=== PATIENT | male | born 1940 | race Caucasian/White ===

== ENCOUNTER 2017-01-23 15:36 | Emergency (ER) ==
[2017-01-23 15:44] VITALS: BP 189/91; TEMP 97.2; BMI 20.6
[2017-01-23 16:02] LABS: BILIRUBIN,URINE Negative (NEGATIVE); KETONES,URINE Negative (NEGATIVE); LEUKOCYTE ESTERASE ,URINE Negative (NEGATIVE); NITRITE,URINE Negative (NEGATIVE); PROTEIN,URINE 2+ (NEGATIVE); URINE, BLOOD 2+ (NEGATIVE)
[2017-01-23 16:03] LABS: ADD URINE MICROSCOPIC YES
--- NOTE | 2017-01-23 16:07 | ED.PDOC ---
General ED Provider: Dr. CRISS SOARES JR Chief Complaint: Urinary Problem Stated Complaint: INCREASING BLOOD IN HIS URINE FOR 4-5 DAYS....SAYS TODAY THE BLOOD IS QUITE A BIT MORE, HAS SENSE OF URGENCY AND PAIN WHEN HE URINATES[End] STATED HE HAS HAD ..MORE TODAY THATN BEFORE. BURNING WITH URINATION BUT OTHERWISE NO PAIN.[End]4-5 days 97.2 66 20 95% 189/91 12/20 Time Seen by Physician: 16:05 Mode of Arrival: Walk-In Information Source: Patient Exam Limitations: No limitations [facility] Nursing and Triage Documentation Reviewed and Agree: No Review of Systems - Review Of Systems Constitutional: Reports: Malaise Eyes: Reports: No symptoms Ears, Nose, Mouth, Throat: Reports: No symptoms Respiratory: Reports: No symptoms Cardiac: Reports: No symptoms GI: Reports: No symptoms : Reports: Burning, Dysuria, Flank pain (pulling in LLQ) Musculoskeletal: Reports: Back pain Skin: Reports: No symptoms Neurological: Reports: No symptoms Endocrine: Reports: No symptoms Hematologic/Lymphatic: Reports: No symptoms All Other Systems: Other Past Medical History - Past Medical History Previously Healthy: No Endocrine: Reports: None, Dyslipidemia Cardiovascular: Reports: CAD, Hypertension, A-Fib Respiratory: Reports: COPD Hematological: Reports: None Gastrointestinal: Reports: None Genitourinary: Reports: None, Kidney stones (KIDNEY STONE 20 YEARS AGO- states sees dr butt, last stone 6 weeks ago) Neuro/Psych: Reports: None Musculoskeletal: Reports: None Cancer: Reports: None - Surgical History General Surgical History: Reports: None (HAS STENTS), Stent (Cardiac STENT ) - Family History Family History: Reports: Unknown - Social History Smoking Status: Current every day smoker, Heavy tobacco smoker Hx Substance Use: No Alcohol Screening: None - Immunizations Tetanus Shot up to Date: Yes Physical Exam - Physical Exam Appearance: Well-appearing, Thin Pain Distress: Mild Eyes: CHERIE, EOMI, Conjunctiva clear ENT: Ears normal, Nose normal, Oropharynx normal Neck: Supple Respiratory: Airway patent, Breath sounds clear, Breath sounds equal, Respirations nonlabored Cardiovascular: RRR, Pulses normal, No rub, No murmur GI/: Soft, Nontender (drawing sensation left lower quadrant), No masses, Bowel sounds normal, No Organomegaly Musculoskeletal: Normal strength, ROM intact, No edema, No calf tenderness Skin: Warm, Dry, Normal color Neurological: Sensation intact, Motor intact, Reflexes intact, Cranial nerves intact, Alert, Oriented Psychiatric: Affect appropriate, Mood appropriate Interpretation - Radiology Interpretation Radiology Interpretation By: Radiologist Radiology Results: Positive Exam Interpreted: CT Scan (9mm stone in bladder) Critical Care Note - Critical Care Note Total Time (mins): 0 Course - Course Hematology/Chemistry: 01/23/17 16:15 01/23/17 16:15 Orders, Labs, Meds: Lab Review 01/23/17 01/23/17 15:50 16:15 WBC 8.20 RBC 5.16 Hgb 14.8 Hct 43.5 MCV 84.3 MCH 28.7 MCHC 34.0 RDW Coeff of Maty 15.1 H Plt Count 289 Immature Gran % (Auto) 0.2 Neut % (Auto) 52.7 Lymph % (Auto) 33.7 [place] % (Auto) 7.2 Eos % (Auto) 5.2 Baso % (Auto) 1.0 Immature Gran # (Auto) 0.0 Neut # 4.3 Lymph # 2.8 [place] # 0.6 Eos # 0.4 Baso # 0.1 Sodium 142 Potassium 3.7 Chloride 109 H Carbon Dioxide 29 Anion Gap 7.7 BUN 17 Creatinine 0.86 Estimated GFR (MDRD) 87.00 BUN/Creatinine Ratio 19.76 Glucose 93 Calcium 9.1 Total Bilirubin 0.26 AST 17 ALT 12 Alkaline Phosphatase 62 Total Protein 6.8 Albumin 3.6 Globulin 3.2 Albumin/Globulin Ratio 1.13 Urine Color Red Urine Clarity Cloudy Urine pH 7.0 Ur Specific [place] 1.025 Urine Protein 2+ Urine Glucose (UA) Negative Urine Ketones Negative Urine Blood 2+ Urine Nitrite Negative Urine Bilirubin Negative Urine Urobilinogen 0.2 Ur Leukocyte Esterase Negative Urine Microscopic RBC Tntc Urine Microscopic WBC 10-20 Ur Squamous Epith Cells Not present Amorphous Sediment Trace Urine Bacteria Trace RBC Casts 0-2 Urine Mucus Trace Orders Category Date Time Status CBC W/ AUTO DIFF Stat LAB 01/23/17 16:15 Completed COMPREHENSIVE METABOLIC PANEL Stat LAB 01/23/17 16:15 Completed UA [URINALYSIS C & S IF INDICATED] Stat LAB 01/23/17 15:50 Completed URINE CULTURE Stat LAB 01/23/17 16:[address] ABDOMEN/PELVIS WO CONTRAST Stat RADS 01/23/17 16:09 Completed Vital Signs: Temp Pulse Resp BP Pulse Ox 01/23/17 15:39 97.2 F L 66 20 189/91 H 95 Departure - Departure Time of Disposition: 17:26 Disposition: HOME SELF-CARE Discharge Problem: Nephrolithiasis Instructions: Kidney Stones (ED) Condition: Good Pt referred to PMD for follow-up: Yes Additional Instructions: CALL PMD FOR FOLLOW UP IN THE MORNING RECOMMEND UROLOGY FOLLOW UP STONE IN BLADDER SHOULD MAY PASS WITH DIFFICULTY INCREASE CLEAR LIQUIDS RETURN IF ANY DIFFICULTY URINATING OR IF NOT PASSING URINE Prescriptions: Nitrofurantoin Monohyd/M-Cryst [Macrobid] 100 mg PO BID #14 capsule Allergies/Adverse Reactions: Allergies No Known Allergies Allergy (Unverified 01/23/17 15:45) Home Medications: Ambulatory Orders Aspirin [Aspirin EC] 162 mg PO DAILYWM 08/12/13 Nitrofurantoin Monohyd/M-Cryst [Macrobid] 100 mg PO BID #14 capsule 01/23/17
[2017-01-23 16:16] LABS: BACTERIA,URINE TRACE (NOT PRESENT)
[2017-01-23 16:37] LABS: BASOPHILS # (AUTO) 0.1 K/uL (0-0.2); EOSINOPHILS # (AUTO) 0.4 K/ul (0.0-0.7); EOSINOPHILS % (AUTO) 5.2 % (0.0-7.0); HEMATOCRIT 43.5 % (42.0-52.0); HEMOGLOBIN 14.8 g/dl (14.0-18.0); IMMATURE GRANULOCYTE % (AUTO) 0.2 % (0.0-5.0); LYMPHOCYTES # (AUTO) 2.8 K/uL (0.60-3.4); LYMPHOCYTES % (AUTO) 33.7 (10.0-50.0); MEAN CORPUSCULAR HEMOGLOBIN 28.7 pg (27.0-31.0); MEAN CORPUSCULAR VOLUME 84.3 fl (80.0-94.0); MONOCYTES # (AUTO) 0.6 K/uL (0.4-2.0); MONOCYTES % (AUTO) 7.2 (0-10); NEUTROPHILS # (AUTO) 4.3 K/ul (2.0-6.9); NEUTROPHILS % (AUTO) 52.7; PLATELET COUNT 289 10^3/uL (140-440); RED BLOOD COUNT 5.16 10^6/ul (4.70-6.10)
[2017-01-23 16:43] LABS: ALBUMIN 3.6 g/dL (3.4-5.0); ALBUMIN/GLOBULIN RATIO 1.13; ANION GAP 7.7; BILIRUBIN,TOTAL 0.26 mg/dL (0.00-1.20); BUN/CREATININE RATIO 19.76; CALCIUM 9.1 mg/dL (8.2-10.2); CREATININE 0.86 mg/dL (0.60-1.10); POTASSIUM 3.7 mmol/L (3.5-5.1); TOTAL PROTEIN 6.8 g/dL (5.8-8.1)
--- NOTE | 2017-01-23 17:19 | CT ---
EXAM: CT scan of the abdomen and pelvis without contrast HISTORY: Abdominal pain TECHNIQUE: Imaging of the abdomen and pelvis was performed without contrast. 3 mm thin axial image s and coronal and sagittal images were provided for interpretation. Comparison 10/21/2016 CT scan of the abdomen and pelvis. FINDINGS: There is stable appearance of a cyst seen within the left lobe of the liver. The pancrea s, adrenal glands appear normal. The proximal ureters are normal size. The small and large bowel l oops are normal caliber. There is a small nonobstructing calculus seen within the inferior pole of the right kidney. There is no free air. No acute abnormalities are seen within the anterior abdomi nal wall. The appendix appears normal. The helical images obtained through the pelvis demonstrate a normal appearance of the rectum, urinar y bladder. There is diverticular disease of the sigmoid colon without acute inflammation. There is no free fluid seen within the pelvis. There is a 9 mm calculus seen within the lumen of the urinary bladder. Emphysematous changes are seen within the lung bases. No lytic or blastic lesions are see n within the osseous structures. IMPRESSION: There is no ureteral obstruction. There is no bowel obstruction or acute inflammatory change seen within the abdomen and pelvis. Nonobstructing nephrolithiasis seen within the right kidney. Diverticular disease of the sigmoid colon without acute inflammation. There is a 9 mm calculus seen within the urinary bladder. Pulmonary emphysema.
== END 2017-01-23 18:00 | disposition home or self-care (01) ==
LOC: ED 15:36
DX: N20.0 Calculus of kidney (principal); Z87.442 Personal history of urinary calculi; F17.210 Nicotine dependence, cigarettes, uncomplicated
CPT/HCPCS: 36415; 80053; 81001; 85025; 87086; 99282

== ENCOUNTER 2017-03-19 07:27 | Outpatient (CLI) ==
[2017-03-19 07:47] LABS: BASOPHILS # (AUTO) 0.1 K/uL (0-0.2); BASOPHILS % (AUTO) 0.8 % (0.0-3.0); EOSINOPHILS # (AUTO) 0.4 K/ul (0.0-0.7); EOSINOPHILS % (AUTO) 4.4 % (0.0-7.0); HEMATOCRIT 42.2 % (42.0-52.0); HEMOGLOBIN 14.2 g/dl (14.0-18.0); IMMATURE GRANULOCYTE % (AUTO) 0.2 % (0.0-5.0); LYMPHOCYTES # (AUTO) 2.9 K/uL (0.60-3.4); LYMPHOCYTES % (AUTO) 34.8 (10.0-50.0); MEAN CORPUSCULAR HEMOGLOBIN 28.9 pg (27.0-31.0); MEAN CORPUSCULAR HGB CONC 33.6 (31.8-35.4); MEAN CORPUSCULAR VOLUME 85.8 fl (80.0-94.0); MONOCYTES # (AUTO) 0.6 K/uL (0.4-2.0); MONOCYTES % (AUTO) 7.3 (0-10); NEUTROPHILS # (AUTO) 4.4 K/ul (2.0-6.9); NEUTROPHILS % (AUTO) 52.5; PLATELET COUNT 284 10^3/uL (140-440); RED BLOOD COUNT 4.92 10^6/ul (4.70-6.10); WHITE BLOOD COUNT 8.46 K/ul (4.2-10.2)
[2017-03-19 08:04] LABS: ALBUMIN 3.3 g/dL (3.4-5.0); ALBUMIN/GLOBULIN RATIO 1.14; BILIRUBIN,TOTAL 0.4 mg/dL (0.00-1.20); BUN/CREATININE RATIO 19.76; CALCIUM 8.5 mg/dL (8.2-10.2); CREATININE 0.86 mg/dL (0.60-1.10); TOTAL PROTEIN 6.2 g/dL (5.8-8.1)
== END 2017-03-19 07:28 | disposition home or self-care (01) ==
LOC: LAB 07:27
PROVIDERS: ATTEND Nurse Practitioner Family
DX: I10 Essential (primary) hypertension (principal); J44.9 Chronic obstructive pulmonary disease, unspecified
CPT/HCPCS: 36415; 80053; 80061; 85025

== ENCOUNTER 2017-03-21 07:35 | Outpatient (CLI) | payer OTHER ==
[2017-03-21 08:16] LABS: MAGNESIUM 1.9 mg/dL (1.7-2.2); POTASSIUM 3.3 mmol/L (3.5-5.1)
== END 2017-03-21 07:36 | disposition home or self-care (01) ==
LOC: LAB 07:35
PROVIDERS: ATTEND Nurse Practitioner Family
DX: E87.6 Hypokalemia (principal)
CPT/HCPCS: 36415; 83735; 84132

== ENCOUNTER 2017-03-26 11:13 | Outpatient (CLI) ==
[2017-03-26 14:24] LABS: ALBUMIN 3.5 g/dL (3.4-5.0); ALBUMIN/GLOBULIN RATIO 1.06; ANION GAP 14.5; BILIRUBIN,TOTAL 0.33 mg/dL (0.00-1.20); BUN/CREATININE RATIO 20.87; CALCIUM 8.9 mg/dL (8.2-10.2); CREATININE 0.91 mg/dL (0.60-1.10); POTASSIUM 3.5 mmol/L (3.5-5.1); TOTAL PROTEIN 6.8 g/dL (5.8-8.1)
== END 2017-03-26 11:14 | disposition home or self-care (01) ==
LOC: LAB 11:13
PROVIDERS: ATTEND Nurse Practitioner Family
DX: E87.6 Hypokalemia (principal); I10 Essential (primary) hypertension
CPT/HCPCS: 36415; 80053

== ENCOUNTER 2017-07-13 08:42 | Emergency (ER) ==
[2017-07-13 08:50] VITALS: BP 189/76; TEMP 98.7; BMI 18.5
[2017-07-13 09:31] LABS: HEMATOCRIT 37.9 % (42.0-52.0); MEAN CORPUSCULAR HEMOGLOBIN 28.7 pg (27.0-31.0); MEAN CORPUSCULAR HGB CONC 34.3 (31.8-35.4); MEAN CORPUSCULAR VOLUME 83.7 fl (80.0-94.0); PLATELET COUNT 281 10^3/uL (140-440); RED BLOOD COUNT 4.53 10^6/ul (4.70-6.10); WHITE BLOOD COUNT 12.12 K/ul (4.2-10.2)
--- NOTE | 2017-07-13 09:44 | CT ---
EXAM: CT of the chest without contrast. HISTORY: Cough. COMPARISON: 01/17/2016. TECHNIQUE: Contiguous axial images were obtained from lung apices to the upper abdomen. Study was performed without IV contrast. Sagittal and coronal reformats reviewed. FINDINGS: The lung windows demonstrate minimal emphysematous changes. There is no lobar consolidat ion or effusion. Fibrotic changes seen in the superior segment of the lower lobes bilaterally. Sub pleural blebs are seen bilaterally, right greater left. There are no suspicious pulmonary nodules. The airways are widely patent. The soft tissue windows demonstrate a normal size heart. There are coronary artery calcifications. Calcified mediastinal lymph nodes seen. There is no significant a denopathy. Limited views of the upper abdomen are unremarkable. The visualized portion of the liver, spleen, p ancreas adrenal glands are normal. The aorta is heavily calcified. There is curvature of the spine to the right, measuring approximately 22 degrees. No acute abnormal ities. IMPRESSION: 1. No acute pulmonary disease. 2. Emphysematous changes. 3. Granulomatous changes. 4. Coronary artery disease.
[2017-07-13 09:50] LABS: ANISOCYTOSIS NOT PRESENT (NOT PRESENT)
[2017-07-13 09:51] LABS: ALBUMIN 2.8 g/dL (3.4-5.0); ALBUMIN/GLOBULIN RATIO 0.8; ANION GAP 16.4; BILIRUBIN,TOTAL 0.42 mg/dL (0.00-1.20); BUN/CREATININE RATIO 16.45; CALCIUM 9.7 mg/dL (8.2-10.2); CREATININE 0.79 mg/dL (0.60-1.10); POTASSIUM 3.4 mmol/L (3.5-5.1); TOTAL PROTEIN 6.3 g/dL (5.8-8.1)
[2017-07-13 10:50] LABS: BILIRUBIN,URINE 1+ (NEGATIVE); KETONES,URINE Negative (NEGATIVE); LEUKOCYTE ESTERASE ,URINE Negative (NEGATIVE); NITRITE,URINE Negative (NEGATIVE); PROTEIN,URINE 1+ (NEGATIVE); URINE, BLOOD Trace-intact (NEGATIVE)
[2017-07-13 10:52] LABS: ADD URINE MICROSCOPIC YES
--- NOTE | 2017-07-13 11:22 | CT ---
EXAM: Noncontrast CT of the abdomen and pelvis. HISTORY: Abdominal pain. Elevated white blood cell count. COMPARISON: 01/23/2017 TECHNIQUE: Contiguous axial images at 3 mm intervals were obtained from lung bases through the pelv is. No contrast was given. Coronal reformats were reviewed. FINDINGS: The study is limited without contrast. CHEST: The lung bases show no lobar consolidation or effusion. Bullous disease is seen in the righ t base. Adjacent fibrotic changes seen. Coronary calcifications are noted.The heart size is within normal limits. ABDOMEN: Evaluation of the soft tissue organs is limited without contrast. LIVER: Noncontrast images of the liver show no solid mass lesion or intrahepatic ductal dilatation. There is a stable 2 x 3 cm cystic mass in the left lobe of liver. No other masses are seen. BILIARY: The gallbladder is normally distended. No gallstones are noted. No pericholecystic fluid or inflammation. The common bile duct is normal. SPLEEN: The spleen is unremarkable. PANCREAS: The pancreas shows no mass lesion or peripancreatic inflammation. ADRENAL GLANDS: The adrenal glands are normal. RENAL: The kidneys show no hydronephrosis. There is a nonobstructing 3 mm calcification in the inf erior right kidney. No obstructing stones are seen. There are no obstructing ureteral stones. No s olid mass lesions are identified. RETROPERITONEUM: The aorta is unopacified. No aneurysm is identified. Heavy aortic calcifications are seen. There is no retroperitoneal or mesenteric adenopathy. BOWEL: The bowel is unopacified. There is no obstruction or inflammatory change. There is no free fluid or free air. No significant inflammatory changes are seen. Diffuse diverticulosis is seen without definite evidence of acute diverticulitis. There is no surrounding inflammation or bowel wa ll thickening. The appendix is identified and is normal. PELVIS: BLADDER: The bladder is well distended and appears normal. GENITOURINARY STRUCTURES: The prostate is unremarkable. OSSEOUS STRUCTURES: The osseous structures are normal for age. IMPRESSION 1. No acute intra-abdominal abnormality. Limited study without contrast. No obstructing ureteral stones. 2. The appendix is normal. 3. Diverticulosis without definite evidence of acute diverticulitis. 4. Right nephrolithiasis without obstructing stones. 5. Atherosclerotic disease of the aorta. 6. Stable left renal cyst. 7. Coronary artery disease.
--- NOTE | 2017-07-13 11:49 | ED.PDOC ---
General ED Provider: Dr. SHELLEY YO Chief Complaint: Sore Throat Stated Complaint: sore throat Time Seen by Physician: 09:00 (seen with staff) Mode of Arrival: Walk-In Information Source: Patient Exam Limitations: No limitations [facility] and Triage Documentation Reviewed and Agree: Yes EENT Complaint Exam - Throat Complaint/Exam Symptoms Are: Resolved Timimg: Intermittent Initial Severity: Mild Current Severity: Mild Aggravating: Reports: None Alleviating: Reports: None Associated Signs and Symptoms: Reports: Cough. Denies: Fever, Dysphagia, Drooling, Foreign body sensation, Chills, Wheezing, Hoarseness, Sinus discomfort , Nasal congestion, Difficulty breathing, Lethargy, Irritability, Decreased activity, Vomiting, Diarrhea, Decreased hearing, Ear drainage Related History: Reports: Similar Episode Uvula Midline: Yes Heidi-tonsillar Fluctuence: No Scarlatinaform Rash Present: No Stridor Present: No Sinus Tenderness Present: No Tonsillar Hypertrophy Present: No Tonsillar Exudate Present: No Heidi-tonsillar Swelling Present: No Adenopathy Present: No Splenomegaly Present: No Differential Diagnoses: Pharyngitis Review of Systems - Review Of Systems Constitutional: Reports: Malaise, Weakness Eyes: Reports: No symptoms Ears, Nose, Mouth, Throat: Reports: No symptoms Respiratory: Reports: Cough Cardiac: Reports: No symptoms GI: Reports: Abdominal pain : Reports: No symptoms Musculoskeletal: Reports: No symptoms Skin: Reports: No symptoms Neurological: Reports: No symptoms Endocrine: Reports: No symptoms Hematologic/Lymphatic: Reports: No symptoms All Other Systems: Reviewed and Negative Past Medical History - Past Medical History Previously Healthy: No Endocrine: Reports: None, Dyslipidemia Cardiovascular: Reports: CAD, Hypertension, A-Fib Respiratory: Reports: COPD Hematological: Reports: None Gastrointestinal: Reports: None Genitourinary: Reports: None, Kidney stones (KIDNEY STONE 20 YEARS AGO- states sees dr butt, last stone 6 weeks ago) Neuro/Psych: Reports: None Musculoskeletal: Reports: None Cancer: Reports: None - Surgical History General Surgical History: Reports: None (HAS STENTS), Stent (Cardiac STENT ) - Family History Family History: Reports: Unknown - Social History Smoking Status: Current every day smoker, Heavy tobacco smoker Hx Substance Use: No Alcohol Screening: None Physical Exam - Physical Exam Appearance: Well-appearing, No pain distress, Well-nourished Eyes: CHERIE, EOMI, Conjunctiva clear ENT: Ears normal, Nose normal, Oropharynx normal Respiratory: Airway patent, Breath sounds clear, Breath sounds equal, Respirations nonlabored Cardiovascular: RRR, Pulses normal, No rub, No murmur GI/: Soft, Nontender, No masses, Bowel sounds normal, No Organomegaly Musculoskeletal: Normal strength, ROM intact, No edema, No calf tenderness Skin: Warm, Dry, Normal color Neurological: Sensation intact, Motor intact, Reflexes intact, Cranial nerves intact, Alert, Oriented Psychiatric: Affect appropriate, Mood appropriate Critical Care Note - Critical Care Note Total Time (mins): 0 Course - Course Hematology/Chemistry: 07/13/17 09:15 07/13/17 09:15 Orders, Labs, Meds: Lab Review 07/13/17 07/13/17 09:15 10:29 WBC 12.12 H RBC 4.53 L Hgb 13.0 L Hct 37.9 L MCV 83.7 MCH 28.7 MCHC 34.3 RDW Coeff of Maty 14.0 Plt Count 281 Neutrophils % (Manual) 63.0 Band Neutrophils % 7.0 H Lymphocytes % (Manual) 24.0 Monocytes % (Manual) 6.0 Anisocytosis Not present Sodium 142 Potassium 3.4 L Chloride 104 Carbon Dioxide 25 Anion Gap 16.4 BUN 13 Creatinine 0.79 Estimated GFR (MDRD) 96.00 BUN/Creatinine Ratio 16.45 Glucose 104 Calcium 9.7 Total Bilirubin 0.42 AST 19 ALT 13 Alkaline Phosphatase 75 Total Protein 6.3 Albumin 2.8 L Globulin 3.5 Albumin/Globulin Ratio 0.80 Urine Color Yellow Urine Clarity Slightly Urine pH 8.0 Ur Specific [place] 1.020 Urine Protein 1+ Urine Glucose (UA) Negative Urine Ketones Negative Urine Blood Trace-intact Urine Nitrite Negative Urine Bilirubin 1+ Urine Urobilinogen 4.0 Ur Leukocyte Esterase Negative Urine Microscopic RBC 2-5 Ur Squamous Epith Cells 0-2 Urine Mucus 3+ Orders Category Date Time Status CBC W/ AUTO DIFF Stat LAB 07/13/17 09:15 Completed COMPREHENSIVE METABOLIC PANEL Stat LAB 07/13/17 09:15 Completed LITHIUM Stat LAB 07/13/17 11:44 Ordered MANUAL DIFFERENTIAL Stat LAB 07/13/17 09:15 Completed MOLECULAR GROUP A STREP Stat LAB 07/13/17 09:15 Results STREP SCREEN Stat LAB 07/13/17 09:15 Results URINALYSIS C & S IF INDICATED Stat LAB 07/13/17 10:[address] ABDOMEN/PELVIS WO CONTRAST Stat RADS 07/13/17 10:[address] CHEST W/O CONTRAST Stat RADS 07/13/17 09:09 Completed Vital Signs: Temp Pulse Resp BP Pulse Ox 07/13/17 08:43 98.7 F 75 20 189/76 H 93 L Departure - Departure Time of Disposition: 11:48 Disposition: HOME SELF-CARE Discharge Problem: Sore throat symptom Instructions: Pharyngitis (ED), Viral Syndrome (ED) Condition: Good Pt referred to PMD for follow-up: Yes Additional Instructions: Please call your Family Physician as soon as possible to schedule a follow-up appointment. Allergies/Adverse Reactions: Allergies No Known Allergies Allergy (Verified 07/13/17 08:51) Home Medications: Ambulatory Orders Aspirin [Aspirin EC] 162 mg PO DAILYWM 08/12/13
[2017-07-13] MEDS ORDERED: DECADRON 4 MG/ML SDV IM STA (11:52)
== END 2017-07-13 12:00 | disposition home or self-care (01) ==
LOC: ED 08:42
DX: J02.9 Acute pharyngitis, unspecified (principal); R05 Cough; R53.1 Weakness; I10 Essential (primary) hypertension; E78.5 Hyperlipidemia, unspecified; I25.10 Atherosclerotic heart disease of native coronary artery without angina pectoris; F17.210 Nicotine dependence, cigarettes, uncomplicated; J44.9 Chronic obstructive pulmonary disease, unspecified; Z95.5 Presence of coronary angioplasty implant and graft
CPT/HCPCS: 36415; 80053; 80178; 81001; 85007; 85025; 87651; 87880; 99283

== ENCOUNTER 2017-09-09 11:30 | Inpatient (IN) ==
[2017-09-09 11:56] LABS: BASOPHILS # (AUTO) 0.1 K/uL (0-0.2); BASOPHILS % (AUTO) 0.7 % (0.0-3.0); EOSINOPHILS # (AUTO) 0.1 K/ul (0.0-0.7); EOSINOPHILS % (AUTO) 1.3 % (0.0-7.0); HEMATOCRIT 42.6 % (42.0-52.0); HEMOGLOBIN 14.4 g/dl (14.0-18.0); IMMATURE GRANULOCYTE % (AUTO) 0.3 % (0.0-5.0); LYMPHOCYTES # (AUTO) 1.8 K/uL (0.60-3.4); LYMPHOCYTES % (AUTO) 20.6 (10.0-50.0); MEAN CORPUSCULAR HEMOGLOBIN 28.7 pg (27.0-31.0); MEAN CORPUSCULAR HGB CONC 33.8 (31.8-35.4); MEAN CORPUSCULAR VOLUME 84.9 fl (80.0-94.0); MONOCYTES # (AUTO) 0.9 K/uL (0.4-2.0); MONOCYTES % (AUTO) 10.7 (0-10); NEUTROPHILS # (AUTO) 5.7 K/ul (2.0-6.9); NEUTROPHILS % (AUTO) 66.4; PLATELET COUNT 260 10^3/uL (140-440); RED BLOOD COUNT 5.02 10^6/ul (4.70-6.10)
--- NOTE | 2017-09-09 12:19 | DI ---
EXAM: Two views of the chest. History: Chest pain. Comparison: Chest radiograph 09/26/2016 Findings: Heart size is within normal limits. Atherosclerotic vascular calcifications. Emphysema a gain noted. No focal consolidation. No appreciable pleural fluid and no pneumothorax. Chronic comp ression deformity within the mid thoracic spine. Impression: No acute cardiopulmonary process. Emphysema.
[2017-09-09 12:21] LABS: ALBUMIN 3.4 g/dL (3.4-5.0); ALBUMIN/GLOBULIN RATIO 0.97; ANION GAP 13.9; BILIRUBIN,TOTAL 0.6 mg/dL (0.00-1.20); BUN/CREATININE RATIO 21.68; CALCIUM 9.2 mg/dL (8.2-10.2); CREATININE 0.83 mg/dL (0.60-1.10); POTASSIUM 3.9 mmol/L (3.5-5.1); TOTAL PROTEIN 6.9 g/dL (5.8-8.1); TROPONIN I 0.09 ng/ml (0.0000-0.4000)
--- NOTE | 2017-09-09 13:01 | ED.PDOC ---
General ED Provider: Dr. SHELLEY YO Chief Complaint: Chest Pain Stated Complaint: CHEST PAIN Time Seen by Physician: 11:33 (CHEST PAIN X1 DAY) Mode of Arrival: Walk-In Information Source: Patient Exam Limitations: No limitations [facility] Nursing and Triage Documentation Reviewed and Agree: Yes (SEEN WITH NURSING STAFF AT ALL TIME ARRIVAL AND DISCHARGE(MU LOYOLA)) Cardiovascular Complaint Exam - Chest Pain Complaint/Exam Onset: Gradual Duration: 1 DAY PAIN HAS RESOLVED Length of Chest Pain Episodes: 1 DAY Initial Severity: Moderate Current Severity: None Location: Reports: Midsternal Pain Radiates: Reports: None Character: Reports: Dull, Aching, Tightness Aggravating: Reports: None Alleviating: Reports: None Associated Signs and Symptoms: Denies: Diaphoresis, Nausea, Vomiting, Fever, Palpitations, Cough, Hemoptysis, Back pain, Abdominal pain, Dizziness, Short of air, Calf pain, Calf swelling Related History: Reports: Similar episode Related Surgical History: Reports: None History of Healthcare-Acquired Pneumonia: Reports: No AMI/ACS Risk Factors: Reports: Myocardial Infarction, Sedentary, Hypertension, Dyslipidemia TAD Risk Factors: Reports: Hypertension, Smoking Pulmonary Embolism Risk Factors: Reports: Bedrest, Smoking Prior Care for this Complaint: Yes Recent Stress Test: No Recent Echo/LV Function: No JVD Present: No Subcutaneous Emphysema Present: No Diminshed Breath Sounds: Yes Reproducible Chest Wall Pain: No Bilateral Pulses Present: Yes Unequal Pulses Noted: No If Risk Factors for AMI/ACS Consider: EKG, Cardiac Enzymes Differential Diagnoses: Acute WI, ACS, Stable Angina, Unstable Angina, Chest Wall Pain, GI Diseasae, Lower Resp. Infection Quality Indicators For Acute WI or Cardiac Chest Pain: EKG in 10min. Patient Advised to Stop Smoking: Yes Review of Systems - Review Of Systems Constitutional: Reports: Malaise Eyes: Reports: No symptoms Ears, Nose, Mouth, Throat: Reports: No symptoms Respiratory: Reports: Cough Cardiac: Reports: Chest pain GI: Reports: No symptoms : Reports: No symptoms Musculoskeletal: Reports: No symptoms Skin: Reports: No symptoms Neurological: Reports: No symptoms Endocrine: Reports: No symptoms Hematologic/Lymphatic: Reports: No symptoms All Other Systems: Reviewed and Negative Past Medical History - Past Medical History Previously Healthy: No Endocrine: Reports: None, Dyslipidemia Cardiovascular: Reports: CAD, Hypertension, A-Fib Respiratory: Reports: COPD Hematological: Reports: None Gastrointestinal: Reports: None Genitourinary: Reports: None, Kidney stones (KIDNEY STONE 20 YEARS AGO- states sees dr butt, last stone 6 weeks ago) Neuro/Psych: Reports: None Musculoskeletal: Reports: None Cancer: Reports: None - Surgical History General Surgical History: Reports: None (HAS STENTS), Stent (Cardiac STENT ) - Family History Family History: Reports: Unknown - Social History Smoking Status: Current every day smoker, Heavy tobacco smoker Hx Substance Use: No Alcohol Screening: None - Immunizations Tetanus Shot up to Date: No Physical Exam - Physical Exam Appearance: Well-appearing, No pain distress, Well-nourished Eyes: CHERIE, EOMI, Conjunctiva clear ENT: Ears normal, Nose normal, Oropharynx normal Respiratory: Rhonchi Cardiovascular: RRR, Pulses normal, No rub, No murmur GI/: Soft, Nontender, No masses, Bowel sounds normal, No Organomegaly Musculoskeletal: Normal strength, ROM intact, No edema, No calf tenderness Skin: Warm, Dry, Normal color Neurological: Sensation intact, Motor intact, Reflexes intact, Cranial nerves intact, Alert, Oriented Psychiatric: Affect appropriate, Mood appropriate Interpretation - Radiology Interpretation Radiology Interpretation By: Radiologist Radiology Results: No acute changes Exam Interpreted: CXR Re-Evaluation - Re-Evaluation Time of Re-Evaluation: 12:00 Status: Improved Vital Signs Stable: Yes Pain Level: 0 Appearance: NAD Lungs: Clear Skin: Warm and Dry Neuro: Alert and Oriented X3 CV: RRR - Re-Evaluation Time of Re-Evaluation: 13:03 Status: Improved Vital Signs Stable: Yes Pain Level: 0 Appearance: NAD Skin: Warm and Dry Neuro: Alert and Oriented X3 CV: RRR Physician Notification - Case Discussed Physician Notified: PMD Time of Notification: 13:02 (ADMITT) Admit To: Inpatient Critical Care Note - Critical Care Note Total Time (mins): 0 Course - Course Hematology/Chemistry: 09/09/17 11:50 09/09/17 11:50 Orders, Labs, Meds: Lab Review 09/09/17 09/09/17 11:50 11:50 WBC 8.60 RBC 5.02 Hgb 14.4 Hct 42.6 MCV 84.9 MCH 28.7 MCHC 33.8 RDW Coeff of Maty 14.8 Plt Count 260 Immature Gran % (Auto) 0.3 Neut % (Auto) 66.4 Lymph % (Auto) 20.6 [place] % (Auto) 10.7 H Eos % (Auto) 1.3 Baso % (Auto) 0.7 Immature Gran # (Auto) 0.0 Neut # 5.7 Lymph # 1.8 [place] # 0.9 Eos # 0.1 Baso # 0.1 Sodium 139 Potassium 3.9 Chloride 106 Carbon Dioxide 23 Anion Gap 13.9 BUN 18 Creatinine 0.83 Estimated GFR (MDRD) 90.00 BUN/Creatinine Ratio 21.68 Glucose 94 Calcium 9.2 Total Bilirubin 0.60 AST 17 ALT 8 L Alkaline Phosphatase 75 Total Creatine Kinase 65 Troponin I 0.0900 Total Protein 6.9 Albumin 3.4 Globulin 3.5 Albumin/Globulin Ratio 0.97 Orders Category Date Time Status EKG-(ED ONLY) Stat CARDIO 09/09/17 11:37 Completed ED IV/MEDIPORT/POWERPORT .ONCE EMERGENCY 09/09/17 11:38 Active CBC W/ AUTO DIFF Stat LAB 09/09/17 11:50 Completed COMPREHENSIVE METABOLIC PANEL Stat LAB 09/09/17 11:50 Completed CREATINE KINASE Stat LAB 09/09/17 11:50 Completed TROPONIN I Stat LAB 09/09/17 11:50 Completed 0.9 % Sodium Chloride [Saline Flush] MEDS 09/09/17 11:37 Active 1 syr IVF PRN PRN CHEST, 2 VIEWS PA & LAT Stat RADS 09/09/17 11:37 Completed Medications Generic Name Dose Route Start Last Admin Trade Name Freq PRN Reason Stop Dose Admin Sodium Chloride 1 syr 09/09/17 11:37 Saline Flush IVF PRN PRN To flush IV Vital Signs: Temp Pulse Resp BP Pulse Ox 09/09/17 11:31 98.5 F 62 24 172/79 H 97 NAYA Risk Score NAYA Risk Score: Risk Score Odds of by 30D 0 0.1 (0.1-0.2) 1 0.3 (0.2-0.3) 2 0.4 (0.3-0.5) 3 0.7 (0.6-0.9) 4 1.2 (1.0-1.5) 5 2.2 (1.9-2.6) 6 3.0 (2.5-3.6) 7 4.8 (3.8-6.1) Departure - Departure Time of Disposition: 13:03 Disposition: HOME SELF-CARE Discharge Problem: Chest pain Instructions: Chest Pain (ED), Angina (ED) Condition: Good Pt referred to PMD for follow-up: Yes Additional Instructions: Please call your Family Physician as soon as possible to schedule a follow-up appointment. Allergies/Adverse Reactions: Allergies No Known Allergies Allergy (Verified 07/13/17 08:51) Home Medications: Ambulatory Orders Aspirin [Aspirin EC] 162 mg PO DAILYWM 08/12/13 Potassium 1 tab PO DAILY 09/09/17 Disposition Discussed With: Patient
[2017-09-09] MEDS ORDERED: SODIUM CHLORIDE 1,000 ML IV SCH ×2 (13:30→14:30)
[2017-09-09] MEDS ORDERED: PROAIR HFA IH PRN (13:30)
[2017-09-09 14:37] VITALS: BMI 18.2
[2017-09-09 15:25] LABS: CHOL/HDL RATIO 4.1 (4.5-6.4)
[2017-09-09] MEDS: SOLU-MEDROL 40 MG IVP SCH ×2 (15:36→21:52)
[2017-09-09 19:47] LABS: TROPONIN I 0.053 ng/ml (0.0000-0.4000)
[2017-09-09] MEDS ORDERED: CARDIZEM CD PO SCH (21:00)
[2017-09-09] MEDS: SYMBICORT 160-4.5 MCG INHALER IH SCH (21:51)
[2017-09-09] MEDS: DUONEB NEB SCH (22:15)
[2017-09-10 03:34] LABS: BASOPHILS % (AUTO) 0.2 % (0.0-3.0); HEMATOCRIT 40.2 % (42.0-52.0); HEMOGLOBIN 13.8 g/dl (14.0-18.0); IMMATURE GRANULOCYTE % (AUTO) 0.4 % (0.0-5.0); LYMPHOCYTES # (AUTO) 0.7 K/uL (0.60-3.4); LYMPHOCYTES % (AUTO) 13.5 (10.0-50.0); MEAN CORPUSCULAR HEMOGLOBIN 28.8 pg (27.0-31.0); MEAN CORPUSCULAR HGB CONC 34.3 (31.8-35.4); MEAN CORPUSCULAR VOLUME 83.8 fl (80.0-94.0); MONOCYTES # (AUTO) 0.1 K/uL (0.4-2.0); MONOCYTES % (AUTO) 1.9 (0-10); NEUTROPHILS # (AUTO) 4.4 K/ul (2.0-6.9); PLATELET COUNT 222 10^3/uL (140-440)
[2017-09-10 03:56] LABS: ALBUMIN 2.9 g/dL (3.4-5.0); ALBUMIN/GLOBULIN RATIO 0.83; ANION GAP 11.9; BILIRUBIN,TOTAL 0.29 mg/dL (0.00-1.20); BUN/CREATININE RATIO 24.39; CALCIUM 8.8 mg/dL (8.2-10.2); CREATININE 0.82 mg/dL (0.60-1.10); POTASSIUM 3.9 mmol/L (3.5-5.1); TOTAL PROTEIN 6.4 g/dL (5.8-8.1)
[2017-09-10 04:02] LABS: TROPONIN I 0.042 ng/ml (0.0000-0.4000)
[2017-09-10] MEDS: DUONEB NEB SCH ×2 (04:48→13:10)
[2017-09-10 05:30] VITALS: BP 124/63; TEMP 96.4
[2017-09-10] MEDS ORDERED: PROTONIX PO SCH (06:30)
[2017-09-10] MEDS ORDERED: ASPIRIN EC PO SCH ×2 (08:00)
[2017-09-10] MEDS ORDERED: KLOR-CON 8 MEQ PO SCH (09:00)
[2017-09-10] MEDS ORDERED: POTASSIUM PO SCH (09:00)
[2017-09-10] MEDS ORDERED: ZESTRIL PO SCH (09:00)
[2017-09-10] MEDS: SYMBICORT 160-4.5 MCG INHALER IH SCH (10:28)
[2017-09-10] MEDS: SOLU-MEDROL 40 MG IVP SCH (10:51)
[2017-09-10] MEDS ORDERED: PRAVACHOL PO SCH (21:00)
--- NOTE | 2017-09-13 10:04 | ECHO2D ---
Date of Exam: 09/10/17 Ordering Physician: SANAZ WILKS Room #: 111 Reason for Echo: HYPERTENSION, CAD, CHEST PAIN M-Mode Normal Adult Results LV Dimensions Normal Adult Results AoV Opening excursions >1.6 >1.6 LVEDD-base- 3.5-5.8 4.4 Ao root dimensions 2.0-3.7 3.6 LVESD-base- 3.1-4.6 L. Atrium dimensions 1.9-3.8 4.0 Post. Wall thickness 0.8-1.1 1.2 IV septum (thickness) 0.7-1.2 1.2 Post. Wall excursion 0.72-1.3 NORMAL Septal motion NORMAL Systolic motion R. Ventricular cavity 1.5-2.0 3.0 LVEF 60% 75% Paradoxical septal wall motion NORMAL 2-D : 2-D M Mode Echocardiogram was performed using apical four chamber and left parasternal long and short axis views. Mitral, tricuspid and aortic valves appear to be normal. Contractility of the left ventricle seems to be normal, so is the cavity size. Left atrial cavity size and aortic root appear to be normal. There is no pericardial effusion. There is no thrombus noted in the left ventricular or left aortic cavity. No mitral valve prolapse noted. M-MODE: MV: NORMAL AV: NORMAL TV: NORMAL PV: CHAMBER SIZE: ENLARGED RIGHT VENTRICLE CAVITY WALL MOTION: NORMAL PERICARDIUM: NORMAL INTERPRETATION: 1. BORDERLINE LEFT VENTRICULAR HYPERTROPHY 2. ENLARGED RIGHT VENTRICLE CAVITY 3. NORMAL LEFT VENTRICULAR CONTRACTILITY 4. NORMAL VALVES MTDD
--- NOTE | 2017-09-13 10:07 | ECHOSTRESS ---
Date of Exam: 09/10/17 Ordering Physician: SANAZ WLIKS Reason for Echo: CHEST PAIN, HTN, STENTS M-Mode Normal Adult Results LV Dimensions Normal Adult Results AoV Opening excursions >1.6 LVEDD-base- 3.5-5.8 Ao root dimensions 2.0-3.7 LVESD-base- 3.1-4.6 L. Atrium dimensions 1.9-3.8 Post. Wall thickness 0.8-1.1 IV septum (thickness) 0.7-1.2 Post. Wall excursion 0.72-1.3 Septal motion Systolic motion R. Ventricular cavity 1.5-2.0 LVEF 60% Paradoxical septal wall motion 2-D: NORMAL LEFT VENTRICULAR CONTRACTILITY--RESTING AND POST EXERCISE M-MODE: MV: AV: TV: PV: CHAMBER SIZE: WALL MOTION:NORMAL LEFT VENTRICULAR CONTRACTILITY--RESTING AND POST EXERCISE PERICARDIUM: INTERPRETATION: 1. NORMAL LEFT VENTRICULAR CONTRACTILITY--RESTING AND POST EXERCISE MTDD
--- NOTE | 2017-09-17 07:56 | STRESSMOD ---
Ordering Physician: JANE METCALF Date of Test: 09/10/17 Medical History: CHEST PAIN, HTN, STENTS Current Medications: ASA, SYMBICORT, PROAIR, PROTONIX, DILTIAZEM, LISINOPRIL, POTASSIUM Physical Findings: S1, S2, NO S3 Resting EKG: SINUS RHYTHM/ LEFT VENTRICULAR HYPERTROPHY Target Heart Rate: 123/ 145 STAGE MPH/GRADE HEART RATE BPM BLOOD PRESSURE mmhg RHYTHM S-T SEGMENT UP DOWN SYMPTOMS,COMMENTS At Rest 70 172/80 SR X NONE 1 1.7/0% 100 185/92 SR X NONE 2 1.7/5% 3 1.7/10% 4 2.5/12% 5 3.4/14% 6 4.2/16% 7 5.18% Immediately after 110 SR SR FATIGUE Total Time: 8:00 Maximum Heart Rate Reached: 110 Reason for Termination: FATIGUE 3 MINUTES POST EXERCISE: HR 80 BPM, BP 160/75 MMHG, SR, +/- INTERPRETATION: 94% OXYGEN SATURATION WITH EXERCISE ON ROOM AIR METS 4.6 1. NO EVIDENCE OF ISCHEMIA BY ST-T WAVE (HEART RATE 70 BPM TO 110 BPM WITH EXERCISE) 2. METS 4.6 3. NO CHEST PAIN OR DISCOMFORT 4. BLOOD PRESSURE RESPONSE: BORDERLINE HYPERTENSION 5. NO ARRHYTHMIAS NORMAL LEFT VENTRICULAR CONTRACTILITY--RESTING AND POST EXERCISE MTDD
--- NOTE | 2017-09-18 14:48 | CONS ---
DATE OF CONSULTATION: 09/09/17 REASON FOR CONSULTATION: Chest pain. HISTORY OF PRESENT ILLNESS: 76-year-old white male hospitalized through the Emergency Room with chest pain. The patient's chest pain was substernal, lower part, steady for a day and one- half. The patient denied any sweating, no radiation of pain to any other part. It went on the upper part of the sternum. The patient has history of reflux disease for many years according to him. The patient also has history of coronary artery disease with stent, [address] Brennan. REVIEW OF SYSTEMS: CONSTITUTIONAL: No night sweats. Fatigue and weakness. No fever or chills. HEENT: Eyes: No visual changes. No eye pain. No eye discharge. ENT: No sinus drainage. No epistaxis. No sinus pain. No sore throat. No odynophagia. No ear pain. No congestion. RESPIRATORY: Mild cough, no congestion. No hemoptysis. No shortness of breath. CARDIOVASCULAR: No angina symptoms. No CHF symptoms. Chest pain, steady, lower part of sternum, achy feeling for a day and one-half. No sweating. No shortness of breath The pain radiates to the upper part of the sternum. No palpitations. No orthopnea. GASTROINTESTINAL: No abdominal pain. No nausea or vomiting. No diarrhea or constipation. No hematemesis. No hematochezia. GENITOURINARY: No urgency. No frequency. No dysuria. No hematuria. No obstructive symptoms. No discharge. No pain. No significant abnormal bleeding. MUSCULOSKELETAL: No musculoskeletal pain. No joint swelling. NEUROLOGICAL: No headache. No neck pain. No syncope. No seizures. No dizziness. PSYCHIATRIC: Not anxious. No depression. No suicidal thoughts. No homicidal thoughts. SKIN: No rash. No lesions. No wounds. ENDOCRINE: No unexplained weight loss. No weight gain. HEMATOLOGIC/LYMPHATIC: No anemia. No purpura. No petechiae. No prolonged or excessive bleeding. No palpable lymph nodes. MEDICATIONS: Aspirin Symbicort Albuterol ProAir HFA Protonix Diltiazem Lisinopril Potassium ALLERGIES: NKDA PAST MEDICAL/SURGICAL HISTORY: Coronary artery disease Dyslipidemia Hypertension SOCIAL/PERSONAL/FAMILY HISTORY: The patient lives with granddaughter, does all activity of daily living. Nonsmoker. No alcohol abuse. PHYSICAL EXAMINATION: GENERAL: The patient is oriented to time, place and person. VITAL SIGNS: Temperature 97.4, pulse 67/min, respiratory rate 20, BP 130/70, pulse ox 96%. HEENT: Head normocephalic, atraumatic. Eyes: Extraocular muscles are intact. Pupils are equal, round and reactive to light and accommodation. Ears: No lesions. Nose appeared normal. Throat: No exudate or erythema. NECK: Supple. No JVD, no carotid bruit. No lymphadenopathy or thyromegaly. LUNGS: Decreased breath sounds but clear to auscultation. Percussion note normal. Chest symmetrical. HEART: S1, S2, no S3. No murmurs. No cyanosis or clubbing. No ascites. Pulses: Dorsalis pedis and posterior tibial pulses +1 bilaterally. ABDOMEN: Soft. Nontender. Bowel sounds active. No CVA tenderness. No mass felt. EXTREMITIES: No edema. Full range of motion of all extremities, equal. NEUROLOGIC: No focal deficit. Cranial nerves II through XII are grossly intact. No headache, no double vision or headache. SKIN: Warm, dry. Intact. Turgor - normal. LYMPHATIC: No palpable lymph nodes/no lymphedema. MUSCULOSKELETAL: Normal joints with no swelling. Muscle tone is normal. LABS: Hemoglobin done yesterday 14.4, hematocrit 42, WBC 8,600, normal differential. Creatinine 0.8, BUN 18, potassium 3.9. Cardiac markers negative yesterday. EKG sinus rhythm like changes. Telemetry sinus rhythm. No ST-T wave change. ASSESSMENT: 1. CHEST PAIN SEEMS TO BE NONCARDIAC, COULD BE REFLUX DISEASE. 2. THE PATIENT HAS HISTORY OF CORONARY ARTERY DISEASE WITH STENT 7 YEARS AGO. 3. CHRONIC LUNG DISEASE. 4. DYSLIPIDEMIA. 5. HYPERTENSION. PLAN: 1. Echocardiogram to evaluate LV function. 2. Stress echo. The patient says he should be able to walk. 3. Continue telemetry. 4. Continue cardiac markers. CONDITION: Seems to be stable for now. EDUCATION CARRIED OUT ABOUT: Coronary artery disease and risk factor education carried out. The patient's BMI is 18 and is acceptable. Total cholesterol is 176. Do not know the LDL so don't have idea about his non HDL but non HDL should be 100 with history of coronary artery disease and stent. Discussed with the patient unless there is a contraindication, the patient should be on statin with history of stent formation. Will start Pravacol 20 mg p.o. q.a.m. Thanks for the referral. Will follow. MTDD
--- NOTE | 2017-09-19 11:55 | CONS ---
DATE OF SERVICE: 09/10/17 CONSULT FOLLOWUP SUBJECTIVE: 76-year-old white male seen on consultation for chest pain. The patient's chest pain was fairly atypical, more like reflux type of symptoms, lower sternal end, steady pain. The patient did not have any chest pain on the day that I performed the stress echocardiogram. REVIEW OF SYSTEMS: CONSTITUTIONAL: No night sweats. No fatigue, malaise, lethargy. No fever or chills. HEENT: Eyes: No visual changes. No eye pain. No eye discharge. ENT: No runny nose. No epistaxis. No sinus pain. No sore throat. No odynophagia. No congestion. RESPIRATORY: No cough, no congestion. No hemoptysis. No shortness of breath. CARDIOVASCULAR: No angina symptoms. No CHF symptoms. No atypical chest pain for CAD. No palpitations. No orthopnea. GASTROINTESTINAL: No abdominal pain. No nausea or vomiting. No diarrhea or constipation. No hematemesis. No hematochezia. GENITOURINARY: No urgency. No frequency. No dysuria. No hematuria. No obstructive symptoms. No discharge. No pain. No significant abnormal bleeding. MUSCULOSKELETAL: No musculoskeletal pain; no joint swelling. NEUROLOGICAL: No headache. No neck pain. No syncope. No seizures. No dizziness. PSYCHIATRIC: Not anxious. No depression. No suicidal thoughts. No homicidal thoughts. SKIN: No rash. No lesions. No wounds. ENDOCRINE: No unexplained weight loss. No weight gain. HEMATOLOGIC/LYMPHATIC: No anemia. No purpura. No petechiae. No prolonged or excessive bleeding. No palpable lymph nodes. PHYSICAL EXAMINATION: HEENT: Head normocephalic, atraumatic. Eyes: Extraocular muscles are intact. Pupils are equal, round and reactive to light and accommodation. Ears: No lesions. Nose appeared normal. Throat: No exudate or erythema. NECK: Supple. No JVD, no carotid bruit. No lymphadenopathy or thyromegaly. LUNGS: Decreased breath sounds but clear to auscultation. Percussion note normal. Chest symmetrical. HEART: S1, S2, no S3. No murmurs. No cyanosis or clubbing. No ascites. Pulses: Dorsalis pedis and posterior tibial pulses +1 to +2 both sides. ABDOMEN: Soft. Nontender. Bowel sounds active. No CVA tenderness. No mass felt. EXTREMITIES: No edema. Full range of motion of all extremities, equal. NEUROLOGIC: No focal deficit. Cranial nerves II through XII are grossly intact. No headache, no double vision or headache. SKIN: Not dry. Intact. Turgor - normal. LYMPHATIC: No palpable lymph nodes/no lymphedema. MUSCULOSKELETAL: Normal joints with no swelling. Muscle tone is normal. ASSESSMENT: Chest pain seems to be fairly atypical for coronary insufficiency. The patient had a steady ache. The patient's cardiac markers are negative. EKG shows sinus rhythm. No acute changes. The patient had P. pulmonale indicating pulmonary disease, poor R wave progression. The patient has history of coronary artery disease with stent. He has continued to smoke. In my earlier notes I indicated that he is a nonsmoker but the patient is a smoker for many years. The patient was put on modified Kenn protocol where he went for nearly 8 minutes. METS 4.8 , heart rate from 60 to 70 to 110/min achieved with exercise with no chest pain. No ST-T wave change of any significance. The patient has some baseline abnormal ST-T waves that practically remain unchanged. Echocardiogram at rest showed normal LV contractility. Post exercise also patient had normal LV contractility. According to the daughter, the patient is very active, plays outside with the kids, has no angina type of symptoms. Considering all this information, the patient's chest pain seems to be noncardiac. CAD risk factors discussed with the patient. The patient needs to be on Pravachol, non-HDL fraction should be less than 100. Counseling for smoking done. The patient's blood pressure response to exercise was borderline high, could be controlled with increasing the dose of Lisinopril from 10 to 20 to 40 if needed. TIME SPENT: More than 30 minutes. Plan and coordination of the patient's care discussed in the presence of nurse. CC: ARELY MELTON
--- NOTE | 2017-09-19 12:29 | PN ---
CODING FOR BILLING 09/10/17 LEVEL 5 MTDD
--- NOTE | 2017-10-16 15:03 | HP ---
DATE OF SERVICE: 09/09/17 CHIEF COMPLAINT/HISTORY OF PRESENT ILLNESS: This is a 76-year-old male with history of COPD, hypertension, history of CAD status post stent came to the emergency room with left-sided chest tightness, not radiating, not aggravating, started last night. As pain was not getting better, the patient came to the emergency room for evaluation and seen by Dr. Goetz in the emergency room. CBC, CMP and EKG were normal. In view of patient' s risk of coronary artery disease, the patient was admitted to the hospital for acute coronary syndrome. REVIEW OF SYSTEMS: CONSTITUTIONAL: Weakness, tiredness. No fever, no chills. HEENT: Normal. ENDOCRINE: No weight gain; no weight loss. CVS: Positive for chest tightness. No chest pain. No PND, no orthopnea. No shortness of breath. No PND, no orthopnea. RESPIRATORY: No cough, no congestion. No hemoptysis. GI: No nausea, no vomiting. No abdominal pain. No melena. : No hematuria. No polyuria. MUSCULOSKELETAL: No joint swelling. PSYCHIATRIC: Not anxious. No depression. No suicidal thoughts. No homicidal thoughts. SKIN: Intact, no open lesions. PAST MEDICAL HISTORY: COPD HYPERTENSION CAD STATUS POST STENT, SIX YEARS AGO HISTORY OF IRREGULAR HEARTBEAT HYPERTENSION PAST SURGICAL HISTORY: None PERSONAL HISTORY: The patient does smoke. No alcohol. No drugs. FAMILY HISTORY: Significant for heart problems. MEDICATIONS: (HOME) Aspirin Symbicort Albuterol Protonix Diltiazem Lisinopril Potassium ALLERGIES: NKDA PHYSICAL EXAMINATION: V/S: BP 172/79, respiratory rate 24, heart rate 62, temperature 98.5, saturation 97. GENERAL: Cachetic male lying in bed. HEENT: Atraumatic, normocephalic. No scleral icterus. Pallor positive. Mucosa dry. NECK: Supple. No JVD, no bruit. No lymphadenopathy. No thyromegaly. HEART: S1, S2 normal. No murmur. No cyanosis or clubbing. No ascites. LUNGS: Clear to auscultation. No rales or rhonchi. ABDOMEN: Soft, nontender. Bowel sounds are active. No CVA tenderness. No rigidity or guarding. EXTREMITIES: No cyanosis, clubbing or pedal edema. MUSCULOSKELETAL: Normal joints, no swelling. NEUROLOGIC: The patient is awake, alert and oriented times three. SKIN: Intact; no open lesions. LYMPHATIC: No lymph nodes palpable. LABS: Sodium 139, potassium 3.9, chloride 106, bicarb 23, BUN 18, creatinine 0.83, glucose 94. White count 8.60, hemoglobin 14.4, hematocrit 42.6, platelet count 260. ASSESSMENT: 1. CHEST PAIN, RULE OUT ACS 2. CAD STATUS POST STENT 3. HYPERTENSION 4. DYSLIPIDEMIA 5. COPD PLAN: 1. Admit patient to the regular floor. 2. CBC, CMP today and daily 3. Cardiac enzymes and troponin 4. TSH 5. Lipid profile 10. Chest x-ray 11. Cardiology consultation 12. Will follow with the patient in daily rounds TIME SPENT: MORE THAN 70 minutes MTDD
--- NOTE | 2017-10-16 15:27 | PN ---
DATE OF SERVICE: 09/10/17 SUBJECTIVE: The patient was admitted with chest tightness. He says he is feeling better. He went for echocardiogram and stress echo otherwise no PND, no orthopnea. Cough and congestion is better with breathing treatment and steroids. REVIEW OF SYSTEMS: CONSTITUTIONAL: No fever, no chills. HEENT: Normal. ENDOCRINE: No weight gain, no weight loss. CVS: No angina symptoms. No CHF symptoms. No palpitations. No atypical chest pain for CAD. No shortness of breath. No PND, no orthopnea. RESPIRATORY: Cough and congestion better. No hemoptysis. GI: No nausea, no vomiting. No abdominal pain. : No hematuria. No polyuria. MUSCULOSKELETAL:. No joint swelling. PSYCHIATRIC: Not anxious. No depression. No suicidal thoughts. No homicidal thoughts. SKIN: Intact. No rash. PHYSICAL EXAMINATION: V/S: BP 124/63, respiratory rate 20, heart rate 69, temperature 96.4, saturation 95 on room air. GENERAL: The patient is cachetic, thin patient. HEENT: Normocephalic, atraumatic. Mucosa dry, pallor positive. No icterus. NECK: Supple. No JVD, no carotid bruit. No lymphadenopathy. LUNGS: Decreased with basilar crackles. Clear to auscultation. No rales or rhonchi. HEART: S1, S2 normal. No S3. No murmur, gallop or regurgitation. ABDOMEN: Soft, nontender. Bowel sounds active. No rigidity. No rebound or guarding. No CVA tenderness. EXTREMITIES: No clubbing, cyanosis or pedal edema. MUSCULOSKELETAL: No joint swelling. NEUROLOGIC: Awake, alert, oriented times three. No focal deficit. LYMPHATIC: No lymph nodes palpable. SKIN: Intact. LABS: White count 5.20, hemoglobin 13.8, hematocrit 40.2, platelet count 222. Sodium 135, potassium 3.9, chloride 107, bicarb 20, BUN 20, creatinine 0.82, glucose 163. ASSESSMENT: 1. CHEST PAIN, RULE OUT ACS 2. COPD EXACERBATION AND BRONCHITIS 3. HYPERTENSION 4. CAD STATUS POST STENTING PLAN: 1. Will follow with stress echo and Sestamibi 2. Continue the current treatment, steroids and breathing treatments TIME SPENT: More than 35 minutes MTDD
--- NOTE | 2017-10-17 13:40 | SSS ---
DATE OF SERVICE: 09/10/17 REASON FOR ADMISSION: Chest pain and tightness HISTORY OF PRESENT ILLNESS: This is a 76 year old male with a history CAD status post stent almost 6 years ago. Started having the chest pain one day before the admission with chest tightness midsternal radiating to the neck but not to the jaw and not to arm, not exertional and not getting better by the relaxation. As the patient was having the persistent chest tightness worried about the hear he came to the emergency room and seen by ER physician. EKG did not show any acute ST-T wave changes and no elevation of the cardiac enzymes. At that time the patient is admitted to the hospital for the acute coronary syndrome in review of the patient's history of CAD and smoking. REVIEW OF SYSTEMS: CONSTITUTIONAL: No night sweats. No fatigue, malaise, lethargy. No fever or chills. Feeling weak. HEENT: Eyes: No visual changes. No eye pain. No eye discharge. ENT: No runny nose. No epistaxis. No sinus pain. No sore throat. No odynophagia. No ear pain. No congestion. RESPIRATORY: Cough, Congestion. No hemoptysis. Shortness of breath. CARDIOVASCULAR: No angina symptoms. No CHF symptoms. No atypical chest pain for CAD. No palpitations. No orthopnea. Chest Tightness. GASTROINTESTINAL: No abdominal pain. No nausea or vomiting. No diarrhea or constipation. No hematemesis. No hematochezia. GENITOURINARY: No dysuria. No hematuria. No obstructive symptoms. No discharge. No pain. No significant abnormal bleeding. MUSCULOSKELETAL: No musculoskeletal pain. No joint swelling. NEUROLOGICAL: Awake, alert, oriented to time, place and person. No headache. No neck pain. No syncope. No seizures. No dizziness. PSYCHIATRIC: Not anxious. No depression. No suicidal thoughts. No homicidal thoughts. SKIN: No rash. No lesions. No wounds. ENDOCRINE: No unexplained weight loss. No weight gain. HEMATOLOGIC/LYMPHATIC: No anemia. No purpura. No petechiae. No prolonged or excessive bleeding. No palpable lymph nodes. PAST HISTORY: CAD status post stent in 2005 History of irregular heart rate didn't know whether it was PVC's or atrial fibrillation. Hypertension COPD PERSONAL/FAMILY HISTORY/SOCIAL HISTORY: The patient does smoke one pack a day. No alcohol and no drugs. Family history is significant for the heart problems. Family history is significant for the heart problem and cancer. PHYSICAL EXAMINATION: VITAL SIGNS: Blood pressure 130/70, respiratory rate 20, heart rate 67, temperature 97.4 with saturation 96%. HEENT: Head normocephalic, atraumatic. Eyes: Extraocular muscles are intact. Pupils are equal, round and reactive to light and accommodation. Ears: No lesions. Nose appeared normal. Throat: No exudate or erythema. Mucosa dry. NECK: Supple. No JVD, no carotid bruit. No lymphadenopathy or thyromegaly. LUNGS: Decreased and clear to auscultation. Percussion note normal. Chest symmetrical. HEART: S1, S2, no S3. No murmurs. No cyanosis or clubbing. No ascites. Pulses: Dorsalis pedis and posterior tibial pulses +1 to +2 both sides. ABDOMEN: Soft. Nontender. Bowel sounds active. No CVA tenderness. No mass felt. EXTREMITIES: No edema. Full range of motion of all extremities, equal. NEUROLOGIC: No focal deficit. Cranial nerves II through XII are grossly intact. No headache, no double vision or headache. SKIN: Dry. Intact. Turgor - normal. LYMPHATIC: No palpable lymph nodes/no lymphedema. MUSCULOSKELETAL: Normal joints with no swelling. Muscle tone is normal. ALLERGIES: No known drug allergies. MEDICATIONS: Aspirin Symbicort ProAir Protonix Diltazem Lisinopril Potassium LABS/EKG'S/X-RAY/ECHO/ABG: WBC 8.60, hgb 14.4, hct 42.6, plt count 260, sodium 139, potassium 3.9, chloride 106, bicarb 23, BUN 18, creatinine 0.83 and glucose 94, BNP 66. PROGRESS NOTES: See EMR. BRIEF HOSPITAL COURSE: The patient was admitted to the hospital. Three sets of the cardiac enzymes were negative. Dr. Branch consultation obtained. He did the stress echo and echocardiogram both came out to be negative and within normal limits. At that time the patient being discharged home. DIAGNOSES: 1. Chest pain, noncardiac 2. COPD exacerbation secondary to the bronchitis 3. History of COPD 4. Hypertension 5. Coronary artery disease status post stent 6. GERD RECOMMENDATIONS/PLAN: 1. Discharge the patient home 2. Life style modification 3. Advised to quit the smoking 4. Diet cardiac and healthy 5. Start the patient on the cholesterol medication Pravachol 20mg PO daily 6. Prednisone for the COPD exacerbation TIME SPENT: More than 50 minutes. MTDD
== END 2017-09-10 13:42 | disposition home or self-care (01) | DRG 313 ==
LOC: ED 11:30 → MEDSURG A 13:24
PROVIDERS: ADMIT Emergency Medicine; ATTEND Emergency Medicine
DX: R07.89 Other chest pain (principal); J44.1 Chronic obstructive pulmonary disease with (acute) exacerbation; J44.0 Chronic obstructive pulmonary disease with (acute) lower respiratory infection; I10 Essential (primary) hypertension; I25.10 Atherosclerotic heart disease of native coronary artery without angina pectoris; J20.9 Acute bronchitis, unspecified; K21.9 Gastro-esophageal reflux disease without esophagitis; F17.200 Nicotine dependence, unspecified, uncomplicated; Z95.5 Presence of coronary angioplasty implant and graft; Z79.82 Long term (current) use of aspirin; Z79.899 Other long term (current) drug therapy
CPT/HCPCS: 36415; 80053; 80061; 82550; 83880; 84443; 84484; 85025; 93005; 93010; 93017; 93018; 94640; 99223; 99232; 99239; 99284

== ENCOUNTER 2017-09-15 08:31 | Inpatient (IN) ==
[2017-09-15] MEDS ORDERED: DUONEB NEB STA (08:49)
[2017-09-15] MEDS ORDERED: SOLU-MEDROL 125 MG IVP STA (08:50)
[2017-09-15 09:12] LABS: BASOPHILS % (AUTO) 0.2 % (0.0-3.0); HEMATOCRIT 45.5 % (42.0-52.0); HEMOGLOBIN 15.6 g/dl (14.0-18.0); IMMATURE GRANULOCYTE % (AUTO) 1.3 % (0.0-5.0); LYMPHOCYTES # (AUTO) 1.3 K/uL (0.60-3.4); MEAN CORPUSCULAR HEMOGLOBIN 28.6 pg (27.0-31.0); MEAN CORPUSCULAR HGB CONC 34.3 (31.8-35.4); MEAN CORPUSCULAR VOLUME 83.3 fl (80.0-94.0); MONOCYTES # (AUTO) 0.9 K/uL (0.4-2.0); MONOCYTES % (AUTO) 5.9 (0-10); NEUTROPHILS # (AUTO) 12.5 K/ul (2.0-6.9); NEUTROPHILS % (AUTO) 83.6; PLATELET COUNT 280 10^3/uL (140-440); RED BLOOD COUNT 5.46 10^6/ul (4.70-6.10); WHITE BLOOD COUNT 14.94 K/ul (4.2-10.2)
[2017-09-15 09:20] LABS: FLU INTERNAL QC INTERNAL QC VALID; RAPID FLU A NEGATIVE (NEGATIVE); RAPID FLU B NEGATIVE (NEGATIVE)
[2017-09-15 09:41] LABS: ALBUMIN 3.2 g/dL (3.4-5.0); ALBUMIN/GLOBULIN RATIO 0.82; ANION GAP 16.6; BILIRUBIN,TOTAL 0.46 mg/dL (0.00-1.20); BUN/CREATININE RATIO 27.27; CALCIUM 9.2 mg/dL (8.2-10.2); CREATININE 0.99 mg/dL (0.60-1.10); POTASSIUM 3.6 mmol/L (3.5-5.1); TOTAL PROTEIN 7.1 g/dL (5.8-8.1); TROPONIN I 0.017 ng/ml (0.0000-0.4000)
--- NOTE | 2017-09-15 09:41 | DI ---
EXAM: Chest one view, frontal view only. HISTORY: Cough. COMPARISON: 09/09/2017. FINDINGS: Heart size is normal. There is no vascular congestion. Haziness of the right infrahilar region noted which is new. The lungs otherwise clear without pleural effusion or pneumothorax. Calc ified granulomatous changes are present. Radiopaque foreign object to the right of the upper thoraci c spine is stable, previously shown to be in the anterior soft tissues. No acute osseous abnormality identified. IMPRESSION: Possible right infrahilar pneumonia.
[2017-09-15] MEDS ORDERED: ROCEPHIN 1 GM in SODIUM CHLORIDE 50 ML IV STA (10:31)
[2017-09-15] MEDS ORDERED: ZITHROMAX 500 MG in SODIUM CHLORIDE 250 ML IV STA (10:33)
[2017-09-15] MEDS ORDERED: ROCEPHIN ONE (10:35)
--- NOTE | 2017-09-15 10:38 | ED.PDOC ---
General ED Provider: Dr. SHELLEY YO Chief Complaint: Shortness of Air Stated Complaint: shortness of breath Time Seen by Physician: 08:34 Mode of Arrival: Walk-In Information Source: Patient Exam Limitations: No limitations [facility] and Triage Documentation Reviewed and Agree: Yes Respiratory Complaint Exam - Respiratory Complaint/Exam Symptoms Are: Still present Timing: Intermittent Initial Severity: Moderate Current Severity: Moderate Location: Throat, Chest Character: Reports: Non-productive cough Aggravating: Reports: Exertion, Weather, Deep breaths, Recumbent position Alleviating: Reports: Bronchodilators, Upright position, Spontaneous resolution Associated Signs and Symptoms: Reports: URI, Nasal congestion, Decreased oral intake. Denies: Rapid breathing, Dyspnea, Fever, Chills, Chest pain, Pleuritic chest pain, Wheezing, Hemoptysis, Dizziness, Calf pain, Calf swelling, Edema, Hoarseness, Sinus discomfort, Vomiting, Sore throat, Weight loss, Increased thirst, Increased appetite, Increased urination Related History: Reports: Similar episode (copd) History of Healthcare-Acquired Pneumonia: No Related Surgical History: Reports: None Pulmonary Embolism Risk Factors: Bedrest, Smoking Cardiac Risk Factors: Reports: CAD, Hypertension Pseudomonas Risk Factors: Reports: Chronic Lung Disease, Repeat Antibx in 3 months Tuberculosis Risk Factors: Reports: Chronic Resp. Faliure Status Asthmaticus Risk Factors: Reports: None Home Oxygen Use: No Recent Stress Test: No Recent Echo/LV Function: No Current Antibiotic Use: Yes Current Asthma Medication Use: Yes Respiratory Distress: Mild Inadequate Respiratory Effort: No Dysphagia Present: No Stridor Present: No JVD Present: No Retractions: Not Present Diminished Breath Sounds: Yes Prolonged Respiration: Expiratory phase Sinus Tenderness: None Grunting Respirations: No Kussmaul Respirations: No Differential Diagnoses: CHF, Pulmonary Edema, COPD Exacerbation, Pneumonia, Bronchitis, Lower Resp. Infection Review of Systems - Review Of Systems Constitutional: Reports: Malaise Eyes: Reports: No symptoms Ears, Nose, Mouth, Throat: Reports: No symptoms Respiratory: Reports: Cough, Wheezing Cardiac: Reports: No symptoms GI: Reports: No symptoms : Reports: No symptoms Musculoskeletal: Reports: No symptoms Skin: Reports: No symptoms Neurological: Reports: No symptoms Endocrine: Reports: No symptoms Hematologic/Lymphatic: Reports: No symptoms All Other Systems: Reviewed and Negative Past Medical History - Past Medical History Previously Healthy: No Endocrine: Reports: None, Dyslipidemia Cardiovascular: Reports: CAD, Hypertension, A-Fib Respiratory: Reports: COPD Hematological: Reports: None Gastrointestinal: Reports: None Genitourinary: Reports: None, Kidney stones (KIDNEY STONE 20 YEARS AGO- states sees dr butt, last stone 6 weeks ago) Neuro/Psych: Reports: None Musculoskeletal: Reports: None Cancer: Reports: None - Surgical History General Surgical History: Reports: None (HAS STENTS), Stent (Cardiac STENT ) - Family History Family History: Reports: Unknown - Social History Smoking Status: Current every day smoker, Heavy tobacco smoker Hx Substance Use: No Alcohol Screening: None Physical Exam - Physical Exam Appearance: Ill-appearing Ill-appearing: Moderate Pain Distress: Mild Eyes: CHERIE, EOMI, Conjunctiva clear ENT: Ears normal, Nose normal, Oropharynx normal Respiratory: Rhonchi, Wheezes Cardiovascular: RRR, Pulses normal, No rub, No murmur GI/: Soft, Nontender, No masses, Bowel sounds normal, No Organomegaly Musculoskeletal: Normal strength, ROM intact, No edema, No calf tenderness Skin: Warm, Dry, Normal color Neurological: Sensation intact, Motor intact, Reflexes intact, Cranial nerves intact, Alert, Oriented Psychiatric: Affect appropriate, Mood appropriate Interpretation - Radiology Interpretation Radiology Interpretation By: Radiologist Radiology Results: Positive (pneumonia) - Polls Or Surveys Interviewer Rate: Tachy Rhythm: Sinus - EKG Interpretation Rate: Tachy Rhythm: Sinus Physician Notification - Case Discussed Physician Notified: pmd Time of Notification: 10:40 Critical Care Note - Critical Care Note Total Time (mins): 0 Course - Course Hematology/Chemistry: 09/15/17 08:55 09/15/17 08:55 Orders, Labs, Meds: Lab Review 09/15/17 09/15/17 09/15/17 08:50 08:55 08:55 WBC 14.94 H RBC 5.46 Hgb 15.6 Hct 45.5 MCV 83.3 MCH 28.6 MCHC 34.3 RDW Coeff of Maty 14.6 Plt Count 280 Immature Gran % (Auto) 1.3 Neut % (Auto) 83.6 Lymph % (Auto) 9.0 L Bates % (Auto) 5.9 Eos % (Auto) 0.0 Baso % (Auto) 0.2 Immature Gran # (Auto) 0.2 Neut # 12.5 H Lymph # 1.3 Bates # 0.9 Eos # 0.0 Baso # 0.0 Sodium 134 L Potassium 3.6 Chloride 95 L Carbon Dioxide 26 Anion Gap 16.6 BUN 27 H Creatinine 0.99 Estimated GFR (MDRD) 74.00 BUN/Creatinine Ratio 27.27 Glucose 98 Lactic Acid Calcium 9.2 Total Bilirubin 0.46 AST 17 ALT 14 Alkaline Phosphatase 68 Total Creatine Kinase 61 Troponin I 0.0170 Total Protein 7.1 Albumin 3.2 L Globulin 3.9 Albumin/Globulin Ratio 0.82 Procalcitonin Influenza A (Rapid) Negative Influenza B (Rapid) Negative 09/15/17 09/15/17 08:55 08:55 WBC RBC Hgb Hct MCV MCH MCHC RDW Coeff of Maty Plt Count Immature Gran % (Auto) Neut % (Auto) Lymph % (Auto) Bates % (Auto) Eos % (Auto) Baso % (Auto) Immature Gran # (Auto) Neut # Lymph # Bates # Eos # Baso # Sodium Potassium Chloride Carbon Dioxide Anion Gap BUN Creatinine Estimated GFR (MDRD) BUN/Creatinine Ratio Glucose Lactic Acid 15.1 Calcium Total Bilirubin AST ALT Alkaline Phosphatase Total Creatine Kinase Troponin I Total Protein Albumin Globulin Albumin/Globulin Ratio Procalcitonin 0.09 Influenza A (Rapid) Influenza B (Rapid) Orders Category Date Time Status ADMIT PATIENT INPATIENT .TO [facility] (MONITORED BED) ADMISSION 09/15/17 10: 31 Ordered EKG-(ED ONLY) Stat CARDIO 09/15/17 08:48 Completed EKG-(IP & OP ONLY) DAILY CARDIO 09/16/17 06:00 Ordered EKG-(IP & OP ONLY) DAILY CARDIO 09/17/17 06:00 Ordered EKG-(IP & OP ONLY) DAILY CARDIO 09/18/17 06:00 Ordered NEBULIZER TREATMENT Stat CARDIO 09/15/17 08:49 Completed NEBULIZER TREATMENT Stat CARDIO 09/15/17 10:34 Ordered ACTIVITY .BR with BRP CARE 09/15/17 10:31 Ordered TELEMETRY MONITORING TELE CARE 09/15/17 10:32 Ordered VITAL SIGNS Q8HR CARE 09/15/17 10:31 Ordered REGULAR DIET DIETARY 09/15/17 Lunch Ordered ED IV/MEDIPORT/POWERPORT .ONCE EMERGENCY 09/15/17 08:48 Active BLOOD CULTURE Stat LAB 09/15/17 09:05 Received CBC W/ AUTO DIFF DAILY@0600 LAB 09/16/17 06:00 Ordered CBC W/ AUTO DIFF DAILY@0600 LAB 09/17/17 06:00 Ordered CBC W/ AUTO DIFF Stat LAB 09/15/17 08:55 Completed COMPREHENSIVE METABOLIC PANEL DAILY@0600 LAB 09/16/17 06:00 Ordered COMPREHENSIVE METABOLIC PANEL DAILY@0600 LAB 09/17/17 06:00 Ordered COMPREHENSIVE METABOLIC PANEL Stat LAB 09/15/17 08:55 Completed CREATINE KINASE Stat LAB 09/15/17 08:55 Completed LACTIC ACID Stat LAB 09/15/17 08:55 Completed PROCALCITONIN Stat LAB 09/15/17 08:55 Completed RAPID FLU A/B Stat LAB 09/15/17 08:50 Completed TROPONIN I Stat LAB 09/15/17 08:55 Completed 0.9 % Sodium Chloride [Saline Flush] MEDS 09/15/17 08:48 Active 1 syr IVF PRN PRN Aspirin [Aspirin EC] MEDS 09/16/17 08:00 Ordered 162 mg PO DAILYWM Azithromycin Inj [Zithromax] 500 mg MEDS 09/15/17 10:33 Ordered 0.9 % Sodium Chloride [Sodium Chloride] 250 ml IV ONCE Ceftriaxone Sodium [Rocephin] 1 gm MEDS 09/15/17 10:31 Ordered 0.9 % Sodium Chloride [Sodium Chloride] 50 ml IV ONCE Diltiazem HCl [Cardizem Cd] MEDS 09/15/17 21:00 Ordered 120 mg PO BEDTIME Ipratropium/Albuterol Neb [Duoneb] MEDS 09/15/17 08:49 Discontinued 1 vial NEB ONCE STA Ipratropium/Albuterol Neb [Duoneb] MEDS 09/15/17 12:00 Ordered 1 vial NEB RTQ6H Lisinopril [Zestril] MEDS 09/16/17 09:00 Ordered 10 mg PO DAILY Methylprednisolone Sod Succ/Pf [Solu-Medrol 125 mg] MEDS 09/15/17 08:50 Discontinued 125 mg IVP ONCE STA Potassium [Potassium] MEDS 09/16/17 09:00 Ordered 1 tab PO DAILY Sodium Chloride 0.9% [Sodium Chloride] 1,000 ml MEDS 09/15/17 11:00 Ordered IV 75 mls/hr CHEST, 1V AP ONLY Stat RADS 09/15/17 08:48 Completed CHEST, 1V AP ONLY Stat RADS 09/16/17 07:00 Ordered Medications Generic Name Dose Route Start Last Admin Trade Name Perry PRN Reason Stop Dose Admin Albuterol/Ipratropium 1 vial 09/15/17 12:00 Eranabhijitmaria e STEVENSON RTQ6H SHANICE Aspirin 162 mg 09/16/17 08:00 Aspirin Ec PO DAILYWM SHANICE Diltiazem HCl 120 mg 09/15/17 21:00 Cardizem Cd PO BEDTIME SHANICE Ceftriaxone Sodium 1 gm/ 50 mls @ 75 mls/hr 09/15/17 10:31 Sodium Chloride IV 09/15/17 11:10 ONCE STA Sodium Chloride 1,000 mls @ 75 mls/hr 09/15/17 11:00 Sodium Chloride IV .[id number] SHANICE Azithromycin 500 mg/ Sodium 250 mls @ 125 mls/hr 09/15/17 10:33 Chloride IV 09/15/17 12:32 ONCE STA Lisinopril 10 mg 09/16/17 09:00 Zestril PO DAILY SHANICE Non-Formulary Medication 1 tab 09/16/17 09:00 Potassium [Potassium] PO DAILY SHANICE Sodium Chloride 1 syr 09/15/17 08:48 09/15/17 09:29 Saline Flush IVF 1 syr PRN PRN Administration To flush IV Discontinued Medications Generic Name Dose Route Start Last Admin Trade Name Perry PRN Reason Stop Dose Admin Albuterol/Ipratropium 1 vial 09/15/17 08:49 09/15/17 09:02 Vijaya STEVENSON 09/15/17 08:50 1 vial ONCE STA Administration Methylprednisolone Sodium Succinate 125 mg 09/15/17 08:50 09/15/17 09:29 Solu-Medrol 125 Mg IVP 09/15/17 08:51 125 mg ONCE STA Administration Vital Signs: Temp Pulse Resp BP Pulse Ox 09/15/17 08:32 100.1 F H 103 H 24 170/86 H 87 L Departure - Departure Time of Disposition: 10:39 Disposition: ADMITTED INPATIENT Discharge Problem: Pneumonia Qualifiers: Pneumonia type: due to unspecified organism Instructions: Bacterial Pneumonia (ED) Condition: Good Pt referred to PMD for follow-up: Yes Additional Instructions: Please call your Family Physician as soon as possible to schedule a follow-up appointment. Allergies/Adverse Reactions: Allergies No Known Allergies Allergy (Verified 09/15/17 08:41) Home Medications: Ambulatory Orders Aspirin [Aspirin EC] 162 mg PO DAILYWM 08/12/13 Potassium 1 tab PO DAILY 09/09/17 Pravastatin Sodium [Pravachol] 20 mg PO BEDTIME #30 tablet 09/10/17 Disposition Discussed With: Patient
[2017-09-15] MEDS ORDERED: SODIUM CHLORIDE 1,000 ML IV SCH (11:00)
[2017-09-15 12:16] VITALS: BMI 17.8
[2017-09-15] MEDS: DUONEB NEB SCH ×3 (12:47→23:03)
[2017-09-15] MEDS: CARDIZEM CD PO SCH (20:51)
[2017-09-15] MEDS: SOLU-MEDROL 125 MG IVP SCH (20:52)
[2017-09-16] MEDS: SOLU-MEDROL 125 MG IVP SCH ×3 (04:21→20:30)
[2017-09-16 04:41] LABS: BASOPHILS % (AUTO) 0.2 % (0.0-3.0); EOSINOPHILS % (AUTO) 0.1 % (0.0-7.0); HEMATOCRIT 39.7 % (42.0-52.0); HEMOGLOBIN 13.7 g/dl (14.0-18.0); IMMATURE GRANULOCYTE % (AUTO) 1.5 % (0.0-5.0); LYMPHOCYTES % (AUTO) 5.9 (10.0-50.0); MEAN CORPUSCULAR HEMOGLOBIN 28.4 pg (27.0-31.0); MEAN CORPUSCULAR HGB CONC 34.5 (31.8-35.4); MEAN CORPUSCULAR VOLUME 82.2 fl (80.0-94.0); MONOCYTES # (AUTO) 0.5 K/uL (0.4-2.0); MONOCYTES % (AUTO) 2.7 (0-10); NEUTROPHILS # (AUTO) 15.4 K/ul (2.0-6.9); NEUTROPHILS % (AUTO) 89.6; PLATELET COUNT 232 10^3/uL (140-440); RED BLOOD COUNT 4.83 10^6/ul (4.70-6.10); WHITE BLOOD COUNT 17.16 K/ul (4.2-10.2)
[2017-09-16] MEDS: DUONEB NEB SCH ×4 (04:52→23:04)
[2017-09-16 04:58] LABS: ALBUMIN 2.6 g/dL (3.4-5.0); ALBUMIN/GLOBULIN RATIO 0.79; ANION GAP 9.7; BILIRUBIN,TOTAL 0.23 mg/dL (0.00-1.20); BUN/CREATININE RATIO 27.58; CALCIUM 8.7 mg/dL (8.2-10.2); CREATININE 0.87 mg/dL (0.60-1.10); POTASSIUM 3.7 mmol/L (3.5-5.1); TOTAL PROTEIN 5.9 g/dL (5.8-8.1)
[2017-09-16] MEDS ORDERED: ASPIRIN EC PO SCH (08:00)
[2017-09-16] MEDS: KLOR-CON 8 MEQ PO SCH (08:29)
[2017-09-16] MEDS: ZESTRIL PO SCH (08:29)
[2017-09-16] MEDS: ASPIRIN EC PO SCH (08:29)
[2017-09-16] MEDS: ROCEPHIN 1 GM in SODIUM CHLORIDE 50 ML IV SCH (08:29)
[2017-09-16] MEDS ORDERED: POTASSIUM PO SCH (09:00)
--- NOTE | 2017-09-16 09:25 | HP ---
DATE OF SERVICE: 09/15/17 CHIEF COMPLAINT: Cough, congestion and shortness of breath. HISTORY OF PRESENT ILLNESS: This is a 76 year old male who was recently discharged from the hospital after being admitted for the chest pain, noncardiac. He had a stress test and echo and was fine. Went home and started having cough and congestion and getting yellow/green phlegm, fever and chills. Came to the emergency room and showed right infrahilar pneumonia. At that time the patient being admitted to the hospital for the IV antibiotics, steroids and breathing treatments. REVIEW OF SYSTEMS: CONSTITUTIONAL: Fever and chills. HEENT: Normal. ENDOCRINE: No weight gain; no weight loss. CVS: No chest pain. No PND, no orthopnea. No shortness of breath. No PND, no orthopnea. RESPIRATORY: Cough and congestion, getting yellow/green phlegm. No hemoptysis. Wheezing. GI: No nausea, no vomiting. No abdominal pain. No melena. : No hematuria. No polyuria. MUSCULOSKELETAL: No joint swelling. PSYCHIATRIC: Not anxious. No depression. No suicidal thoughts. No homicidal thoughts. SKIN: Intact, no open lesions. PAST MEDICAL HISTORY: Coronary artery disease status post stent COPD Hypertension Dyslipidemia Peptic ulcer disease Chronic kidney disease PAST SURGICAL HISTORY: None PERSONAL HISTORY: The patient does smoke one pack per day. No alcohol and no drugs. Family history significant for heart problems MEDICATIONS: Aspirin Symbicort ProAir Protonix Diltazem Lisinopril Protonix Pravachol ALLERGIES: No known allergies PHYSICAL EXAMINATION: V/S: Blood pressure 124/71, respiratory rate 24, heart rate 87, temperature 98.5 with saturation 93%. HEENT: Atraumatic, normocephalic. No scleral icterus. Pallor positive. Mucosa dry. NECK: Supple. No JVD, no bruit. No lymphadenopathy. No thyromegaly. HEART: S1, S2 normal. No murmur. No cyanosis or clubbing. No ascites. LUNGS: Decreased breath sounds with basilar crackles right more than the left. No rales or rhonchi. ABDOMEN: Soft, nontender. Bowel sounds are active. No CVA tenderness. No rigidity or guarding. EXTREMITIES: No cyanosis, clubbing or pedal edema. MUSCULOSKELETAL: Normal joints, no swelling. NEUROLOGIC: The patient is awake and alert. SKIN: Intact; no open lesions. Cachetic man laying in a bed. LYMPHATIC: No lymph nodes palpable. LABS: WBC 14.94, hgb 15.6, hct 45.4, plt count 280, sodium 134, potassium 3.6, chloride 95, bicarb 26, BUN 27, creatinine 0.99. First set of cardiac enzymes are negative. Serology negative. Chest x-ray infrahilar pneumonia. ASSESSMENT: 1. Pneumonia, community acquire infrahilar 2. Shortness of breath secondary to pneumonia 3. History of coronary artery disease, status post stent 4. COPD 5. Hypertension 6. Dyslipidemia PLAN: 1. Admit patient to the regular floor 2. CBC and CMP today and daily 3. Cardiac enzymes and troponin 4. IV fluids 5. Rocephin 1 gram daily 6. Zithromax 500mg daily 7. Solu-Medrol 8. IV fluids at 75ml per hour TIME SPENT: MORE THAN 75 minutes MTDD
[2017-09-16] MEDS: ZITHROMAX 500 MG in SODIUM CHLORIDE 250 ML IV SCH (09:52)
--- NOTE | 2017-09-16 14:16 | DI ---
EXAM: Chest one view, frontal view only. HISTORY: Pneumonia follow-up. COMPARISON: 1 day prior. FINDINGS: The heart size is normal. There is no pulmonary vascular congestion. There is improved a eration in the right infrahilar region. Otherwise, the lungs are clear. No pleural effusion or pneu mothorax is seen. No acute osseous abnormality is identified. Metallic object to the right of the u pper thoracic spine again noted. IMPRESSION: Improved aeration in the right infrahilar region.
[2017-09-16] MEDS: SODIUM CHLORIDE 1,000 ML IV SCH (15:04)
[2017-09-16] MEDS: CARDIZEM CD PO SCH (20:30)
[2017-09-17] MEDS: SOLU-MEDROL 125 MG IVP SCH ×3 (04:19→20:19)
[2017-09-17] MEDS: DUONEB NEB SCH ×4 (05:04→22:14)
[2017-09-17 05:48] LABS: BASOPHILS % (AUTO) 0.1 % (0.0-3.0); HEMATOCRIT 37.3 % (42.0-52.0); IMMATURE GRANULOCYTE % (AUTO) 2.2 % (0.0-5.0); LYMPHOCYTES # (AUTO) 1.1 K/uL (0.60-3.4); LYMPHOCYTES % (AUTO) 4.4 (10.0-50.0); MEAN CORPUSCULAR HEMOGLOBIN 28.8 pg (27.0-31.0); MEAN CORPUSCULAR HGB CONC 34.9 (31.8-35.4); MEAN CORPUSCULAR VOLUME 82.7 fl (80.0-94.0); MONOCYTES # (AUTO) 0.9 K/uL (0.4-2.0); MONOCYTES % (AUTO) 3.6 (0-10); NEUTROPHILS # (AUTO) 22.3 K/ul (2.0-6.9); NEUTROPHILS % (AUTO) 89.7; PLATELET COUNT 253 10^3/uL (140-440); RED BLOOD COUNT 4.51 10^6/ul (4.70-6.10); WHITE BLOOD COUNT 24.91 K/ul (4.2-10.2)
[2017-09-17 06:14] LABS: ALBUMIN 2.6 g/dL (3.4-5.0); ALBUMIN/GLOBULIN RATIO 0.76; ANION GAP 14.6; BILIRUBIN,TOTAL 0.19 mg/dL (0.00-1.20); BUN/CREATININE RATIO 36.25; CALCIUM 8.7 mg/dL (8.2-10.2); CREATININE 0.8 mg/dL (0.60-1.10); POTASSIUM 3.6 mmol/L (3.5-5.1)
[2017-09-17] MEDS: SODIUM CHLORIDE 1,000 ML IV SCH (08:00)
[2017-09-17] MEDS ORDERED: MILK OF MAGNESIA PO STA (08:22)
[2017-09-17] MEDS: KLOR-CON 8 MEQ PO SCH (08:39)
[2017-09-17] MEDS: ZESTRIL PO SCH (08:39)
[2017-09-17] MEDS: ASPIRIN EC PO SCH (08:39)
[2017-09-17] MEDS: ZITHROMAX 500 MG in SODIUM CHLORIDE 250 ML IV SCH (08:40)
--- NOTE | 2017-09-17 09:48 | CT ---
EXAM: CT chest without contrast. HISTORY: Pneumonia follow-up. COMPARISON: Radiograph [address] 07/13/2017, 01/17/2016. TECHNIQUE: Multiple axial images of the chest were obtained without intravenous contrast. Images we re reformatted in the sagittal and coronal planes. FINDINGS: Evaluation for lymphadenopathy is limited by lack of intravenous contrast. The heart size is normal. There is no pericardial effusion. Atherosclerotic calcifications present. Emphysematous changes noted bilaterally. Milid bronchial thickening seen in both lower lobes with mi ld ground-glass opacities, subtle nodular densities and a few thin linear densities. Lungs are other lucio clear. No pleural effusion or pneumothorax detect. Lateral left hepatic lobe cyst noted. Duodenal diverticuli are present. There is a small hiatal her madhu. Old superior endplate compression deformity of T9 noted. IMPRESSION: 1. Mild lower lobe bronchial thickening, ground-glass opacities and subtle nodularity, likely due to infectious/inflammatory process. Follow-up CT in 3 months recommended for reassessment. 2. Emphysema.
[2017-09-17] MEDS: ROCEPHIN 1 GM in SODIUM CHLORIDE 50 ML IV SCH (10:25)
[2017-09-17] MEDS: LIBRIUM PO SCH ×2 (10:25→20:18)
--- NOTE | 2017-09-17 14:54 | PN ---
DATE OF SERVICE: 09/16/17 SUBJECTIVE: The patient is admitted with lobar pneumonia. He is still having cough and congestion, shortness of breath on minimal exertion. No fever, no chills. REVIEW OF SYSTEMS: CONSTITUTIONAL: No fever, no chills. HEENT: Normal. ENDOCRINE: No weight gain, no weight loss. CVS: No angina symptoms. No CHF symptoms. No palpitations. No atypical chest pain for CAD. Shortness of breath on minimal exertion. No PND, no orthopnea. RESPIRATORY: No cough, no hemoptysis. GI: No nausea, no vomiting. No abdominal pain. : No hematuria. No polyuria. MUSCULOSKELETAL:. No joint swelling. PSYCHIATRIC: Not anxious. No depression. No suicidal thoughts. No homicidal thoughts. SKIN: Intact. No rash. PHYSICAL EXAMINATION: V/S: BP 138/66, respiratory rate 18, heart rate 75, temperature 97.5. Saturation 93% on room air. GENERAL: Cachexic male lying in bed, not in any distress. HEENT: Normocephalic, atraumatic. Mucosa dry, pallor positive. No icterus. NECK: Supple. No JVD, no carotid bruit. No lymphadenopathy. LUNGS: Decreased basilar crackles. HEART: S1, S2 normal. No S3. No murmur, gallop or regurgitation. ABDOMEN: Soft, nontender. Bowel sounds active. No rigidity. No rebound or guarding. No CVA tenderness. EXTREMITIES: No clubbing, cyanosis or pedal edema. MUSCULOSKELETAL: No joint swelling. NEUROLOGIC: Awake, alert, oriented times three. No focal deficit. LYMPHATIC: No lymph nodes palpable. SKIN: Intact. LABS: White count 17.16, hemoglobin 13.7, hematocrit 39.7, platelet count 232. Sodium 136, potassium 3.7, chloride 104, bicarb 26, BUN 24, creatinine 0.87. Glucose 165. ASSESSMENT: 1. RIGHT LOWER LOBE PNEUMONIA, COMMUNITY ACQUIRED 2. HYPOXEMIA SECONDARY TO PNEUMONIA 3. COPD 4. ANEMIA PLAN: 1. Continue Rocephin 2. Duonebs 3. IV fluids 4. Solu-Medrol 80 q.8hr 5. Out of bed to chair 6. Activity as tolerated TIME SPENT: More than 35 minutes MTDD
--- NOTE | 2017-09-17 14:59 | PN ---
DATE OF SERVICE: 09/17/17 SUBJECTIVE: The patient has been more anxious and having anxiety spells. He says he needs some medication to help when he goes home. He is still having cough, congestion and shortness of breath on minimal exertion. No fever or chills. REVIEW OF SYSTEMS: CONSTITUTIONAL: No fever, no chills. HEENT: Normal. ENDOCRINE: No weight gain, no weight loss. CVS: No angina symptoms. No CHF symptoms. No palpitations. No atypical chest pain for CAD. No shortness of breath. No PND, no orthopnea. RESPIRATORY: No cough, no hemoptysis. GI: No nausea, no vomiting. No abdominal pain. : No hematuria. No polyuria. MUSCULOSKELETAL: No joint swelling. PSYCHIATRIC: Not anxious. No depression. No suicidal thoughts. No homicidal thoughts. SKIN: Intact. No rash. PHYSICAL EXAMINATION: V/S: BP 147/72, respiratory rate 20, heart rate 77, temperature 97.7, saturation 91 on room air. HEENT: Normocephalic, atraumatic. Mucosa .dry. Pallor positive. No icterus. NECK: Supple. No JVD, no carotid bruit. No lymphadenopathy. LUNGS: Decreased basilar crackles right more than left. Clear to auscultation. No rales or rhonchi. HEART: S1, S2 normal. No S3. No murmur, gallop or regurgitation. ABDOMEN: Soft, nontender. Bowel sounds active. No rigidity. No rebound or guarding. No CVA tenderness. EXTREMITIES: No clubbing, cyanosis or pedal edema. MUSCULOSKELETAL: No joint swelling. NEUROLOGIC: Awake, alert, oriented times three. No focal deficit. LYMPHATIC: No lymph nodes palpable. SKIN: Intact. LABS: Sodium 139, potassium 3.6, chloride 108, bicarb 20, BUN 29, creatinine 0.80, white count 24.91, hemoglobin 13.0, hematocrit 37.2, platelet count 253. ASSESSMENT: 1. COMMUNITY ACQUIRED PNEUMONIA, RIGHT INFRABRONCHIAL 2. COPD EXACERBATION SECONDARY TO PNEUMONIA 3. HYPERTENSION 4. CACHEXIA 5. ANXIETY DISORDER PLAN: 1. Will start patient on Librium 25 mg twice a day 2. Magnesium Citrate for constipation 3. CT of the chest without contrast TIME SPENT: More than 35 minutes MTDD
[2017-09-17] MEDS: CARDIZEM CD PO SCH (20:18)
[2017-09-18] MEDS: SOLU-MEDROL 125 MG IVP SCH (04:17)
[2017-09-18] MEDS: DUONEB NEB SCH ×2 (05:05→11:15)
[2017-09-18] MEDS: ZESTRIL PO SCH (09:19)
[2017-09-18] MEDS: ROCEPHIN 1 GM in SODIUM CHLORIDE 50 ML IV SCH (09:20)
[2017-09-18] MEDS: ASPIRIN EC PO SCH (09:20)
[2017-09-18] MEDS: KLOR-CON 8 MEQ PO SCH (09:20)
[2017-09-18] MEDS: LIBRIUM PO SCH (09:20)
[2017-09-18 09:23] LABS: BASOPHILS % (AUTO) 0.2 % (0.0-3.0); HEMATOCRIT 38.4 % (42.0-52.0); IMMATURE GRANULOCYTE % (AUTO) 4.5 % (0.0-5.0); LYMPHOCYTES # (AUTO) 0.8 K/uL (0.60-3.4); LYMPHOCYTES % (AUTO) 5.2 (10.0-50.0); MEAN CORPUSCULAR HEMOGLOBIN 28.4 pg (27.0-31.0); MEAN CORPUSCULAR HGB CONC 33.9 (31.8-35.4); MONOCYTES # (AUTO) 0.4 K/uL (0.4-2.0); MONOCYTES % (AUTO) 2.3 (0-10); NEUTROPHILS # (AUTO) 13.8 K/ul (2.0-6.9); NEUTROPHILS % (AUTO) 87.8; PLATELET COUNT 288 10^3/uL (140-440); RED BLOOD COUNT 4.57 10^6/ul (4.70-6.10); WHITE BLOOD COUNT 15.67 K/ul (4.2-10.2)
[2017-09-18 09:54] VITALS: BP 139/74; TEMP 97.7
--- NOTE | 2017-10-16 15:19 | DS ---
DATE OF SERVICE: 09/18/17 FINAL DIAGNOSIS: 1. COPD EXACERBATION SECONDARY TO THE COMMUNITY ACQUIRED PNEUMONIA 2. LEUKOCYTOSIS FROM THE STEROIDS 3. HISTORY OF CAD STATUS POST STENT 4. COPD 5. PEPTIC ULCER DISEASE 6. NICOTINE USE 7. ANXIETY DISORDER DISCHARGE INSTRUCTIONS: Followup appointment: Followup with Dr. Dsouza within one week at the [facility]. MEDICATIONS AT DISCHARGE: ProAir Aspirin Symbicort Diltiazem Lisinopril Protonix Potassium Pravachol NEW PRESCRIPTIONS: Keflex 500 mg two times a day for five days Prednisone 10 mg p.o. b.i.d. Librium 10 mg p.o. b.i.d. DIET INSTRUCTIONS: As tolerated. ACTIVITY: Gradually increase activity. SMOKING: Smoker - advised to quit DISEASE SPECIFIC EDUCATION: COPD and pneumonia Need for pneumonia vaccination has been discussed, verbalized understanding HOSPITAL COURSE: This is a 76-year-old male with history of COPD and coronary artery disease recently admitted to the hospital with chest pain and chest tightness. He had stress test and echocardiogram. Stress test was negative. At that time, the patient was discharged home. He got home and started having coughing, congestion , shortness of breath and came to the emergency room. The granddaughter brought the patient to the emergency room for evaluation. The patient has hypoxic. Chest x-ray showed pneumonia, right infrahilar. At that time, the patient was admitted to the hospital, started on IV antibiotics, Rocephin and breathing treatment Duonebs and Solu-Medrol. With the given treatment, gradually the patient was feeling better, started having a lot of jitteriness and shakiness and thinks patient was having some anxiety issues. At that time, Xanax was given , Librium was given. Meanwhile, the patient was up and about walking, did not have any problems. White count went up to 24,000 with steroids. Hemoglobin was stable 13.0. Influenza was negative. BUN and creatinine were stable. Repeat chest x-ray was showing improvement. CT chest was done on 09/17 which showed mild lower lobe bronchial thickening, ground glass opacities and subtle nodularity likely due to infectious/inflammatory process. Followup in three months. The patient was clinically improved, feeling better. At that time, the patient was discharged home on antibiotics, steroids and advised to take breathing treatments. He promised to quit smoking. Librium was given for the anxiety. TIME SPENT: MORE THAN 65 MINUTES MTDD
== END 2017-09-18 11:50 | disposition home or self-care (01) | DRG 194 ==
LOC: ED 08:31 → MEDSURG B 10:35
PROVIDERS: ADMIT Emergency Medicine; ATTEND Emergency Medicine
DX: J18.9 Pneumonia, unspecified organism (principal); J44.1 Chronic obstructive pulmonary disease with (acute) exacerbation; R64 Cachexia; R09.02 Hypoxemia; R06.02 Shortness of breath; I10 Essential (primary) hypertension; D64.9 Anemia, unspecified; D72.829 Elevated white blood cell count, unspecified; I25.10 Atherosclerotic heart disease of native coronary artery without angina pectoris; K27.9 Peptic ulcer, site unspecified, unspecified as acute or chronic, without hemorrhage or perforation; F41.9 Anxiety disorder, unspecified; F17.200 Nicotine dependence, unspecified, uncomplicated; Z95.5 Presence of coronary angioplasty implant and graft; Z79.899 Other long term (current) drug therapy
CPT/HCPCS: 36415; 80053; 82550; 83605; 84145; 84484; 85025; 87040; 87081; 87804; 93005; 93010; 94640; 94761; 96365; 96375; 99284

== ENCOUNTER 2018-01-14 11:36 | Outpatient (CLI) | payer OTHER | END 2018-01-14 11:37 | disposition home or self-care (01) | LOC: RHC-LAB 11:36 | PROVIDERS: ATTEND Emergency Medicine | DX: I10 Essential (primary) hypertension (principal); J44.9 Chronic obstructive pulmonary disease, unspecified; E78.5 Hyperlipidemia, unspecified | CPT/HCPCS: 36415; 80053; 80061; 84443; 85025 ==

== ENCOUNTER 2018-01-23 09:37 | Outpatient (CLI) | END 2018-01-23 09:38 | disposition home or self-care (01) | LOC: RHC-LAB 09:37 | PROVIDERS: ATTEND Emergency Medicine | DX: E87.6 Hypokalemia (principal) | CPT/HCPCS: 36415; 80053 ==

== ENCOUNTER 2018-05-17 09:13 | Emergency (ER) | payer OTHER ==
[2018-05-17 09:13] VITALS: BMI 17.8
[2018-05-17] MEDS ORDERED: NITROSTAT SL STA (09:15)
[2018-05-17] MEDS ORDERED: MORPHINE 2 MG/ML SYRINGE IVP PRN (09:20)
--- NOTE | 2018-05-17 09:20 | ED.PDOC ---
General ED Provider: Dr. LAURA DOLAN-ER Chief Complaint: Chest Pain Stated Complaint: my chest hurts--it feels like it did when i had stents placed Time Seen by Physician: 09:18 Mode of Arrival: Walk-In Information Source: Patient, Family Exam Limitations: No limitations Primary Care Provider: [facility] Nursing and Triage Documentation Reviewed and Agree: Yes Does patient meet sepsis criteria?: No System Inflammatory Response Syndrome: Not Applicable Sepsis Protocol: For patient's 13 years and over: Temp is 96.8 and below OR 101 and greater Pulse >90 BPM Resp >20/minute Acutely Altered Mental Status Are patient's symptoms suggestive of a new infection, such as: -Pneumonia -Skin, Soft Tissue -Endocarditis -UTI -Bone, Joint Infection -Implantable Device -Acute Abdominal Infection -Wound Infection -Meningitis -Blood Stream Catheter Infection -Unknown Cardiovascular Complaint Exam - Chest Pain Complaint/Exam Onset: Gradual Duration: several hours Symptoms Are: Still present Initial Severity: Mild Current Severity: Mild Location: Reports: Midsternal Pain Radiates: Reports: Jaw, Neck Character: Reports: Dull, Aching, Heaviness, Pressure Aggravating: Reports: None Alleviating: Reports: Nitro, Oxygen Associated Signs and Symptoms: Denies: Diaphoresis, Nausea, Vomiting, Fever, Palpitations, Cough, Hemoptysis, Back pain, Abdominal pain, Dizziness, Short of air, Calf pain, Calf swelling Related Surgical History: Reports: Cardiac Cath, PTCA/Stent History of Healthcare-Acquired Pneumonia: Reports: No Prior Care for this Complaint: No Recent Stress Test: No Recent Echo/LV Function: No JVD Present: No Subcutaneous Emphysema Present: No Diminshed Breath Sounds: No Reproducible Chest Wall Pain: No Bilateral Pulses Present: Yes Unequal Pulses Noted: No Differential Diagnoses: Acute MA, ACS Quality Indicator For Non-Traumatic Chest Pain/Syncope: EKG Performed Review of Systems - Review Of Systems Constitutional: Reports: No symptoms Eyes: Reports: No symptoms Ears, Nose, Mouth, Throat: Reports: No symptoms Respiratory: Reports: No symptoms Cardiac: Reports: Chest pain GI: Reports: No symptoms : Reports: No symptoms Musculoskeletal: Reports: No symptoms Skin: Reports: No symptoms Neurological: Reports: No symptoms Endocrine: Reports: No symptoms Hematologic/Lymphatic: Reports: No symptoms All Other Systems: Reviewed and Negative Past Medical History - Past Medical History Previously Healthy: No Endocrine: Reports: None, Dyslipidemia Cardiovascular: Reports: CAD, Hypertension, A-Fib Respiratory: Reports: COPD Hematological: Reports: None Gastrointestinal: Reports: None Genitourinary: Reports: None, Kidney stones (KIDNEY STONE 20 YEARS AGO- states sees dr butt, last stone 6 weeks ago) Neuro/Psych: Reports: None Musculoskeletal: Reports: None Cancer: Reports: None - Surgical History General Surgical History: Reports: None (HAS STENTS), Stent (Cardiac STENT ) - Family History Family History: Reports: Unknown - Social History Smoking Status: Current every day smoker, Heavy tobacco smoker Hx Substance Use: No Alcohol Screening: None Physical Exam - Physical Exam Appearance: Well-appearing, No pain distress, Well-nourished Pain Distress: Moderate Eyes: CHERIE ENT: Ears normal, Nose normal, Oropharynx normal Neck: Supple Respiratory: Airway patent Cardiovascular: RRR GI/: Soft, Nontender, No masses, Bowel sounds normal, No Organomegaly Musculoskeletal: Normal strength Skin: Warm Neurological: Sensation intact Psychiatric: Affect appropriate, Mood appropriate, Anxious Physician Notification - Case Discussed Physician Notified: dr guevara accepted in transfer Time of Notification: 09:24 Critical Care Note - Critical Care Note Total Time (mins): 20 Course - Course Orders, Labs, Meds: Orders Category Date Time Status EKG-(ED ONLY) Stat CARDIO 05/17/18 09:14 Ordered 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] .ONCE EMERGENCY 05/17/18 09:14 Active IV [ED IV/MEDIPORT/POWERPORT] .ONCE EMERGENCY 05/17/18 09:14 Active OXYGEN [ED APPLY O2] .ONCE EMERGENCY 05/17/18 09:15 Active CBC W/ AUTO DIFF Stat LAB 05/17/18 09:13 Ordered COMPREHENSIVE METABOLIC PANEL Stat LAB 05/17/18 09:14 Ordered CREATINE KINASE Stat LAB 05/17/18 09:14 Ordered TROPONIN I Stat LAB 05/17/18 09:14 Ordered 0.9 % Sodium Chloride [Saline Flush] MEDS 05/17/18 09:14 Active 1 syr IVF PRN PRN Morphine Sulfate [Morphine 2 mg/ml Syringe] MEDS 05/17/18 09:20 Ordered 2 mg IVP Q4H PRN Nitroglycerin [Nitrostat] MEDS 05/17/18 09:15 Discontinued 0.4 mg SL ONCE STA CXR [CHEST, 1V AP ONLY] Stat RADS 05/17/18 09:14 Ordered Medications Generic Name Dose Route Start Last Admin Trade Name Freq PRN Reason Stop Dose Admin Morphine Sulfate 2 mg 05/17/18 09:20 Morphine 2 Mg/Ml Syringe IVP Q4H PRN Chest Pain Sodium Chloride 1 syr 05/17/18 09:14 Saline Flush IVF PRN PRN To flush IV Discontinued Medications Generic Name Dose Route Start Last Admin Trade Name Freq PRN Reason Stop Dose Admin Nitroglycerin 0.4 mg 05/17/18 09:15 Nitrostat SL 05/17/18 09:16 ONCE STA Vital Signs: Temp Pulse Resp BP Pulse Ox 05/17/18 09:14 97.8 F 72 20 182/82 H 98 NAYA Risk Score NAYA Risk Score: Risk Score Odds of by 30D 0 0.1 (0.1-0.2) 1 0.3 (0.2-0.3) 2 0.4 (0.3-0.5) 3 0.7 (0.6-0.9) 4 1.2 (1.0-1.5) 5 2.2 (1.9-2.6) 6 3.0 (2.5-3.6) 7 4.8 (3.8-6.1) Departure - Departure Time of Disposition: 09:24 Disposition: TSF SHORT-TRM HOSP Discharge Problem: Chest pain Condition: Stable Pt referred to PMD for follow-up: Yes IPMP verified?: No Allergies/Adverse Reactions: Allergies No Known Allergies Allergy (Verified 05/17/18 09:22) Home Medications: Ambulatory Orders Aspirin [Aspirin EC] 325 mg PO DAILYWM 08/12/13 Chlordiazepoxide HCl [Librium] 10 mg PO BID #60 capsule 09/18/17 Transfer Form Completed: Yes Disposition Discussed With: Patient, Family
[2018-05-17 09:31] VITALS: BP 182/82; TEMP 97.8
--- NOTE | 2018-05-17 09:40 | DI ---
EXAM: Chest one view HISTORY: Chest pain COMPARISON: 09/16/2017 TECHNIQUE: Single view of the chest was performed FINDINGS: Lungs are clear. Lungs are hyperinflated. No pleural effusion. Chronic blunting right co stophrenic angle likely pleural parenchymal scarring. The heart is normal in size. The mediastinal c ontour is normal, noting atherosclerosis. Stable small metallic density near midline upper thorax, u nchanged. There are no acute abnormalities of the bones. Rightward curvature thoracic spine. IMPRESSION: 1. No acute cardiopulmonary process. 2. Chronic obstructive pulmonary disease.
== END 2018-05-17 09:55 | disposition short-term general hospital (02) ==
LOC: ED 09:13
DX: R07.9 Chest pain, unspecified (principal); I10 Essential (primary) hypertension; I25.10 Atherosclerotic heart disease of native coronary artery without angina pectoris; E78.5 Hyperlipidemia, unspecified; Z95.5 Presence of coronary angioplasty implant and graft; F17.210 Nicotine dependence, cigarettes, uncomplicated
CPT/HCPCS: 36415; 80053; 82550; 84484; 85025; 93005; 93010; 96374; 99285

== ENCOUNTER 2018-05-20 08:33 | Outpatient (CLI) | payer OTHER | END 2018-05-20 08:34 | disposition home or self-care (01) | LOC: LAB 08:33 | PROVIDERS: ATTEND Internal Medicine | DX: E78.5 Hyperlipidemia, unspecified (principal); I10 Essential (primary) hypertension; Z79.899 Other long term (current) drug therapy; Z12.5 Encounter for screening for malignant neoplasm of prostate | CPT/HCPCS: 36415; 80053; 80061; 83036; 84443; 85025; 85651 ==

== ENCOUNTER 2018-05-22 07:44 | Outpatient (CLI) | payer OTHER ==
--- NOTE | 2018-05-22 10:28 | CT ---
EXAM: CT abdomen pelvis with contrast HISTORY: Abdominal pain, weight loss, nausea COMPARISON: 07/13/2017 TECHNIQUE: CT abdomen pelvis performed with intravenous contrast. Coronal and sagittal reformatted images obtained. FINDINGS: Please refer to separate port CT chest regarding findings in the lower chest. No acute ab normalities of the bones. Degenerative change in the spine. No suspicious lytic or blastic lesions identified. There is a stable cyst in the left hepatic lobe. There is stable cyst in the left hepat ic lobe. Liver otherwise unremarkable. Gallbladder unremarkable. Pancreas unremarkable. Spleen un remarkable. Adrenals unremarkable. Sub centimeter hypodensity right kidney, too small to characteri ze. No hydronephrosis. Aorta normal in caliber. Moderate atherosclerosis. No lymphadenopathy or a scites. Bladder only mildly distended and poorly evaluated, grossly unremarkable. Prostate is moder ately enlarged. Stomach unremarkable. Duodenal diverticulum. No dilated loops small bowel. Append ix appears normal. Colonic diverticulosis. No lymphadenopathy or ascites. IMPRESSION: 1. No acute abnormality identified in the abdomen or pelvis. 2. Colonic diverticulosis. Duodenal diverticulum. 3. Enlarged prostate. 4. Atherosclerosis.
--- NOTE | 2018-05-22 10:32 | CT ---
EXAM: CT chest with contrast. HISTORY: Chronic obstructive pulmonary disease. Weight loss. Chest pain. COMPARISON: Radiograph 05/17/2018. CT 09/17/2017, 01/17/2016. TECHNIQUE: Multiple axial images of the chest were obtained following intravenous administration of 75 mL of Omnipaque-300, low osmolar. Images were reformatted in the sagittal and coronal planes. FINDINGS: Nonenlarged mediastinal, hilar, and axillary lymph nodes are present. Heart size is estelle l. Atherosclerotic calcifications present. No pericardial effusion identified. Moderate to severe emphysematous changes are present. Biapical scarring noted. Left upper lobe nodul arity on axial images 35 and 36 is new with the largest nodule measuring 0.4 cm. Posterior right low er lobe scarring on axial image 50 is stable. No pleural effusion or pneumothorax identified. Calci fied granulomatous changes noted. Limited images of the upper abdomen demonstrate stable hepatic cyst. Refer to abdominal CT report fo r details. Old superior endplate compression deformity of T9 noted. IMPRESSION: 1. New left upper lobe nodules which require follow-up CT in 3 months. 2. Moderate to severe emphysema. 3. Resolution of lower lobe bronchial thickening, ground-glass opacities and nodularity.
== END 2018-05-22 07:45 | disposition home or self-care (01) ==
LOC: RAD 07:44
PROVIDERS: ATTEND Internal Medicine
DX: R07.9 Chest pain, unspecified (principal); R11.0 Nausea; R63.4 Abnormal weight loss; R10.9 Unspecified abdominal pain; J44.9 Chronic obstructive pulmonary disease, unspecified

== ENCOUNTER 2018-06-01 06:36 | Outpatient (CLI) ==
--- NOTE | 2018-06-02 09:05 | ECHO2D ---
Date of Exam: 06/01/18 Ordering Physician: DR. DARREN AZEVEDO Room #: OP Reason for Echo: CHEST PAIN, SOB M-Mode Normal Adult Results LV Dimensions Normal Adult Results AoV Opening excursions >1.6 >1.6 LVEDD-base- 3.5-5.8 4.3 Ao root dimensions 2.0-3.7 3.0 LVESD-base- 3.1-4.6 L. Atrium dimensions 1.9-3.8 4.2 Post. Wall thickness 0.8-1.1 1.0 IV septum (thickness) 0.7-1.2 1.0 Post. Wall excursion 0.72-1.3 NORMAL Septal motion NORMAL Systolic motion R. Ventricular cavity 1.5-2.0 NORMAL LVEF 60% 61% Paradoxical septal wall motion NORMAL 2-D : 2-D M Mode Echocardiogram was performed using apical four chamber and left parasternal long and short axis views. Mitral, tricuspid and aortic valves appear to be normal. Contractility of the left ventricle seems to be normal, so is the cavity size. Enlarged left atrial cavity size. Aortic root appears to be normal. There is no pericardial effusion. There is no thrombus noted in the left ventricular or left aortic cavity. No mitral valve prolapse noted. M-MODE: MV: NORMAL AV: NORMAL TV: NORMAL PV: CHAMBER SIZE: ENLARGED LEFT ATRIAL CAVITY WALL MOTION: NORMAL PERICARDIUM: NORMAL INTERPRETATION: 1. ENLARGED LEFT ATRIAL CAVITY (MILD) 2. NORMAL VALVES 3. NORMAL LEFT VENTRICULAR CONTRACTILITY MTDD
== END 2018-06-01 06:37 | disposition home or self-care (01) ==
LOC: CAR 06:36
PROVIDERS: ATTEND Internal Medicine
DX: R07.9 Chest pain, unspecified (principal); R06.02 Shortness of breath

== ENCOUNTER 2018-08-04 09:12 | Day surgery (SDC) ==
[2018-08-04] MEDS ORDERED: VERSED ONE (11:28)
[2018-08-04] MEDS ORDERED: DIPRIVAN 20 ML VIAL IVP ONE (11:28)
--- NOTE | 2018-08-05 09:57 | OP ---
INDICATIONS FOR PROCEDURE: 77-year-old gentleman presents for his first ever screening colonoscopy. MEDICATIONS: SEE ANESTHESIA NOTES. PROCEDURE: COLONOSCOPY. REPORT: The risks, benefits, alternatives and limitations were discussed in detail with the patient. Informed consent was obtained. After adequate sedation was achieved, a digital rectal exam revealed good tone, no masses. The colonoscope was introduced into the rectum and advanced under direct visual guidance to the cecum. The cecum was identified by the appendiceal orifice and IC valve. I then slowly withdrew the scope in a circumferential manner and examined the mucosa quite carefully. I looked on the proximal and distal side of folds and flexures as best as possible. I was able to retroflex the scope in the right colon and the left colon to increase visualization. I noted a large amount of diverticulosis scattered throughout the left colon. There were small and large mouth diverticula throughout. On retroflex view of the anal canal there were small internal hemorrhoids. No other abnormalities were noted. The prep was good except for the transverse colon there was a little bit of retained liquid and solid stool but it is was fair there. I suctioned and washed this off as best as possible. The withdrawal time was 6 minutes and 51 seconds. The patient tolerated the procedure well with stable vital signs and pulse oximetry throughout. IMPRESSION: 1. DIVERTICULOSIS 2. SMALL INTERNAL HEMORRHOIDS RECOMMENDATIONS: 1. High fiber diet. 2. Office visit as needed. 3. Colon screening examinations are not recommended in the future for this individual. CC: DR. ROBERTO CARLOS ARGUETA
[2018-08-06 13:49] VITALS: BP 136/76; TEMP 98.5
== END 2018-08-04 13:05 | disposition home or self-care (01) ==
LOC: SURG 09:12
PROVIDERS: ATTEND Internal Medicine Gastroenterology
DX: Z12.11 Encounter for screening for malignant neoplasm of colon (principal)
CPT/HCPCS: 00812; G0121

== ENCOUNTER 2018-12-14 13:39 | Inpatient (IN) | payer OTHER ==
[2018-12-14 13:43] VITALS: BMI 17.2
[2018-12-14] MEDS ORDERED: SODIUM CHLORIDE 1,000 ML IV STA (14:05)
--- NOTE | 2018-12-14 14:37 | CT ---
EXAM: CT THORAX HISTORY: Cough, shortness of breath and weight loss. TECHNIQUE: CT thorax without intravenous contrast. Multiplanar images presented. COMPARISON: 10/07/2018 and older studies FINDINGS: Normal heart size without pericardial effusion. There is moderate atherosclerotic disease including coronary artery level.Limited evaluation of the mediastinum and hilar structures without the administ ration of intravenous contrast agent. A few scattered small, mediastinal lymph nodes, some which are calcified are nonspecific. No definite hilar mass. Redemonstration of severe pulmonary emphysema. There is a discoid and stellate opacity in the right lower lobe which is stable since at least 09/17/2017 likely related to scarring. The aforementioned micro nodules in the left upper lobe are unchanged since the more recent exam and new since the older study. There is no vascular congestion, pneumothorax or pleural fluid. The bones reveal scoliosis and degenerative disc disease of the spine. There is a low attenuation le regina within the anterior left hepatic lobe measuring 2.3 x 1.5 x 2.0 cm which has been seen at least since the 2017 exam without noticeable change, probable cyst or hemangioma. IMPRESSION: 1. Severe emphysema. Scattered fibrosis. Stable left upper lobe micro nodules. 2. Atherosclerosis. 3. Probable liver cyst versus hemangioma.
--- NOTE | 2018-12-14 16:15 | US ---
EXAM: Bilateral lower extremity venous Doppler History: Elevated D-dimer, difficulty breathing Technique: Multiple sonographic images through the bilateral lower extremities were obtained. Color duplex Doppler was used to interrogate vascular flow. Findings: The bilateral common femoral, greater saphenous, profunda, superficial femoral, popliteal, peroneal, posterior tibial and anterior tibial veins demonstrate spontaneous flow with normal compre ssion and normal augmentation. Impression: No sonographic evidence for deep venous thrombosis.
--- NOTE | 2018-12-14 16:50 | CT ---
EXAM: CTA of the chest. History: Short of breath, elevated D-dimer. Comparison: Chest CT 12/14/2018 Technique: Multiplanar CT images through the thorax were obtained following administration of IV con trast. MIP images and 3-D reconstructions were also provided. Findings: Heart size is normal. No pericardial effusion. Great vessels are unremarkable. No patho logically enlarged thoracic lymph nodes. No pulmonary arterial filling defects. Emphysema again not ed. There is diffuse bronchial wall thickening. The bronchial wall thickening is worse in the bilat eral lower lobes and there are are micronodules and tree in bud opacities, worse in the left lower lo be. No pleural fluid and no pneumothorax. Cyst again seen within the left hepatic lobe. No acute osseous abnormalities. Impression: 1. No pulmonary embolism. 2. Mild bronchopneumonia within the lower lobes and worse on the left. 3. Diffuse bronchial wall thickening, most significant within the lower lungs. 4. Emphysema
[2018-12-14] MEDS ORDERED: ROCEPHIN 1 GM in SODIUM CHLORIDE 50 ML IV STA (17:02)
[2018-12-14] MEDS ORDERED: DUONEB NEB STA (17:06)
[2018-12-14] MEDS ORDERED: SOLU-MEDROL 125 MG IVP STA (17:06)
--- NOTE | 2018-12-14 17:08 | ED.PDOC ---
General ED Provider: Dr. SHELLEY YO Chief Complaint: Cough Stated Complaint: COUGH, CONGESTION, WHEEZING Time Seen by Physician: 13:48 (NURSE PRESENT AT ALL TIMES ) Mode of Arrival: Walk-In Information Source: Patient, Family Exam Limitations: No limitations Primary Care Provider: DARREN AZEVEDO Nursing and Triage Documentation Reviewed and Agree: Yes Does patient meet sepsis criteria?: No If yes, has appropriate treatment been initiated?: No System Inflammatory Response Syndrome: Not Applicable Sepsis Protocol: For patient's 13 years and over: Temp is 96.8 and below OR 101 and greater Pulse >90 BPM Resp >20/minute Acutely Altered Mental Status Are patient's symptoms suggestive of a new infection, such as: -Pneumonia -Skin, Soft Tissue -Endocarditis -UTI -Bone, Joint Infection -Implantable Device -Acute Abdominal Infection -Wound Infection -Meningitis -Blood Stream Catheter Infection -Unknown Review of Systems - Review Of Systems Constitutional: Reports: Chills, Malaise, Weakness, Loss of appetite Eyes: Reports: No symptoms Ears, Nose, Mouth, Throat: Reports: No symptoms Respiratory: Reports: Cough Cardiac: Reports: No symptoms GI: Reports: No symptoms : Reports: No symptoms Musculoskeletal: Reports: No symptoms Skin: Reports: No symptoms Neurological: Reports: No symptoms Endocrine: Reports: No symptoms Hematologic/Lymphatic: Reports: No symptoms All Other Systems: Reviewed and Negative Past Medical History - Past Medical History Previously Healthy: No Endocrine: Reports: None, Dyslipidemia Cardiovascular: Reports: CAD, Hypertension, A-Fib Respiratory: Reports: COPD Hematological: Reports: None Gastrointestinal: Reports: None Genitourinary: Reports: None, Kidney stones (KIDNEY STONE 20 YEARS AGO- states sees dr butt, last stone 6 weeks ago) Neuro/Psych: Reports: None Musculoskeletal: Reports: None Cancer: Reports: None - Surgical History General Surgical History: Reports: None (HAS STENTS), Stent (Cardiac STENT ) - Family History Family History: Reports: Unknown - Social History Smoking Status: Current every day smoker, Light tobacco smoker Hx Substance Use: No Alcohol Screening: None Physical Exam - Physical Exam Appearance: Ill-appearing Ill-appearing: Mild Eyes: CHERIE, EOMI, Conjunctiva clear ENT: Ears normal, Nose normal, Oropharynx normal Respiratory: Breath sounds diminished, Rhonchi, Wheezes Cardiovascular: RRR, Pulses normal, No rub, No murmur GI/: Soft, Nontender, No masses, Bowel sounds normal, No Organomegaly Musculoskeletal: Normal strength, ROM intact, No edema, No calf tenderness Skin: Warm, Dry, Normal color Neurological: Sensation intact, Motor intact, Reflexes intact, Cranial nerves intact, Alert, Oriented Psychiatric: Affect appropriate, Mood appropriate Interpretation - Radiology Interpretation Radiology Interpretation By: Radiologist Radiology Results: Positive (PNEUMONIA) Re-Evaluation - Re-Evaluation Time of Re-Evaluation: 15:00 Status: Improved Vital Signs Stable: Yes Pain Level: 0 Appearance: NAD Lungs: Clear Skin: Warm and Dry Neuro: Alert and Oriented X3 CV: RRR - Re-Evaluation Time of Re-Evaluation: 17:09 Status: Improved Vital Signs Stable: Yes Pain Level: 0 Appearance: NAD Skin: Warm and Dry Neuro: Alert and Oriented X3 CV: RRR Physician Notification - Case Discussed Physician Notified: PONCHO Time of Notification: 17:09 (ADMITT) Admit/Transition Orders Entered by ED Provider: Yes Admit To: Inpatient Critical Care Note - Critical Care Note Total Time (mins): 0 Course - Course Hematology/Chemistry: 12/14/18 14:25 12/14/18 14:25 Orders, Labs, Meds: Lab Review 12/14/18 12/14/18 12/14/18 14:10 14:13 14:25 WBC 10.29 H RBC 5.00 Hgb 14.2 Hct 43.1 MCV 86.2 MCH 28.4 MCHC 32.9 RDW Coeff of Maty 14.1 Plt Count 312 Immature Gran % (Auto) 0.3 Neut % (Auto) 68.6 Lymph % (Auto) 19.3 [place] % (Auto) 10.0 Eos % (Auto) 1.4 Baso % (Auto) 0.4 Immature Gran # (Auto) 0.0 Neut # (Auto) 7.1 H Lymph # (Auto) 2.0 Green[place] # (Auto) 1.0 Eos # (Auto) 0.1 Baso # (Auto) 0.0 PT INR APTT D-Dimer (Manual) Puncture Site R rad O2 Saturation 96.0 ABG pH 7.423 ABG pCO2 33.9 L ABG pO2 80.0 L ABG HCO3 22.1 ABG Total CO2 23 ABG Base Excess -2 Karri Test + O2 Delivery Device Ra FiO2 % 21.0 Sodium Potassium Chloride Carbon Dioxide Anion Gap BUN Creatinine Estimated GFR (MDRD) BUN/Creatinine Ratio Glucose Lactic Acid Calcium Total Bilirubin AST ALT Alkaline Phosphatase Total Creatine Kinase Troponin I Total Protein Albumin Globulin Albumin/Globulin Ratio Procalcitonin Influ A Molecular Assay Negative by naat Influ B Molecular Assay Negative by naat 12/14/18 12/14/18 12/14/18 14:25 14:25 14:25 WBC RBC Hgb Hct MCV MCH MCHC RDW Coeff of Maty Plt Count Immature Gran % (Auto) Neut % (Auto) Lymph % (Auto) [place] % (Auto) Eos % (Auto) Baso % (Auto) Immature Gran # (Auto) Neut # (Auto) Lymph # (Auto) [place] # (Auto) Eos # (Auto) Baso # (Auto) PT 10.3 INR 1.03 APTT 30.2 D-Dimer (Manual) 3527.09 Puncture Site O2 Saturation ABG pH ABG pCO2 ABG pO2 ABG HCO3 ABG Total CO2 ABG Base Excess Karri Test O2 Delivery Device FiO2 % Sodium 140.6 Potassium 3.74 Chloride 101.6 Carbon Dioxide 28.7 Anion Gap 14.04 BUN 22.7 H Creatinine 0.85 Estimated GFR (MDRD) 87.00 BUN/Creatinine Ratio 26.70 Glucose 97.8 Lactic Acid Calcium 9.26 Total Bilirubin 0.61 AST 21.4 ALT 16.2 Alkaline Phosphatase 77.5 Total Creatine Kinase 57.9 Troponin I < 0.012 Total Protein 7.33 Albumin 4.04 Globulin 3.29 Albumin/Globulin Ratio 1.22 Procalcitonin Influ A Molecular Assay Influ B Molecular Assay 12/14/18 12/14/18 14:25 14:25 WBC RBC Hgb Hct MCV MCH MCHC RDW Coeff of Maty Plt Count Immature Gran % (Auto) Neut % (Auto) Lymph % (Auto) [place] % (Auto) Eos % (Auto) Baso % (Auto) Immature Gran # (Auto) Neut # (Auto) Lymph # (Auto) [place] # (Auto) Eos # (Auto) Baso # (Auto) PT INR APTT D-Dimer (Manual) Puncture Site O2 Saturation ABG pH ABG pCO2 ABG pO2 ABG HCO3 ABG Total CO2 ABG Base Excess Karri Test O2 Delivery Device FiO2 % Sodium Potassium Chloride Carbon Dioxide Anion Gap BUN Creatinine Estimated GFR (MDRD) BUN/Creatinine Ratio Glucose Lactic Acid 1.15 Calcium Total Bilirubin AST ALT Alkaline Phosphatase Total Creatine Kinase Troponin I Total Protein Albumin Globulin Albumin/Globulin Ratio Procalcitonin < 0.05 Influ A Molecular Assay Influ B Molecular Assay Orders Category Date Time Status ABG DRAW REQUEST Stat CARDIO 12/14/18 14:13 Completed EKG-(ED ONLY) Stat CARDIO 12/14/18 14:03 Completed NPO REMINDER: IMAGING ONCE CARE 12/14/18 15:18 Active ED IV/MEDIPORT/POWERPORT .ONCE EMERGENCY 12/14/18 14:03 Active ABG Stat LAB 12/14/18 14:13 Completed BLOOD CULTURE Stat LAB 12/14/18 14:45 Received CBC W/ AUTO DIFF Stat LAB 12/14/18 14:25 Completed COMPREHENSIVE METABOLIC PANEL Stat LAB 12/14/18 14:25 Completed CREATINE KINASE Stat LAB 12/14/18 14:25 Completed D-DIMER Stat LAB 12/14/18 14:25 Completed FLU A/B MOLECULAR Stat LAB 12/14/18 14:10 Completed LACTIC ACID Stat LAB 12/14/18 14:25 Completed MOLECULAR GROUP A STREP Stat LAB 12/14/18 14:10 Completed PARTIAL THROMBOPLASTIN TIME Stat LAB 12/14/18 14:25 Completed PROCALCITONIN Stat LAB 12/14/18 14:25 Completed PT WITH INR Stat LAB 12/14/18 14:25 Completed SPUTUM CULTURE Stat LAB 12/14/18 15:05 Received TROPONIN I Stat LAB 12/14/18 14:25 Completed 0.9 % Sodium Chloride [Saline Flush] MEDS 12/14/18 14:03 Active 1 syr IVF PRN PRN Aspirin [Aspirin EC] MEDS 12/15/18 08:00 Ordered 325 mg PO DAILYWM Ceftriaxone Sodium [Rocephin] 1 gm MEDS 12/14/18 17:02 Active 0.9 % Sodium Chloride [Sodium Chloride] 50 ml IV ONCE Chlordiazepoxide HCl [Librium] MEDS 12/14/18 17:05 Ordered 10 mg PO PRN PRN Lisinopril [Zestril] MEDS 12/15/18 09:00 Ordered 10 mg PO DAILY Pantoprazole Sodium [Protonix] MEDS 12/15/18 09:00 Ordered 40 mg PO DAILY Potassium [Potassium] MEDS 12/15/18 09:00 Ordered 1 tab PO DAILY Sodium Chloride 0.9% [Sodium Chloride] 1,000 ml MEDS 12/14/18 14:05 Active IV 100 mls/hr CT CHEST PE PROTOCOL Stat RADS 12/14/18 15:[address] CHEST W/O CONTRAST Stat RADS 12/14/18 14:02 Completed U/S VENOUS SCAN GIN LEGS Stat RADS 12/14/18 15:18 Completed Medications Generic Name Dose Route Start Last Admin Trade Name Freq PRN Reason Stop Dose Admin Sodium Chloride 1,000 mls @ 100 mls/hr 12/14/18 14:05 12/14/18 15:09 Sodium Chloride IV 12/15/18 00:04 100 mls/hr .Q10H STA Administration Ceftriaxone Sodium 1 gm/ 50 mls @ 75 mls/hr 12/14/18 17:02 Sodium Chloride IV 12/14/18 17:41 ONCE STA Sodium Chloride 1 syr 12/14/18 14:03 12/14/18 15:09 Saline Flush IVF 1 syr PRN PRN Administration To flush IV Vital Signs: Temp Pulse Resp BP Pulse Ox 12/14/18 13:40 99.6 F 79 22 174/79 H 94 L Departure - Departure Time of Disposition: 17:10 Disposition: ADMITTED INPATIENT Discharge Problem: Cough Pneumonia Qualifiers: Pneumonia type: due to unspecified organism Condition: Good Pt referred to PMD for follow-up: Yes (ADMITT) IPMP verified?: No Allergies/Adverse Reactions: Allergies No Known Allergies Allergy (Verified 12/14/18 13:44) Home Medications: Ambulatory Orders Aspirin [Aspirin EC] 325 mg PO DAILYWM 08/12/13 Chlordiazepoxide HCl [Librium] 10 mg PO PRN PRN 12/14/18 Disposition Discussed With: Patient, Family
[2018-12-14] MEDS ORDERED: ROCEPHIN ONE (17:10)
[2018-12-14] MEDS ORDERED: SODIUM CHLORIDE 1,000 ML IV SCH (17:30)
[2018-12-14] MEDS: NORVASC PO SCH (18:36)
[2018-12-14] MEDS: SOLU-MEDROL 40 MG IVP SCH (20:54)
[2018-12-14] MEDS ORDERED: INFUVITE ADULT IV ONE (21:42)
[2018-12-14] MEDS: INFUVITE ADULT 10 ML in D5%-1/2NS-KCL 20 MEQ/L IV SOL 1,000 ML IV SCH (21:45)
[2018-12-14] MEDS: DUONEB NEB SCH (23:25)
[2018-12-15] MEDS: DUONEB NEB SCH ×4 (04:55→23:00)
[2018-12-15] MEDS: ROCEPHIN 1 GM in SODIUM CHLORIDE 50 ML IV SCH (09:20)
[2018-12-15] MEDS: ASPIRIN EC PO SCH (09:22)
[2018-12-15] MEDS: NORVASC PO SCH (09:22)
[2018-12-15] MEDS: ZESTRIL PO SCH (09:23)
[2018-12-15] MEDS: SOLU-MEDROL 40 MG IVP SCH ×2 (09:23→21:28)
[2018-12-15] MEDS: PROTONIX PO SCH (09:26)
[2018-12-15] MEDS ORDERED: INFUVITE ADULT IV ONE ×2 (11:06→11:08)
[2018-12-15] MEDS: INFUVITE ADULT 10 ML in D5%-1/2NS-KCL 20 MEQ/L IV SOL 1,000 ML IV SCH (11:30)
[2018-12-15] MEDS: POTASSIUM PO SCH (14:25)
[2018-12-15] MEDS ORDERED: LIBRIUM PO PRN (21:00)
[2018-12-16] MEDS ORDERED: INFUVITE ADULT IV ONE ×2 (00:26→14:28)
[2018-12-16] MEDS: INFUVITE ADULT 10 ML in D5%-1/2NS-KCL 20 MEQ/L IV SOL 1,000 ML IV SCH ×2 (00:37→14:43)
[2018-12-16] MEDS: SOLU-MEDROL 40 MG IVP SCH ×4 (01:11→17:40)
[2018-12-16] MEDS: DUONEB NEB SCH ×4 (05:02→23:54)
[2018-12-16] MEDS: PROTONIX PO SCH (05:40)
--- NOTE | 2018-12-16 07:40 | PN ---
DATE OF SERVICE: 12/14/18 SUBJECTIVE: Mr. Shannon claimed that he felt bad about 4 days ago from a Friday and he had not had a sore throat but the problem continued to worsen. The daughter advised him to come to the emergency room but he did not agree at that time until today. He just tells me that he is sick and doesn't feel good. He feels bad all over and had fever. He wanted to be checked for tick disease. We will discuss that further. The patient is alert and oriented and did recognize me. He talked to me about and revealed who he used to work with. 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 He denies any chest pain. He is short of breath and has cough. He denies any sore throat. LUNGS: Diminished breath sounds in both sides. There is no rales. HEART: Is audible and regular with good tones. ABDOMEN: Flat and nontender LOWER EXTREMITIES: Symmetrical and equal. Pedal pulses are present. The patient had two CT chest at the emergency room once was without contrast and then the next one was with contrast because of the markedly elevated D- Dimer. Doppler studies of the lower extremities were negative for any DVT and there is no PE. It did mention mild bronchial pneumonia at both bases left more than right. BERNARDD
[2018-12-16] MEDS: ROCEPHIN 1 GM in SODIUM CHLORIDE 50 ML IV SCH (08:00)
[2018-12-16] MEDS: NORVASC PO SCH (08:01)
[2018-12-16] MEDS: ASPIRIN EC PO SCH (08:01)
[2018-12-16] MEDS: ZESTRIL PO SCH (08:01)
[2018-12-16] MEDS: POTASSIUM PO SCH (08:02)
[2018-12-16] MEDS ORDERED: BENADRYL PO PRN ×2 (08:05→22:01)
--- NOTE | 2018-12-16 09:44 | HP ---
DATE OF SERVICE: 12/14/18 CHIEF COMPLAINT: Shortness of breath with cough and fever SOURCE OF HISTORY: The patient plus emergency room notes. HISTORY OF PRESENT ILLNESS: This patient claimed that his problems began last Friday, 4 days ago consisting of not feeling well. He denied any sore throat but has cough. He is known to have a chronic obstructive lung disease and felt like he is getting more short of breath. The daughter had suggested earlier to come to the emergency room or see his doctor however he declined. His sensation of ill health has deteriorated so he came to the emergency room today. The patient did walk into the emergency room with family. The patient's vital signs on admission to the emergency room showed a temperature of 99.6, pulse 79, respiratory rate 22, oxygen saturation 94 at room air breathing is labored, blood pressure 174/79, 5' 8 and 113 pounds. BMI 17.2. Workup consisted of Chest CT without contrast and Chest CT with contrast because of elevated BMI. There was no demonstrated pulmonary emboli but the patient was noted to have bilateral bronchial pneumonia base left more than right. There was no mention of pneumonia on the CT without contrast. Doppler studies of the lower extremities revealed no venous thrombosis. This patient was then admitted because of pneumonia and increasing shortness of breath. PAST PERSONAL HISTORY: COPD, severe Hypertension Coronary artery disease with cardiac catheterization and stent applied History of cardiac arrhythmia Acute myocardial infarction FAMILY HISTORY: A child had heart disease Brother had heart disease Mother had cancer, gastric SOCIAL HISTORY: The patient is from his . Power of state's attorney Meera Shannon.. He is still smoking and smoked until last Friday, 4 days ago. Smoke in spite of his chronic obstructive lung disease. He denies any alcohol use and also denies any substance abuse. MEDICATIONS: Aspirin 325mg daily Protonix 40mg daily Potassium 99mg over the counter daily Albuterol Sulfate not indicated as how many times inhale Symbicort 160/4.5 one puff twice a day Lisinopril 10mg daily Librium 10mg capsule PRN ALLERGIES: The patient is local reaction to the Aquasonic 100 gel used for ultrasound examination. It happened today doing the Doppler studies of both lower extremities REVIEW OF SYSTEMS: CONSTITUTIONAL: The patient had fever but no chills with fatigue because of increasing short of breath. SYSTEMS ENG: The patient is alert and oriented and cooperative. Denies any headaches, no ataxia but has weakness and no syncopal episode and no seizure events. VISUAL: Negative AUDITORY: The patient's hearing is adequate. Denies any tinnitus, pain or drainage. RESPIRATORY: The patient has cough, productive gargling, Shortness of breath but no hemoptysis. CARDIOVASCULAR: Denies any chest pain, chest tightness or diaphoresis. GASTROINTESTINAL: Appetite is decreased. The patient denies any problems swallowing solids or liquids. No abdominal pain, change in bowel habits or blood in the stool. GENITOURINARY: Denies any burning on urination. Problems with hesitancy but no blood in the urine. MUSCULOSKELETAL: The patient does have some generalized muscular aches. ENDOCRINE: Negative INTEGUMENT: Denies any rash or pruritus. HEMATOLOGIC: Denies any prolonged bleeding, spontaneous bleeding or any forms of blood dyscrasia. PSYCHIATRIC: Affect is normal. PHYSICAL EXAMINATION: GENERAL: 78 year old male admitted to the hospital because of increasing shortness of breath with cough and fever and fatigue. The patient was found to have pneumonitis, bilateral basal left more than right per CT chest with contrast. VITAL SIGNS: HEAD: Unremarkable. Scalp has no active dermatitis. FACE: Symmetrical and equal with facial weakness. He denies any tenderness to palpation under pressure in the frontal and maxillary sinus areas. EYES: Pupils equal/reactive to light. Conjunctivae not pale. Sclerae not icteric. 2mm in size. MOUTH: Unremarkable. THROAT: No exudate. Some redness in the posterior pharyngeal mcneill. This patient needs to gargle using salt solution. NECK: No masses. No bruit. No tenderness. No rigidity. CHEST: Symmetrical and equal with limited expansion LUNGS: Breathing sounds are diminished in both sides, course inspiratory breath sounds. No wheezing. No rales. HEART: Audible and regular with good tones. No murmurs. ABDOMEN: Flat, soft with no remarkable tenderness, No guarding, Bowel sounds are active. No masses palpable. EXTERNAL GENITALIA: Not examined LOWER EXTREMITIES: No significant edema. Pedal pulses are present. UPPER EXTREMITIES: Symmetrical and equal ASSESSMENT: 1. Bilateral bronchial pneumonia, basal left more than right 2. Elevated D-dimer 3,527 with negative Doppler status venous lower extremities and negative for PE, chest. A protocol negative. Doppler status post lower extremities. TIME SPENT: GREATER THAN 65 MINUTES MTDD
[2018-12-16 22:24] VITALS: TEMP 97.5
[2018-12-17] MEDS ORDERED: INFUVITE ADULT IV ONE (02:05)
[2018-12-17] MEDS: INFUVITE ADULT 10 ML in D5%-1/2NS-KCL 20 MEQ/L IV SOL 1,000 ML IV SCH (02:14)
[2018-12-17] MEDS: DUONEB NEB SCH ×2 (04:20→11:07)
[2018-12-17 05:01] VITALS: BP 141/69
[2018-12-17] MEDS: PROTONIX PO SCH (05:30)
[2018-12-17] MEDS: ASPIRIN EC PO SCH (08:55)
[2018-12-17] MEDS: NORVASC PO SCH (08:55)
[2018-12-17] MEDS: ZESTRIL PO SCH (08:55)
[2018-12-17] MEDS: POTASSIUM PO SCH (08:56)
[2018-12-17] MEDS: ROCEPHIN 1 GM in SODIUM CHLORIDE 50 ML IV SCH (08:59)
[2018-12-17] MEDS ORDERED: SOLU-MEDROL 40 MG IVP SCH (09:00)
--- NOTE | 2018-12-17 10:57 | DI ---
EXAM: CHEST FRONTAL AND LATERAL VIEWS HISTORY: Shortness of breath. COMPARISON: 05/17/2018 FINDINGS: Heart size remains within normal limits. There are scattered calcifications suggesting ol d granulomatous disease. There is diffuse, chronic appearing interstitial accentuation. Lungs are h yperinflated and there is relative lucency of the lung zones suggesting pulmonary emphysema. No acut e infiltrates are seen. No vascular congestion. There is no consolidation, visible pleural fluid or pneumothorax. Bones reveal no acute fracture. IMPRESSION: Findings suggestive of chronic obstructive pulmonary disease, correlate clinically. No acute cardiopulmonary process.
--- NOTE | 2018-12-17 10:59 | PN ---
DATE OF SERVICE: 12/15/18 SUBJECTIVE: The patient was seen about 7:00 in the evening. The patient prior to that was complaining of itching and whelps or hives on both lower extremities. I did instruct the nurse to give a dose of Solu-Medrol and then give the Solu-Medrol every 6 hours instead of every 12. By the time I saw the patient the eruptions had resolved on both legs. There were three of those in the right buttocks lateral. The itching had stopped. The patient was seen at the emergency room because of shortness of breath and cough plus fever. The patient had some pneumonic process by CT with contrast. The CTA was done because of the markedly elevated D-Dimer 3,000+. The Doppler Status of both lower extremities also were done for the same reason. The patient however had a moderate reaction to the gel that was used for the Doppler studies. The patient had recurrence of the problem. Seems like that problem has more or less improved and maybe resolved tonight. LUNGS: Diminished breath sounds in both sides. Coarse breath sounds but no inspiratory or expiratory wheeze. This patient is still smoking. He claimed to be smoking less now then before. This patient had a previous myocardial infarction with cardiac catheterization and stent. He also had atrial fibrillation with hypertension and COPD. He had a history of nephrolithiasis. VITAL SIGNS: Temperature 97.9, pulse 84, blood pressure 136/63, respiratory rate 22, oxygen saturation 91 at room air. Recurrent hives secondary to the ultrasound gel. Needs to know what chemicals are present in the gel. BERNARDD
--- NOTE | 2018-12-17 11:19 | PN ---
DATE OF SERVICE: 12/16/18 SUBJECTIVE: The nurse had called me earlier this morning and before of recurrent hives. This patient is itching. I did tell the nurse to give the patient a bath. This patient had not had a bath since the gel was applied or where he had a moderate reaction. I did also order Benadryl PO to be given 6 hours along with the bath. The patient this evening is doing well and there are no skin macules or papules. He is not itching. He feels better and he was asking whether he can go home tomorrow. I did tell him that we will see how he does. He was admitted to the hospital because of the moderate allergica reaction as well the bronchial pneumonia. If he is able to ambulate and do well without any oxygen then he can go home. We will probably get a chest x-ray tomorrow just to make sure there is no progression of the pneumonitis process which was not visible on the CT chest without contrast. His labs today showed WBC 16,250 and maybe due to the Solu-Medrol. Solu-Medrol is decreased to every 12 hours rather then every 6 and the Benadryl is reduced to 25mg from 50mg Q 6 hours. I am not sure what the source of the D-Dimer. His renal panel is normal and there is no significant bacterial infection since the Procalcitonin is normal, less than 0.05. The patient is also afebrile. He is alert oriented and very hard of hearing. LUNGS: Breath sounds are diminished in both sides. No rales but coarse. No wheezing. HEART: Audible and regular with good tones, not tachycardiac LOWER EXTREMITIES: No edema and tenderness in the calf muscles. VITALS SIGNS: Temperature 97.9, pulse 78, blood pressure 152/67, respiratory rate 14, oxygen saturation 93 at room air. I had talked to the DON today with regards to weight changes in one day which showed wide fluctuation and also nasal oxygen of concentration why they put 2 liters sometimes and room air and I don't know which one is correct. It is very important to know that the patient's oxygen saturation was determined when he was on room air or had been without any oxygen. We will repeat the CBC and CMP and get a chest x-ray. His blood sugar was elevated probably because of the Solu -Medrol. That maybe the reason also of the Leukocytosis. I had ordered Influenza A and B quantitative and we still do not have the results. MTDD
--- NOTE | 2018-12-21 14:47 | DS ---
DATE OF SERVICE: 12/17/18 HOSPITAL COURSE: 78-year-old male , who became symptomatic four days prior to presentation to the emergency room. He declined to come to the emergency room earlier at the advice of the daughter. The patient's condition had deteriorated that he presented to the emergency room and claimed that he felt bad. The patient's D. dimer at the emergency room was markedly high prompting a CT of the chest as well as the Doppler studies. Both of those were negative. The patient however was noted to have a bronchial pneumonia, bilateral basilar, left more than right. The patient had two CTs of the chest done and the initial one was without contrast. The patient was alert and conversant. He had a low grade temperature in the emergency room 99.6, was dyspneic, blood pressure slightly elevated 174/79, oxygen saturation 94 on room air. The patient's previous medical problems consisted of COPD severe, hypertension, coronary artery disease with stent, history of cardiac arrhythmia, atrial fibrillation and previous acute myocardial infarction. The patient had slight leukocytosis very mild on admission and returned to normal but the leukocyte count did rise to 16,000 plus times two on 12/16 and probably secondary to steroids. D. Dimer was 3,527. Coagulation profile normal. Arterial blood gases mild hypoxemia, p02 80, oxygen saturation 96, FI02 21. Initial CMP was unremarkable except for the elevated BUN at 22.7, c02 28.7. Cardiac enzymes normal. Procalcitonin less than 0.05. Lactic acid was 1.15. No urinalysis was obtained on admission. Urinalysis was unremarkable. Influenza A and B in ER was negative by nuclear amplification. The quantitative influenza A showed 1:64 and the B 1:8. Lungs always had coarse breath sounds, diminished but no rales or wheezing admission until discharge. Temperature was normal and remained normal except for the initial contact at the emergency room. Blood pressure was elevated in the emergency room but since then the blood pressure was normal or close to normal with minimal elevation. Oxygen saturation without oxygen supplementation was 95 on 12/16 as well as 12/17. The patient received Rocephin 1 gm intravenously daily. He was continued on his previous medications. He also was given Benadryl because of the hives resulting from the ultrasound jelly. The hives did not reoccur after the patient had a good bath. He was given Benadryl 50 mg p.o initially every six hours and reduced to 25 mg every six hours. The Solu-Medrol was increased to every 6, 40 mg from every 12 and after the hives resolved and without recurrence of the pruritus the Methylprednisolone or Solu-Medrol was reduced to every 12. CBC on discharge showed a WBC of 16,840, hemoglobin/hematocrit at the border, total protein is below normal. Sugars slightly elevated at 119, liver normal. Chest x-ray just before discharge showed findings suggestive of chronic obstructive pulmonary disease, no acute cardiopulmonary procsses. This finding was communicated to the patient. I did advise the patient to stop smoking and I told him that the best medication for him is to stop the habit. The patient on discharge was continued on Amlodipine 5 mg daily. This is a new medication added since the blood pressure was slightly high at 174 systolic. Omnicef was to continue the antibiotic given at the hospital. It is 300 mg orally every 12 hours for the next 6 days. He is to resume all of his previous medications. He is to see Dr. Branch on 12/24/18 at 2 p.m. To return to the emergency room if he would have chills and fever or recurrence of the shortness of breath. New prescriptions: Omnicef 300 mg every 12 hours for four days; Amlodipine 5 mg tablet daily. FINAL DIAGNOSES: 1. BILATERAL BRONCHIAL PNEUMONIA LEFT MORE THAN RIGHT IMPROVED 2. MODERATE ALLERGIC REACTION TO AQUASONIC GEL 3. ELEVATED D. DIMER 3,527, SOURCE UNDETERMINED 4. CHRONIC TOBACCO USE AND ABUSE, PERSISTENT 5. CHRONIC OBSTRUCTIVE LUNG DISEASE, MODERATELY SEVERE 6. HISTORY OF HYPERTENSION, CONTROLLED 7. CORONARY ARTERY DISEASE, STATUS POST CARDIAC CATHETERIZATION AND STENT 8. HISTORY OF CARDIAC ARRHYTHMIA 9. ATRIAL FIBRILLATION 10. HISTORY OF ACUTE MYOCARDIAL INFARCTION PROGNOSIS: Guarded TIME SPENT: More than 60 minutes. MTDD
--- NOTE | 2018-12-22 11:13 | PN ---
DATE OF SERVICE: 12/17/18 SUBJECTIVE: The patient today is alert, oriented and cheerful. He is better and the itching and hives has resolved. This patient was given Benadryl 50mg yesterday at every 6 hours. The Solu-Medrol was given every 6 instead of every 12. The Benadryl is reduced to 25mg every 6 hours rather than 60 since the patient has improved remarkably. Solu-Cortef was given at 40mg every 6 and reduced to every 12 as the patient is doing well. I told him that I will come back sometime this afternoon to decided whether to discharge him or not. His repeat chest x-ray today showed findings suggestive of chronic obstructive pulmonary disease, no acute cardiopulmonary processes. Initial CT showed severe emphysema, stable left upper lobe micronodules probably liver cyst versus hemangioma. The CTA chest indicated mild bronchial pneumonia within the lower lobes left more than right. MTDD
== END 2018-12-17 14:55 | disposition home or self-care (01) | DRG 195 ==
LOC: ED 13:39 → MEDSURG A 17:07
PROVIDERS: ADMIT General Practice; ATTEND General Practice
DX: J18.0 Bronchopneumonia, unspecified organism (principal); J44.9 Chronic obstructive pulmonary disease, unspecified; I10 Essential (primary) hypertension; I25.10 Atherosclerotic heart disease of native coronary artery without angina pectoris; I48.91 Unspecified atrial fibrillation; I25.2 Old myocardial infarction; R06.2 Wheezing; R09.89 Other specified symptoms and signs involving the circulatory and respiratory systems; R68.83 Chills (without fever); R53.81 Other malaise; R53.1 Weakness; R63.0 Anorexia; R79.1 Abnormal coagulation profile; R50.9 Fever, unspecified; R06.02 Shortness of breath; Z72.0 Tobacco use
CPT/HCPCS: 36415; 80053; 81001; 82550; 82803; 83605; 84145; 84484; 85025; 85379; 85610; 85730; 86710; 87040; 87070; 87077; 87186; 87502; 87651; 93005; 93010; 94640; 96361; 96365; 96375; 97802; 99284

== ENCOUNTER 2022-01-29 11:53 | Inpatient (IN) ==
--- NOTE | 2022-01-29 12:46 | ED.PDOC ---
General ED Provider: Dr. LAURA PENNINGTON Chief Complaint: Shortness of Air Stated Complaint: SOB-worsening throughout today Time Seen by Provider: 01/29/22 12:35 Mode of Arrival: Ambulance Information Source: Patient Exam Limitations: No limitations Primary Care Provider: DARREN JIM Nursing and Triage Documentation Reviewed and Agree: Yes Does patient meet sepsis criteria?: No System Inflammatory Response Syndrome: Not Applicable Sepsis Protocol: For patient's 13 years and over: Temp is 96.8 and below OR 101 and greater Pulse >90 BPM Resp >20/minute Acutely Altered Mental Status Are patient's symptoms suggestive of a new infection, such as: -Pneumonia -Skin, Soft Tissue -Endocarditis -UTI -Bone, Joint Infection -Implantable Device -Acute Abdominal Infection -Wound Infection -Meningitis -Blood Stream Catheter Infection -Unknown Respiratory Complaint Exam Shortness of Air Complaint/Exam Onset/Duration: 24 hr Symptoms Are: Still present Timing: Intermittent Initial Severity: Moderate Current Severity: Moderate Character: Reports Dyspnea at rest, Dyspnea on exertion and Orthopnea Aggravating: Reports Movement, Deep breaths and Smoke exposure Alleviating: Reports Bronchodilators, Oxygen and Upright position Associated Signs and Symptoms: Reports Cough and Wheezing Related History: Reports Similar episode History of Healthcare-Acquired Pneumonia: No Pulmonary Embolism Risk Factors: Reports None Cardiac Risk Factors: Reports Prior NH, CAD, Elevated lipids and Hypertension Pseudomonas Risk Factors: Reports None Tuberculosis Risk Factors: Reports None Home Oxygen Use: Yes Recent Stress Test: No Recent Echo/LV Function: No Respiratory Distress: Mild Stridor Present: Yes Tracheal Deviation: No Subcutaneous Emphysema: No Accessory Muscle Use: No Diminished Breath Sounds: Yes Prolonged Expiratory Phase: No Unable to Speak Full Sentences: No Fatigue: Yes Leg Swelling: Yes William's Sign Present: No Grunting Respirations: No Differential Diagnoses: COPD Exacerbation and Pneumonia Quality Indicator For Non-Traumatic Chest Pain/Syncope: EKG Performed Review of Systems Review Of Systems Constitutional: Reports Malaise and Weakness Ears, Nose, Mouth, Throat: Reports No symptoms Respiratory: Reports Cough, Short of air and Wheezing Cardiac: Reports No symptoms GI: Reports No symptoms : Reports No symptoms Musculoskeletal: Reports No symptoms Skin: Reports No symptoms Neurological: Reports Anxiety Endocrine: Reports No symptoms All Other Systems: Reviewed and Negative [facility] Medical History (Updated 01/29/22 @ 16:47 by KATHARINA BELLE RN) Afib Chest pain Hypertension Kidney stone Myocardial infarction (~2007) Family History (Updated 01/29/22 @ 16:48 by KATHARINA BELLE, RN) Other Diabetes Stomach cancer Social History (Updated 01/29/22 @ 16:48 by KATHARINA BELLE, RN) Smoking and tobacco status: Current every day smoker History of recent travel: No Surgical History Placement of stent in coronary artery (~2007) Physical Exam Physical Exam Appearance: Reports Well-appearing Ill-appearing: Moderate Pain Distress: Mild Eyes: Reports CHERIE, EOMI, Conjunctiva clear, Conjunctiva pale and Right pupil size (PERL_A) ENT: Reports Ears normal, Oropharynx normal and TMs Occluded Neck: Supple Respiratory: Reports Airway patent, Breath sounds diminished and Wheezes Cardiovascular: Reports RRR and No murmur GI/: Reports Soft, Nontender and No masses Musculoskeletal: Reports Normal strength, ROM intact, No edema and No calf tenderness Skin: Reports Warm, Dry and Normal color Neurological: Reports Sensation intact, Motor intact, Reflexes intact, Cranial nerves intact, Alert and Oriented Psychiatric: Reports Affect appropriate and Mood appropriate Physician Notification Case Discussed Physician Notified: dr jim; Time of Notification: 15:00 Critical Care Note Critical Care Note Total Critical Care Time (mins): 30 Course Course Hematology/Chemistry: 01/30/22 05:08 01/30/22 05:08 Orders, Labs, Meds: Lab Review 01/29/22 01/29/22 01/29/22 12:57 13:20 13:20 WBC 19.13 H RBC 5.15 Hgb 14.6 Hct 42.7 MCV 82.9 MCH 28.3 MCHC 34.2 RDW Coeff of Maty 14.5 Plt Count 298 Immature Gran % (Auto) 0.6 Neut % (Auto) 89.6 H Lymph % (Auto) 6.7 L [place] % (Auto) 2.9 Eos % (Auto) 0.0 Baso % (Auto) 0.2 Neut # (Auto) 17.1 H Lymph # (Auto) 1.3 [place] # (Auto) 0.6 Eos # (Auto) 0.0 Baso # (Auto) 0.0 Immature Gran # (Auto) 0.1 Puncture Site [employer] [employer] Excess -1.2 O2 Saturation 95.2 ABG pH 7.48 H ABG pCO2 30.0 L ABG pO2 71.0 L ABG HCO3 22.3 ABG Total CO2 23.2 Karri Test Pos Hemoglobin 1.2 Oxyhemoglobin 93.2 L Carboxyhemoglobin 2.3 H Total Hemoglobin 15.1 O2 Delivery Device Cannula Oxygen Liter Flow 4.00 Sodium 132.4 L Potassium 3.74 Chloride 105.4 Carbon Dioxide 20.1 L Anion Gap 10.64 BUN 22.5 H Creatinine 0.73 Estimated GFR (MDRD) 103.00 BUN/Creatinine Ratio 30.82 Glucose 123.4 H Lactic Acid Uric Acid 4.26 Calcium 8.43 Magnesium 1.97 Total Bilirubin 0.78 AST 21.4 ALT 12.9 Alkaline Phosphatase 79.0 Total Creatine Kinase 43.7 L Troponin I < 0.012 Total Protein 6.80 Albumin 3.76 Globulin 3.04 Albumin/Globulin Ratio 1.23 Procalcitonin D-Dimer Adenovirus (PCR) B. pertussis DNA (PCR) B.parapertussis DNA PCR C. pneumoniae DNA (PCR) Coronavirus OC43 (PCR) Coronavirus HKU1 (PCR) Coronavirus 229E (PCR) Coronavirus NL63 (PCR) Human Metapneumovir PCR Influenza Type A (PCR) Influ A Molecular Assay Influenza B (RT-PCR) Influ B Molecular Assay M. pneumoniae (PCR) Parainfluenza 1 (PCR) Parainfluenza 2 (PCR) Parainfluenza 3 (PCR) Parainfluenza 4 (PCR) RSV (PCR) Entero/Rhino (PCR) SARS-CoV-2 (PCR) 01/29/22 01/29/22 01/29/22 13:20 13:20 13:20 WBC RBC Hgb Hct MCV MCH MCHC RDW Coeff of Maty Plt Count Immature Gran % (Auto) Neut % (Auto) Lymph % (Auto) [place] % (Auto) Eos % (Auto) Baso % (Auto) Neut # (Auto) Lymph # (Auto) [place] # (Auto) Eos # (Auto) Baso # (Auto) Immature Gran # (Auto) Puncture Site Base Excess O2 Saturation ABG pH ABG pCO2 ABG pO2 ABG HCO3 ABG Total CO2 Karri Test Hemoglobin Oxyhemoglobin Carboxyhemoglobin Total Hemoglobin O2 Delivery Device Oxygen Liter Flow Sodium Potassium Chloride Carbon Dioxide Anion Gap BUN Creatinine Estimated GFR (MDRD) BUN/Creatinine Ratio Glucose Lactic Acid 0.73 Uric Acid Calcium Magnesium Total Bilirubin AST ALT Alkaline Phosphatase Total Creatine Kinase Troponin I Total Protein Albumin Globulin Albumin/Globulin Ratio Procalcitonin 0.05 D-Dimer 1158.79 H Adenovirus (PCR) B. pertussis DNA (PCR) B.parapertussis DNA PCR C. pneumoniae DNA (PCR) Coronavirus OC43 (PCR) Coronavirus HKU1 (PCR) Coronavirus 229E (PCR) Coronavirus NL63 (PCR) Human Metapneumovir PCR Influenza Type A (PCR) Influ A Molecular Assay Influenza B (RT-PCR) Influ B Molecular Assay M. pneumoniae (PCR) Parainfluenza 1 (PCR) Parainfluenza 2 (PCR) Parainfluenza 3 (PCR) Parainfluenza 4 (PCR) RSV (PCR) Entero/Rhino (PCR) SARS-CoV-2 (PCR) 01/29/22 01/29/22 14:51 14:51 WBC RBC Hgb Hct MCV MCH MCHC RDW Coeff of Maty Plt Count Immature Gran % (Auto) Neut % (Auto) Lymph % (Auto) [place] % (Auto) Eos % (Auto) Baso % (Auto) Neut # (Auto) Lymph # (Auto) [place] # (Auto) Eos # (Auto) Baso # (Auto) Immature Gran # (Auto) Puncture Site Base Excess O2 Saturation ABG pH ABG pCO2 ABG pO2 ABG HCO3 ABG Total CO2 Karri Test Hemoglobin Oxyhemoglobin Carboxyhemoglobin Total Hemoglobin O2 Delivery Device Oxygen Liter Flow Sodium Potassium Chloride Carbon Dioxide Anion Gap BUN Creatinine Estimated GFR (MDRD) BUN/Creatinine Ratio Glucose Lactic Acid Uric Acid Calcium Magnesium Total Bilirubin AST ALT Alkaline Phosphatase Total Creatine Kinase Troponin I Total Protein Albumin Globulin Albumin/Globulin Ratio Procalcitonin D-Dimer Adenovirus (PCR) Not detected B. pertussis DNA (PCR) Not detected B.parapertussis DNA PCR Not detected C. pneumoniae DNA (PCR) Not detected Coronavirus OC43 (PCR) Not detected Coronavirus HKU1 (PCR) Not detected Coronavirus 229E (PCR) Not detected Coronavirus NL63 (PCR) Not detected Human Metapneumovir PCR Not detected Influenza Type A (PCR) Not detected Influ A Molecular Assay Negative by naat Influenza B (RT-PCR) Not detected Influ B Molecular Assay Negative by naat M. pneumoniae (PCR) Not detected Parainfluenza 1 (PCR) Not detected Parainfluenza 2 (PCR) Not detected Parainfluenza 3 (PCR) Not detected Parainfluenza 4 (PCR) Not detected RSV (PCR) Not detected Entero/Rhino (PCR) Not detected SARS-CoV-2 (PCR) Not detected Orders Category Date Time Status [facility] ADMISSION 01/29/22 13:52 Active ABG DRAW REQUEST Stat CARDIO 01/29/22 12:48 Completed EKG-(ED ONLY) Stat CARDIO 01/29/22 12:48 Completed METERED DOSE INHALATION Routine CARDIO 01/29/22 12:50 Completed OXYGEN Routine CARDIO 01/29/22 12:48 Active NPO REMINDER: IMAGING ONCE CARE 01/29/22 14:50 Completed TELEMETRY MONITORING TELE CARE 01/29/22 13:52 Active IV [ED IV/MEDIPORT/POWERPORT] .ONCE EMERGENCY 01/29/22 12:48 Active ABG COOX Stat LAB 01/29/22 12:57 Completed BLOOD CULTURE (ED ONLY) Stat LAB 01/29/22 13:20 Results CBC W/ AUTO DIFF Stat LAB 01/29/22 13:20 Completed CMP [COMPREHENSIVE METABOLIC PANEL] Stat LAB 01/29/22 13:20 Completed CREATINE KINASE Stat LAB 01/29/22 13:20 Completed D-DIMER Stat LAB 01/29/22 13:20 Completed FLU A & B MOLECULAR [FLU A/B MOLECULAR] Stat LAB 01/29/22 14:51 Completed LACTIC ACID Stat LAB 01/29/22 13:20 Completed MAGNESIUM Stat LAB 01/29/22 13:20 Completed PROCALCITONIN Stat LAB 01/29/22 13:20 Completed RESPIRATORY PANEL 2.1 (PCR) Stat LAB 01/29/22 14:51 Completed SPUTUM CULTURE Stat LAB 01/29/22 12:50 Uncollected TROPONIN I Stat LAB 01/29/22 13:20 Completed UA [URINALYSIS C & S IF INDICATED] Stat LAB 01/29/22 12:50 Completed URIC ACID Stat LAB 01/29/22 13:20 Completed URINE DRUG SCREEN (RAPID FOR ED) [DRUG SCREEN, URINE, LAB 01/29/22 12:49 Completed RAPID] Stat 0.9 % Sodium Chloride [Saline Flush] MEDS 01/29/22 12:48 Active 1 syr IVF PRN PRN Albuterol Inhaler(with Spacer) [Ventolin Hfa (Per Puff- MEDS 01/29/22 12:48 Discontinued with Spacer)] 2 puff IH ONCE ONE Ceftriaxone/D5w 1 gm Premix [Rocephin 1 gm/50 ml D5w] MEDS 01/29/22 15:10 Discontinued 1 gm in 50 ml IV ONCE CHEST, 1V AP ONLY Stat RADS 01/29/22 12:[address] CHEST PE PROTOCOL Stat RADS 01/29/22 14:50 Completed Medications Generic Name Dose Route Start Last Admin Trade Name Freq PRN Reason Stop Dose Admin Acetaminophen 650 mg 01/29/22 17:17 Acetaminophen 325 Mg Tablet PO Q4H PRN Headache Albuterol Sulfate 1 puff 01/29/22 17:28 01/30/22 04:50 Albuterol Sulfate (Ventolin Hfa) 18 Gm 1 Puff With Spacer IH 1 puff Q4H PRN Administration Wheezing Alprazolam 0.25 mg 01/29/22 17:28 Alprazolam 0.25 Mg Tablet PO BID PRN Anxiety Amlodipine Besylate 5 mg 01/30/22 21:00 01/30/22 20:38 Amlodipine Besylate 5 Mg Tablet PO 5 mg BEDTIME SHANICE Administration Aspirin 325 mg 01/30/22 08:30 01/30/22 08:44 Aspirin 325 Mg Tablet. PO 325 mg DAILYWM SHANICE Administration Atropine Sulfate 0.5 mg 01/29/22 17:17 Atropine Sulfate Inj 1 Mg/10 Ml Disp.Syrin IVP ONCE PRN Symptomatic Bradycardia Azithromycin 500 mg 01/29/22 16:30 01/30/22 08:43 Azithromycin 250 Mg Tablet PO 01/31/22 23:59 500 mg DAILY SHANICE Administration Budesonide/Formoterol Fumarate 1 puff 01/29/22 21:00 01/30/22 20:40 Budesonide/Formoterol Fumarate 160/4.5 Mcg Inhaler IH 1 puff BID SHANICE Administration Dexamethasone Sodium Phosphate 4 mg 01/30/22 12:00 01/30/22 12:36 Dexamethasone Sod Phos 4 Mg/Ml Inj IM 4 mg DAILY SHANICE Administration CEFTRIAXONE/D5W 1 GM PREMIX 1 gm in 50 mls @ 75 mls/hr 01/30/22 12:00 01/30/22 12:36 Rocephin 1 Gm/50 Ml D5w IV 02/02/22 11:59 75 mls/hr DAILY SHANICE Administration Lisinopril 20 mg 01/29/22 21:00 01/30/22 20:38 Lisinopril 10 Mg Tablet PO 20 mg BID SHANICE Administration Metoprolol Tartrate 25 mg 01/29/22 21:00 01/30/22 20:38 Metoprolol Tartrate 25 Mg Tablet PO 25 mg BID SHANICE Administration Nitroglycerin 0.4 mg 01/29/22 17:17 Nitroglycerin 0.4 Mg Tab.Subl SL Q5MIN X 3 DOSES PRN Chest Pain Pantoprazole Sodium 40 mg 01/31/22 06:30 Pantoprazole Sodium 40 Mg Tablet. PO QDAC SHANICE Pravastatin Sodium 40 mg 01/30/22 09:00 01/30/22 08:43 Pravastatin Sodium 40 Mg Tablet PO 40 mg DAILY SHANICE Administration Sodium Chloride 1 syr 01/29/22 12:48 0.9% Sodium Chloride 10 Ml Disp.Syrin IVF PRN PRN To flush IV Sodium Chloride 1 syr 01/29/22 21:00 01/30/22 20:40 0.9% Sodium Chloride 10 Ml Disp.Syrin IVF 1 syr Q8HR SHANICE Administration Discontinued Medications Generic Name Dose Route Start Last Admin Trade Name Freq PRN Reason Stop Dose Admin Albuterol Sulfate 2 puff 01/29/22 12:48 01/29/22 13:11 Albuterol Sulfate (Ventolin Hfa) 18 Gm 1 Puff With Spacer IH 01/29/22 12:49 2 puff ONCE ONE Administration Amlodipine Besylate 5 mg 01/29/22 21:00 01/30/22 08:44 Amlodipine Besylate 5 Mg Tablet PO 5 mg BID SHANICE Administration Ferrous Sulfate 324 mg 01/30/22 09:00 01/30/22 08:44 Ferrous Sulfate 324 Mg Tablet. PO 324 mg DAILY SHANICE Administration CEFTRIAXONE/D5W 1 GM PREMIX 1 gm in 50 mls @ 75 mls/hr 01/29/22 15:10 01/29/22 15:24 Rocephin 1 Gm/50 Ml D5w IV 01/29/22 15:49 75 mls/hr ONCE STA Administration Pantoprazole Sodium 40 mg 01/30/22 09:00 01/30/22 08:43 Pantoprazole Sodium 40 Mg Tablet. PO 40 mg DAILY SHANICE Administration Vital Signs: Temp Pulse Resp BP Pulse Ox 01/29/22 11:54 97.8 F 63 28 H 176/68 H 95 Discharge Plan Discharge Patient Disposition: ADMITTED INPATIENT Discharge Problem: Pneumonia ED Provider: LAURA PENNINGTON Physician Progress Note: []
[2022-01-29] MEDS ORDERED: VENTOLIN HFA (PER PUFF-WITH SPACER) IH ONE (12:48)
--- NOTE | 2022-01-29 12:48 | ED.PDOC ---
General ED Provider: Dr. LAURA PENNINGTON Chief Complaint: Shortness of Air Stated Complaint: SOB Time Seen by Provider: 01/29/22 12:35 Mode of Arrival: Ambulance Information Source: Patient Exam Limitations: No limitations Primary Care Provider: DARREN AZEVEDO Nursing and Triage Documentation Reviewed and Agree: Yes Does patient meet sepsis criteria?: No System Inflammatory Response Syndrome: Acutely Altered Mental Status Sepsis Protocol: For patient's 13 years and over: Temp is 96.8 and below OR 101 and greater Pulse >90 BPM Resp >20/minute Acutely Altered Mental Status Are patient's symptoms suggestive of a new infection, such as: -Pneumonia -Skin, Soft Tissue -Endocarditis -UTI -Bone, Joint Infection -Implantable Device -Acute Abdominal Infection -Wound Infection -Meningitis -Blood Stream Catheter Infection -Unknown Respiratory Complaint Exam Shortness of Air Complaint/Exam Onset/Duration: This morning Symptoms Are: Still present (Improved on oxygen) Timing: Constant Initial Severity: Severe Current Severity: Moderate Character: Reports Dyspnea at rest and Orthopnea Aggravating: Reports Movement, Recumbent position and URI Alleviating: Reports Oxygen Associated Signs and Symptoms: Reports Cough, Wheezing, Nasal congestion, Rapid breathing and Labored breathing Related History: Reports Similar episode History of Healthcare-Acquired Pneumonia: No Pulmonary Embolism Risk Factors: Reports None Review of Systems Review Of Systems Constitutional: Reports Weakness All Other Systems: Reviewed and Negative [facility] Medical History (Updated 01/29/22 @ 16:47 by KATHARINA BELLE RN) Afib Chest pain Hypertension Kidney stone Myocardial infarction (~2007) Family History (Updated 01/29/22 @ 16:48 by KATHARINA BELLE RN) Other Diabetes Stomach cancer Social History (Updated 01/29/22 @ 16:48 by KATHARINA BELLE, RN) Smoking and tobacco status: Current every day smoker History of recent travel: No Surgical History Placement of stent in coronary artery (~2007) Physical Exam Physical Exam Appearance: Reports Ill-appearing Ill-appearing: Mild Pain Distress: Mild Eyes: Reports CHERIE, EOMI and Conjunctiva clear ENT: Reports Ears normal, Nose normal and Oropharynx normal Neck: Supple Respiratory: Reports Airway patent, Breath sounds clear, Breath sounds equal and Breath sounds diminished Cardiovascular: Reports RRR GI/: Reports Soft, Nontender and No masses Musculoskeletal: Reports Normal strength and ROM intact Skin: Reports Warm Neurological: Reports Sensation intact, Motor intact, Reflexes intact and Cranial nerves intact Psychiatric: Reports Affect appropriate, Mood appropriate and Anxious Physician Notification Case Discussed Physician Notified: Dr Azevdeo-discussed case -admit/[address] Chest angio Time of Notification: 13:30 Critical Care Note Critical Care Note Total Critical Care Time (mins): 30 Course Course Hematology/Chemistry: 01/30/22 05:08 01/30/22 05:08 Orders, Labs, Meds: Lab Review 01/29/22 01/29/22 01/29/22 12:57 13:20 13:20 WBC 19.13 H RBC 5.15 Hgb 14.6 Hct 42.7 MCV 82.9 MCH 28.3 MCHC 34.2 RDW Coeff of Maty 14.5 Plt Count 298 Immature Gran % (Auto) 0.6 Neut % (Auto) 89.6 H Lymph % (Auto) 6.7 L [place] % (Auto) 2.9 Eos % (Auto) 0.0 Baso % (Auto) 0.2 Neut # (Auto) 17.1 H Lymph # (Auto) 1.3 [place] # (Auto) 0.6 Eos # (Auto) 0.0 Baso # (Auto) 0.0 Immature Gran # (Auto) 0.1 Puncture Site [place] [employer] Excess -1.2 O2 Saturation 95.2 ABG pH 7.48 H ABG pCO2 30.0 L ABG pO2 71.0 L ABG HCO3 22.3 ABG Total CO2 23.2 Karri Test Pos Hemoglobin 1.2 Oxyhemoglobin 93.2 L Carboxyhemoglobin 2.3 H Total Hemoglobin 15.1 O2 Delivery Device Cannula Oxygen Liter Flow 4.00 Sodium 132.4 L Potassium 3.74 Chloride 105.4 Carbon Dioxide 20.1 L Anion Gap 10.64 BUN 22.5 H Creatinine 0.73 Estimated GFR (MDRD) 103.00 BUN/Creatinine Ratio 30.82 Glucose 123.4 H Lactic Acid Uric Acid 4.26 Calcium 8.43 Magnesium 1.97 Total Bilirubin 0.78 AST 21.4 ALT 12.9 Alkaline Phosphatase 79.0 Total Creatine Kinase 43.7 L Troponin I < 0.012 Total Protein 6.80 Albumin 3.76 Globulin 3.04 Albumin/Globulin Ratio 1.23 Procalcitonin D-Dimer Adenovirus (PCR) B. pertussis DNA (PCR) B.parapertussis DNA PCR C. pneumoniae DNA (PCR) Coronavirus OC43 (PCR) Coronavirus HKU1 (PCR) Coronavirus 229E (PCR) Coronavirus NL63 (PCR) Human Metapneumovir PCR Influenza Type A (PCR) Influ A Molecular Assay Influenza B (RT-PCR) Influ B Molecular Assay M. pneumoniae (PCR) Parainfluenza 1 (PCR) Parainfluenza 2 (PCR) Parainfluenza 3 (PCR) Parainfluenza 4 (PCR) RSV (PCR) Entero/Rhino (PCR) SARS-CoV-2 (PCR) 01/29/22 01/29/22 01/29/22 13:20 13:20 13:20 WBC RBC Hgb Hct MCV MCH MCHC RDW Coeff of Maty Plt Count Immature Gran % (Auto) Neut % (Auto) Lymph % (Auto) [place] % (Auto) Eos % (Auto) Baso % (Auto) Neut # (Auto) Lymph # (Auto) [place] # (Auto) Eos # (Auto) Baso # (Auto) Immature Gran # (Auto) Puncture Site Base Excess O2 Saturation ABG pH ABG pCO2 ABG pO2 ABG HCO3 ABG Total CO2 Karri Test Hemoglobin Oxyhemoglobin Carboxyhemoglobin Total Hemoglobin O2 Delivery Device Oxygen Liter Flow Sodium Potassium Chloride Carbon Dioxide Anion Gap BUN Creatinine Estimated GFR (MDRD) BUN/Creatinine Ratio Glucose Lactic Acid 0.73 Uric Acid Calcium Magnesium Total Bilirubin AST ALT Alkaline Phosphatase Total Creatine Kinase Troponin I Total Protein Albumin Globulin Albumin/Globulin Ratio Procalcitonin 0.05 D-Dimer 1158.79 H Adenovirus (PCR) B. pertussis DNA (PCR) B.parapertussis DNA PCR C. pneumoniae DNA (PCR) Coronavirus OC43 (PCR) Coronavirus HKU1 (PCR) Coronavirus 229E (PCR) Coronavirus NL63 (PCR) Human Metapneumovir PCR Influenza Type A (PCR) Influ A Molecular Assay Influenza B (RT-PCR) Influ B Molecular Assay M. pneumoniae (PCR) Parainfluenza 1 (PCR) Parainfluenza 2 (PCR) Parainfluenza 3 (PCR) Parainfluenza 4 (PCR) RSV (PCR) Entero/Rhino (PCR) SARS-CoV-2 (PCR) 01/29/22 01/29/22 14:51 14:51 WBC RBC Hgb Hct MCV MCH MCHC RDW Coeff of Maty Plt Count Immature Gran % (Auto) Neut % (Auto) Lymph % (Auto) [place] % (Auto) Eos % (Auto) Baso % (Auto) Neut # (Auto) Lymph # (Auto) [place] # (Auto) Eos # (Auto) Baso # (Auto) Immature Gran # (Auto) Puncture Site Base Excess O2 Saturation ABG pH ABG pCO2 ABG pO2 ABG HCO3 ABG Total CO2 Karri Test Hemoglobin Oxyhemoglobin Carboxyhemoglobin Total Hemoglobin O2 Delivery Device Oxygen Liter Flow Sodium Potassium Chloride Carbon Dioxide Anion Gap BUN Creatinine Estimated GFR (MDRD) BUN/Creatinine Ratio Glucose Lactic Acid Uric Acid Calcium Magnesium Total Bilirubin AST ALT Alkaline Phosphatase Total Creatine Kinase Troponin I Total Protein Albumin Globulin Albumin/Globulin Ratio Procalcitonin D-Dimer Adenovirus (PCR) Not detected B. pertussis DNA (PCR) Not detected B.parapertussis DNA PCR Not detected C. pneumoniae DNA (PCR) Not detected Coronavirus OC43 (PCR) Not detected Coronavirus HKU1 (PCR) Not detected Coronavirus 229E (PCR) Not detected Coronavirus NL63 (PCR) Not detected Human Metapneumovir PCR Not detected Influenza Type A (PCR) Not detected Influ A Molecular Assay Negative by naat Influenza B (RT-PCR) Not detected Influ B Molecular Assay Negative by naat M. pneumoniae (PCR) Not detected Parainfluenza 1 (PCR) Not detected Parainfluenza 2 (PCR) Not detected Parainfluenza 3 (PCR) Not detected Parainfluenza 4 (PCR) Not detected RSV (PCR) Not detected Entero/Rhino (PCR) Not detected SARS-CoV-2 (PCR) Not detected Orders Category Date Time Status ADMIT PATIENT INPATIENT .TO [facility] (MONITORED BED) ADMISSION 01/29/22 13:52 Active ABG DRAW REQUEST Stat CARDIO 01/29/22 12:48 Completed EKG-(ED ONLY) Stat CARDIO 01/29/22 12:48 Completed METERED DOSE INHALATION Routine CARDIO 01/29/22 12:50 Completed OXYGEN Routine CARDIO 01/29/22 12:48 Active NPO REMINDER: IMAGING ONCE CARE 01/29/22 14:50 Completed TELEMETRY MONITORING TELE CARE 01/29/22 13:52 Active IV [ED IV/MEDIPORT/POWERPORT] .ONCE EMERGENCY 01/29/22 12:48 Active ABG COOX Stat LAB 01/29/22 12:57 Completed BLOOD CULTURE (ED ONLY) Stat LAB 01/29/22 13:20 Results CBC W/ AUTO DIFF Stat LAB 01/29/22 13:20 Completed CMP [COMPREHENSIVE METABOLIC PANEL] Stat LAB 01/29/22 13:20 Completed CREATINE KINASE Stat LAB 01/29/22 13:20 Completed D-DIMER Stat LAB 01/29/22 13:20 Completed FLU A & B MOLECULAR [FLU A/B MOLECULAR] Stat LAB 01/29/22 14:51 Completed LACTIC ACID Stat LAB 01/29/22 13:20 Completed MAGNESIUM Stat LAB 01/29/22 13:20 Completed PROCALCITONIN Stat LAB 01/29/22 13:20 Completed RESPIRATORY PANEL 2.1 (PCR) Stat LAB 01/29/22 14:51 Completed SPUTUM CULTURE Stat LAB 01/29/22 12:50 Uncollected TROPONIN I Stat LAB 01/29/22 13:20 Completed UA [URINALYSIS C & S IF INDICATED] Stat LAB 01/29/22 12:50 Completed URIC ACID Stat LAB 01/29/22 13:20 Completed URINE DRUG SCREEN (RAPID FOR ED) [DRUG SCREEN, URINE, LAB 01/29/22 12:49 Completed RAPID] Stat 0.9 % Sodium Chloride [Saline Flush] MEDS 01/29/22 12:48 Active 1 syr IVF PRN PRN Albuterol Inhaler(with Spacer) [Ventolin Hfa (Per Puff- MEDS 01/29/22 12:48 Discontinued with Spacer)] 2 puff IH ONCE ONE Ceftriaxone/D5w 1 gm Premix [Rocephin 1 gm/50 ml D5w] MEDS 01/29/22 15:10 Discontinued 1 gm in 50 ml IV ONCE CHEST, 1V AP ONLY Stat RADS 01/29/22 12:[address] CHEST PE PROTOCOL Stat RADS 01/29/22 14:50 Completed Medications Generic Name Dose Route Start Last Admin Trade Name Freq PRN Reason Stop Dose Admin Acetaminophen 650 mg 01/29/22 17:17 Acetaminophen 325 Mg Tablet PO Q4H PRN Headache Albuterol Sulfate 1 puff 01/29/22 17:28 01/30/22 04:50 Albuterol Sulfate (Ventolin Hfa) 18 Gm 1 Puff With Spacer IH 1 puff Q4H PRN Administration Wheezing Alprazolam 0.25 mg 01/29/22 17:28 Alprazolam 0.25 Mg Tablet PO BID PRN Anxiety Amlodipine Besylate 5 mg 01/30/22 21:00 01/30/22 20:38 Amlodipine Besylate 5 Mg Tablet PO 5 mg BEDTIME SHANICE Administration Aspirin 325 mg 01/30/22 08:30 01/30/22 08:44 Aspirin 325 Mg Tablet. PO 325 mg DAILYWM SHANICE Administration Atropine Sulfate 0.5 mg 01/29/22 17:17 Atropine Sulfate Inj 1 Mg/10 Ml Disp.Syrin IVP ONCE PRN Symptomatic Bradycardia Azithromycin 500 mg 01/29/22 16:30 01/30/22 08:43 Azithromycin 250 Mg Tablet PO 01/31/22 23:59 500 mg DAILY SHANICE Administration Budesonide/Formoterol Fumarate 1 puff 01/29/22 21:00 01/30/22 20:40 Budesonide/Formoterol Fumarate 160/4.5 Mcg Inhaler IH 1 puff BID SHANICE Administration Dexamethasone Sodium Phosphate 4 mg 01/30/22 12:00 01/30/22 12:36 Dexamethasone Sod Phos 4 Mg/Ml Inj IM 4 mg DAILY SHANICE Administration CEFTRIAXONE/D5W 1 GM PREMIX 1 gm in 50 mls @ 75 mls/hr 01/30/22 12:00 01/30/22 12:36 Rocephin 1 Gm/50 Ml D5w IV 02/02/22 11:59 75 mls/hr DAILY SHANICE Administration Lisinopril 20 mg 01/29/22 21:00 01/30/22 20:38 Lisinopril 10 Mg Tablet PO 20 mg BID SHANICE Administration Metoprolol Tartrate 25 mg 01/29/22 21:00 01/30/22 20:38 Metoprolol Tartrate 25 Mg Tablet PO 25 mg BID SHANICE Administration Nitroglycerin 0.4 mg 01/29/22 17:17 Nitroglycerin 0.4 Mg Tab.Subl SL Q5MIN X 3 DOSES PRN Chest Pain Pantoprazole Sodium 40 mg 01/31/22 06:30 Pantoprazole Sodium 40 Mg Tablet. PO QDAC SHANICE Pravastatin Sodium 40 mg 01/30/22 09:00 01/30/22 08:43 Pravastatin Sodium 40 Mg Tablet PO 40 mg DAILY SHANICE Administration Sodium Chloride 1 syr 01/29/22 12:48 0.9% Sodium Chloride 10 Ml Disp.Syrin IVF PRN PRN To flush IV Sodium Chloride 1 syr 01/29/22 21:00 01/30/22 20:40 0.9% Sodium Chloride 10 Ml Disp.Syrin IVF 1 syr Q8HR SHANICE Administration Discontinued Medications Generic Name Dose Route Start Last Admin Trade Name Freq PRN Reason Stop Dose Admin Albuterol Sulfate 2 puff 01/29/22 12:48 01/29/22 13:11 Albuterol Sulfate (Ventolin Hfa) 18 Gm 1 Puff With Spacer IH 01/29/22 12:49 2 puff ONCE ONE Administration Amlodipine Besylate 5 mg 01/29/22 21:00 01/30/22 08:44 Amlodipine Besylate 5 Mg Tablet PO 5 mg BID SHANICE Administration Ferrous Sulfate 324 mg 01/30/22 09:00 01/30/22 08:44 Ferrous Sulfate 324 Mg Tablet. PO 324 mg DAILY SHANICE Administration CEFTRIAXONE/D5W 1 GM PREMIX 1 gm in 50 mls @ 75 mls/hr 01/29/22 15:10 01/29/22 15:24 Rocephin 1 Gm/50 Ml D5w IV 01/29/22 15:49 75 mls/hr ONCE STA Administration Pantoprazole Sodium 40 mg 01/30/22 09:00 01/30/22 08:43 Pantoprazole Sodium 40 Mg Tablet. PO 40 mg DAILY SHANICE Administration Vital Signs: Temp Pulse Resp BP Pulse Ox 01/29/22 11:54 97.8 F 63 28 H 176/68 H 95 Discharge Plan Discharge Patient Disposition: ADMITTED INPATIENT Discharge Problem: Pneumonia ED Provider: LAURA PENNINGTON Physician Progress Note: []
[2022-01-29 13:10] LABS: ABG O2 HGB 93.2 % (95-100); ABG PH 7.48 (7.35-7.45); BEecf -1.2 (-2.0-3.0); COHb 2.3 (0.5-1.5); HCO3 22.3 (21-28); MetHb 1.2 (0-1.5); TCO2 23.2 (19-24); sO2 95.2 % (94-98); tHb 15.1 g/dl (11.7-17.4)
[2022-01-29 13:28] LABS: BASOPHILS % (AUTO) 0.2 % (0.0-3.0); HEMATOCRIT 42.7 % (42.0-52.0); HEMOGLOBIN 14.6 g/dl (14.0-18.0); IMMATURE GRANULOCYTE # (AUTO) 0.1 (0.0-1.0); IMMATURE GRANULOCYTE % (AUTO) 0.6 % (0.0-5.0); LYMPHOCYTES # (AUTO) 1.3 K/uL (0.60-3.4); LYMPHOCYTES % (AUTO) 6.7 (10.0-50.0); MEAN CORPUSCULAR HEMOGLOBIN 28.3 pg (27.0-31.0); MEAN CORPUSCULAR HGB CONC 34.2 (31.8-35.4); MEAN CORPUSCULAR VOLUME 82.9 fl (80.0-94.0); MONOCYTES # (AUTO) 0.6 K/uL (0.4-2.0); MONOCYTES % (AUTO) 2.9 (0-10); NEUTROPHILS # (AUTO) 17.1 K/ul (2.0-6.9); NEUTROPHILS % (AUTO) 89.6 % (42.2-75.2); PLATELET COUNT 298 10^3/uL (140-440); RDW COEFFICIENT OF VARIATION 14.5 % (11.6-14.8); RED BLOOD COUNT 5.15 10^6/ul (4.70-6.10); WHITE BLOOD COUNT 19.13 K/ul (4.2-10.2)
[2022-01-29 13:42] LABS: ALANINE AMINOTRANSFERASE 12.9 U/L (0-50); ALBUMIN 3.76 g/dL (3.5-5.0); ASPARTATE AMINO TRANSFERASE 21.4 U/L (17-59); BILIRUBIN,TOTAL 0.78 mg/dL (0.2-1.3); BLOOD UREA NITROGEN 22.5 mg/dL (9-20); CALCIUM 8.43 mg/dL (8.4-10.2); CARBON DIOXIDE 20.1 mmol/L (22-30.0); CHLORIDE 105.4 mmol/L (98-107); CREATINE KINASE 43.7 U/L (55-170); CREATININE 0.73 mg/dL (0.60-1.10); GLUCOSE 123.4 mg/dL (74-106); MAGNESIUM 1.97 mg/dL (1.6-2.3); POTASSIUM 3.74 mmol/L (3.5-5.1); SODIUM 132.4 mmol/L (134.5-145); URIC ACID 4.26 mg/dL (3.5-8.5)
--- NOTE | 2022-01-29 13:44 | DI ---
EXAM: Chest one view, frontal view only. HISTORY: Dyspnea. COMPARISON: 05/27/2020. FINDINGS: Heart size normal. Left basilar consolidation noted. Reticular prominence throughout the remainder of the lungs. Calcified granulomatous changes. No pleural effusion or pneumothorax. No acute osseous abnormality. IMPRESSION: Left basilar pneumonia.
[2022-01-29 13:53] LABS: TROPONIN I < 0.012 ng/ml (0.0000-0.120)
[2022-01-29 14:57] LABS: BORDETELLA PARAPERTUSSIS (PCR) NOT DETECTED (NOT DETECT); BORDETELLA PERTUSSIS (PCR) NOT DETECTED (NOT DETECT); CHLAMYDIA PNEUMONIAE (PCR) NOT DETECTED (NOT DETECT); CORONAVIRUS 229E (PCR) NOT DETECTED (NOT DETECT); CORONAVIRUS HKU1 (PCR) NOT DETECTED (NOT DETECT); CORONAVIRUS NL63 (PCR) NOT DETECTED (NOT DETECT); CORONAVIRUS OC43 (PCR) NOT DETECTED (NOT DETECT); HUMAN METAPNEUMOVIRUS (PCR) NOT DETECTED (NOT DETECT); HUMAN RHINOVIRUS/ENTEROV (PCR) NOT DETECTED (NOT DETECT); INFLUENZA B (PCR) NOT DETECTED (NOT DETECT); MYCOPLASMA PNEUMONIAE (PCR) NOT DETECTED (NOT DETECT); PARAINFLUENZA VIRUS 1 (PCR) NOT DETECTED (NOT DETECT); PARAINFLUENZA VIRUS 2 (PCR) NOT DETECTED (NOT DETECT); PARAINFLUENZA VIRUS 3 (PCR) NOT DETECTED (NOT DETECT); PARAINFLUENZA VIRUS 4 (PCR) NOT DETECTED (NOT DETECT); RESPIRATORY SYNCYTIAL V (PCR) NOT DETECTED (NOT DETECT); SARS_COV_2 (PCR) NOT DETECTED (NOT DETECT)
[2022-01-29] MEDS ORDERED: ROCEPHIN 1 GM/50 ML D5W 1 GM/50 ML BAG IV STA (15:10)
[2022-01-29 15:19] LABS: MOLECULAR FLU A NEGATIVE BY NAAT (NEGATIVE); MOLECULAR FLU B NEGATIVE BY NAAT (NEGATIVE)
[2022-01-29 15:54] LABS: ADENOVIRUS (PCR) NOT DETECTED (NOT DETECT)
--- NOTE | 2022-01-29 16:11 | CT ---
EXAM: CTA chest for PE HISTORY: Shortness of breath COMPARISON: CT chest 01/11/[address] chest 10/29/2019 and multiple priors TECHNIQUE: CTA of the chest was performed from the lung apices to the upper abdomen after 100 ml of Omnipaque IV contrast was administered using PE protocol. 3-D imaging was also provided. FINDINGS: There is no filling defect in the pulmonary arteries to the level of the subsegmental pulm onary arteries. The heart is normal without signs of ventricular strain. Thyroid is unremarkable. There is calcific atherosclerotic disease of the aorta. The heart is normal in size without pericard ial fluid. There is no mediastinal lymphadenopathy. There is an enlarged right hilar lymph node otis suring 1.4 cm. There is minimal apical fibrosis. There is no pneumothorax or effusion. Stable emphysema is present . There is a new right upper lobe pulmonary nodule measuring 0.6 cm on image 19. There is a 0.2 cm p ulmonary nodule centrally on image 23 in the right upper lobe. There is unchanged right lower lobe b haroon. There are bilateral lower lobe consolidations most pronounced on the left with airway thickeni ng. Central airways are patent. Limited views of the soft tissues in the upper abdomen are unremarkable. There is mild degenerative disease of the spine. IMPRESSION: 1. No pulmonary embolism. 2. Bilateral lower lobe consolidations and airway thickening consistent with pneumonia. 3. There are two right upper lobe pulmonary nodules present. Follow-up CT in 3-6 months is recommen ded. 4. Emphysema with minimal apical fibrosis. 5. Enlarged nonspecific right hilar lymph node. All CT scans are performed using dose optimization techniques as appropriate to the performed exam an d include at least one of the following: Automated exposure control, adjustment of the mA and/or kV according t o size, and the use of iterative reconstruction technique.
[2022-01-29 16:43] VITALS: BMI 17.4
[2022-01-29] MEDS ORDERED: TYLENOL PO PRN (17:17)
[2022-01-29] MEDS: ZITHROMAX PO SCH (17:17)
[2022-01-29] MEDS ORDERED: NITROSTAT SL PRN (17:17)
[2022-01-29] MEDS ORDERED: ATROPINE SULFATE PFS IVP PRN (17:17)
[2022-01-29] MEDS ORDERED: XANAX PO PRN (17:28)
[2022-01-29] MEDS: VENTOLIN HFA (PER PUFF-WITH SPACER) IH PRN (19:45)
[2022-01-29] MEDS: LOPRESSOR PO SCH (20:22)
[2022-01-29] MEDS: NORVASC PO SCH (20:22)
[2022-01-29] MEDS: ZESTRIL PO SCH (20:22)
[2022-01-29] MEDS: SYMBICORT 160-4.5 MCG INHALER IH SCH (20:26)
[2022-01-30] MEDS: VENTOLIN HFA (PER PUFF-WITH SPACER) IH PRN (04:50)
[2022-01-30 05:20] LABS: BASOPHILS % (AUTO) 0.2 % (0.0-3.0); HEMATOCRIT 42.3 % (42.0-52.0); HEMOGLOBIN 14.1 g/dl (14.0-18.0); IMMATURE GRANULOCYTE # (AUTO) 0.2 (0.0-1.0); IMMATURE GRANULOCYTE % (AUTO) 1.1 % (0.0-5.0); LYMPHOCYTES # (AUTO) 1.8 K/uL (0.60-3.4); MEAN CORPUSCULAR HEMOGLOBIN 27.8 pg (27.0-31.0); MEAN CORPUSCULAR HGB CONC 33.3 (31.8-35.4); MEAN CORPUSCULAR VOLUME 83.4 fl (80.0-94.0); MONOCYTES # (AUTO) 0.6 K/uL (0.4-2.0); NEUTROPHILS # (AUTO) 15.9 K/ul (2.0-6.9); NEUTROPHILS % (AUTO) 85.7 % (42.2-75.2); PLATELET COUNT 314 10^3/uL (140-440); RDW COEFFICIENT OF VARIATION 14.6 % (11.6-14.8); RED BLOOD COUNT 5.07 10^6/ul (4.70-6.10); WHITE BLOOD COUNT 18.47 K/ul (4.2-10.2)
[2022-01-30 05:20] LABS: BILIRUBIN,URINE Negative (NEGATIVE); CLARITY,URINE Clear (CLEAR); COLOR,URINE Yellow (YELLOW); GLUCOSE, URINE (UA) Negative (NEGATIVE); KETONES,URINE Negative (NEGATIVE); LEUKOCYTE ESTERASE ,URINE Negative (NEGATIVE); NITRITE,URINE Negative (NEGATIVE); PROTEIN,URINE 1+ (NEGATIVE); URINE, BLOOD Trace-intact (NEGATIVE)
[2022-01-30 05:26] LABS: AMORPHOUS SEDIMENT,UR TRACE (NOT PRESENT); SQUAMOUS EPITHELIAL CELL,UR 0-2 (0-5)
[2022-01-30 05:27] LABS: MUCUS,URINE 1+ (NOT PRESENT)
[2022-01-30 05:29] LABS: AMPHETAMINE SCREEN,URINE NEGATIVE (NEGATIVE); BARBITURATE SCREEN,URINE NEGATIVE (NEGATIVE); BENZODIAZEPINES SCREEN,URINE POSITIVE (NEGATIVE); CANNABINOID SCREEN,URINE NEGATIVE (NEGATIVE); COCAIN SCREEN,URINE NEGATIVE (NEGATIVE); METHADONE URINE SCREEN NEGATIVE (NEGATIVE); METHAMPHETAMINES SCREEN,URINE NEGATIVE (NEGATIVE); OPIATE SCREEN,URINE NEGATIVE (NEGATIVE); OXYCODONE URINE SCREEN NEGATIVE (NEGATIVE); PHENCYCLIDINE SCREEN,URINE NEGATIVE (NEGATIVE); PROPOXYPHENE URINE SCREEN NEGATIVE (NEGATIVE); TRICYCLIC ANTIDEPRESSANTS URIN NEGATIVE (NEGATIVE)
[2022-01-30 05:33] LABS: ALANINE AMINOTRANSFERASE 12.3 U/L (0-50); ALBUMIN 3.42 g/dL (3.5-5.0); ALKALINE PHOSPHATASE 68.9 U/L (56-119); ASPARTATE AMINO TRANSFERASE 17.1 U/L (17-59); BILIRUBIN,TOTAL 0.81 mg/dL (0.2-1.3); BLOOD UREA NITROGEN 26.6 mg/dL (9-20); CALCIUM 8.53 mg/dL (8.4-10.2); CHLORIDE 103.4 mmol/L (98-107); CREATININE 0.9 mg/dL (0.60-1.10); POTASSIUM 3.6 mmol/L (3.5-5.1); SODIUM 133.9 mmol/L (134.5-145); TOTAL PROTEIN 6.38 g/dL (6.3-8.2)
[2022-01-30] MEDS: SYMBICORT 160-4.5 MCG INHALER IH SCH ×2 (08:42→20:40)
[2022-01-30] MEDS: LOPRESSOR PO SCH ×2 (08:42→20:38)
[2022-01-30] MEDS: ZESTRIL PO SCH ×2 (08:43→20:38)
[2022-01-30] MEDS: ZITHROMAX PO SCH (08:43)
[2022-01-30] MEDS: PRAVACHOL PO SCH (08:43)
[2022-01-30] MEDS: ASPIRIN EC PO SCH (08:44)
[2022-01-30] MEDS: NORVASC PO SCH ×2 (08:44→20:38)
[2022-01-30] MEDS ORDERED: FERROUS SULFATE PO SCH (09:00)
[2022-01-30] MEDS ORDERED: PROTONIX PO SCH (09:00)
[2022-01-30] MEDS: ROCEPHIN 1 GM/50 ML D5W 1 GM/50 ML BAG IV SCH (12:36)
[2022-01-30] MEDS: DECADRON IM SCH (12:36)
[2022-01-31 05:18] LABS: BASOPHILS % (AUTO) 0.1 % (0.0-3.0); HEMATOCRIT 42.3 % (42.0-52.0); HEMOGLOBIN 14.1 g/dl (14.0-18.0); IMMATURE GRANULOCYTE # (AUTO) 0.1 (0.0-1.0); IMMATURE GRANULOCYTE % (AUTO) 0.7 % (0.0-5.0); MEAN CORPUSCULAR HEMOGLOBIN 27.9 pg (27.0-31.0); MEAN CORPUSCULAR HGB CONC 33.3 (31.8-35.4); MEAN CORPUSCULAR VOLUME 83.8 fl (80.0-94.0); MONOCYTES # (AUTO) 0.5 K/uL (0.4-2.0); MONOCYTES % (AUTO) 3.9 (0-10); NEUTROPHILS # (AUTO) 10.9 K/ul (2.0-6.9); NEUTROPHILS % (AUTO) 87.3 % (42.2-75.2); PLATELET COUNT 299 10^3/uL (140-440); RDW COEFFICIENT OF VARIATION 14.5 % (11.6-14.8); RED BLOOD COUNT 5.05 10^6/ul (4.70-6.10); WHITE BLOOD COUNT 12.51 K/ul (4.2-10.2)
[2022-01-31 05:30] LABS: ALBUMIN 3.39 g/dL (3.5-5.0); ALKALINE PHOSPHATASE 70.3 U/L (56-119); ASPARTATE AMINO TRANSFERASE 21.6 U/L (17-59); BILIRUBIN,TOTAL 0.44 mg/dL (0.2-1.3); BLOOD UREA NITROGEN 35.7 mg/dL (9-20); CALCIUM 8.62 mg/dL (8.4-10.2); CREATININE 0.91 mg/dL (0.60-1.10); GLUCOSE 150.6 mg/dL (74-106); POTASSIUM 3.63 mmol/L (3.5-5.1); SODIUM 134.7 mmol/L (134.5-145); TOTAL PROTEIN 6.32 g/dL (6.3-8.2)
[2022-01-31] MEDS: PROTONIX PO SCH (06:14)
[2022-01-31] MEDS ORDERED: ASPIRIN EC PO SCH (09:00)
[2022-01-31] MEDS ORDERED: SODIUM CHLORIDE 1,000 ML IV SCH (09:00)
[2022-01-31] MEDS: VENTOLIN HFA (PER PUFF-WITH SPACER) IH PRN ×2 (09:31→17:54)
[2022-01-31] MEDS: ZITHROMAX PO SCH (09:46)
[2022-01-31] MEDS: PRAVACHOL PO SCH (09:46)
[2022-01-31] MEDS: ZESTRIL PO SCH ×2 (09:47→20:22)
[2022-01-31] MEDS: ROCEPHIN 1 GM/50 ML D5W 1 GM/50 ML BAG IV SCH (09:47)
[2022-01-31] MEDS: LOPRESSOR PO SCH ×2 (09:47→20:22)
[2022-01-31] MEDS: ASPIRIN EC PO SCH ×2 (09:47→09:53)
[2022-01-31] MEDS: DECADRON IM SCH (09:47)
[2022-01-31] MEDS: SYMBICORT 160-4.5 MCG INHALER IH SCH ×2 (09:59→20:31)
--- NOTE | 2022-01-31 10:18 | PCM.PROG ---
Attending Provider: ATTENDING PROVIDER: Dr. DARREN AZEVEDO This patient is seen with Charu Sy, Nurse Practitioner. DATE OF SERVICE: 01/31/22 SUBJECTIVE: This 81 year old /WHITE M was hospitalized 01/29/22. Not eating well. Renal function slightly more elevated today. States he is feeling better. REVIEW OF SYSTEMS: CONSTITUTIONAL: No night sweats. No fatigue, malaise, lethargy. No fever or chills. Weakness. HEENT: Eyes: No visual changes. No eye pain. No eye discharge. ENT: No runny nose. No epistaxis. No sinus pain. No odynophagia. No congestion. RESPIRATORY: Cough, no congestion. No hemoptysis. Shortness of breath. CARDIOVASCULAR: No angina symptoms. No CHF symptoms. No atypical chest pain for CAD. No palpitations. No orthopnea.. GASTROINTESTINAL: No abdominal pain. No nausea or vomiting. No diarrhea or constipation. No hematemesis. No hematochezia. GENITOURINARY: No urgency. No frequency. No dysuria. No hematuria. No obstructive symptoms. No discharge. No pain. No significant abnormal bleeding. MUSCULOSKELETAL: No musculoskeletal pain; no joint swelling. NEUROLOGICAL: Awake, alert, oriented to time, place and person. No headache. No neck pain. No syncope. No seizures. No dizziness. PSYCHIATRIC: Not anxious. No depression. No suicidal thoughts. No homicidal thoughts. SKIN: No rash. No lesions. No wounds. ENDOCRINE: No unexplained weight loss. No weight gain. HEMATOLOGIC/LYMPHATIC: No anemia. No purpura. No petechiae. No prolonged or exc essive bleeding. No palpable lymph nodes. PHYSICAL EXAMINATION: GENERAL: The patient is awake, alert and oriented, sitting in bed in no distress. VITAL SIGNS: Temperature 97.8 F, Pulse 46, Respiratory Rate 22, BP 130/65, Pulse Ox 94% HEENT: Head normocephalic, atraumatic. Eyes: Extraocular muscles are intact. Pupils are equal, round and reactive to light and accommodation. Ears: No lesions. Nose appeared normal. Throat: No exudate or erythema. NECK: Supple. No JVD, no carotid bruit. No lymphadenopathy or thyromegaly. LUNGS: Severely diminished breath sounds with bilateral rub. Clear to auscultation. Percussion note normal. Chest symmetrical. HEART: S1, S2, no S3. No murmurs. No cyanosis or clubbing. No ascites. Pulses: Dorsalis pedis and posterior tibial pulses +1 to +2 both sides. ABDOMEN: Soft. Non-tender. Bowel sounds active. No CVA tenderness. No mass felt. EXTREMITIES: No edema. Full range of motion of all extremities, equal. NEUROLOGIC: No focal deficit. Cranial nerves II through XII are grossly intact. No headache. No double vision. SKIN: Not dry. Intact. Turgor-normal. LYMPHATIC: No palpable lymph nodes/no lymphedema. MUSCULOSKELETAL: Normal joints with no swelling. Muscle tone is normal. LAB REVIEW: 01/31/22 05:12 01/31/22 05:12 01/31/22 05:12: Sodium 134.7, Potassium 3.63, Chloride 106.0, Carbon Dioxide 21.0 L, Anion Gap 11.33, BUN 35.7 H, Creatinine 0.91, Estimated GFR (MDRD) 80.00, BUN/Creatinine Ratio 39.23, Glucose 150.6 H, Calcium 8.62, Total Bilirubin 0.44, AST 21.6, ALT 15.0, Alkaline Phosphatase 70.3, Total Protein 6.32, Albumin 3.39 L, Globulin 2.93, Albumin/Globulin Ratio 1.15 01/31/22 05:12: WBC 12.51 H D, RBC 5.05, Hgb 14.1, Hct 42.3, MCV 83.8, MCH 27.9, MCHC 33.3, RDW Coeff of Maty 14.5, Plt Count 299, Immature Gran % (Auto) 0.7, Neut % (Auto) 87.3 H, Lymph % (Auto) 8.0 L, [place] % (Auto) 3.9, Eos % (Auto) 0.0, Baso % (Auto) 0.1, Neut # (Auto) 10.9 H, Lymph # (Auto) 1.0, [place] # (Auto) 0.5, Eos # (Auto) 0.0, Baso # (Auto) 0.0, Immature Gran # (Auto) 0.1 ASSESSMENT: Please see below. 1. Left lobar pneumonia 2. Acute respiratory failure 3. Dehydration 4. Malnutrition 5. COPD 6. Hypertension PLAN: 1. One liter of normal saline at 83cc 2. Decrease Aspirin to 81mg daily 3. Continue IV antibiotics. Plan and coordination of the patient's care discussed in the presence of Telephonic Nurse Case Manager and nurse. SCRIBED BY: Pati WADSWORTH scribed while in presence of service performed by Dr. Azevedo/Charu Sy APRN on 01/31/22 ([id number])
--- NOTE | 2022-01-31 14:57 | PN ---
DATE OF SERVICE: 01/29/22 SUBJECTIVE: The patient was seen and examined in the emergency room. The patient is going to be hospitalized with increasing shortness of breath. The patient has been seen in the office and was advised hospitalization with leg swelling and shortness of breath, declined. Some of the medications were changed. He was put on a diuretic on a daily basis. He had an echocardiogram done recently which showed normal LV contractility and enlarged RV cavity. The patient is somewhat emaciated. COVID was negative. Chest x-ray showed possibility of basilar pneumonia or atelectasis. CT angiogram showed no evidence of emboli. It was done because of D-Dimer being 1,100. EKG shows sinus rhythm. LBBB type of pattern with no acute changes. Rest of the labs seems to be normal except for WBC of 19,000. The patient has been given steroids the reason why there is leukocytosis again. The patient may have an on going pneumonitis. Blood gasses are acceptable with pO2 of more than 70 with oxygen saturation more than 90% on room air. REVIEW OF SYSTEMS: CONSTITUTIONAL: No night sweats. No fatigue, malaise, lethargy. No fever or chills. HEENT: Eyes: No visual changes. No eye pain. No eye discharge. ENT: No runny nose. No epistaxis. No sinus pain. No sore throat. No odynophagia. No congestion. RESPIRATORY: No cough, no congestion. No hemoptysis. No shortness of breath. CARDIOVASCULAR: No angina symptoms. No CHF symptoms. No atypical chest pain for CAD. No palpitations. No PND. No orthopnea. GASTROINTESTINAL: No abdominal pain. No nausea or vomiting. No diarrhea or constipation. No hematemesis. No hematochezia. GENITOURINARY: No urgency. No frequency. No dysuria. No hematuria. No obstructive symptoms. No discharge. No pain. No significant abnormal bleeding. MUSCULOSKELETAL: No musculoskeletal pain; no joint swelling. NEUROLOGICAL: No headache. No neck pain. No syncope. No seizures. No dizziness. PSYCHIATRIC: Not anxious. No depression. No suicidal thoughts. No homicidal thoughts. SKIN: No rash. No lesions. No wounds. ENDOCRINE: No unexplained weight loss. No weight gain. HEMATOLOGIC/LYMPHATIC: No anemia. No purpura. No petechiae. No prolonged or excessive bleeding. No palpable lymph nodes. PHYSICAL EXAMINATION: GENERAL: The patient is oriented to time, place and person. HEENT: Head normocephalic, atraumatic. Eyes: Extraocular muscles are intact. Pupils are equal, round and reactive to light and accommodation. Ears: No lesions. Nose appeared normal. Throat: No exudate or erythema. NECK: Supple. No JVD, no carotid bruit. No lymphadenopathy or thyromegaly. LUNGS: Decreased breath sounds with few crepitations. Clear to auscultation. Percussion note normal. Chest symmetrical. HEART: S1, S2, no S3. No murmurs. No cyanosis or clubbing. No ascites. Pulses: Dorsalis pedis and posterior tibial pulses +1 to +2 bilaterally. ABDOMEN: Soft. Nontender. Bowel sounds active. No CVA tenderness. No mass felt. EXTREMITIES: No edema. Full range of motion of all extremities, equal. NEUROLOGIC: No focal deficit. Cranial nerves II through XII are grossly intact. No headache. No double vision. SKIN: Not dry. Intact. Turgor - normal. LYMPHATIC: No palpable lymph nodes/no lymphedema. MUSCULOSKELETAL: Normal joints with no swelling. Muscle tone is normal. ASSESSMENT: 1. Pneumonitis 2. Severe chronic lung disease 3. History of CHF PLAN: 1. Given the patient IV antibiotics Rocephin and Zithromax 2. Steroids 3. Telemetry 4. NEBS treatment 5. Talked to him about DNR status. The patient does not want any intubation or respirator. He wants DNR. Conveyed that to the nursing staff of emergency room. TIME SPENT: More than 30 minutes. Plan and coordination of the patient's care discussed in the presence of nurse. ELLIE
[2022-01-31] MEDS: NORVASC PO SCH (20:22)
[2022-02-01 05:14] LABS: BASOPHILS % (AUTO) 0.1 % (0.0-3.0); HEMATOCRIT 40.4 % (42.0-52.0); HEMOGLOBIN 13.5 g/dl (14.0-18.0); IMMATURE GRANULOCYTE # (AUTO) 0.2 (0.0-1.0); IMMATURE GRANULOCYTE % (AUTO) 1.3 % (0.0-5.0); LYMPHOCYTES # (AUTO) 1.2 K/uL (0.60-3.4); LYMPHOCYTES % (AUTO) 8.3 (10.0-50.0); MEAN CORPUSCULAR HGB CONC 33.4 (31.8-35.4); MEAN CORPUSCULAR VOLUME 83.8 fl (80.0-94.0); MONOCYTES # (AUTO) 0.6 K/uL (0.4-2.0); MONOCYTES % (AUTO) 4.4 (0-10); NEUTROPHILS # (AUTO) 12.4 K/ul (2.0-6.9); NEUTROPHILS % (AUTO) 85.9 % (42.2-75.2); PLATELET COUNT 330 10^3/uL (140-440); RDW COEFFICIENT OF VARIATION 14.2 % (11.6-14.8); RED BLOOD COUNT 4.82 10^6/ul (4.70-6.10); WHITE BLOOD COUNT 14.39 K/ul (4.2-10.2)
[2022-02-01 05:29] LABS: ALANINE AMINOTRANSFERASE 22.1 U/L (0-50); ALBUMIN 3.15 g/dL (3.5-5.0); ALKALINE PHOSPHATASE 61.1 U/L (56-119); ASPARTATE AMINO TRANSFERASE 26.9 U/L (17-59); BILIRUBIN,TOTAL 0.35 mg/dL (0.2-1.3); BLOOD UREA NITROGEN 29.2 mg/dL (9-20); CALCIUM 8.26 mg/dL (8.4-10.2); CARBON DIOXIDE 20.4 mmol/L (22-30.0); CHLORIDE 109.6 mmol/L (98-107); CREATININE 0.76 mg/dL (0.60-1.10); GLUCOSE 111.5 mg/dL (74-106); POTASSIUM 3.46 mmol/L (3.5-5.1); SODIUM 135.3 mmol/L (134.5-145); TOTAL PROTEIN 5.95 g/dL (6.3-8.2)
[2022-02-01] MEDS: PROTONIX PO SCH (05:51)
[2022-02-01] MEDS: VENTOLIN HFA (PER PUFF-WITH SPACER) IH PRN (06:08)
--- NOTE | 2022-02-01 08:55 | CT ---
EXAM: CT abdomen pelvis with and without contrast HISTORY: Nausea and vomiting COMPARISON: CT abdomen pelvis 05/22/2018 and multiple priors TECHNIQUE: Serial axial images of the abdomen pelvis were performed before and after 99 mL is of Omn ipaque IV contrast was administered. These were obtained from the lung bases through the inferior pe lvis. FINDINGS: The lung bases demonstrates severe emphysema with bilateral lower lobe consolidations. The liver is unremarkable. The gallbladder is distended. The adrenal glands are unremarkable. The kidneys are normal. The spleen is unremarkable. The pancreas is normal. The stomach is unchanged. Small bowel in the abdomen pelvis is unremarkable. The appendix is normal. The colon demonstrates d iverticulosis without diverticulitis. There is scattered stool throughout the colon. Urinary bladde r is partially distended. Prostate is upper limit of normal for size. There is no free air or free fluid. There is calcific atherosclerotic disease bilaterally. The osseous structures are demonstrat e degenerative disease. IMPRESSION: 1. No acute intra-abdominal abscess process to account for patient's symptoms. 2. Diverticulosis without diverticulitis. 3. The prostate is upper limit of normal. 4. 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 5. Lung base emphysema with bilateral lower lobe consolidations versus atelectasis. All CT scans are performed using dose optimization techniques as appropriate to the performed exam an d include at least one of the following: Automated exposure control, adjustment of the mA and/or kV according t o size, and the use of iterative reconstruction technique.
[2022-02-01] MEDS: ZESTRIL PO SCH ×2 (09:13→20:05)
[2022-02-01] MEDS: PRAVACHOL PO SCH (09:13)
[2022-02-01] MEDS: ASPIRIN EC PO SCH (09:13)
[2022-02-01] MEDS: LOPRESSOR PO SCH ×2 (09:13→20:04)
[2022-02-01] MEDS: ROCEPHIN 1 GM/50 ML D5W 1 GM/50 ML BAG IV SCH (09:14)
[2022-02-01] MEDS: DECADRON IM SCH (09:14)
[2022-02-01] MEDS: SYMBICORT 160-4.5 MCG INHALER IH SCH ×2 (09:16→20:06)
--- NOTE | 2022-02-01 09:20 | PCM.PROG ---
Attending Provider: ATTENDING PROVIDER: Dr. DARREN AZEVEDO DATE OF SERVICE: 02/01/22 SUBJECTIVE: This 81 year old /WHITE M was hospitalized 01/29/22 with bibasilar pneumonia/pneumonitis. Condition has improved and cough is much less. Appetite has improved. He is on antibiotics and steroids. REVIEW OF SYSTEMS: CONSTITUTIONAL: No night sweats. No fatigue, malaise, lethargy. No fever or chills. HEENT: Eyes: No visual changes. No eye pain. No eye discharge. ENT: No runny nose. No epistaxis. No sinus pain. No odynophagia. No congestion. RESPIRATORY: No cough, no congestion. No hemoptysis. No shortness of breath. CARDIOVASCULAR: No angina symptoms. No CHF symptoms. No atypical chest pain for CAD. No palpitations. No orthopnea.. GASTROINTESTINAL: No abdominal pain. Nausea subsided. No diarrhea or constipation. No hematemesis. No hematochezia. GENITOURINARY: No urgency. No frequency. No dysuria. No hematuria. No obstructive symptoms. No discharge. No pain. No significant abnormal bleeding. MUSCULOSKELETAL: No musculoskeletal pain; no joint swelling. NEUROLOGICAL: Awake, alert, oriented to time, place and person. No headache. No neck pain. No syncope. No seizures. No dizziness. PSYCHIATRIC: Not anxious. No depression. No suicidal thoughts. No homicidal thoughts. SKIN: No rash. No lesions. No wounds. ENDOCRINE: No unexplained weight loss. No weight gain. HEMATOLOGIC/LYMPHATIC: No anemia. No purpura. No petechiae. No prolonged or excessive bleeding. No palpable lymph nodes. PHYSICAL EXAMINATION: GENERAL: The patient is awake, alert and oriented to time, place and person, sitting in bed in no distress. VITAL SIGNS: Temperature 97.3 F, Pulse 95, Respiratory Rate 18, BP 147/75, Pulse Ox 95% HEENT: Head normocephalic, atraumatic. Eyes: Extraocular muscles are intact. Pupils are equal, round and reactive to light and accommodation. Ears: No lesions. Nose appeared normal. Throat: No exudate or erythema. NECK: Supple. No JVD, no carotid bruit. No lymphadenopathy or thyromegaly. LUNGS: Decreased breath sounds. Clear to auscultation. Percussion note normal. Chest symmetrical. HEART: S1, S2, no S3. No murmurs. No cyanosis or clubbing. No ascites. Pulses: Dorsalis pedis and posterior tibial pulses +1 to +2 both sides. ABDOMEN: Soft. Non-tender. Bowel sounds active. No CVA tenderness. No mass felt. EXTREMITIES: No edema. Full range of motion of all extremities, equal. NEUROLOGIC: No focal deficit. Cranial nerves II through XII are grossly intact. No headache, no double vision or headache. SKIN: Warm and dry. Intact. Turgor-normal. LYMPHATIC: No palpable lymph nodes/no lymphedema. MUSCULOSKELETAL: Normal joints with no swelling. Muscle tone is normal. LAB REVIEW: 02/01/22 05:08 02/01/22 05:08 02/01/22 05:08: Sodium 135.3, Potassium 3.46 L, Chloride 109.6 H, Carbon Dioxide 20.4 L, Anion Gap 8.76, BUN 29.2 H, Creatinine 0.76, Estimated GFR (MDRD) 99.00, BUN/Creatinine Ratio 38.42, Glucose 111.5 H, Calcium 8.26 L, Total Bilirubin 0.35, AST 26.9, ALT 22.1, Alkaline Phosphatase 61.1, Total Protein 5.95 L, Albumin 3.15 L, Globulin 2.80, Albumin/Globulin Ratio 1.12 02/01/22 05:08: WBC 14.39 H, RBC 4.82, Hgb 13.5 L, Hct 40.4 L, MCV 83.8, MCH 28.0, MCHC 33.4, RDW Coeff of Maty 14.2, Plt Count 330, Immature Gran % (Auto) 1.3, Neut % (Auto) 85.9 H, Lymph % (Auto) 8.3 L, [place] % (Auto) 4.4, Eos % (Auto) 0.0, Baso % (Auto) 0.1, Neut # (Auto) 12.4 H, Lymph # (Auto) 1.2, [place] # (Auto) 0.6, Eos # (Auto) 0.0, Baso # (Auto) 0.0, Immature Gran # (Auto) 0.2 ASSESSMENT: Please see below. 1. Bibasilar pneumonia, resolving 2. BMI 17 with malnutrition. The patient is consulted about eating. PLAN: 1. Continue antibiotics and steroids 2. Discharge tomorrow 3. Cardiovascular status is stable 4. Echo showed normal LV contractility Plan and coordination of the patient's care discussed in the presence of Business Development Assistant and nurse. SCRIBED BY: Pati WADSWORTH scribed while in presence of service performed by Dr. DARREN AZEVEDO on 02/01/22 ([id number])
[2022-02-01] MEDS: K-DUR PO SCH ×2 (10:25→17:21)
[2022-02-01] MEDS: NORVASC PO SCH (20:05)
[2022-02-02 04:48] LABS: BASOPHILS % (AUTO) 0.2 % (0.0-3.0); HEMATOCRIT 42.8 % (42.0-52.0); HEMOGLOBIN 14.5 g/dl (14.0-18.0); IMMATURE GRANULOCYTE # (AUTO) 0.2 (0.0-1.0); IMMATURE GRANULOCYTE % (AUTO) 1.4 % (0.0-5.0); LYMPHOCYTES # (AUTO) 1.5 K/uL (0.60-3.4); LYMPHOCYTES % (AUTO) 11.5 (10.0-50.0); MEAN CORPUSCULAR HEMOGLOBIN 28.4 pg (27.0-31.0); MEAN CORPUSCULAR HGB CONC 33.9 (31.8-35.4); MEAN CORPUSCULAR VOLUME 83.9 fl (80.0-94.0); MONOCYTES % (AUTO) 7.7 (0-10); NEUTROPHILS # (AUTO) 10.4 K/ul (2.0-6.9); NEUTROPHILS % (AUTO) 79.2 % (42.2-75.2); PLATELET COUNT 427 10^3/uL (140-440); RDW COEFFICIENT OF VARIATION 14.3 % (11.6-14.8); WHITE BLOOD COUNT 13.18 K/ul (4.2-10.2)
[2022-02-02 04:57] LABS: ALANINE AMINOTRANSFERASE 31.3 U/L (0-50); ALBUMIN 3.17 g/dL (3.5-5.0); ALKALINE PHOSPHATASE 64.2 U/L (56-119); ASPARTATE AMINO TRANSFERASE 27.4 U/L (17-59); BILIRUBIN,TOTAL 0.27 mg/dL (0.2-1.3); BLOOD UREA NITROGEN 24.5 mg/dL (9-20); CALCIUM 8.36 mg/dL (8.4-10.2); CARBON DIOXIDE 22.8 mmol/L (22-30.0); CHLORIDE 107.7 mmol/L (98-107); CREATININE 0.75 mg/dL (0.60-1.10); GLUCOSE 118.9 mg/dL (74-106); POTASSIUM 3.7 mmol/L (3.5-5.1); SODIUM 136.1 mmol/L (134.5-145); TOTAL PROTEIN 5.96 g/dL (6.3-8.2)
[2022-02-02] MEDS: PROTONIX PO SCH (05:36)
[2022-02-02 05:59] VITALS: BP 157/86; TEMP 97
[2022-02-02] MEDS: PRAVACHOL PO SCH (09:05)
[2022-02-02] MEDS: ZESTRIL PO SCH (09:05)
[2022-02-02] MEDS: ASPIRIN EC PO SCH (09:06)
[2022-02-02] MEDS: LOPRESSOR PO SCH (09:06)
[2022-02-02] MEDS: ROCEPHIN 1 GM/50 ML D5W 1 GM/50 ML BAG IV SCH (09:06)
[2022-02-02] MEDS: DECADRON IM SCH (09:06)
[2022-02-02] MEDS: SYMBICORT 160-4.5 MCG INHALER IH SCH (09:06)
[2022-02-02] MEDS: K-DUR PO SCH (09:06)
--- NOTE | 2022-02-04 13:59 | PN ---
DATE OF SERVICE: 01/30/22 SUBJECTIVE: 81 year old white male hospitalized with bibasilar pneumonia. The patient's condition has improved. He is feeling a lot better. REVIEW OF SYSTEMS: CONSTITUTIONAL: No night sweats. No fatigue, malaise, lethargy. No fever or chills. HEENT: Eyes: No visual changes. No eye pain. No eye discharge. ENT: No runny nose. No epistaxis. No sinus pain. No sore throat. No odynophagia. No congestion. RESPIRATORY: No cough, no congestion. No hemoptysis. Less shortness of breath. CARDIOVASCULAR: No angina symptoms. No CHF symptoms. No atypical chest pain for CAD. No palpitations. No PND. No orthopnea. GASTROINTESTINAL: No abdominal pain. No nausea or vomiting. No diarrhea or constipation. No hematemesis. No hematochezia. Appetite has improved. GENITOURINARY: No urgency. No frequency. No dysuria. No hematuria. No obstructive symptoms. No discharge. No pain. No significant abnormal bleeding. MUSCULOSKELETAL: No musculoskeletal pain; no joint swelling. NEUROLOGICAL: No headache. No neck pain. No syncope. No seizures. No dizziness. PSYCHIATRIC: Not anxious. No depression. No suicidal thoughts. No homicidal thoughts. SKIN: No rash. No lesions. No wounds. ENDOCRINE: No unexplained weight loss. No weight gain. HEMATOLOGIC/LYMPHATIC: No anemia. No purpura. No petechiae. No prolonged or excessive bleeding. No palpable lymph nodes. PHYSICAL EXAMINATION: VITAL SIGNS: Temperature 98.2, pulse 60, respiratory rate 20, blood pressure 127/72 and pulse ox 94% on 2 liters. HEENT: Head normocephalic, atraumatic. Eyes: Extraocular muscles are intact. Pupils are equal, round and reactive to light and accommodation. Ears: No lesions. Nose appeared normal. Throat: No exudate or erythema. NECK: Supple. No JVD, no carotid bruit. No lymphadenopathy or thyromegaly. LUNGS: Few creptiations at bases. Clear to auscultation. Percussion note normal. Chest symmetrical. HEART: S1, S2, no S3. No murmurs. No cyanosis or clubbing. No ascites. Pulses: Dorsalis pedis and posterior tibial pulses +1 to +2 bilaterally. ABDOMEN: Soft. Nontender. Bowel sounds active. No CVA tenderness. No mass felt. EXTREMITIES: No edema. Full range of motion of all extremities, equal. NEUROLOGIC: No focal deficit. Cranial nerves II through XII are grossly intact. No headache. No double vision. SKIN: Not dry. Intact. Turgor - normal. LYMPHATIC: No palpable lymph nodes/no lymphedema. MUSCULOSKELETAL: Normal joints with no swelling. Muscle tone is normal. LABS: Hgb 14, hct 42, WBC 18,000 normal differential, creatinine 0.9, BUN 26, potassium 3.6 ASSESSMENT: 1. Pneumonitis, bilaterally seems to be resolving clinically the patient is better. 2. BMI 17 with malnutrition 3. Dehydration 4. History of CHF 5. Hypertension PLAN: 1. Continue all the medications as before 2. Discontinue ferrous sulfate 3. The patient advised to quit smoking 4. Decrease Amlodipine to 5mg at night. 5. Continue antibiotics, Rocephin and Zithromax Carla, the daughter, was called about the patient's progress Carla was happy with it. The patient can have whatever he wants to eat. Anything from outside. CONDITION: Stable. TIME SPENT: More than 30 minutes. Plan and coordination of the patient's care discussed in the presence of nurse. ELLIE
--- NOTE | 2022-02-04 14:17 | PN ---
DATE OF SERVICE: 01/31/22 SUBJECTIVE: The patient was seen and examined with the Nurse Practitioner. He is looking a lot better. Appetite has improved. Hydration status seems to be resolving clinically no dehydration. PHYSICAL EXAMINATION: HEENT: Head normocephalic, atraumatic. Eyes: Extraocular muscles are intact. Pupils are equal, round and reactive to light and accommodation. Ears: No lesions. Nose appeared normal. Throat: No exudate or erythema. NECK: Supple. No JVD, no carotid bruit. No lymphadenopathy or thyromegaly. LUNGS: Clear to auscultation. Percussion note normal. Chest symmetrical. HEART: S1, S2, no S3. No murmurs. No cyanosis or clubbing. No ascites. Pulses: Dorsalis pedis and posterior tibial pulses +1 to +2 bilaterally. ABDOMEN: Soft. Nontender. Bowel sounds active. No CVA tenderness. No mass felt. EXTREMITIES: No edema. Full range of motion of all extremities, equal. NEUROLOGIC: No focal deficit. Cranial nerves II through XII are grossly intact. No headache. No double vision. SKIN: Not dry. Intact. Turgor - normal. LYMPHATIC: No palpable lymph nodes/no lymphedema. MUSCULOSKELETAL: Normal joints with no swelling. Muscle tone is normal. TIME SPENT: More than 30 minutes. Plan and coordination of the patient's care discussed in the presence of nurse. ELLIE
--- NOTE | 2022-02-05 10:53 | PN ---
DATE OF SERVICE: 02/02/22 DISCHARGE NOTE SUBJECTIVE: 81 year old white male hospitalized with bibasilar pneumonia. The patient was short of breath. REVIEW OF SYSTEMS: CONSTITUTIONAL: No night sweats. No fatigue, malaise, lethargy. No fever or chills. HEENT: Eyes: No visual changes. No eye pain. No eye discharge. ENT: No runny nose. No epistaxis. No sinus pain. No sore throat. No odynophagia. No congestion. RESPIRATORY: Cough much less, no congestion. No hemoptysis. Mild shortness of breath as usual. CARDIOVASCULAR: No angina symptoms. No CHF symptoms. No atypical chest pain for CAD. No palpitations. No PND. No orthopnea. GASTROINTESTINAL: No abdominal pain. No nausea or vomiting. No diarrhea or constipation. No hematemesis. No hematochezia.Appetite has improved. GENITOURINARY: No urgency. No frequency. No dysuria. No hematuria. No obstructive symptoms. No discharge. No pain. No significant abnormal bleeding. MUSCULOSKELETAL: No musculoskeletal pain; no joint swelling. NEUROLOGICAL: No headache. No neck pain. No syncope. No seizures. No dizziness. PSYCHIATRIC: Not anxious. No depression. No suicidal thoughts. No homicidal thoughts. SKIN: No rash. No lesions. No wounds. ENDOCRINE: No unexplained weight loss. No weight gain. HEMATOLOGIC/LYMPHATIC: No anemia. No purpura. No petechiae. No prolonged or excessive bleeding. No palpable lymph nodes. PHYSICAL EXAMINATION: GENERAL: The patient is oriented to time, place and person. VITAL SIGNS: Temperature 97, pulse 57, respiratory rate 18, blood pressure 150/77 and pulse ox 95%. HEENT: Head normocephalic, atraumatic. Eyes: Extraocular muscles are intact. Pupils are equal, round and reactive to light and accommodation. Ears: No lesions. Nose appeared normal. Throat: No exudate or erythema. NECK: Supple. No JVD, no carotid bruit. No lymphadenopathy or thyromegaly. LUNGS: Decreased breath sounds but clear to auscultation. Percussion note normal. Chest symmetrical. HEART: S1, S2, no S3. No murmurs. No cyanosis or clubbing. No ascites. Pulses: Dorsalis pedis and posterior tibial pulses +1 to +2 bilaterally. ABDOMEN: Soft. Nontender. Bowel sounds active. No CVA tenderness. No mass felt. EXTREMITIES: No edema. Full range of motion of all extremities, equal. NEUROLOGIC: No focal deficit. Cranial nerves II through XII are grossly intact. No headache. No double vision. SKIN: Not dry. Intact. Turgor - normal. LYMPHATIC: No palpable lymph nodes/no lymphedema. MUSCULOSKELETAL: Normal joints with no swelling. Muscle tone is normal. LABS: Hgb 14, hct 42, WBC 13,000 normal differential, creatinine 0.7, BUN 24, potassium 3.7 ASSESSMENT: 1. Bibasilar pneumonia seems to be resolving 2. Severe emphysema with lobe consolidation 3. Chronic bronchitis 4. Hypertension 5. Dyslipidemia PLAN: 1. Continue all the rest of the medications he was on at home like Aspirin, Pantoprazole, Potassium, ProAir HFA, Symbicort, Lisinopril, Alprazolam 2. Amlodipine to be started twice a day 3. Discontinue Ferrous Sulfate 4. Hgb is practically normal. 5. Metoprolol as before 6. Pravastatin as before 7. New medications Omnicef 300mg PO twice a day for 5 days 8. Prednisone 10mg twice a day for 5 days and then after that one a day for 5 days 9. Advised to quit smoking 10.He is to be seen on Friday at 10am 11.Advised to make an appointment with Dr. Thurston. The patient had an appointment with Dr. Thurston but he missed it according to him 12.Tried to call Carla but didn't answer the phone. CONDITION: Stable. TIME SPENT: More than 30 minutes. Plan and coordination of the patient's care discussed in the presence of nurse. ELLIE
--- NOTE | 2022-02-05 10:54 | PN ---
01/29/22: Level 5 01/30/22: Intermediate 01/31/22: Intermediate 02/01/22: Intermediate 02/02/22: D as in discharge MTDD
--- NOTE | 2022-02-05 11:26 | DS ---
DATE OF SERVICE: 02/02/22 FINAL DIAGNOSIS: 1. Bibasilar pneumonia/Atelectasis 2. Severe chronic lung disease with emphysema and upper lobe consolidation 3. Chronic bronchitis 4. Hypertension 5. Dyslipidemia 6. Bilateral leg edema dependent 7. Gastroesophageal reflux disease 8. Tremors which is multifactorial like medications controlled with Xanax DISCHARGE INSTRUCTIONS: Discharged home. The patient is advised to continue all his medications as before. Followup on Friday at 10am. MEDICATIONS AT DISCHARGE: Aspirin Pantoprazole ProAir HFA Symbicort Lisinopril Alprazolam Amlodipine Pantoprazole Pravastatin NEW PRESCRIPTIONS: Omnicef 300mg PO twice a day for 5 Prednisone PO 10mg BID for 5 days after one a day for 5 days. DISCONTINUED MEDICATIONS: Ferrous sulfate DIET INSTRUCTIONS: As tolerated ACTIVITY: As tolerated SMOKING: Quit smoking. Counseling for smoking done. LABS: Hgb 14, hct 42, WBC 13,000 normal differential, creatinine 0.7, BUN 24, potassium 3.7. COVID negative HOSPITAL COURSE: 81 year old white male came to the emergency room with increasing shortness of breath. The patient was also dehydrated. The patient was somewhat run down with chronic bronchitis. The patient has been see in the office a few days ago and was advised hospitalization. The patient was given antibiotics with no response. The patient was given in the hospital Rocephin and Zithromax. Steroids were given. The patient's condition improved remarkable. The patient's bronchitis symptoms. His lung findings are alot better. He did not have any hemoptysis. His appetite improved. CT scan of the chest showed bilateral consolidation, chronic had atelectasis versus bibasilar pneumonia. The patient has been followed by Dr. Thurston and has had several test. At the time of discharge he was advised to call Dr. Thurston's office to have his appointment made again, agreed. CT scan of the abdomen done which showed diverticulosis and ASHD. No acute other acute findings were noted. The patient's condition at the time of discharge is stable. The patient is advised to regular meals and walk half a mile a day. Cardiac and pulmonary rehab was recommended. The patient's echocardiogram done a week ago showed normal LV contractility, enlarged LA cavity and enlarged RV cavity. Structures were normal. TIME SPENT: More than 60 minutes. MTDD
== END 2022-02-02 12:20 | disposition home or self-care (01) | DRG 193 ==
LOC: ED 11:53 → MEDSURG A 16:04
PROVIDERS: ADMIT Internal Medicine; ATTEND Internal Medicine
DX: I10 Essential (primary) hypertension; Z20.822 Contact with and (suspected) exposure to COVID-19; R22.43 Localized swelling, mass and lump, lower limb, bilateral; J42 Unspecified chronic bronchitis; R25.1 Tremor, unspecified; J18.9 Pneumonia, unspecified organism; E86.0 Dehydration; K21.9 Gastro-esophageal reflux disease without esophagitis; Z99.81 Dependence on supplemental oxygen; J43.9 Emphysema, unspecified; E78.5 Hyperlipidemia, unspecified; J96.00 Acute respiratory failure, unspecified whether with hypoxia or hypercapnia; Z51.81 Encounter for therapeutic drug level monitoring; E46 Unspecified protein-calorie malnutrition; Z79.899 Other long term (current) drug therapy

== ENCOUNTER 2022-04-20 14:17 | Inpatient (IN) ==
[2022-04-20] MEDS ORDERED: SODIUM CHLORIDE 500 ML IV STA (15:29)
--- NOTE | 2022-04-20 15:54 | CT ---
EXAM: Brain CT without contrast 04/20/2022 INDICATION: Weakness. COMPARISON: Brain MRI dated 03/27/2016. TECHNIQUE: Unenhanced CT of the head was performed from the skull base to the vertex. FINDINGS: No intracranial hemorrhage or extra-axial collection. No mass, mass effect or midline shift. The bowling -white matter differentiation is preserved. 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 There are patchy subcortical and periventricular white matter hypodensities, most commonly see n in chronic white matter microvascular ischemic changes. The ventricles are normal in size. There is moderate cerebral parenchymal volume loss. The basal cisterns are patent. There is layering of m ucus in the right maxillary sinus. The mastoid air cells are clear. The orbits are unremarkable. Th e visualized osseous structures are unremarkable. IMPRESSION: No acute intracranial findings. Senescent changes as above. All CT scans are performed using dose optimization techniques as appropriate to the performed exam an d include at least one of the following: Automated exposure control, adjustment of the mA and/or kV according t o size, and the use of iterative reconstruction technique.
--- NOTE | 2022-04-20 15:56 | DI ---
Exam: Single view chest x-ray. Date: 04/20/2022. Comparison: 01/29/2022. HISTORY: Shortness of breath. FINDINGS: The lungs are hyperinflated. There is a dextroscoliotic curve in the thoracic spine. The re is a persistent area of interstitial prominence in the right hilum which was evaluated with chest CT performed 01/29/2022. The lungs are clear with calcified granulomas. Cardiac silhouette and pulm onary vasculature are normal. Impression: No acute intrathoracic findings. Emphysematous changes with old granulomatous disease.
[2022-04-20 16:15] LABS: BASOPHILS # (AUTO) 0.1 K/uL (0-0.2); BASOPHILS % (AUTO) 0.5 % (0.0-3.0); EOSINOPHILS % (AUTO) 0.4 % (0.0-7.0); HEMATOCRIT 35.6 % (42.0-52.0); HEMOGLOBIN 11.8 g/dl (14.0-18.0); IMMATURE GRANULOCYTE # (AUTO) 0.2 (0.0-1.0); IMMATURE GRANULOCYTE % (AUTO) 1.7 % (0.0-5.0); LYMPHOCYTES # (AUTO) 3.4 K/uL (0.60-3.4); LYMPHOCYTES % (AUTO) 35.4 (10.0-50.0); MEAN CORPUSCULAR HEMOGLOBIN 27.4 pg (27.0-31.0); MEAN CORPUSCULAR HGB CONC 33.1 (31.8-35.4); MEAN CORPUSCULAR VOLUME 82.6 fl (80.0-94.0); MONOCYTES # (AUTO) 0.6 K/uL (0.4-2.0); MONOCYTES % (AUTO) 5.8 (0-10); NEUTROPHILS # (AUTO) 5.3 K/ul (2.0-6.9); NEUTROPHILS % (AUTO) 56.2 % (42.2-75.2); PLATELET COUNT 323 10^3/uL (140-440); RDW COEFFICIENT OF VARIATION 16.4 % (11.6-14.8); RED BLOOD COUNT 4.31 10^6/ul (4.70-6.10); WHITE BLOOD COUNT 9.48 K/ul (4.2-10.2)
[2022-04-20] MEDS ORDERED: SODIUM CHLORIDE 1,000 ML IV STA ×2 (16:20→16:54)
[2022-04-20 16:35] LABS: MOLECULAR FLU A NEGATIVE BY NAAT (NEGATIVE); MOLECULAR FLU B NEGATIVE BY NAAT (NEGATIVE)
[2022-04-20] MEDS ORDERED: SOLU-MEDROL 125 MG IVP ONE (16:38)
[2022-04-20] MEDS ORDERED: VENTOLIN HFA (PER PUFF-WITH SPACER) IH ONE (16:38)
--- NOTE | 2022-04-20 16:43 | ED.PDOC ---
General ED Provider: Dr. NEYMAR RUELAS MD Chief Complaint: Weakness Time Seen by Provider: 04/20/22 14:23 Mode of Arrival: Wheelchair Information Source: Patient Primary Care Provider: DARREN AZEVEDO Sepsis Protocol: For patient's 13 years and over: Temp is 96.8 and below OR 101 and greater Pulse >90 BPM Resp >20/minute Acutely Altered Mental Status Are patient's symptoms suggestive of a new infection, such as: -Pneumonia -Skin, Soft Tissue -Endocarditis -UTI -Bone, Joint Infection -Implantable Device -Acute Abdominal Infection -Wound Infection -Meningitis -Blood Stream Catheter Infection -Unknown [facility] Medical History Afib Chest pain Hypertension Kidney stone Myocardial infarction (~2007) Family History Other Diabetes Stomach cancer Social History Smoking and tobacco status: Current every day smoker History of recent travel: No Surgical History Placement of stent in coronary artery (~2007) Course Course Hematology/Chemistry: 04/20/22 15:58 Orders, Labs, Meds: Lab Review 04/20/22 04/20/22 04/20/22 15:58 15:58 15:58 WBC 9.48 RBC 4.31 L Hgb 11.8 L Hct 35.6 L MCV 82.6 MCH 27.4 MCHC 33.1 RDW Coeff of Maty 16.4 H Plt Count 323 Immature Gran % (Auto) 1.7 Neut % (Auto) 56.2 Lymph % (Auto) 35.4 [place] % (Auto) 5.8 Eos % (Auto) 0.4 Baso % (Auto) 0.5 Neut # (Auto) 5.3 Lymph # (Auto) 3.4 [place] # (Auto) 0.6 Eos # (Auto) 0.0 Baso # (Auto) 0.1 Immature Gran # (Auto) 0.2 Lactic Acid 0.61 L Troponin I < 0.012 Influ A Molecular Assay Influ B Molecular Assay SARS-CoV-2 Ag (Rapid) 04/20/22 04/20/22 15:58 15:58 WBC RBC Hgb Hct MCV MCH MCHC RDW Coeff of Maty Plt Count Immature Gran % (Auto) Neut % (Auto) Lymph % (Auto) [place] % (Auto) Eos % (Auto) Baso % (Auto) Neut # (Auto) Lymph # (Auto) [place] # (Auto) Eos # (Auto) Baso # (Auto) Immature Gran # (Auto) Lactic Acid Troponin I Influ A Molecular Assay Negative by naat Influ B Molecular Assay Negative by naat SARS-CoV-2 Ag (Rapid) Positive H Orders Category Date Time Status ABG DRAW REQUEST Stat CARDIO 04/20/22 16:39 Ordered EKG-(ED ONLY) Stat CARDIO 04/20/22 15:24 Completed METERED DOSE INHALATION Routine CARDIO 04/20/22 16:40 Ordered Saline Lock [ED IV/MEDIPORT/POWERPORT] .ONCE EMERGENCY 04/20/22 15:24 Active ABG COOX Stat LAB 04/20/22 16:38 Ordered CBC W/ AUTO DIFF Stat LAB 04/20/22 15:58 Completed COVID-19 ANTIGEN TEST Stat LAB 04/20/22 15:58 Completed FLU A & B MOLECULAR [FLU A/B MOLECULAR] Stat LAB 04/20/22 15:58 Completed LACTIC ACID Stat LAB 04/20/22 15:58 Completed TROPONIN I Stat LAB 04/20/22 15:58 Completed URINALYSIS C & S IF INDICATED Stat LAB 04/20/22 15:24 Uncollected 0.9 % Sodium Chloride [Saline Flush] MEDS 04/20/22 15:24 Active 1 syr IVF PRN PRN Albuterol Inhaler(with Spacer) [Ventolin Hfa (Per Puff- MEDS 04/20/22 16:38 Once with Spacer)] 2 puff IH ONCE ONE Methylprednisolone Sod Succ/Pf [Solu-Medrol 125 mg] MEDS 04/20/22 16:38 Once 125 mg IVP ONCE ONE Sodium Chloride 0.9% [Sodium Chloride] 1,000 ml MEDS 04/20/22 16:[address] HEAD W/O CONTRAST Stat RADS 04/20/22 15:24 Completed CXR [CHEST, 1V AP ONLY] Stat RADS 04/20/22 15:24 Completed Medications Generic Name Dose Route Start Last Admin Trade Name Freq PRN Reason Stop Dose Admin Sodium Chloride 1,000 mls @ 1,000 mls/hr 04/20/22 16:20 04/20/22 16:35 Sodium Chloride IV 04/20/22 17:19 1,000 mls/hr BOLUS STA Administration Sodium Chloride 1 syr 04/20/22 15:24 0.9% Sodium Chloride 10 Ml Disp.Syrin IVF PRN PRN To flush IV Discontinued Medications Generic Name Dose Route Start Last Admin Trade Name Freq PRN Reason Stop Dose Admin Albuterol Sulfate 2 puff 04/20/22 16:38 Albuterol Sulfate (Ventolin Hfa) 18 Gm 1 Puff With Spacer IH 04/20/22 16:39 ONCE ONE Methylprednisolone Sodium Succinate 125 mg 04/20/22 16:38 Methylprednisolone Sod Succ/Pf 125 Mg/2 Ml Vial IVP 04/20/22 16:39 ONCE ONE Vital Signs: Temp Pulse Resp BP Pulse Ox 04/20/22 14:18 98.1 F 60 20 153/81 H 92 L Discharge Plan Discharge Patient Disposition: ADMITTED INPATIENT Discharge Problem: Muscle weakness, COPD exacerbation, COVID-19 Prescriptions: No Action pantoprazole [Protonix] 40 MG tablet,delayed release (DR/EC) 40 mg PO DAILY Qty: 30 6RF potassium 99 MG tablet 1 tab PO DAILY Qty: 30 1RF albuterol sulfate [ProAir HFA] 8.5 GM HFA aerosol inhaler 8.5 g inhalation DIRECTED Qty: 1 3RF Rx Instructions: 2 puffs every 4 hours as needed budesonide-formoterol [Symbicort] 10.2 GM HFA aerosol inhaler 1 puff inhalation BID Qty: 1 0RF lisinopril 10 MG tablet 20 mg PO BID Qty: 30 0RF aspirin 325 MG tablet,delayed release (DR/EC) 325 mg PO DAILYWM 0RF albuterol sulfate 90 mcg/actuation HFA aerosol inhaler 2 puff inhalation Q6H PRN (Reason: shortness of breath or wheezing) Qty: 8.5 0RF pravastatin 40 mg tablet 40 mg PO DAILY 0RF amlodipine 5 mg tablet 5 mg PO BID 0RF alprazolam 0.25 mg tablet 0.25 mg PO BID PRN (Reason: Anxiety) 0RF metoprolol tartrate 25 mg tablet 25 mg PO BID 0RF cyanocobalamin (vitamin B-12) [Vitamin B-12] 1,000 mcg Tablet 1,000 mcg PO DAILY 0RF ED Provider: NEYMAR RUELAS Condition: Serious Physician Progress Note: [][id number]: Pt was d/w Dr Azevedo and accepted for admission: see orders.
[2022-04-20] MEDS ORDERED: VENTOLIN HFA (PER PUFF-WITH SPACER) IH SCH (17:00)
[2022-04-20] MEDS ORDERED: XANAX PO PRN (17:01)
[2022-04-20 17:17] LABS: ABG PH 7.47 (7.35-7.45); BEecf -3.3 (-2.0-3.0); COHb 1.8 (0.5-1.5); HCO3 20.4 (21-28); MetHb 1.7 (0-1.5); TCO2 21.3 (19-24); sO2 91.9 % (94-98); tHb 12.6 g/dl (11.7-17.4)
[2022-04-20] MEDS: VENTOLIN HFA (PER PUFF-WITH SPACER) IH SCH ×2 (18:05→23:17)
[2022-04-20] MEDS: ATROVENT HFA INHALER (PER PUFF-WITH SPACER) IH SCH ×2 (18:05→23:17)
[2022-04-20 18:12] VITALS: BMI 17.8
[2022-04-20 18:48] LABS: ALANINE AMINOTRANSFERASE 16.6 U/L (0-50); ALBUMIN 3.21 g/dL (3.5-5.0); ALKALINE PHOSPHATASE 68.9 U/L (56-119); ASPARTATE AMINO TRANSFERASE 28.3 U/L (17-59); BILIRUBIN,TOTAL 0.27 mg/dL (0.2-1.3); BLOOD UREA NITROGEN 20.4 mg/dL (9-20); CALCIUM 8.14 mg/dL (8.4-10.2); CARBON DIOXIDE 19.9 mmol/L (22-30.0); CHLORIDE 104.9 mmol/L (98-107); CREATININE 0.75 mg/dL (0.60-1.10); GLUCOSE 105.9 mg/dL (74-106); POTASSIUM 3.56 mmol/L (3.5-5.1); SODIUM 133.5 mmol/L (134.5-145); TOTAL PROTEIN 6.42 g/dL (6.3-8.2)
[2022-04-20 19:06] LABS: BILIRUBIN,URINE Negative (NEGATIVE); CLARITY,URINE Clear (CLEAR); COLOR,URINE Yellow (YELLOW); GLUCOSE, URINE (UA) Negative (NEGATIVE); KETONES,URINE Negative (NEGATIVE); LEUKOCYTE ESTERASE ,URINE Trace (NEGATIVE); NITRITE,URINE Negative (NEGATIVE); PH,URINE 6.5 (5-9); PROTEIN,URINE Negative (NEGATIVE); URINE, BLOOD Negative (NEGATIVE)
[2022-04-20 19:08] LABS: BACTERIA,URINE TRACE (NOT PRESENT); URINE RBC, MICROSCOPIC 0-2 (0-2)
[2022-04-20] MEDS: LIBRIUM PO SCH (21:24)
[2022-04-20] MEDS: LOPRESSOR PO SCH (21:24)
[2022-04-20] MEDS: ZESTRIL PO SCH (21:27)
[2022-04-20] MEDS: NORVASC PO SCH (21:27)
[2022-04-20] MEDS: DECADRON IVP SCH (21:48)
[2022-04-20] MEDS: ROCEPHIN 1 GM/50 ML D5W 1 GM/50 ML BAG IV SCH (21:48)
[2022-04-20] MEDS: ZITHROMAX 500 MG in SODIUM CHLORIDE 250 ML IV SCH (23:04)
[2022-04-21 05:02] LABS: ADENOVIRUS (PCR) NOT DETECTED (NOT DETECT); BORDETELLA PARAPERTUSSIS (PCR) NOT DETECTED (NOT DETECT); BORDETELLA PERTUSSIS (PCR) NOT DETECTED (NOT DETECT); CHLAMYDIA PNEUMONIAE (PCR) NOT DETECTED (NOT DETECT); CORONAVIRUS 229E (PCR) NOT DETECTED (NOT DETECT); CORONAVIRUS HKU1 (PCR) NOT DETECTED (NOT DETECT); CORONAVIRUS NL63 (PCR) NOT DETECTED (NOT DETECT); CORONAVIRUS OC43 (PCR) NOT DETECTED (NOT DETECT); HUMAN METAPNEUMOVIRUS (PCR) NOT DETECTED (NOT DETECT); HUMAN RHINOVIRUS/ENTEROV (PCR) NOT DETECTED (NOT DETECT); INFLUENZA B (PCR) NOT DETECTED (NOT DETECT); MYCOPLASMA PNEUMONIAE (PCR) NOT DETECTED (NOT DETECT); PARAINFLUENZA VIRUS 1 (PCR) NOT DETECTED (NOT DETECT); PARAINFLUENZA VIRUS 2 (PCR) NOT DETECTED (NOT DETECT); PARAINFLUENZA VIRUS 3 (PCR) NOT DETECTED (NOT DETECT); PARAINFLUENZA VIRUS 4 (PCR) NOT DETECTED (NOT DETECT); RESPIRATORY SYNCYTIAL V (PCR) NOT DETECTED (NOT DETECT); SARS_COV_2 (PCR) DETECTED (NOT DETECT)
[2022-04-21 05:24] LABS: BASOPHILS % (AUTO) 0.2 % (0.0-3.0); HEMATOCRIT 35.9 % (42.0-52.0); HEMOGLOBIN 11.8 g/dl (14.0-18.0); IMMATURE GRANULOCYTE # (AUTO) 0.1 (0.0-1.0); LYMPHOCYTES # (AUTO) 1.3 K/uL (0.60-3.4); MEAN CORPUSCULAR HEMOGLOBIN 27.3 pg (27.0-31.0); MEAN CORPUSCULAR HGB CONC 32.9 (31.8-35.4); MEAN CORPUSCULAR VOLUME 82.9 fl (80.0-94.0); MONOCYTES # (AUTO) 0.1 K/uL (0.4-2.0); MONOCYTES % (AUTO) 1.5 (0-10); NEUTROPHILS # (AUTO) 3.1 K/ul (2.0-6.9); NEUTROPHILS % (AUTO) 68.3 % (42.2-75.2); PLATELET COUNT 311 10^3/uL (140-440); RED BLOOD COUNT 4.33 10^6/ul (4.70-6.10)
[2022-04-21] MEDS: ATROVENT HFA INHALER (PER PUFF-WITH SPACER) IH SCH ×4 (05:25→23:08)
[2022-04-21] MEDS: VENTOLIN HFA (PER PUFF-WITH SPACER) IH SCH ×4 (05:25→23:08)
[2022-04-21 05:28] LABS: ALANINE AMINOTRANSFERASE 16.8 U/L (0-50); ALBUMIN 3.2 g/dL (3.5-5.0); ALKALINE PHOSPHATASE 67.2 U/L (56-119); ASPARTATE AMINO TRANSFERASE 26.2 U/L (17-59); BILIRUBIN,TOTAL 0.28 mg/dL (0.2-1.3); BLOOD UREA NITROGEN 13.8 mg/dL (9-20); CALCIUM 7.98 mg/dL (8.4-10.2); CARBON DIOXIDE 19.3 mmol/L (22-30.0); CHLORIDE 107.5 mmol/L (98-107); CREATININE 0.53 mg/dL (0.60-1.10); GLUCOSE 148.7 mg/dL (74-106); POTASSIUM 3.8 mmol/L (3.5-5.1); SODIUM 137.9 mmol/L (134.5-145); TOTAL PROTEIN 6.26 g/dL (6.3-8.2)
[2022-04-21] MEDS ORDERED: SODIUM CHLORIDE 1,000 ML IV SCH ×2 (06:00→06:30)
[2022-04-21] MEDS: ASPIRIN EC PO SCH (08:08)
[2022-04-21] MEDS: NORVASC PO SCH ×2 (08:08→20:26)
[2022-04-21] MEDS: LIBRIUM PO SCH ×2 (08:08→20:26)
[2022-04-21] MEDS: PROTONIX PO SCH (08:08)
[2022-04-21] MEDS: CRESTOR PO SCH (08:08)
[2022-04-21] MEDS: ROCEPHIN 1 GM/50 ML D5W 1 GM/50 ML BAG IV SCH (08:08)
[2022-04-21] MEDS: LOPRESSOR PO SCH ×2 (08:08→20:26)
[2022-04-21] MEDS: ZESTRIL PO SCH ×2 (08:08→20:26)
[2022-04-21] MEDS: ZITHROMAX 500 MG in SODIUM CHLORIDE 250 ML IV SCH (08:56)
[2022-04-21] MEDS: DECADRON IVP SCH (08:57)
[2022-04-21] MEDS ORDERED: PRAVACHOL PO SCH (09:00)
[2022-04-21] MEDS: SODIUM CHLORIDE 1,000 ML IV SCH (11:22)
[2022-04-22] MEDS: SODIUM CHLORIDE 1,000 ML IV SCH ×2 (02:43→08:44)
[2022-04-22 05:11] LABS: BASOPHILS % (AUTO) 0.1 % (0.0-3.0); HEMATOCRIT 35.5 % (42.0-52.0); HEMOGLOBIN 11.4 g/dl (14.0-18.0); IMMATURE GRANULOCYTE # (AUTO) 0.1 (0.0-1.0); IMMATURE GRANULOCYTE % (AUTO) 1.1 % (0.0-5.0); LYMPHOCYTES # (AUTO) 1.7 K/uL (0.60-3.4); LYMPHOCYTES % (AUTO) 13.3 (10.0-50.0); MEAN CORPUSCULAR HEMOGLOBIN 27.1 pg (27.0-31.0); MEAN CORPUSCULAR HGB CONC 32.1 (31.8-35.4); MEAN CORPUSCULAR VOLUME 84.5 fl (80.0-94.0); MONOCYTES # (AUTO) 0.6 K/uL (0.4-2.0); MONOCYTES % (AUTO) 4.3 (0-10); NEUTROPHILS # (AUTO) 10.6 K/ul (2.0-6.9); NEUTROPHILS % (AUTO) 81.2 % (42.2-75.2); PLATELET COUNT 325 10^3/uL (140-440); WHITE BLOOD COUNT 12.99 K/ul (4.2-10.2)
[2022-04-22] MEDS: ATROVENT HFA INHALER (PER PUFF-WITH SPACER) IH SCH ×4 (05:20→23:40)
[2022-04-22] MEDS: VENTOLIN HFA (PER PUFF-WITH SPACER) IH SCH ×4 (05:20→23:40)
[2022-04-22 05:24] LABS: ALANINE AMINOTRANSFERASE 17.9 U/L (0-50); ALBUMIN 3.03 g/dL (3.5-5.0); ALKALINE PHOSPHATASE 59.2 U/L (56-119); ASPARTATE AMINO TRANSFERASE 23.3 U/L (17-59); BILIRUBIN,TOTAL 0.3 mg/dL (0.2-1.3); BLOOD UREA NITROGEN 17.9 mg/dL (9-20); CALCIUM 8.38 mg/dL (8.4-10.2); CARBON DIOXIDE 19.4 mmol/L (22-30.0); CHLORIDE 110.6 mmol/L (98-107); CREATININE 0.61 mg/dL (0.60-1.10); GLUCOSE 125.3 mg/dL (74-106); POTASSIUM 3.64 mmol/L (3.5-5.1); SODIUM 136.4 mmol/L (134.5-145); TOTAL PROTEIN 5.99 g/dL (6.3-8.2)
[2022-04-22 08:25] LABS: ABG O2 HGB 95.8 % (95-100); ABG PH 7.45 (7.35-7.45); BEecf -2.5 (-2.0-3.0); COHb 1.7 (0.5-1.5); HCO3 21.5 (21-28); MetHb 1.1 (0-1.5); TCO2 22.5 (19-24); sO2 97.4 % (94-98); tHb 11.8 g/dl (11.7-17.4)
[2022-04-22] MEDS: ROCEPHIN 1 GM/50 ML D5W 1 GM/50 ML BAG IV SCH (08:30)
--- NOTE | 2022-04-22 08:42 | PCM.PROG ---
Attending Provider: ATTENDING PROVIDER: Dr. DARREN AZEVEDO This patient is seen with Charu Sy, Nurse Practitioner. DATE OF SERVICE: 04/22/22 SUBJECTIVE: This 81 year old /WHITE M was hospitalized 04/20/22. States nausea has improved. Appetite has slowly improved. Has been eating high 90s on 2 liters. Denies much cough. No fever. REVIEW OF SYSTEMS: CONSTITUTIONAL: No night sweats. No fatigue, malaise, lethargy. No fever or chills. Weakness. HEENT: Eyes: No visual changes. No eye pain. No eye discharge. ENT: No runny nose. No epistaxis. No sinus pain. No odynophagia. No congestion. RESPIRATORY: Cough, no congestion. No hemoptysis. Shortness of breath. CARDIOVASCULAR: No angina symptoms. No CHF symptoms. No atypical chest pain for CAD. No palpitations. No orthopnea.. GASTROINTESTINAL: No abdominal pain. No nausea or vomiting. No diarrhea or constipation. No hematemesis. No hematochezia. Loss of appetite. GENITOURINARY: No urgency. No frequency. No dysuria. No hematuria. No obstructive symptoms. No discharge. No pain. No significant abnormal bleeding. MUSCULOSKELETAL: No musculoskeletal pain; no joint swelling. NEUROLOGICAL: Awake, alert, oriented to time, place and person. No headache. No neck pain. No syncope. No seizures. No dizziness. PSYCHIATRIC: Not anxious. No depression. No suicidal thoughts. No homicidal thoughts. SKIN: No rash. No lesions. No wounds. ENDOCRINE: No unexplained weight loss. No weight gain. HEMATOLOGIC/LYMPHATIC: No anemia. No purpura. No petechiae. No prolonged or excessive bleeding. No palpable lymph nodes. PHYSICAL EXAMINATION: GENERAL: The patient is awake, alert and oriented, sitting in bed in no distress. VITAL SIGNS: Temperature 98.0 F, Pulse 97, Respiratory Rate 18, BP 127/69, Pulse Ox 98% HEENT: Head normocephalic, atraumatic. Eyes: Extraocular muscles are intact. Pupils are equal, round and reactive to light and accommodation. Ears: No lesions. Nose appeared normal. Throat: No exudate or erythema. NECK: Supple. No JVD, no carotid bruit. No lymphadenopathy or thyromegaly. LUNGS: Severely diminished breath sounds. Clear to auscultation. Percussion note normal. Chest symmetrical. HEART: S1, S2, no S3. No murmurs. No cyanosis or clubbing. No ascites. P ulses: Dorsalis pedis and posterior tibial pulses +1 to +2 both sides. ABDOMEN: Soft. Non-tender. Bowel sounds active. No CVA tenderness. No mass felt. EXTREMITIES: No edema. Full range of motion of all extremities, equal. NEUROLOGIC: No focal deficit. Cranial nerves II through XII are grossly intact. No headache. No double vision. SKIN: Not dry. Intact. Turgor-normal. LYMPHATIC: No palpable lymph nodes/no lymphedema. MUSCULOSKELETAL: Normal joints with no swelling. Muscle tone is normal. LAB REVIEW: 04/22/22 05:05 04/22/22 05:05 04/22/22 05:05: Sodium 136.4, Potassium 3.64, Chloride 110.6 H, Carbon Dioxide 19.4 L, Anion Gap 10.04, BUN 17.9, Creatinine 0.61, Estimated GFR (MDRD) 127.00, BUN/Creatinine Ratio 29.34, Glucose 125.3 H, Calcium 8.38 L, Total Bilirubin 0. 30, AST 23.3, ALT 17.9, Alkaline Phosphatase 59.2, Total Protein 5.99 L, Albumin 3.03 L, Globulin 2.96, Albumin/Globulin Ratio 1.02 04/22/22 05:05: WBC 12.99 H D, RBC 4.20 L, Hgb 11.4 L, Hct 35.5 L, MCV 84.5, MCH 27.1, MCHC 32.1, RDW Coeff of Maty 16.0 H, Plt Count 325, Immature Gran % (Auto) 1.1, Neut % (Auto) 81.2 H, Lymph % (Auto) 13.3, [place] % (Auto) 4.3, Eos % (Auto) 0.0, Baso % (Auto) 0.1, Neut # (Auto) 10.6 H, Lymph # (Auto) 1.7, [place] # (Auto) 0.6, Eos # (Auto) 0.0, Baso # (Auto) 0.0, Immature Gran # (Auto) 0.1 ASSESSMENT: Please see below. 1. Acute respiratory failure related to COVID 19 2. Endstage COPD 3. Chronic malnutrition PLAN: 1. Continue IV antibiotics 2. Symbicort two puffs BID 3. ABG on 2 liters 4. Vitamins D 5000 units daily Plan and coordination of the patient's care discussed in the presence of Incident Manager and nurse. SCRIBED BY: Pati WADSWORTH scribed while in presence of service performed by Dr. Azevedo/Charu Sy APRN on 04/22/22 ([id number])
[2022-04-22] MEDS: DECADRON IVP SCH (08:47)
[2022-04-22] MEDS: LOPRESSOR PO SCH ×2 (08:57→20:27)
[2022-04-22] MEDS: ZITHROMAX 500 MG in SODIUM CHLORIDE 250 ML IV SCH (08:57)
[2022-04-22] MEDS: NORVASC PO SCH ×2 (08:58→20:27)
[2022-04-22] MEDS: PROTONIX PO SCH (08:58)
[2022-04-22] MEDS: ZESTRIL PO SCH ×2 (08:58→20:27)
[2022-04-22] MEDS: MICRO-K CAP PO SCH (08:58)
[2022-04-22] MEDS: ASPIRIN EC PO SCH (08:58)
[2022-04-22] MEDS: LIBRIUM PO SCH ×2 (08:58→20:27)
[2022-04-22] MEDS: CRESTOR PO SCH (08:58)
[2022-04-22] MEDS: VITAMIN D PO SCH (09:00)
[2022-04-22] MEDS: SYMBICORT 160-4.5 MCG INHALER IH SCH ×2 (09:00→20:28)
[2022-04-23] MEDS: VENTOLIN HFA (PER PUFF-WITH SPACER) IH SCH ×4 (04:50→23:40)
[2022-04-23] MEDS: ATROVENT HFA INHALER (PER PUFF-WITH SPACER) IH SCH ×4 (04:50→23:40)
[2022-04-23 05:09] LABS: BASOPHILS % (AUTO) 0.2 % (0.0-3.0); HEMATOCRIT 37.5 % (42.0-52.0); HEMOGLOBIN 11.9 g/dl (14.0-18.0); IMMATURE GRANULOCYTE # (AUTO) 0.1 (0.0-1.0); LYMPHOCYTES # (AUTO) 1.7 K/uL (0.60-3.4); LYMPHOCYTES % (AUTO) 12.8 (10.0-50.0); MEAN CORPUSCULAR HEMOGLOBIN 27.6 pg (27.0-31.0); MEAN CORPUSCULAR HGB CONC 31.7 (31.8-35.4); MONOCYTES # (AUTO) 0.6 K/uL (0.4-2.0); MONOCYTES % (AUTO) 4.3 (0-10); NEUTROPHILS # (AUTO) 10.7 K/ul (2.0-6.9); NEUTROPHILS % (AUTO) 81.7 % (42.2-75.2); PLATELET COUNT 345 10^3/uL (140-440); RDW COEFFICIENT OF VARIATION 16.2 % (11.6-14.8); RED BLOOD COUNT 4.31 10^6/ul (4.70-6.10); WHITE BLOOD COUNT 13.12 K/ul (4.2-10.2)
[2022-04-23 05:30] LABS: ALANINE AMINOTRANSFERASE 16.6 U/L (0-50); ALBUMIN 2.93 g/dL (3.5-5.0); ALKALINE PHOSPHATASE 57.5 U/L (56-119); ASPARTATE AMINO TRANSFERASE 20.6 U/L (17-59); BILIRUBIN,TOTAL 0.15 mg/dL (0.2-1.3); BLOOD UREA NITROGEN 22.2 mg/dL (9-20); CALCIUM 8.35 mg/dL (8.4-10.2); CARBON DIOXIDE 19.7 mmol/L (22-30.0); CHLORIDE 109.3 mmol/L (98-107); CREATININE 0.65 mg/dL (0.60-1.10); GLUCOSE 107.5 mg/dL (74-106); POTASSIUM 3.75 mmol/L (3.5-5.1); TOTAL PROTEIN 6.07 g/dL (6.3-8.2)
[2022-04-23] MEDS ORDERED: ASPIRIN EC PO SCH (08:30)
[2022-04-23] MEDS: VITAMIN D PO SCH (08:50)
[2022-04-23] MEDS: ASPIRIN EC PO SCH (08:50)
[2022-04-23] MEDS: CRESTOR PO SCH (08:50)
[2022-04-23] MEDS: PROTONIX PO SCH (08:50)
[2022-04-23] MEDS: DECADRON IVP SCH (08:50)
[2022-04-23] MEDS: ROCEPHIN 1 GM/50 ML D5W 1 GM/50 ML BAG IV SCH (08:50)
[2022-04-23] MEDS: ZESTRIL PO SCH ×2 (08:50→20:52)
[2022-04-23] MEDS: NORVASC PO SCH ×2 (08:50→20:52)
[2022-04-23] MEDS: MICRO-K CAP PO SCH (08:50)
[2022-04-23] MEDS: SYMBICORT 160-4.5 MCG INHALER IH SCH ×2 (08:51→20:53)
[2022-04-23] MEDS: LIBRIUM PO SCH ×2 (08:51→20:52)
--- NOTE | 2022-04-23 09:02 | PCM.PROG ---
Attending Provider: ATTENDING PROVIDER: Dr. DARREN AZEVEDO This patient is seen with Charu Sy, Nurse Practitioner. DATE OF SERVICE: 04/23/22 SUBJECTIVE: This 81 year old /WHITE M was hospitalized 04/20/22. Appetite is steadily improving. Labs are stable. Blood pressure has been good. Repeat ABG on two liters were much improved from yesterday. Likely will go home on if tolerating decrease in steroids. REVIEW OF SYSTEMS: CONSTITUTIONAL: No night sweats. No fatigue, malaise, lethargy. No fever or chills. Weakness. HEENT: Eyes: No visual changes. No eye pain. No eye discharge. ENT: No runny nose. No epistaxis. No sinus pain. No odynophagia. No congestion. RESPIRATORY: Cough, no congestion. No hemoptysis. Shortness of breath. CARDIOVASCULAR: No angina symptoms. No CHF symptoms. No atypical chest pain for CAD. No palpitations. No orthopnea.. GASTROINTESTINAL: No abdominal pain. No nausea or vomiting. No diarrhea or constipation. No hematemesis. No hematochezia. GENITOURINARY: No urgency. No frequency. No dysuria. No hematuria. No obstructive symptoms. No discharge. No pain. No significant abnormal bleeding. MUSCULOSKELETAL: No musculoskeletal pain; no joint swelling. NEUROLOGICAL: Awake, alert, oriented to time, place and person. No headache. No neck pain. No syncope. No seizures. No dizziness. PSYCHIATRIC: Not anxious. No depression. No suicidal thoughts. No homicidal thoughts. SKIN: No rash. No lesions. No wounds. ENDOCRINE: No unexplained weight loss. No weight gain. HEMATOLOGIC/LYMPHATIC: No anemia. No purpura. No petechiae. No prolonged or excessive bleeding. No palpable lymph nodes. PHYSICAL EXAMINATION: GENERAL: The patient is awake, alert and oriented, sitting in bed in no distress. VITAL SIGNS: Temperature 97.5 F, Pulse 65, Respiratory Rate 23, BP 130/62, Pulse Ox 96% HEENT: Head normocephalic, atraumatic. Eyes: Extraocular muscles are intact. Pupils are equal, round and reactive to light and accommodation. Ears: No lesions. Nose appeared normal. Throat: No exudate or erythema. NECK: Supple. No JVD, no carotid bruit. No lymphadenopathy or thyromegaly. LUNGS: Diminished breath sounds. Bilateral rhonchi. Clear to auscultation. Percussion note normal. Chest symmetrical. HEART: S1, S2, no S3. No murmurs. No cyanosis or clubbing. No ascites. Pulses: Dorsalis pedis and posterior tibial pulses +1 to +2 both sides. ABDOMEN: Soft. Non-tender. Bowel sounds active. No CVA tenderness. No mass felt. EXTREMITIES: No edema. Full range of motion of all extremities, equal. NEUROLOGIC: No focal deficit. Cranial nerves II through XII are grossly intact. No headache. No double vision. SKIN: Not dry. Intact. Turgor-normal. LYMPHATIC: No palpable lymph nodes/no lymphedema. MUSCULOSKELETAL: Normal joints with no swelling. Muscle tone is normal. LAB REVIEW: 04/23/22 05:05 04/23/22 05:05 04/23/22 05:05: Sodium 139.0, Potassium 3.75, Chloride 109.3 H, Carbon Dioxide 19.7 L, Anion Gap 13.75, BUN 22.2 H, Creatinine 0.65, Estimated GFR (MDRD) 118.00, BUN/Creatinine Ratio 34.15, Glucose 107.5 H, Calcium 8.35 L, Total Bilirubin 0.15 L, AST 20.6, ALT 16.6, Alkaline Phosphatase 57.5, Total Protein 6.07 L, Albumin 2.93 L, Globulin 3.14, Albumin/Globulin Ratio 0.93 04/23/22 05:05: WBC 13.12 H, RBC 4.31 L, Hgb 11.9 L, Hct 37.5 L, MCV 87.0, MCH 27.6, MCHC 31.7 L, RDW Coeff of Maty 16.2 H, Plt Count 345, Immature Gran % (Auto) 1.0, Neut % (Auto) 81.7 H, Lymph % (Auto) 12.8, [place] % (Auto) 4.3, Eos % (Auto) 0.0, Baso % (Auto) 0.2, Neut # (Auto) 10.7 H, Lymph # (Auto) 1.7, [place] # (Auto) 0.6, Eos # (Auto) 0.0, Baso # (Auto) 0.0, Immature Gran # (Auto) 0.1 04/22/22 08:11: Puncture Site R rad, Base Excess -2.5 L, O2 Saturation 97.4, ABG pH 7.45, ABG pCO2 31.0 L, ABG pO2 91.0, ABG HCO3 21.5, ABG Total CO2 22.5, Karri Test Y, Hemoglobin 1.1, Oxyhemoglobin 95.8, Carboxyhemoglobin 1.7 H, Total Hemoglobin 11.8, O2 Delivery Device Cannula, Oxygen Liter Flow 2.00 ASSESSMENT: Please see below. 1. Positive COVID 2. Acute respiratory failure 3. Generalized weakness 4. Dehydration, improved PLAN: 1. PT OT for consult and evaluation 2. Discontinue Decadron tomorrow 3. Start Prednisone 20mg BID tomorrow 4. Decrease Aspirin 325mg to 81mg 5. The patient can eat whatever he would like Plan and coordination of the patient's care discussed in the presence of Radio Communication Coordinator and nurse. SCRIBED BY: SARAH GERMAN Chlorinator Operator scribed while in presence of service performed by Dr. Azevedo/Charu Sy APRN on 04/23/22 ([id number])
[2022-04-23] MEDS: LOPRESSOR PO SCH ×2 (10:21→20:53)
--- NOTE | 2022-04-23 11:36 | HP ---
DATE OF SERVICE: 04/20/22 REASON FOR HOSPITALIZATION: COPD exacerbation due to COVID HISTORY OF PRESENT ILLNESS: 81 year old white male was brought to the emergency room with weakness and inability to get up, congestion of nearly two weeks duration. The patient was COVID positive two days ago. He was sent home from [facility] Emergency room. PAST MEDICAL HISTORY/PAST SURGICAL HISTORY: History of chronic lung disease Emphysema History of recurrent pneumonia Chronic bronchitis Hypertension Dyslipidemia History of bilateral leg edema Gastroesophageal reflux disease Tremor which is multifactorial controlled with small dose of Xanax in the past Previous hospitalization 01/29/22 with pneumonia after that the patient ended up at [facility] and was kept for 5 days with pneumonia. REVIEW OF SYSTEMS: CONSTITUTIONAL: No night sweats. Fatigue and weakness. No fever or chills. HEENT: Eyes: No visual changes. No eye pain. No eye discharge. ENT: No runny nose. No epistaxis. No sinus pain. No sore throat. No odynophagia. No ear pain. No congestion. RESPIRATORY: Mild dry cough with congestion. No hemoptysis. Shortness of breath on exertion. CARDIOVASCULAR: No angina symptoms. No CHF symptoms. No atypical chest pain for CAD. No palpitations. No PND. No orthopnea. GASTROINTESTINAL: No abdominal pain. No nausea or vomiting. No diarrhea or constipation. No hematemesis. No hematochezia. Poor appetite. GENITOURINARY: No urgency. No frequency. No dysuria. No hematuria. No obstructive symptoms. No discharge. No pain. No significant abnormal bleeding. MUSCULOSKELETAL: No musculoskeletal pain. No joint swelling. No arthritis. Generalized aches and pains in the joints. NEUROLOGICAL: No headache. No neck pain. No syncope. No seizures. No dizziness. PSYCHIATRIC: Not anxious. No depression. No suicidal thoughts. No homicidal thoughts. SKIN: No rash. No lesions. No wounds. ENDOCRINE: No unexplained weight loss. No weight gain. HEMATOLOGIC/LYMPHATIC: No anemia. No purpura. No petechiae. No prolonged or excessive bleeding. No palpable lymph nodes. PERSONAL/FAMILY/SOCIAL HISTORY: The patient is . Help from daughter and granddaughter. Nonsmoker. No alcohol abuse. Tries to do most of the activity of daily living by himself but needs some help in some of the aspects but he is oriented to time, place and person. MEDICATIONS: Aspirin Pantoprazole Albuterol Lisinopril Alprazolam Amlodipine Metoprolol Librium Rosuvastatin ALLERGIES: Aquasonic 100 gel Ultrasound gel; he breaks out in hives. PHYSICAL EXAMINATION: GENERAL: The patient is oriented to time, place and person. VITAL SIGNS: Temperature 98.6, pulse 70, respiratory rate 20, blood pressure 140/70 and pulse ox 98% on 2 liters. BMI 17.8. HEENT: Head normocephalic, atraumatic. Eyes: Extraocular muscles are intact. Pupils are equal, round and reactive to light and accommodation. Ears: No lesions. Nose appeared normal. Throat: No exudate or erythema. Pale. NECK: Supple. No JVD, no carotid bruit. No lymphadenopathy or thyromegaly. LUNGS: Decreased breath sounds with mild wheeze. Clear to auscultation. Percussion note normal. Chest symmetrical. HEART: S1, S2, no S3. No murmur. No cyanosis or clubbing. No ascites. Pulses: Dorsalis pedis and posterior tibial pulses +1 to +2 bilaterally. ABDOMEN: Soft. Nontender. Bowel sounds active. No CVA tenderness. No mass felt. EXTREMITIES: No edema. Full range of motion of all extremities, equal. Emaciated. NEUROLOGIC: No focal deficit. Cranial nerves II through XII are grossly intact. No headache, no double vision or headache. SKIN: Dry. Intact. Turgor - normal. mucous membrane dry. LYMPHATIC: No palpable lymph nodes/no lymphedema. MUSCULOSKELETAL: Normal joints with no swelling. Muscle tone is normal. LABS: Troponin and cardiac markers are negative. ABG pH 7.47 with pCO2 28 with pO2 59 with 92% saturation on room air. It is to be noted that the patient is hyperventilated causing pO2 to be even higher than what it is ASSESSMENT: 1. COVID 19 positive status 2. Dehydration 3. Bronchitis 4. Chronic fatigue 5. COPD exacerbation 6. History of dyslipidemia 7. History of hypertension 8. History of dependent leg edema PLAN: 1. Admit the patient 2. Continue all the medication including Amlodipine 3. Continue Xanax 4. NEBS 5. Continue Lisinopril, Metoprolol, Pantoprazole, Rosuvastatin 6. Dexamethasone 4mg IV daily 7. Rocephin just one dose 1 gram 8. Zithromax 500mg daily 9. IV fluids at 75cc an hour CONDITION: Stable TIME SPENT: More than 70 minutes. MTDD
--- NOTE | 2022-04-23 14:08 | PN ---
DATE OF SERVICE: 04/21/22 SUBJECTIVE: 81 year old white male hospitalized with COPD exacerbation and COVID positive. The patient's condition has improved. He says that he is feeling much better. His appetite has improved some but he doesn't have any taste because of COVID. REVIEW OF SYSTEMS: CONSTITUTIONAL: No night sweats. No fatigue, malaise, lethargy. No fever or chills. Still weak but says has more strength. Able to talk now. HEENT: Eyes: No visual changes. No eye pain. No eye discharge. ENT: No runny nose. No epistaxis. No sinus pain. No sore throat. No odynophagia. No congestion. RESPIRATORY: No cough, no congestion. No hemoptysis. No shortness of breath. CARDIOVASCULAR: No angina symptoms. No CHF symptoms. No atypical chest pain for CAD. No palpitations. No PND. No orthopnea. GASTROINTESTINAL: No abdominal pain. No nausea or vomiting. No diarrhea or constipation. No hematemesis. No hematochezia.Appetite is improving. GENITOURINARY: No urgency. No frequency. No dysuria. No hematuria. No obstructive symptoms. No discharge. No pain. No significant abnormal bleeding. MUSCULOSKELETAL: No musculoskeletal pain; no joint swelling. NEUROLOGICAL: No headache. No neck pain. No syncope. No seizures. No dizziness. PSYCHIATRIC: Not anxious. No depression. No suicidal thoughts. No homicidal thoughts. SKIN: No rash. No lesions. No wounds. ENDOCRINE: No unexplained weight loss. No weight gain. HEMATOLOGIC/LYMPHATIC: No anemia. No purpura. No petechiae. No prolonged or excessive bleeding. No palpable lymph nodes. PHYSICAL EXAMINATION: GENERAL: The patient is awake and oriented to time, place and person. VITAL SIGNS: Temperature 98, pulse 60, respiratory rate 20, blood pressure 133/67 and pulse 98% on 2 liters. HEENT: Head normocephalic, atraumatic. Eyes: Extraocular muscles are intact. Pupils are equal, round and reactive to light and accommodation. Ears: No lesions. Nose appeared normal. Throat: No exudate or erythema. NECK: Supple. No JVD, no carotid bruit. No lymphadenopathy or thyromegaly. LUNGS: Decreased breath sounds but clear to auscultation. Percussion note normal. Chest symmetrical. HEART: S1, S2, no S3. No murmurs. No cyanosis or clubbing. No ascites. Pulses: Dorsalis pedis and posterior tibial pulses +1 to +2 bilaterally. ABDOMEN: Soft. Nontender. Bowel sounds active. No CVA tenderness. No mass felt. EXTREMITIES: No edema. Full range of motion of all extremities, equal. NEUROLOGIC: No focal deficit. Cranial nerves II through XII are grossly intact. No headache. No double vision. SKIN: Not dry. Intact. Turgor - A lot better. LYMPHATIC: No palpable lymph nodes/no lymphedema. MUSCULOSKELETAL: Normal joints with no swelling. Muscle tone is normal. LABS: Hgb 11.8, hct 35, WBC 4,600 normal differential, creatinine 0.5, BUN 13, potassium 3.8 ASSESSMENT: 1. COPD exacerbation with COVID 19 positive status 2. Severe chronic lung disease 3. Hypertension PLAN: 1. Continue medications including Zithromax and steroids 2. 50cc an hour IV fluids for now 3. Encourage the patient to eat 4. Watch the patient for fluid overload CONDITION: Stable. TIME SPENT: More than 30 minutes. Plan and coordination of the patient's care discussed in the presence of nurse. ELLIE
--- NOTE | 2022-04-23 15:00 | RS.PTINEVL ---
Subjective - Patient information Date of Evaluation: 04/23/22 Date of Arrival on Unit: 04/20/22 Admitted From:: Home Diagnosis: COPD exacerbation, COVID 19 Usual Living Arrangement: Alone Living Arrangement Comments: lives alone, dtr and granddtr live close by and they bring his meals and check in on him daily. pt also has homemaker from [employer]. Home Environment: House, Ramp Medical History: Hypertension, COPD, Arthritis Medical History Comments:: [place], kidney stone, AFIB Medications: see chart Subjective Information/ Patient Comments:: pt states that he wishes he could go outside because he is cold and the sunshine looks so good. pt reports that he has a rwx, quad cane and straight cane and uses the straight cane occasionally. pt states that he does his own sponge bath and ADL's. He has a portfolio consultant to help with cleaning from [employer]. - Level of function Prior to this admission, the patient could do the following:: Independent Selfcare, Independent ADL's, Independent Ambulation, Drive Current Level of Function: Partially Dependent Current Equipment Used at Home: O2 @ home, BP monitor, Pulse ox monitor Interventions - Objective Patient Orientation: Person, Place, Situation Current Interventions: IV's, Oxygen, Telemetry Observation: pt in droplet precautions. Range of Motion - ROM Right Upper Extremity AROM: WFL's Left Upper Extremity AROM: WFL's Right Lower Extremity AROM: WFL's Left Lower Extremity AROM: WFL's Muscle Strength - Muscle Strength Right Upper Extremity Strength: Mild Weakness (grossly 4-/5) Left Upper Extremity Strength: Mild Weakness (grossly 4-/5) Right Lower Extremity Strength: Mild Weakness (hip flex 4-/5, knee flex/ext 4/5, ankle DF/PF 4/5) Left Lower Extremity Strength: Mild Weakness (hip flex 4-/5, knee flex/ext 4/5, ankle DF/PF 4/5) Sensation - Sensation Right Upper Extremity Sensation: Intact/Normal Left Upper Extremity Sensation: Intact/Normal Right Lower Extremity Sensation: Intact/Normal Left Lower Extremity Sensation: Intact/Normal Palpation Palpation Findings: None/Normal Balance - Sitting Balance and Reactions Static Sitting Balance: Good Dynamic Sitting Balance: Fair (fair+) - Standing Balance and Reactions Static Standing Balance: Poor Dynamic Standing Balance: Poor Standing Equilibrium Reactions: Delayed Left, Delayed Right Standing Protective Reactions: Delayed Left, Delayed Right Functional Mobility - Bed Mobility Rolling R/L: CGA Supine to Sit: Supervision Sit to Supine: Supervision - Transfers Sit to Stand: CGA Stand to Sit: CGA - Safety Awareness Safety Awareness: Fair DEO INDEX SCORE: n/a Ambulation - Ambulation Assistive Device Used: Rolling Walker Orthotic/Prosthetic Device: No Distance: 40ft Assistance needed with Ambulation: CGA Gait Deviations: Step-to gait, Forward posture, Short stride, Deviates from path Ambulation Comments: pt amb with O2. Factors Affecting Ambulation: Decreased Balance, Breathing/O2 Saturation, Weakness, Decreased Safety, Limited Endurance Treatment time - Time with patient Length of Evaluation: 22 Total treatment time: 26 Patient Education - Education Patient Education: Activity Modification, Education of Plan of Care Teaching Recipient: Patient Teaching Methods: Discussion Comments: discussion regarding POC as well as dc plans Assessment - Assessment Problem List:: Decreased level of function, Requires training/education, Decreased safety/Risk of falls Rehab Potential: Good Further Therapy Indicated?: Yes Candidate for Swing Bed for Therapy Services?: Feel pt would not require swing bed. Feel pt may benefit from skilled PT in Home care to continue working on strength and home safety. Evaluation Complexity: HISTORY: Medium, EXAM OF BODY SYSTEMS: Medium, CLINICAL PRESENTATION: Medium, CLINICAL DECISION MAKING: Medium Patient's Goal(s): Be able to walk better so I can go home. Short Term Goals GOAL #1: pt is independent with initial HEP. Goal to be met by: 04/25/22 GOAL #2: Sup to/from sit SBA to independent Goal to be met by: 04/25/22 GOAL #3: Sit to/from stand CGA to SBA. Goal to be met by: 04/25/22 GOAL #4: pt amb with rwx 50ft with CGA with no LOB. Goal to be met by: 04/25/22 GOAL #5: Improve BLE strength 4 +/5 Goal to be met by: 04/25/22 Half-Way Goals GOAL #1: Sit to/from stand SBA Goal to be met by: 04/27/22 GOAL #2: pt amb with AAD with no LOB SBA functional household distances. Goal to be met by: 04/27/22 GOAL #3: Improve dyn stand balance fair Goal to be met by: 04/27/22 Plan Plan of Care: Therapeutic EX, Therapeutic Activity Other:: gait training Frequency of Treatment: 1-2 X day, as tolerated Duration of Treatment: 4 days Anticipated Discharge Destination: would benefit from home health PT Treatment Diagnosis (ICD 10 Codes): impaired balance R 26.81. gait difficulty R 26.2. COVID Z86.19. muscle weakness M62.81 Has the Physician been added for Co-signature?: Yes
[2022-04-24] MEDS: ATROVENT HFA INHALER (PER PUFF-WITH SPACER) IH SCH ×4 (04:45→21:58)
[2022-04-24] MEDS: VENTOLIN HFA (PER PUFF-WITH SPACER) IH SCH ×4 (04:45→21:59)
[2022-04-24 05:11] LABS: BASOPHILS % (AUTO) 0.1 % (0.0-3.0); HEMATOCRIT 38.9 % (42.0-52.0); IMMATURE GRANULOCYTE # (AUTO) 0.2 (0.0-1.0); IMMATURE GRANULOCYTE % (AUTO) 1.6 % (0.0-5.0); LYMPHOCYTES # (AUTO) 2.2 K/uL (0.60-3.4); LYMPHOCYTES % (AUTO) 17.4 (10.0-50.0); MEAN CORPUSCULAR HEMOGLOBIN 27.5 pg (27.0-31.0); MEAN CORPUSCULAR HGB CONC 33.4 (31.8-35.4); MEAN CORPUSCULAR VOLUME 82.4 fl (80.0-94.0); MONOCYTES # (AUTO) 0.9 K/uL (0.4-2.0); NEUTROPHILS # (AUTO) 9.4 K/ul (2.0-6.9); NEUTROPHILS % (AUTO) 73.9 % (42.2-75.2); PLATELET COUNT 379 10^3/uL (140-440); RED BLOOD COUNT 4.72 10^6/ul (4.70-6.10); WHITE BLOOD COUNT 12.75 K/ul (4.2-10.2)
[2022-04-24 05:29] LABS: ALANINE AMINOTRANSFERASE 18.9 U/L (0-50); ALBUMIN 2.92 g/dL (3.5-5.0); ALKALINE PHOSPHATASE 57.6 U/L (56-119); ASPARTATE AMINO TRANSFERASE 20.4 U/L (17-59); CALCIUM 8.21 mg/dL (8.4-10.2); CHLORIDE 107.4 mmol/L (98-107); CREATININE 0.82 mg/dL (0.60-1.10); GLUCOSE 101.3 mg/dL (74-106); POTASSIUM 3.68 mmol/L (3.5-5.1); SODIUM 136.3 mmol/L (134.5-145); TOTAL PROTEIN 5.88 g/dL (6.3-8.2)
[2022-04-24 05:30] LABS: BILIRUBIN,TOTAL < 0.10 mg/dL (0.2-1.3)
[2022-04-24] MEDS: CRESTOR PO SCH (08:52)
[2022-04-24] MEDS: ROCEPHIN 1 GM/50 ML D5W 1 GM/50 ML BAG IV SCH (08:52)
[2022-04-24] MEDS: VITAMIN D PO SCH (08:53)
[2022-04-24] MEDS: LIBRIUM PO SCH ×2 (08:53→21:18)
[2022-04-24] MEDS: MICRO-K CAP PO SCH (08:53)
[2022-04-24] MEDS: ASPIRIN EC PO SCH (08:53)
[2022-04-24] MEDS: PREDNISONE PO SCH ×2 (08:53→17:25)
[2022-04-24] MEDS: ZESTRIL PO SCH ×2 (08:54→21:18)
[2022-04-24] MEDS: PROTONIX PO SCH (08:54)
[2022-04-24] MEDS: NORVASC PO SCH ×2 (08:54→21:18)
[2022-04-24] MEDS: LOPRESSOR PO SCH ×2 (08:56→21:19)
[2022-04-24] MEDS: SYMBICORT 160-4.5 MCG INHALER IH SCH ×2 (08:57→21:18)
--- NOTE | 2022-04-24 12:04 | RS.OTINEVL ---
Subjective - Patient information Date of Evaluation: 04/24/22 Date of Arrival on Unit: 04/20/22 Admitted From:: Home Diagnosis: Acute respiratory failure, Endstage COPD PRECAUTIONS: f Usual Living Arrangement: Alone Living Arrangement Comments: lives alone, dtr and granddtr live close by and they bring his meals and check in on him daily. pt also has homemaker from [employer] [facility]. Home Environment: House, Ramp Medical History: Hypertension, COPD, Arthritis Medical History Comments:: SC, kidney stone, AFIB Surgical History Comments:: Stent in heart Medications: see chart Subjective Information/ Patient Comments:: "I would love to go outside and sit in the sun." "When I feel good, I pretty much take care of myself." - Level of function Prior to this admission, the patient could do the following:: Independent Selfcare, Independent ADL's, Independent Ambulation, Drive Current Level of Function: Partially Dependent Comments: Pt is weak and SOA from covid. Current Equipment Used at Home: O2 @ home, BP monitor, Pulse ox monitor Pain Assessment - Pain Pain Score: 0 Interventions - Objective Patient Orientation: Person, Place, Situation Current Interventions: IV's, Oxygen, Telemetry Observation: Pt was CGA for bed mobility, sit to stand, and transfer to chair. Pt is SOA with activity. Pt enjoys talking to others. Interventions - ROM Right Upper Extremity AROM: WFL's Left Upper Extremity AROM: WFL's - Strength Right Upper Extremity Strength: Mild Weakness Left Upper Extremity Strength: Mild Weakness - Sensation Right Upper Extremity Sensation: Intact/Normal Left Upper Extremity Sensation: Intact/Normal Balance - Sitting Balance Static Sitting Balance: Good Dynamic Sitting Balance: Poor - Standing Balance Static Standing Balance: Poor Dynamic Standing Balance: Poor ADL Skills - Self Feeding Self Feeding: Independent - Grooming Grooming: Min Assist Grooming Set-up: Sitting - Bathing Bathing UE: Independent Bathing LE: CGA Bathing Set-up: Sitting - Dressing Dressing UE: Independent Dressing LE: CGA - Toilet Management Toilet Hygiene: Independent Toilet Clothing Management: Independent Functional Mobility - Transfers Sit to Stand: CGA Stand to Sit: CGA Stand Pivot Transfers: CGA Comments:: Using a RW. - Ambulation Weight Bearing Status: FWB Assistive Device Used: Rolling Walker Assistance needed with Ambulation: CGA - Safety Awareness Safety Awareness: Good DEO INDEX SCORE: . Additional Treatment Performed - Additional units charged ADL: 15 - Time with patient Length of Evaluation: 18 Total treatment time: 33 Activities Would you be interested in leaving your room for activities?: Yes Would you enjoy group activities?: Yes Do you have difficulty with your vision?: Yes Patient Interests:: Watching Television, Visiting/Socializing Comments:: Loves sitting in the sun. Patient Education Patient Education: Body/Joint mechanics, Home Safety, Education of Plan of Care Teaching Recipient: Patient Teaching Methods: Discussion, Demonstration Assessment Problem List:: Decreased level of function, Requires training/education, Weakness (Pt will be receiving Home health when he returns home.) Rehab Potential: Good Further Therapy Indicated?: Yes Evaluation Complexity: HISTORY: Low, EXAM OF BODY SYSTEMS: Low, CLINICAL DECISION MAKING: Low Patient's Goal(s): To be able to go home today. Pt wishes to be able to take care of himself. Short Term Goals - Goals GOAL 1: To be SBA for sink level ADLS. Goal to be met by: 04/26/22 GOAL 2: Pt to increase BUE strength to 4/5. Goal to be met by: 04/26/22 GOAL 3: To increase activity tolerance to 15 minutes to increase safety. Goal to be met by: 04/26/22 Piping Supervisor Goals GOAL 1: Pt to be Independent with ADLS. Goal to be met by: 05/01/22 GOAL 2: Pt to increase activity tolerance to 20 minutes for safety. Goal to be met by: 05/01/22 Plan Plan of Care: Therapeutic EX, Therapeutic Activity, Self-Care/Home Management Frequency of Treatment: 1-2 X day, as tolerated Duration of Treatment: 1 Week Anticipated Discharge Destination: Home Treatment Diagnosis (ICD 10 Codes): M62.81 Weakness, Z74.1 Need for assistance with personal care Has the Physician been added for Co-signature?: Yes
[2022-04-25 05:00] VITALS: BP 127/72; TEMP 98.2
[2022-04-25] MEDS: ATROVENT HFA INHALER (PER PUFF-WITH SPACER) IH SCH (05:04)
[2022-04-25] MEDS: VENTOLIN HFA (PER PUFF-WITH SPACER) IH SCH (05:04)
[2022-04-25 05:32] LABS: BASOPHILS # (AUTO) 0.1 K/uL (0-0.2); BASOPHILS % (AUTO) 0.5 % (0.0-3.0); HEMATOCRIT 41.9 % (42.0-52.0); HEMOGLOBIN 13.6 g/dl (14.0-18.0); IMMATURE GRANULOCYTE # (AUTO) 0.3 (0.0-1.0); IMMATURE GRANULOCYTE % (AUTO) 2.2 % (0.0-5.0); LYMPHOCYTES # (AUTO) 2.7 K/uL (0.60-3.4); LYMPHOCYTES % (AUTO) 17.8 (10.0-50.0); MEAN CORPUSCULAR HEMOGLOBIN 27.7 pg (27.0-31.0); MEAN CORPUSCULAR HGB CONC 32.5 (31.8-35.4); MEAN CORPUSCULAR VOLUME 85.3 fl (80.0-94.0); MONOCYTES # (AUTO) 0.7 K/uL (0.4-2.0); MONOCYTES % (AUTO) 4.8 (0-10); NEUTROPHILS # (AUTO) 11.4 K/ul (2.0-6.9); NEUTROPHILS % (AUTO) 74.7 % (42.2-75.2); PLATELET COUNT 393 10^3/uL (140-440); RDW COEFFICIENT OF VARIATION 16.6 % (11.6-14.8); RED BLOOD COUNT 4.91 10^6/ul (4.70-6.10); WHITE BLOOD COUNT 15.26 K/ul (4.2-10.2)
[2022-04-25 05:48] LABS: ALANINE AMINOTRANSFERASE 20.9 U/L (0-50); ALBUMIN 3.39 g/dL (3.5-5.0); ASPARTATE AMINO TRANSFERASE 22.4 U/L (17-59); BILIRUBIN,TOTAL 0.28 mg/dL (0.2-1.3); BLOOD UREA NITROGEN 25.5 mg/dL (9-20); CALCIUM 8.8 mg/dL (8.4-10.2); CARBON DIOXIDE 20.5 mmol/L (22-30.0); CREATININE 0.76 mg/dL (0.60-1.10); GLUCOSE 106.9 mg/dL (74-106); POTASSIUM 4.09 mmol/L (3.5-5.1); SODIUM 137.9 mmol/L (134.5-145); TOTAL PROTEIN 6.71 g/dL (6.3-8.2)
--- NOTE | 2022-04-25 08:48 | PCM.PROG ---
Attending Provider: ATTENDING PROVIDER: Dr. DARREN AZEVEDO This patient is seen with Charu Sy, Nurse Practitioner. DATE OF SERVICE: 04/25/22 SUBJECTIVE: This 81 year old /WHITE M was hospitalized 04/20/22. The patient has been eating well. Getting up on his own. He is ready to go home. Still with some weakness. He has family at home to help. The patient would benefit from Home Health PT/OT and nursing. REVIEW OF SYSTEMS: CONSTITUTIONAL: No night sweats. No fatigue, malaise, lethargy. No fever or chills. Weakness. HEENT: Eyes: No visual changes. No eye pain. No eye discharge. ENT: No runny nose. No epistaxis. No sinus pain. No odynophagia. No congestion. RESPIRATORY: Cough, no congestion. No hemoptysis. Shortness of breath. CARDIOVASCULAR: No angina symptoms. No CHF symptoms. No atypical chest pain for CAD. No palpitations. No orthopnea.. GASTROINTESTINAL: No abdominal pain. No nausea or vomiting. No diarrhea or constipation. No hematemesis. No hematochezia. GENITOURINARY: No urgency. No frequency. No dysuria. No hematuria. No obstructive symptoms. No discharge. No pain. No significant abnormal bleeding. MUSCULOSKELETAL: No musculoskeletal pain; no joint swelling. NEUROLOGICAL: Awake, alert, oriented to time, place and person. No headache. No neck pain. No syncope. No seizures. No dizziness. PSYCHIATRIC: Not anxious. No depression. No suicidal thoughts. No homicidal thoughts. SKIN: No rash. No lesions. No wounds. ENDOCRINE: No unexplained weight loss. No weight gain. HEMATOLOGIC/LYMPHATIC: No anemia. No purpura. No petechiae. No prolonged or excessive bleeding. No palpable lymph nodes. PHYSICAL EXAMINATION: GENERAL: The patient is awake, alert and oriented, sitting in bed in no distress. VITAL SIGNS: Temperature 98.2 F, Pulse 60, Respiratory Rate 19, BP 127/72, Pulse Ox 98% HEENT: Head normocephalic, atraumatic. Eyes: Extraocular muscles are intact. Pupils are equal, round and reactive to light and accommodation. Ears: No lesions. Nose appeared normal. Throat: No exudate or erythema. NECK: Supple. No JVD, no carotid bruit. No lymphadenopathy or thyromegaly. LUNGS: Severely diminished breath sounds. Clear to auscultation. Percussion note normal. Chest symmetrical. HEART: S1, S2, no S3. No murmurs. No cyanosis or clubbing. No ascites. Pulses: Dorsalis pedis and posterior tibial pulses +1 to +2 both sides. ABDOMEN: Soft. Non-tender. Bowel sounds active. No CVA tenderness. No mass felt. EXTREMITIES: No edema. Full range of motion of all extremities, equal. NEUROLOGIC: No focal deficit. Cranial nerves II through XII are grossly intact. No headache. No double vision. SKIN: Not dry. Intact. Turgor-normal. LYMPHATIC: No palpable lymph nodes/no lymphedema. MUSCULOSKELETAL: Normal joints with no swelling. Muscle tone is normal. LAB REVIEW: 04/25/22 05:25 04/25/22 05:25 04/25/22 05:25: Sodium 137.9, Potassium 4.09, Chloride 108.0 H, Carbon Dioxide 20.5 L, Anion Gap 13.49, BUN 25.5 H, Creatinine 0.76, Estimated GFR (MDRD) 99.00, BUN/Creatinine Ratio 33.55, Glucose 106.9 H, Calcium 8.80, Total Bilirubin 0.28, AST 22.4, ALT 20.9, Alkaline Phosphatase 65.0, Total Protein 6.71, Albumin 3.39 L, Globulin 3.32, Albumin/Globulin Ratio 1.02 04/25/22 05:25: WBC 15.26 H, RBC 4.91, Hgb 13.6 L, Hct 41.9 L, MCV 85.3, MCH 27.7, MCHC 32.5, RDW Coeff of Maty 16.6 H, Plt Count 393, Immature Gran % (Auto) 2.2, Neut % (Auto) 74.7, Lymph % (Auto) 17.8, [place] % (Auto) 4.8, Eos % (Auto) 0.0, Baso % (Auto) 0.5, Neut # (Auto) 11.4 H, Lymph # (Auto) 2.7, [place] # (Auto) 0.7, Eos # (Auto) 0.0, Baso # (Auto) 0.1, Immature Gran # (Auto) 0.3 ASSESSMENT: Please see below. 1. COVID 19 2. Acute respiratory failure 3. End stage COPD 4. Chronic malnutrition 5. Hypertension PLAN: 1. Lopressor 12.5mg in the morning 2. Discharge home 3. Prednisone 20mg BID for 5 days then daily for 5 days 4. Omnicef 300mg BID for 5 days 5. Symbicort inhaler 6. Discontinue Potassium 7. Discontinue Vitamin D 8. Continue 81mg of Aspirin 9. [facility] 10. The patient is out of quarantine Plan and coordination of the patient's care discussed in the presence of Leaflet [employer] Newspaper Deliverer and nurse. SCRIBED BY: Pati WADSWORTH scribed while in presence of service performed by Dr. Azevedo/Charu Sy APRN on 04/25/22 ([id number])
[2022-04-25] MEDS ORDERED: LOPRESSOR PO SCH (09:00)
[2022-04-25] MEDS ORDERED: OMNICEF PO SCH (09:00)
[2022-04-25] MEDS: CRESTOR PO SCH (09:08)
[2022-04-25] MEDS: SYMBICORT 160-4.5 MCG INHALER IH SCH (09:08)
[2022-04-25] MEDS: ZESTRIL PO SCH (09:09)
[2022-04-25] MEDS: ASPIRIN EC PO SCH (09:09)
[2022-04-25] MEDS: VITAMIN D PO SCH (09:09)
[2022-04-25] MEDS: MICRO-K CAP PO SCH (09:09)
[2022-04-25] MEDS: PROTONIX PO SCH (09:10)
[2022-04-25] MEDS: PREDNISONE PO SCH (09:10)
[2022-04-25] MEDS: LIBRIUM PO SCH (09:10)
[2022-04-25] MEDS: NORVASC PO SCH (09:10)
--- NOTE | 2022-05-03 14:44 | PN ---
DATE OF SERVICE: 04/22/22 SUBJECTIVE: The patient was seen and examined with the Nurse Practitioner. The patient's condition is improving. COVID positive. No chest pain, No PND, No orthopnea. He is getting stronger. Test is coming back. TIME SPENT: More than 30 minutes. Plan and coordination of the patient's care discussed in the presence of nurse. ELLIE
--- NOTE | 2022-05-03 14:45 | PN ---
DATE OF SERVICE: 04/23/22 SUBJECTIVE: The patient was seen and examined with the Nurse Practitioner. The patient's condition is improving. No chest pain, PND or orthopnea. Appetite has improved. Condition stable. TIME SPENT: More than 30 minutes. Plan and coordination of the patient's care discussed in the presence of nurse. ELLIE
--- NOTE | 2022-05-20 13:54 | PN ---
DATE OF SERVICE: 04/25/22 SUBJECTIVE: The patient is up and about doing well. Cardiovascular status is stable. No bronchitis. Breathing better. Appetite has improved. Hydration status has improved. Skin turgor is better. The patient is going to be discharged home in stable condition to be followed as an outpatient. The patient was seen and examined with the Nurse Practitioner. TIME SPENT: More than 30 minutes. Plan and coordination of the patient's care discussed in the presence of nurse. ELLIE
--- NOTE | 2022-05-23 13:11 | PN ---
DATE OF SERVICE: 04/24/22 SUBJECTIVE: The patient is examined and his appetite is steadily improving. His labs have been stable. Respiratory status is improving. We have attempted to decrease his steroids today. May go home tomorrow if he tolerated this. REVIEW OF SYSTEMS: CONSTITUTIONAL: No night sweats. No fatigue, malaise, lethargy. No fever or chills. Weakness. HEENT: Eyes: No visual changes. No eye pain. No eye discharge. ENT: No runny nose. No epistaxis. No sinus pain. No sore throat. No odynophagia. No congestion. RESPIRATORY: Cough, no congestion. No hemoptysis. Shortness of breath. CARDIOVASCULAR: No angina symptoms. No CHF symptoms. No atypical chest pain for CAD. No palpitations. No PND. No orthopnea. GASTROINTESTINAL: No abdominal pain. No nausea or vomiting. No diarrhea or constipation. No hematemesis. No hematochezia. GENITOURINARY: No urgency. No frequency. No dysuria. No hematuria. No obstructive symptoms. No discharge. No pain. No significant abnormal bleeding. MUSCULOSKELETAL: No musculoskeletal pain; no joint swelling. NEUROLOGICAL: No headache. No neck pain. No syncope. No seizures. No dizziness. PSYCHIATRIC: Not anxious. No depression. No suicidal thoughts. No homicidal thoughts. SKIN: No rash. No lesions. No wounds. ENDOCRINE: No unexplained weight loss. No weight gain. HEMATOLOGIC/LYMPHATIC: No anemia. No purpura. No petechiae. No prolonged or excessive bleeding. No palpable lymph nodes. PHYSICAL EXAMINATION: HEENT: Head normocephalic, atraumatic. Eyes: Extraocular muscles are intact. Pupils are equal, round and reactive to light and accommodation. Ears: No lesions. Nose appeared normal. Throat: No exudate or erythema. NECK: Supple. No JVD, no carotid bruit. No lymphadenopathy or thyromegaly. LUNGS: Diminished breath sounds. Clear to auscultation. Percussion note normal. Chest symmetrical. HEART: S1, S2, no S3. No murmurs. No cyanosis or clubbing. No ascites. Pulses: Dorsalis pedis and posterior tibial pulses +1 to +2 bilaterally. ABDOMEN: Soft. Nontender. Bowel sounds active. No CVA tenderness. No mass felt. EXTREMITIES: No edema. Full range of motion of all extremities, equal. NEUROLOGIC: No focal deficit. Cranial nerves II through XII are grossly intact. No headache. No double vision. SKIN: Not dry. Intact. Turgor - normal. LYMPHATIC: No palpable lymph nodes/no lymphedema. MUSCULOSKELETAL: Normal joints with no swelling. Muscle tone is normal. ASSESSMENT: 1. Positive COVID 2. Acute respiratory failure 3. Generalized weakness PLAN: 1. Continue with PO steroids as previously ordered today. We will see if he tolerated transitioning 2. Anticipate discharge home tomorrow. 3. Continue IV antibiotics and supplemental oxygen 4. Continue with PT/OT TIME SPENT: More than 30 minutes. Plan and coordination of the patient's care discussed in the presence of nurse. ELLIE
--- NOTE | 2022-05-23 13:24 | DS ---
DATE OF SERVICE: 04/25/22 FINAL DIAGNOSIS: 1. Acute respiratory failure due to COVID 19 2. Endstage COPD 3. Chronic malnutrition 4. Hypertension 5. Renal azotemia 6. Hypokalemia 7. Smoker 8. Lung nodule DISCHARGE INSTRUCTIONS: Discharge home. Keep out of direct sunlight and avoid being outside for extended periods of time. Continue all medications prior to admission. Followup with Dr. Branhc/Charu [employer] BUILDER/Madie Rader NP on May 02 at 11:15am. Referral made to [facility] for continuation of therapy. MEDICATIONS AT DISCHARGE: Protonix 40mg PO daily ProAir Lisinopril 20mg PO BID Alprazolam 0.25mg PO BID PRN Vitamin B12 1000mcg PO daily Amlodipine 5mg PO BID Albuterol sulfate two puff inhalation Q hours PRN Librium 10mg PO BID Rosuvastatin 40mg PO daily NEW PRESCRIPTIONS: Cefdinir 300mg PO BID Aspirin 81mg PO daily Prednisone 20mg PO BID Symbicort 160/4.5 one puff inhalation BID Metoprolol 12.5mg PO daily DISCONTINUED MEDICATIONS: Aspirin 325mg Symbicort Metoprolol 25mg PO daily DIET INSTRUCTIONS: Resume normal diet ACTIVITY: As tolerated HOSPITAL COURSE: This is an 81 year old white male who presented to the emergency room complaining of fatigue, cough and congestion for the past several days. Stated that he was more short of breath, could hardly eat and had had some diarrhea. He was found to be COVID positive in the emergency room. Initially was found to have hypokalemia. He was admitted and placed on Rocephin 1 gram IV daily, Zithromax 500mg IV daily. Chest x-ray showed that he just had changes associated with endstage COPD, there were no acute findings. He was started on a Symbicort 160 inhaler two puffs BID along with an albuterol inhaler two puffs TID along with started on Vitamin D 5000 daily and Pepcid due to the fact that he had COVID. Initial ABG showed pO2 into the 60 he is on 2 liters as his baseline. His respiratory remained stable while he was here. He was given IV fluids and IV Zofran. Over the course of the next several days his condition steadily improved. His respiratory status remained stable. He will go home on Omnicef 300mg BID for next 7 days, Prednisone 20mg PO BID for 5 days and then daily for 3 days. From a COVID stand point he is stable. He is no longer contagious in accordance with the beginning of his symptoms. He has done remarkably well given his underlying medical conditions. We will followup with him in the office next week. TIME SPENT: More than 60 minutes. ELLIE
== END 2022-04-25 09:40 | disposition home or self-care (01) | DRG 190 ==
LOC: ED 14:17 → SCU 16:49 → EDSTATUS 04-22 09:48
PROVIDERS: ADMIT Internal Medicine; ATTEND Internal Medicine
DX: J44.1 Chronic obstructive pulmonary disease with (acute) exacerbation; N17.8 Other acute kidney failure; E78.5 Hyperlipidemia, unspecified; I10 Essential (primary) hypertension; Z72.0 Tobacco use; M62.81 Muscle weakness (generalized); R53.82 Chronic fatigue, unspecified; Z79.82 Long term (current) use of aspirin; Z79.899 Other long term (current) drug therapy; E87.6 Hypokalemia; E43 Unspecified severe protein-calorie malnutrition; U07.1 COVID-19; R91.8 Other nonspecific abnormal finding of lung field; Z51.81 Encounter for therapeutic drug level monitoring; J40 Bronchitis, not specified as acute or chronic; J96.01 Acute respiratory failure with hypoxia; R26.2 Difficulty in walking, not elsewhere classified

== ENCOUNTER 2022-12-28 04:50 | Inpatient (IN) ==
--- NOTE | 2022-12-28 05:12 | ED.PDOC ---
General <CRISS GANDARA MD - Last Filed: 12/30/22 08:33> ED Provider: Dr. CRISS GANDARA MD Chief Complaint: Shortness of Air Stated Complaint: Patient presents with a several day history of cough, epigastric pain and dyspnea. He has fever of 104.3, chills, weakness. Time Seen by Provider: 12/28/22 05:09 Mode of Arrival: Ambulance Information Source: Patient and EMT Primary Care Provider: DARREN JIM MD Nursing and Triage Documentation Reviewed and Agree: Yes Does patient meet sepsis criteria?: Yes If yes, has appropriate treatment been initiated?: Yes System Inflammatory Response Syndrome: Temp 101F or Greater, Pulse >90 BPM and Resp >20/Minute Sepsis Protocol: For patient's 13 years and over: Temp is 96.8 and below OR 101 and greater Pulse >90 BPM Resp >20/minute Acutely Altered Mental Status Are patient's symptoms suggestive of a new infection, such as: -Pneumonia -Skin, Soft Tissue -Endocarditis -UTI -Bone, Joint Infection -Implantable Device -Acute Abdominal Infection -Wound Infection -Meningitis -Blood Stream Catheter Infection -Unknown Review of Systems <CRISS GANDARA MD - Last Filed: 12/30/22 08:33> Review Of Systems Constitutional: Reports Chills, Fever and Weakness Eyes: Reports No symptoms Ears, Nose, Mouth, Throat: Reports No symptoms Respiratory: Reports Cough and Short of air Cardiac: Reports No symptoms GI: Reports Abdominal pain (epigastric) : Reports No symptoms Musculoskeletal: Reports No symptoms Skin: Reports No symptoms Neurological: Reports Other (tremors) Endocrine: Reports No symptoms Hematologic/Lymphatic: Reports No symptoms All Other Systems: Reviewed and Negative PFSH <CRISS GANDARA MD - Last Filed: 12/30/22 08:33> Medical History Afib Chest pain COPD exacerbation COVID-19 Hypertension Kidney stone Muscle weakness Myocardial infarction (~2007) Family History Other Diabetes Stomach cancer Social History (Updated 12/28/22 @ 09:17 by CAROL COE RN) Smoking and tobacco status: Current every day smoker Tobacco type: cigars Tobacco: How many years used: 50 Passive smoking exposure: Yes Quit status: quit date established History of recent travel: No Surgical History Placement of stent in coronary artery (~2007) Physical Exam <CRISS GANDARA MD - Last Filed: 12/30/22 08:33> Physical Exam Appearance: Reports Ill-appearing, Thin and Other (Patient alert. He is having rigors. ) Ill-appearing: Severe Pain Distress: Mild Eyes: Reports Not Examined ENT: Reports Nose normal, Oropharynx normal and Dry mucosa Neck: Supple Respiratory: Reports Airway patent, Breath sounds equal and Breath sounds diminished Cardiovascular: Reports No rub, No murmur and Tachycardia GI/: Reports Soft, Nontender, No masses and Bowel sounds normal Musculoskeletal: Reports No edema Skin: Reports Warm and Dry Neurological: Reports Alert and Oriented Psychiatric: Reports Affect appropriate and Mood appropriate Interpretation <CRISS GANDARA MD - Last Filed: 12/30/22 08:33> Radiology Interpretation Radiology Interpretation By: Radiologist Exam Interpreted: Portable CXR (right mid lung pneumonia) <LAURA KUMAR MD - Last Filed: 12/28/22 07:16> Case Discussed Physician Notified: dr gandara discussed with dr jim and agreed with admission Time of Notification: 07:15 <LAURA KUMAR MD - Last Filed: 12/28/22 07:16> Critical Care Note Total Critical Care Time (mins): 20 Course <CRISS GANDARA MD - Last Filed: 12/30/22 08:33> Course Hematology/Chemistry: 12/30/22 05:09 12/30/22 05:09 Orders, Labs, Meds: Lab Review 12/28/22 12/28/22 12/28/22 05:35 06:02 06:02 WBC 12.62 H RBC 4.58 L Hgb 12.8 L Hct 40.8 L MCV 89.1 MCH 27.9 MCHC 31.4 L RDW Coeff of Maty 16.2 H Plt Count 305 Immature Gran % (Auto) 0.5 Neut % (Auto) 82.0 H Lymph % (Auto) 10.3 [place] % (Auto) 6.6 Eos % (Auto) 0.2 Baso % (Auto) 0.4 Neut # (Auto) 10.4 H Lymph # (Auto) 1.3 [place] # (Auto) 0.8 Eos # (Auto) 0.0 Baso # (Auto) 0.1 Immature Gran # (Auto) 0.1 Puncture Site Lbrac Base Excess -1.1 O2 Saturation 90.6 L ABG pH 7.45 ABG pCO2 33.0 L ABG pO2 57.0 L* ABG HCO3 22.9 ABG Total CO2 23.9 Karri Test + Hemoglobin 1.0 Oxyhemoglobin 90.5 L Carboxyhemoglobin 1.0 Total Hemoglobin 19.9 H O2 Delivery Device Cannula Oxygen Liter Flow 2.00 FiO2 % 28.0 Sodium 138.8 Potassium 3.72 Chloride 107.6 H Carbon Dioxide 25.4 Anion Gap 9.52 BUN 15.8 Creatinine 0.83 Estimated GFR (MDRD) 89.00 BUN/Creatinine Ratio 19.03 Glucose 105.4 Lactic Acid Calcium 8.79 Total Bilirubin 0.81 AST 29.0 ALT 21.3 Alkaline Phosphatase 83.5 Total Protein 7.52 Albumin 4.17 Globulin 3.35 Albumin/Globulin Ratio 1.24 Urine Color Urine Clarity Urine pH Ur Specific Sentinel Urine Protein Urine Glucose (UA) Urine Ketones Urine Blood Urine Nitrite Urine Bilirubin Urine Urobilinogen Ur Leukocyte Esterase Ur Squamous Epith Cells Urine Bacteria Influ A Molecular Assay Influ B Molecular Assay SARS CoV-2 RNA Rapid FRANK 12/28/22 12/28/22 12/28/22 06:02 06:35 06:35 WBC RBC Hgb Hct MCV MCH MCHC RDW Coeff of Maty Plt Count Immature Gran % (Auto) Neut % (Auto) Lymph % (Auto) [place] % (Auto) Eos % (Auto) Baso % (Auto) Neut # (Auto) Lymph # (Auto) [place] # (Auto) Eos # (Auto) Baso # (Auto) Immature Gran # (Auto) Puncture Site Base Excess O2 Saturation ABG pH ABG pCO2 ABG pO2 ABG HCO3 ABG Total CO2 Karri Test Hemoglobin Oxyhemoglobin Carboxyhemoglobin Total Hemoglobin O2 Delivery Device Oxygen Liter Flow FiO2 % Sodium Potassium Chloride Carbon Dioxide Anion Gap BUN Creatinine Estimated GFR (MDRD) BUN/Creatinine Ratio Glucose Lactic Acid 1.45 Calcium Total Bilirubin AST ALT Alkaline Phosphatase Total Protein Albumin Globulin Albumin/Globulin Ratio Urine Color Yellow Urine Clarity Clear Urine pH 5.5 Ur Specific Sentinel 1.015 Urine Protein Negative Urine Glucose (UA) Negative Urine Ketones Negative Urine Blood Trace-intact H Urine Nitrite Negative Urine Bilirubin Negative Urine Urobilinogen 0.2 Ur Leukocyte Esterase Negative Ur Squamous Epith Cells Not present Urine Bacteria Trace Influ A Molecular Assay Influ B Molecular Assay SARS CoV-2 RNA Rapid FRANK Negative 12/28/22 06:35 WBC RBC Hgb Hct MCV MCH MCHC RDW Coeff of Maty Plt Count Immature Gran % (Auto) Neut % (Auto) Lymph % (Auto) [place] % (Auto) Eos % (Auto) Baso % (Auto) Neut # (Auto) Lymph # (Auto) [place] # (Auto) Eos # (Auto) Baso # (Auto) Immature Gran # (Auto) Puncture Site Base Excess O2 Saturation ABG pH ABG pCO2 ABG pO2 ABG HCO3 ABG Total CO2 Karri Test Hemoglobin Oxyhemoglobin Carboxyhemoglobin Total Hemoglobin O2 Delivery Device Oxygen Liter Flow FiO2 % Sodium Potassium Chloride Carbon Dioxide Anion Gap BUN Creatinine Estimated GFR (MDRD) BUN/Creatinine Ratio Glucose Lactic Acid Calcium Total Bilirubin AST ALT Alkaline Phosphatase Total Protein Albumin Globulin Albumin/Globulin Ratio Urine Color Urine Clarity Urine pH Ur Specific Sentinel Urine Protein Urine Glucose (UA) Urine Ketones Urine Blood Urine Nitrite Urine Bilirubin Urine Urobilinogen Ur Leukocyte Esterase Ur Squamous Epith Cells Urine Bacteria Influ A Molecular Assay Negative by naat Influ B Molecular Assay Negative by naat SARS CoV-2 RNA Rapid FRANK Orders Category Date Time Status ADMIT PATIENT INPATIENT .TO [facility] (MONITORED BED) ADMISSION 12/28/22 07:16 Active ABG DRAW REQUEST Stat CARDIO 12/28/22 05:18 Completed EKG-(ED ONLY) Stat CARDIO 12/28/22 07:13 Completed NEBULIZER TREATMENT Routine CARDIO 12/28/22 07:23 Active NEBULIZER TREATMENT Stat CARDIO 12/28/22 05:17 Completed OXYGEN Routine CARDIO 12/28/22 07:19 Active ACTIVITY .Up With Assistance CARE 12/28/22 07:19 Active INTAKE & OUTPUT Q8HR CARE 12/28/22 07:19 Active IP: INSERT SALINE LOCK ONCE CARE 12/28/22 07:19 Active TELEMETRY MONITORING TELE CARE 12/28/22 07:17 Active VITAL SIGNS Q8HR CARE 12/28/22 07:19 Active VTE PREVENTION .SCD On AM/Off PM CARE 12/28/22 07:19 Active Saline Lock [ED IV/MEDIPORT/POWERPORT] .ONCE EMERGENCY 12/28/22 05:17 Active ABG COOX Stat LAB 12/28/22 05:35 Completed BLOOD CULTURE (ED ONLY) Stat LAB 12/28/22 06:54 Results CBC W/ AUTO DIFF DAILY@0600 LAB 12/29/22 05:35 Completed CBC W/ AUTO DIFF DAILY@0600 LAB 12/30/22 05:09 Completed CBC W/ AUTO DIFF Stat LAB 12/28/22 06:02 Completed CMP [COMPREHENSIVE METABOLIC PANEL] Stat LAB 12/28/22 06:02 Completed COMPREHENSIVE METABOLIC PANEL DAILY@0600 LAB 12/29/22 05:35 Completed COMPREHENSIVE METABOLIC PANEL DAILY@0600 LAB 12/30/22 05:09 Completed COVID [SARS COV-2 RNA RAPID FRANK] Stat LAB 12/28/22 06:35 Completed FLU A & B MOLECULAR [FLU A/B MOLECULAR] Stat LAB 12/28/22 06:35 Completed LACTIC ACID Stat LAB 12/28/22 06:02 Completed URINALYSIS C & S IF INDICATED Stat LAB 12/28/22 06:35 Completed 0.9 % Sodium Chloride [Saline Flush] MEDS 12/28/22 05:17 Active 1 syr IVF PRN PRN Alprazolam [Xanax] MEDS 12/28/22 07:21 Active 0.25 mg PO BID PRN Amlodipine Besylate [Norvasc] MEDS 12/28/22 09:00 Active 5 mg PO BID Aspirin [Aspirin EC] MEDS 12/28/22 08:30 Active 81 mg PO DAILYWM Budesonide/Formoterol Fumarate [Symbicort 160-4.5 Mcg MEDS 12/28/22 09:00 Active Inhaler] 2 puff IH BID Chlordiazepoxide HCl [Librium] MEDS 12/28/22 09:00 Active 10 mg PO BID Doxycycline Hyclate Inj [Doxy-100] 100 mg MEDS 12/28/22 09:00 Active 0.9 % Sodium Chloride [Sodium Chloride 100Ml] 100 ml IV Q12HR Erythromycin Opth Oint [Erythromycin] MEDS 12/28/22 06:35 Discontinued 1 applic EACHEYE ONCE STA Hydrocortisone Sod Succ/Pf [Solu-Cortef 100 mg] MEDS 12/28/22 07:10 Discontinued 100 mg IVP ONCE STA Ibuprofen [Motrin] MEDS 12/28/22 05:15 Discontinued 800 mg PO ONCE STA Imipenem/Cilastatin Sodium [Primaxin] 500 mg MEDS 12/28/22 05:19 Discontinued 0.9 % Sodium Chloride [Sodium Chloride 100Ml] 100 ml IV ONCE Ipratropium/Albuterol Neb [Duoneb] MEDS 12/28/22 05:15 Discontinued 3 ml NEB ONCE STA Ipratropium/Albuterol Neb [Duoneb] MEDS 12/28/22 12:00 Active 3 ml NEB RTQ6H Lisinopril [Zestril] MEDS 12/28/22 09:00 Active 20 mg PO BID Pantoprazole Sodium [Protonix] MEDS 12/28/22 07:30 Active 40 mg PO QDAC Piperacillin Sodium/Tazobactam [Zosyn 3.375 gm] 3.375 MEDS 12/28/22 12:00 Active gm 0.9 % Sodium Chloride [Sodium Chloride 100Ml] 100 ml IV Q6HR Piperacillin Sodium/Tazobactam [Zosyn 3.375 gm] 3.375 MEDS 12/28/22 13:00 Discontinued gm 0.9 % Sodium Chloride [Sodium Chloride 100Ml] 100 ml IV Q8HR Rosuvastatin Calcium [Crestor] MEDS 12/28/22 09:00 Active 40 mg PO DAILY Sodium Chloride 0.9% [Sodium Chloride] 1,000 ml MEDS 12/28/22 07:30 Discontinued IV 40 mls/hr Sodium Chloride 0.9% [Sodium Chloride] 1,000 ml MEDS 12/28/22 05:15 Discontinued IV BOLUS cyanocobalamin (vitamin B-12) [Vitamin B-12] MEDS 12/28/22 09:00 Active 1,000 mcg PO DAILY RESUSCITATION STATUS Routine OTHERS 12/28/22 07:19 Completed CXR [CHEST, 1V AP ONLY] Stat RADS 12/28/22 05:15 Completed Medications Generic Name Dose Route Start Last Admin Trade Name Freq PRN Reason Stop Dose Admin Acetaminophen 650 mg 12/28/22 07:58 12/29/22 15:04 Acetaminophen 325 Mg Tablet PO 650 mg Q4H PRN Administration Fever >101 Albuterol/Ipratropium 3 ml 12/28/22 12:00 12/30/22 04:30 Ipratropium/Albuterol Vial.Neb NEB 3 ml RTQ6H SHANICE Administration Alprazolam 0.25 mg 12/28/22 07:21 12/29/22 09:45 Alprazolam 0.25 Mg Tablet PO 0.25 mg BID PRN Administration Anxiety Amlodipine Besylate 5 mg 12/28/22 09:00 12/29/22 21:16 Amlodipine Besylate 5 Mg Tablet PO 5 mg BID SHANICE Administration Aspirin 81 mg 12/28/22 08:30 12/29/22 09:43 Aspirin 81 Mg Tablet. PO 81 mg DAILYWM SHANICE Administration Budesonide/Formoterol Fumarate 2 puff 12/28/22 09:00 12/29/22 21:21 Budesonide/Formoterol Fumarate 160/4.5 Mcg Inhaler IH 2 puff BID SHANICE Administration Chlordiazepoxide HCl 10 mg 12/28/22 09:00 12/29/22 21:16 Chlordiazepoxide Hcl 10 Mg Capsule PO 10 mg BID SHANICE Administration Erythromycin 1 applic 12/28/22 13:00 12/30/22 05:06 Erythromycin 3.5 Gm Opth Oint EACHEYE 01/02/23 22:00 1 applic Q8HR SHANICE Administration Hydrocortisone Sodium Succinate 125 mg 12/29/22 13:00 12/30/22 05:01 Hydrocortisone Sod Succ/Pf 100 Mg/2 Ml Vial IVP 125 mg Q8HR SHANICE Administration Doxycycline Hyclate 100 mg/ 100 mls @ 50 mls/hr 12/28/22 09:00 12/29/22 21:13 Sodium Chloride IV 12/31/22 08:59 50 mls/hr Q12HR SHANICE Administration Piperacillin Sod/Tazobactam 100 mls @ 100 mls/hr 12/28/22 12:00 12/30/22 05:02 Sod 3.375 gm/ Sodium Chloride IV 12/31/22 11:59 100 mls/hr Q6HR SHANICE Administration Ketorolac Tromethamine 15 mg 12/28/22 09:33 12/28/22 12:33 Ketorolac Tromethamine 15 Mg/Ml Vial IVP 01/01/23 09:34 15 mg Q12H PRN Administration Pain Lisinopril 20 mg 12/28/22 09:00 12/29/22 21:16 Lisinopril 10 Mg Tablet PO 20 mg BID SHANICE Administration Non-Formulary Medication 1,000 mcg 12/28/22 09:00 12/29/22 09:50 Cyanocobalamin (Vitamin B-12) [Vitamin B-12] PO Not Given DAILY [facility] Pantoprazole Sodium 40 mg 12/28/22 07:30 12/30/22 05:51 Pantoprazole Sodium 40 Mg Tablet.Dr PO 40 mg QDAC SHANICE Administration Potassium Chloride 20 meq 12/30/22 09:00 Potassium Chloride 20 Meq Tab PO QID SHANICE Promethazine HCl/Codeine 5 ml 12/29/22 12:16 12/30/22 05:12 Promethazine/Codeine Syrup 6.25/10 Mg/5 Ml Disp.Syringe PO 5 ml Q6H PRN Administration Cough Rosuvastatin Calcium 40 mg 12/28/22 09:00 12/29/22 09:44 Rosuvastatin Calcium 10 Mg Tablet PO 40 mg DAILY SHANICE Administration Sodium Chloride 1 syr 12/28/22 05:17 12/29/22 09:48 0.9% Sodium Chloride 10 Ml Disp.Syrin IVF 1 syr PRN PRN Administration To flush IV Discontinued Medications Generic Name Dose Route Start Last Admin Trade Name Freq PRN Reason Stop Dose Admin Albuterol/Ipratropium 3 ml 12/28/22 05:15 12/28/22 05:50 Ipratropium/Albuterol Vial.Neb NEB 12/28/22 05:16 3 ml ONCE STA Administration Erythromycin 1 applic 12/28/22 06:35 12/28/22 06:45 Erythromycin 3.5 Gm Opth Oint EACHEYE 12/28/22 06:36 1 applic ONCE STA Administration Furosemide 20 mg 12/29/22 14:51 12/29/22 15:02 Furosemide Inj 20 Mg/2 Ml Vial IVP 12/29/22 14:52 20 mg ONCE ONE Administration Hydrocortisone Sodium Succinate 100 mg 12/28/22 07:10 12/28/22 07:56 Hydrocortisone Sod Succ/Pf 100 Mg/2 Ml Vial IVP 12/28/22 07:11 100 mg ONCE STA Administration Sodium Chloride 1,000 mls @ 1,000 mls/hr 12/28/22 05:15 12/28/22 06:30 Sodium Chloride IV 12/28/22 06:14 1,000 mls/hr BOLUS STA Administration Imipenem/Cilastatin Sodium 500 100 mls @ 100 mls/hr 12/28/22 05:19 12/28/22 05:55 mg/ Sodium Chloride IV 12/28/22 06:18 100 mls/hr ONCE STA Administration Piperacillin Sod/Tazobactam 100 mls @ 100 mls/hr 12/28/22 13:00 Sod 3.375 gm/ Sodium Chloride IV 12/31/22 12:59 Q8HR SHANICE Sodium Chloride 1,000 mls @ 40 mls/hr 12/28/22 07:30 12/29/22 17:30 Sodium Chloride IV 40 mls/hr .Q25H SHANICE Administration Ibuprofen 800 mg 12/28/22 05:15 12/28/22 05:28 Ibuprofen 400 Mg Tablet PO 12/28/22 05:16 800 mg ONCE STA Administration Vital Signs: Temp Pulse Resp BP Pulse Ox 12/28/22 04:50 104.3 F H 108 H 26 H 142/77 H 93 L <LAURA KUMAR MD - Last Filed: 12/28/22 07:16> Course Orders, Labs, Meds: Lab Review 12/28/22 12/28/22 12/28/22 05:35 06:02 06:02 WBC 12.62 H RBC 4.58 L Hgb 12.8 L Hct 40.8 L MCV 89.1 MCH 27.9 MCHC 31.4 L RDW Coeff of Maty 16.2 H Plt Count 305 Immature Gran % (Auto) 0.5 Neut % (Auto) 82.0 H Lymph % (Auto) 10.3 [place] % (Auto) 6.6 Eos % (Auto) 0.2 Baso % (Auto) 0.4 Neut # (Auto) 10.4 H Lymph # (Auto) 1.3 [place] # (Auto) 0.8 Eos # (Auto) 0.0 Baso # (Auto) 0.1 Immature Gran # (Auto) 0.1 Puncture Site Lbrac Base Excess -1.1 O2 Saturation 90.6 L ABG pH 7.45 ABG pCO2 33.0 L ABG pO2 57.0 L* ABG HCO3 22.9 ABG Total CO2 23.9 Karri Test + Hemoglobin 1.0 Oxyhemoglobin 90.5 L Carboxyhemoglobin 1.0 Total Hemoglobin 19.9 H O2 Delivery Device Cannula Oxygen Liter Flow 2.00 FiO2 % 28.0 Sodium 138.8 Potassium 3.72 Chloride 107.6 H Carbon Dioxide 25.4 Anion Gap 9.52 BUN 15.8 Creatinine 0.83 Estimated GFR (MDRD) 89.00 BUN/Creatinine Ratio 19.03 Glucose 105.4 Lactic Acid Calcium 8.79 Total Bilirubin 0.81 AST 29.0 ALT 21.3 Alkaline Phosphatase 83.5 Total Protein 7.52 Albumin 4.17 Globulin 3.35 Albumin/Globulin Ratio 1.24 Urine Color Urine Clarity Urine pH Ur Specific Sentinel Urine Protein Urine Glucose (UA) Urine Ketones Urine Blood Urine Nitrite Urine Bilirubin Urine Urobilinogen Ur Leukocyte Esterase Ur Squamous Epith Cells Urine Bacteria Influ A Molecular Assay Influ B Molecular Assay SARS CoV-2 RNA Rapid FRANK 12/28/22 12/28/22 12/28/22 06:02 06:35 06:35 WBC RBC Hgb Hct MCV MCH MCHC RDW Coeff of Maty Plt Count Immature Gran % (Auto) Neut % (Auto) Lymph % (Auto) [place] % (Auto) Eos % (Auto) Baso % (Auto) Neut # (Auto) Lymph # (Auto) [place] # (Auto) Eos # (Auto) Baso # (Auto) Immature Gran # (Auto) Puncture Site Base Excess O2 Saturation ABG pH ABG pCO2 ABG pO2 ABG HCO3 ABG Total CO2 Karri Test Hemoglobin Oxyhemoglobin Carboxyhemoglobin Total Hemoglobin O2 Delivery Device Oxygen Liter Flow FiO2 % Sodium Potassium Chloride Carbon Dioxide Anion Gap BUN Creatinine Estimated GFR (MDRD) BUN/Creatinine Ratio Glucose Lactic Acid 1.45 Calcium Total Bilirubin AST ALT Alkaline Phosphatase Total Protein Albumin Globulin Albumin/Globulin Ratio Urine Color Yellow Urine Clarity Clear Urine pH 5.5 Ur Specific Sentinel 1.015 Urine Protein Negative Urine Glucose (UA) Negative Urine Ketones Negative Urine Blood Trace-intact H Urine Nitrite Negative Urine Bilirubin Negative Urine Urobilinogen 0.2 Ur Leukocyte Esterase Negative Ur Squamous Epith Cells Not present Urine Bacteria Trace Influ A Molecular Assay Influ B Molecular Assay SARS CoV-2 RNA Rapid FRANK Negative 12/28/22 06:35 WBC RBC Hgb Hct MCV MCH MCHC RDW Coeff of Maty Plt Count Immature Gran % (Auto) Neut % (Auto) Lymph % (Auto) [place] % (Auto) Eos % (Auto) Baso % (Auto) Neut # (Auto) Lymph # (Auto) [place] # (Auto) Eos # (Auto) Baso # (Auto) Immature Gran # (Auto) Puncture Site Base Excess O2 Saturation ABG pH ABG pCO2 ABG pO2 ABG HCO3 ABG Total CO2 Karri Test Hemoglobin Oxyhemoglobin Carboxyhemoglobin Total Hemoglobin O2 Delivery Device Oxygen Liter Flow FiO2 % Sodium Potassium Chloride Carbon Dioxide Anion Gap BUN Creatinine Estimated GFR (MDRD) BUN/Creatinine Ratio Glucose Lactic Acid Calcium Total Bilirubin AST ALT Alkaline Phosphatase Total Protein Albumin Globulin Albumin/Globulin Ratio Urine Color Urine Clarity Urine pH Ur Specific Sentinel Urine Protein Urine Glucose (UA) Urine Ketones Urine Blood Urine Nitrite Urine Bilirubin Urine Urobilinogen Ur Leukocyte Esterase Ur Squamous Epith Cells Urine Bacteria Influ A Molecular Assay Negative by naat Influ B Molecular Assay Negative by naat SARS CoV-2 RNA Rapid FRANK Orders Category Date Time Status ADMIT PATIENT [facility] ([facility] ADMISSION 12/28/22 07:16 Active ABG DRAW REQUEST Stat CARDIO 12/28/22 05:18 Completed EKG-(ED ONLY) Stat CARDIO 12/28/22 07:13 Completed NEBULIZER TREATMENT Routine CARDIO 12/28/22 07:23 Active NEBULIZER TREATMENT Stat CARDIO 12/28/22 05:17 Completed OXYGEN Routine CARDIO 12/28/22 07:19 Active ACTIVITY .Up With Assistance CARE 12/28/22 07:19 Active INTAKE & OUTPUT Q8HR CARE 12/28/22 07:19 Active IP: INSERT SALINE LOCK ONCE CARE 12/28/22 07:19 Active TELEMETRY MONITORING TELE CARE 12/28/22 07:17 Active VITAL SIGNS Q8HR CARE 12/28/22 07:19 Active VTE PREVENTION .SCD On AM/Off PM CARE 12/28/22 07:19 Active Saline Lock [ED IV/MEDIPORT/POWERPORT] .ONCE EMERGENCY 12/28/22 05:17 Active ABG COOX Stat LAB 12/28/22 05:35 Completed BLOOD CULTURE (ED ONLY) Stat LAB 12/28/22 06:54 Results CBC W/ AUTO DIFF DAILY@0600 LAB 12/29/22 05:35 Completed CBC W/ AUTO DIFF DAILY@0600 LAB 12/30/22 05:09 Completed CBC W/ AUTO DIFF Stat LAB 12/28/22 06:02 Completed CMP [COMPREHENSIVE METABOLIC PANEL] Stat LAB 12/28/22 06:02 Completed COMPREHENSIVE METABOLIC PANEL DAILY@0600 LAB 12/29/22 05:35 Completed COMPREHENSIVE METABOLIC PANEL DAILY@0600 LAB 12/30/22 05:09 Completed COVID [SARS COV-2 RNA RAPID FRANK] Stat LAB 12/28/22 06:35 Completed FLU A & B MOLECULAR [FLU A/B MOLECULAR] Stat LAB 12/28/22 06:35 Completed LACTIC ACID Stat LAB 12/28/22 06:02 Completed URINALYSIS C & S IF INDICATED Stat LAB 12/28/22 06:35 Completed 0.9 % Sodium Chloride [Saline Flush] MEDS 12/28/22 05:17 Active 1 syr IVF PRN PRN Alprazolam [Xanax] MEDS 12/28/22 07:21 Active 0.25 mg PO BID PRN Amlodipine Besylate [Norvasc] MEDS 12/28/22 09:00 Active 5 mg PO BID Aspirin [Aspirin EC] MEDS 12/28/22 08:30 Active 81 mg PO DAILYWM Budesonide/Formoterol Fumarate [Symbicort 160-4.5 Mcg MEDS 12/28/22 09:00 Active Inhaler] 2 puff IH BID Chlordiazepoxide HCl [Librium] MEDS 12/28/22 09:00 Active 10 mg PO BID Doxycycline Hyclate Inj [Doxy-100] 100 mg MEDS 12/28/22 09:00 Active 0.9 % Sodium Chloride [Sodium Chloride 100Ml] 100 ml IV Q12HR Erythromycin Opth Oint [Erythromycin] MEDS 12/28/22 06:35 Discontinued 1 applic EACHEYE ONCE STA Hydrocortisone Sod Succ/Pf [Solu-Cortef 100 mg] MEDS 12/28/22 07:10 Discontinued 100 mg IVP ONCE STA Ibuprofen [Motrin] MEDS 12/28/22 05:15 Discontinued 800 mg PO ONCE STA Imipenem/Cilastatin Sodium [Primaxin] 500 mg MEDS 12/28/22 05:19 Discontinued 0.9 % Sodium Chloride [Sodium Chloride 100Ml] 100 ml IV ONCE Ipratropium/Albuterol Neb [Duoneb] MEDS 12/28/22 05:15 Discontinued 3 ml NEB ONCE STA Ipratropium/Albuterol Neb [Duoneb] MEDS 12/28/22 12:00 Active 3 ml NEB RTQ6H Lisinopril [Zestril] MEDS 12/28/22 09:00 Active 20 mg PO BID Pantoprazole Sodium [Protonix] MEDS 12/28/22 07:30 Active 40 mg PO QDAC Piperacillin Sodium/Tazobactam [Zosyn 3.375 gm] 3.375 MEDS 12/28/22 12:00 Active gm 0.9 % Sodium Chloride [Sodium Chloride 100Ml] 100 ml IV Q6HR Piperacillin Sodium/Tazobactam [Zosyn 3.375 gm] 3.375 MEDS 12/28/22 13:00 Discontinued gm 0.9 % Sodium Chloride [Sodium Chloride 100Ml] 100 ml IV Q8HR Rosuvastatin Calcium [Crestor] MEDS 12/28/22 09:00 Active 40 mg PO DAILY Sodium Chloride 0.9% [Sodium Chloride] 1,000 ml MEDS 12/28/22 07:30 Discont inued IV 40 mls/hr Sodium Chloride 0.9% [Sodium Chloride] 1,000 ml MEDS 12/28/22 05:15 Disc ontinued IV BOLUS cyanocobalamin (vitamin B-12) [Vitamin B-12] MEDS 12/28/22 09:00 Active 1,000 mcg PO DAILY RESUSCITATION STATUS Routine OTHERS 12/28/22 07:19 Completed CXR [CHEST, 1V AP ONLY] Stat RADS 12/28/22 05:15 Completed Medications Generic Name Dose Route Start Last Admin Trade Name Freq PRN Reason Stop Dose Admin Acetaminophen 650 mg 12/28/22 07:58 12/29/22 15:04 Acetaminophen 325 Mg Tablet PO 650 mg Q4H PRN Administration Fever >101 Albuterol/Ipratropium 3 ml 12/28/22 12:00 12/30/22 04:30 Ipratropium/Albuterol Vial.Neb NEB 3 ml RTQ6H SHANICE Administration Alprazolam 0.25 mg 12/28/22 07:21 12/29/22 09:45 Alprazolam 0.25 Mg Tablet PO 0.25 mg BID PRN Administration Anxiety Amlodipine Besylate 5 mg 12/28/22 09:00 12/29/22 21:16 Amlodipine Besylate 5 Mg Tablet PO 5 mg BID SHANICE Administration Aspirin 81 mg 12/28/22 08:30 12/29/22 09:43 Aspirin 81 Mg Tablet. PO 81 mg DAILYWM SHANICE Administration Budesonide/Formoterol Fumarate 2 puff 12/28/22 09:00 12/29/22 21:21 Budesonide/Formoterol Fumarate 160/4.5 Mcg Inhaler IH 2 puff BID SHANCIE Administration Chlordiazepoxide HCl 10 mg 12/28/22 09:00 12/29/22 21:16 Chlordiazepoxide Hcl 10 Mg Capsule PO 10 mg BID SHANICE Administration Erythromycin 1 applic 12/28/22 13:00 12/30/22 05:06 Erythromycin 3.5 Gm Opth Oint EACHEYE 01/02/23 22:00 1 applic Q8HR SHANICE Administration Hydrocortisone Sodium Succinate 125 mg 12/29/22 13:00 12/30/22 05:01 Hydrocortisone Sod Succ/Pf 100 Mg/2 Ml Vial IVP 125 mg Q8HR SHANICE Administration Doxycycline Hyclate 100 mg/ 100 mls @ 50 mls/hr 12/28/22 09:00 12/29/22 21:13 Sodium Chloride IV 12/31/22 08:59 50 mls/hr Q12HR SHANICE Administration Piperacillin Sod/Tazobactam 100 mls @ 100 mls/hr 12/28/22 12:00 12/30/22 05:02 Sod 3.375 gm/ Sodium Chloride IV 12/31/22 11:59 100 mls/hr Q6HR SHANICE Administration Ketorolac Tromethamine 15 mg 12/28/22 09:33 12/28/22 12:33 Ketorolac Tromethamine 15 Mg/Ml Vial IVP 01/01/23 09:34 15 mg Q12H PRN Administration Pain Lisinopril 20 mg 12/28/22 09:00 12/29/22 21:16 Lisinopril 10 Mg Tablet PO 20 mg BID SHANICE Administration Non-Formulary Medication 1,000 mcg 12/28/22 09:00 12/29/22 09:50 Cyanocobalamin (Vitamin B-12) [Vitamin B-12] PO Not Given DAILY [facility] Pantoprazole Sodium 40 mg 12/28/22 07:30 12/30/22 05:51 Pantoprazole Sodium 40 Mg Tablet.Dr PO 40 mg QDAC [facility] Administration Potassium Chloride 20 meq 12/30/22 09:00 Potassium Chloride 20 Meq Tab PO [facility] Promethazine HCl/Codeine 5 ml 12/29/22 12:16 12/30/22 05:12 Promethazine/Codeine Syrup 6.25/10 Mg/5 Ml Disp.Syringe PO 5 ml Q6H PRN Administration Cough Rosuvastatin Calcium 40 mg 12/28/22 09:00 12/29/22 09:44 Rosuvastatin Calcium 10 Mg Tablet PO 40 mg DAILY SHANICE Administration Sodium Chloride 1 syr 12/28/22 05:17 12/29/22 09:48 0.9% Sodium Chloride 10 Ml Disp.Syrin IVF 1 syr PRN PRN Administration To flush IV Discontinued Medications Generic Name Dose Route Start Last Admin Trade Name Freq PRN Reason Stop Dose Admin Albuterol/Ipratropium 3 ml 12/28/22 05:15 12/28/22 05:50 Ipratropium/Albuterol Vial.Neb NEB 12/28/22 05:16 3 ml ONCE STA Administration Erythromycin 1 applic 12/28/22 06:35 12/28/22 06:45 Erythromycin 3.5 Gm Opth Oint EACHEYE 12/28/22 06:36 1 applic ONCE STA Administration Furosemide 20 mg 12/29/22 14:51 12/29/22 15:02 Furosemide Inj 20 Mg/2 Ml Vial IVP 12/29/22 14:52 20 mg ONCE ONE Administration Hydrocortisone Sodium Succinate 100 mg 12/28/22 07:10 12/28/22 07:56 Hydrocortisone Sod Succ/Pf 100 Mg/2 Ml Vial IVP 12/28/22 07:11 100 mg ONCE STA Administration Sodium Chloride 1,000 mls @ 1,000 mls/hr 12/28/22 05:15 12/28/22 06:30 Sodium Chloride IV 12/28/22 06:14 1,000 mls/hr BOLUS STA Administration Imipenem/Cilastatin Sodium 500 100 mls @ 100 mls/hr 12/28/22 05:19 12/28/22 05:55 mg/ Sodium Chloride IV 12/28/22 06:18 100 mls/hr ONCE STA Administration Piperacillin Sod/Tazobactam 100 mls @ 100 mls/hr 12/28/22 13:00 Sod 3.375 gm/ Sodium Chloride IV 12/31/22 12:59 Q8HR SHANICE Sodium Chloride 1,000 mls @ 40 mls/hr 12/28/22 07:30 12/29/22 17:30 Sodium Chloride IV 40 mls/hr .Q25H SHANICE Administration Ibuprofen 800 mg 12/28/22 05:15 12/28/22 05:28 Ibuprofen 400 Mg Tablet PO 12/28/22 05:16 800 mg ONCE STA Administration Vital Signs: Temp Pulse Resp BP Pulse Ox 12/28/22 04:50 104.3 F H 108 H 26 H 142/77 H 93 L Discharge Plan Discharge Patient Disposition: ADMITTED INPATIENT Discharge Problem: [id number] Did you review [place] SUB ARC OPERATOR for ALL controlled substances?: No ED Provider: CRISS GANDARA Condition: Stable <CRISS GANDARA MD - Last Filed: 12/30/22 08:33> Physician Progress Note: []
[2022-12-28] MEDS ORDERED: DUONEB NEB STA (05:15)
[2022-12-28] MEDS ORDERED: SODIUM CHLORIDE 1,000 ML IV STA (05:15)
[2022-12-28] MEDS ORDERED: MOTRIN PO STA (05:15)
[2022-12-28] MEDS ORDERED: SODIUM CHLORIDE IV STA (05:19)
[2022-12-28] MEDS ORDERED: PRIMAXIN IV STA (05:19)
--- NOTE | 2022-12-28 05:51 | DI ---
EXAM: SINGLE VIEW OF THE CHEST. History: Fever and cough. Comparison: Chest radiograph 04/20/2022 Findings: Heart size is normal. No consolidation within the right midlung. No pleural fluid and no pneumothorax. Emphysema. No acute osseous abnormalities. 9 mm nodule within the right upper lobe. Impression: 1. Right midlung pneumonia. Postobstructive pneumonia could be considered. 2. 9 mm right upper lobe lung nodule. Recommend further evaluation with contrast enhanced chest CT. 3. Chronic obstructive pulmonary disease
[2022-12-28 05:57] LABS: ABG O2 HGB 90.5 % (95-100); ABG PH 7.45 (7.35-7.45); BEecf -1.1 (-2.0-3.0); HCO3 22.9 (21-28); TCO2 23.9 (19-24); sO2 90.6 % (94-98); tHb 19.9 g/dl (11.7-17.4)
[2022-12-28 06:12] LABS: BASOPHILS # (AUTO) 0.1 K/uL (0-0.2); BASOPHILS % (AUTO) 0.4 % (0.0-3.0); EOSINOPHILS % (AUTO) 0.2 % (0.0-7.0); HEMATOCRIT 40.8 % (42.0-52.0); HEMOGLOBIN 12.8 g/dl (14.0-18.0); IMMATURE GRANULOCYTE # (AUTO) 0.1 (0.0-1.0); IMMATURE GRANULOCYTE % (AUTO) 0.5 % (0.0-5.0); LYMPHOCYTES # (AUTO) 1.3 K/uL (0.60-3.4); LYMPHOCYTES % (AUTO) 10.3 (10.0-50.0); MEAN CORPUSCULAR HEMOGLOBIN 27.9 pg (27.0-31.0); MEAN CORPUSCULAR HGB CONC 31.4 (31.8-35.4); MEAN CORPUSCULAR VOLUME 89.1 fl (80.0-94.0); MONOCYTES # (AUTO) 0.8 K/uL (0.4-2.0); MONOCYTES % (AUTO) 6.6 (0-10); NEUTROPHILS # (AUTO) 10.4 K/ul (2.0-6.9); PLATELET COUNT 305 10^3/uL (140-440); RDW COEFFICIENT OF VARIATION 16.2 % (11.6-14.8); RED BLOOD COUNT 4.58 10^6/ul (4.70-6.10); WHITE BLOOD COUNT 12.62 K/ul (4.2-10.2)
[2022-12-28 06:29] LABS: ALANINE AMINOTRANSFERASE 21.3 U/L (0-50); ALBUMIN 4.17 g/dL (3.5-5.0); ALKALINE PHOSPHATASE 83.5 U/L (56-119); BILIRUBIN,TOTAL 0.81 mg/dL (0.2-1.3); BLOOD UREA NITROGEN 15.8 mg/dL (9-20); CALCIUM 8.79 mg/dL (8.4-10.2); CARBON DIOXIDE 25.4 mmol/L (22-30.0); CHLORIDE 107.6 mmol/L (98-107); CREATININE 0.83 mg/dL (0.60-1.10); GLUCOSE 105.4 mg/dL (74-106); POTASSIUM 3.72 mmol/L (3.5-5.1); SODIUM 138.8 mmol/L (134.5-145); TOTAL PROTEIN 7.52 g/dL (6.3-8.2)
[2022-12-28] MEDS ORDERED: ERYTHROMYCIN EACHEYE STA (06:35)
[2022-12-28] MEDS ORDERED: SOLU-CORTEF 100 MG IVP STA (07:10)
[2022-12-28 07:12] LABS: BILIRUBIN,URINE Negative (NEGATIVE); CLARITY,URINE Clear (CLEAR); COLOR,URINE Yellow (YELLOW); GLUCOSE, URINE (UA) Negative (NEGATIVE); KETONES,URINE Negative (NEGATIVE); LEUKOCYTE ESTERASE ,URINE Negative (NEGATIVE); NITRITE,URINE Negative (NEGATIVE); PH,URINE 5.5 (5-9); PROTEIN,URINE Negative (NEGATIVE); URINE, BLOOD Trace-intact (NEGATIVE); UROBILINOGEN,URINE 0.2 (0.2)
[2022-12-28 07:17] LABS: SQUAMOUS EPITHELIAL CELL,UR NOT PRESENT (0-5)
[2022-12-28 07:18] LABS: BACTERIA,URINE TRACE (NOT PRESENT)
[2022-12-28] MEDS ORDERED: XANAX PO PRN (07:21)
[2022-12-28 07:28] LABS: MOLECULAR FLU A NEGATIVE BY NAAT (NEGATIVE); MOLECULAR FLU B NEGATIVE BY NAAT (NEGATIVE)
[2022-12-28 07:42] LABS: SARS COV-2 RNA RAPID NAAT NEGATIVE (NEGATIVE)
[2022-12-28] MEDS: SODIUM CHLORIDE 1,000 ML IV SCH ×2 (07:56→09:26)
[2022-12-28] MEDS: PROTONIX PO SCH (07:56)
[2022-12-28] MEDS ORDERED: TYLENOL PO PRN (07:58)
[2022-12-28] MEDS ORDERED: SYMBICORT 160-4.5 MCG INHALER IH SCH (09:00)
[2022-12-28 09:13] VITALS: BMI 18.7
[2022-12-28] MEDS: DOXY-100 100 MG in SODIUM CHLORIDE 100ML 100 ML IV SCH ×2 (09:26→21:44)
[2022-12-28] MEDS: SYMBICORT 160-4.5 MCG INHALER IH SCH ×2 (09:26→21:48)
[2022-12-28] MEDS: NORVASC PO SCH ×2 (09:27→21:45)
[2022-12-28] MEDS: ASPIRIN EC PO SCH (09:27)
[2022-12-28] MEDS: ZESTRIL PO SCH ×2 (09:27→21:44)
[2022-12-28] MEDS: CRESTOR PO SCH (09:27)
[2022-12-28] MEDS: LIBRIUM PO SCH ×2 (09:27→21:45)
[2022-12-28] MEDS ORDERED: TORADOL IVP PRN (09:33)
[2022-12-28] MEDS: DUONEB NEB SCH ×3 (12:22→23:25)
[2022-12-28] MEDS: ZOSYN 3.375 GM 3.375 GM in SODIUM CHLORIDE 100ML 100 ML IV SCH ×2 (12:29→17:25)
[2022-12-28] MEDS ORDERED: ZOSYN 3.375 GM 3.375 GM in SODIUM CHLORIDE 100ML 100 ML IV SCH (13:00)
[2022-12-28] MEDS: ERYTHROMYCIN EACHEYE SCH ×2 (14:15→21:47)
[2022-12-29] MEDS: ZOSYN 3.375 GM 3.375 GM in SODIUM CHLORIDE 100ML 100 ML IV SCH ×5 (00:03→23:06)
[2022-12-29] MEDS: DUONEB NEB SCH ×4 (04:38→23:05)
[2022-12-29] MEDS: ERYTHROMYCIN EACHEYE SCH ×3 (05:00→21:21)
[2022-12-29] MEDS: PROTONIX PO SCH (05:39)
[2022-12-29 06:21] LABS: BASOPHILS # (AUTO) 0.1 K/uL (0-0.2); BASOPHILS % (AUTO) 0.3 % (0.0-3.0); EOSINOPHILS % (AUTO) 0.2 % (0.0-7.0); HEMATOCRIT 38.4 % (42.0-52.0); HEMOGLOBIN 12.3 g/dl (14.0-18.0); IMMATURE GRANULOCYTE # (AUTO) 0.1 (0.0-1.0); IMMATURE GRANULOCYTE % (AUTO) 0.5 % (0.0-5.0); LYMPHOCYTES # (AUTO) 2.5 K/uL (0.60-3.4); LYMPHOCYTES % (AUTO) 14.7 (10.0-50.0); MEAN CORPUSCULAR HEMOGLOBIN 27.3 pg (27.0-31.0); MEAN CORPUSCULAR VOLUME 85.3 fl (80.0-94.0); MONOCYTES # (AUTO) 0.8 K/uL (0.4-2.0); MONOCYTES % (AUTO) 4.6 (0-10); NEUTROPHILS # (AUTO) 13.5 K/ul (2.0-6.9); NEUTROPHILS % (AUTO) 79.7 % (42.2-75.2); PLATELET COUNT 320 10^3/uL (140-440); RDW COEFFICIENT OF VARIATION 15.9 % (11.6-14.8); WHITE BLOOD COUNT 16.95 K/ul (4.2-10.2)
[2022-12-29 06:33] LABS: ALANINE AMINOTRANSFERASE 16.4 U/L (0-50); ALBUMIN 3.43 g/dL (3.5-5.0); ALKALINE PHOSPHATASE 68.4 U/L (56-119); ASPARTATE AMINO TRANSFERASE 20.7 U/L (17-59); BILIRUBIN,TOTAL 0.69 mg/dL (0.2-1.3); BLOOD UREA NITROGEN 16.8 mg/dL (9-20); CALCIUM 8.49 mg/dL (8.4-10.2); CARBON DIOXIDE 22.2 mmol/L (22-30.0); CHLORIDE 110.6 mmol/L (98-107); CREATININE 1.01 mg/dL (0.60-1.10); GLUCOSE 99.3 mg/dL (74-106); POTASSIUM 3.26 mmol/L (3.5-5.1); SODIUM 139.4 mmol/L (134.5-145); TOTAL PROTEIN 6.55 g/dL (6.3-8.2)
[2022-12-29] MEDS: SYMBICORT 160-4.5 MCG INHALER IH SCH ×2 (09:29→21:21)
[2022-12-29] MEDS: DOXY-100 100 MG in SODIUM CHLORIDE 100ML 100 ML IV SCH ×2 (09:31→21:13)
[2022-12-29] MEDS: ASPIRIN EC PO SCH (09:43)
[2022-12-29] MEDS: NORVASC PO SCH ×2 (09:43→21:16)
[2022-12-29] MEDS: ZESTRIL PO SCH ×2 (09:43→21:16)
[2022-12-29] MEDS: CRESTOR PO SCH (09:44)
[2022-12-29] MEDS: LIBRIUM PO SCH ×2 (09:44→21:16)
[2022-12-29] MEDS: SOLU-CORTEF 100 MG IVP SCH ×2 (12:38→21:16)
[2022-12-29] MEDS: PHENERGAN WITH CODEINE 6.25/10 MG/5 ML PO PRN (12:41)
[2022-12-29] MEDS ORDERED: LASIX IVP ONE (14:51)
[2022-12-29] MEDS: SODIUM CHLORIDE 1,000 ML IV SCH (17:30)
[2022-12-30] MEDS: DUONEB NEB SCH ×4 (04:30→23:35)
[2022-12-30] MEDS: SOLU-CORTEF 100 MG IVP SCH ×3 (05:01→21:31)
[2022-12-30] MEDS: ZOSYN 3.375 GM 3.375 GM in SODIUM CHLORIDE 100ML 100 ML IV SCH ×5 (05:02→23:50)
[2022-12-30] MEDS: ERYTHROMYCIN EACHEYE SCH ×3 (05:06→21:30)
[2022-12-30] MEDS: PHENERGAN WITH CODEINE 6.25/10 MG/5 ML PO PRN (05:12)
[2022-12-30 05:40] LABS: BASOPHILS % (AUTO) 0.1 % (0.0-3.0); HEMATOCRIT 33.3 % (42.0-52.0); IMMATURE GRANULOCYTE # (AUTO) 0.1 (0.0-1.0); IMMATURE GRANULOCYTE % (AUTO) 0.8 % (0.0-5.0); LYMPHOCYTES # (AUTO) 0.9 K/uL (0.60-3.4); LYMPHOCYTES % (AUTO) 5.8 (10.0-50.0); MEAN CORPUSCULAR HEMOGLOBIN 27.8 pg (27.0-31.0); MEAN CORPUSCULAR VOLUME 84.1 fl (80.0-94.0); MONOCYTES # (AUTO) 0.5 K/uL (0.4-2.0); MONOCYTES % (AUTO) 3.2 (0-10); NEUTROPHILS # (AUTO) 13.1 K/ul (2.0-6.9); NEUTROPHILS % (AUTO) 90.1 % (42.2-75.2); PLATELET COUNT 298 10^3/uL (140-440); RDW COEFFICIENT OF VARIATION 15.7 % (11.6-14.8); RED BLOOD COUNT 3.96 10^6/ul (4.70-6.10); WHITE BLOOD COUNT 14.53 K/ul (4.2-10.2)
[2022-12-30] MEDS: PROTONIX PO SCH (05:51)
[2022-12-30 05:53] LABS: ALBUMIN 3.03 g/dL (3.5-5.0); ALKALINE PHOSPHATASE 67.1 U/L (56-119); ASPARTATE AMINO TRANSFERASE 16.9 U/L (17-59); BILIRUBIN,TOTAL 0.31 mg/dL (0.2-1.3); BLOOD UREA NITROGEN 23.4 mg/dL (9-20); CALCIUM 8.32 mg/dL (8.4-10.2); CARBON DIOXIDE 18.7 mmol/L (22-30.0); CHLORIDE 112.7 mmol/L (98-107); CREATININE 1.04 mg/dL (0.60-1.10); GLUCOSE 157.4 mg/dL (74-106); SODIUM 138.6 mmol/L (134.5-145); TOTAL PROTEIN 6.07 g/dL (6.3-8.2)
[2022-12-30 06:04] LABS: POTASSIUM 2.8 mmol/L (3.5-5.1)
--- NOTE | 2022-12-30 08:48 | PCM.PROG ---
Attending Provider: ATTENDING PROVIDER: Dr. DARREN AZEVEDO MD This patient is seen with Charu Sy, Nurse Practitioner. DATE OF SERVICE: 12/30/22 SUBJECTIVE: This 82 year old /WHITE M was hospitalized 12/28/22. The patient is on 4L of 02 sitting up in bed, pulse ox 92 %. He is breathing better and is feeling better. He is not eating much. The granddaughter to bring food today. He received IV Lasix, potassium today 2.8. REVIEW OF SYSTEMS: CONSTITUTIONAL: Fatigue. No night sweats. No malaise, lethargy. No fever or chills. HEENT: Eyes: No visual changes. No eye pain. No eye discharge. ENT: No runny nose. No epistaxis. No sinus pain. No odynophagia. No congestion. RESPIRATORY: Cough, shortness of breath. No hemoptysis. CARDIOVASCULAR: No angina symptoms. No CHF symptoms. No atypical chest pain for CAD. No palpitations. No orthopnea.. GASTROINTESTINAL: No abdominal pain. No nausea or vomiting. No diarrhea or constipation. No hematemesis. No hematochezia. GENITOURINARY: No urgency. No frequency. No dysuria. No hematuria. No obstructive symptoms. No discharge. No pain. No significant abnormal bleeding. MUSCULOSKELETAL: No musculoskeletal pain; no joint swelling. NEUROLOGICAL: Awake, alert, oriented to time, place and person. No headache. No neck pain. No syncope. No seizures. No dizziness. PSYCHIATRIC: Not anxious. No depression. No suicidal thoughts. No homicidal thoughts. SKIN: No rash. No lesions. No wounds. ENDOCRINE: No unexplained weight loss. No weight gain. HEMATOLOGIC/LYMPHATIC: No anemia. No purpura. No petechiae. No prolonged or excessive bleeding. No palpable lymph nodes. PHYSICAL EXAMINATION: GENERAL: The patient is awake, alert and oriented, lying/sitting in bed in no distress. VITAL SIGNS: Temperature 96.9 F, Pulse 93, Respiratory Rate 18, BP 116/66, Pulse Ox 95% HEENT: Head normocephalic, atraumatic. Eyes: Extraocular muscles are intact. Pupils are equal, round and reactive to light and accommodation. Ears: No lesions. Nose appeared normal. Throat: No exudate or erythema. NECK: Supple. No JVD, no carotid bruit. No lymphadenopathy or thyromegaly. LUNGS: Severely diminished breath sounds. Clear to auscultation. Percussion note normal. Chest symmetrical. HEART: S1, S2, no S3. No murmurs. No cyanosis or clubbing. No ascites. Pulses: Dorsalis pedis and posterior tibial pulses +1 to +2 both sides. ABDOMEN: Soft. Non-tender. Bowel sounds active. No CVA tenderness. No mass felt. EXTREMITIES: No edema. Full range of motion of all extremities, equal. NEUROLOGIC: No focal deficit. Cranial nerves II through XII are grossly intact. No headache. No double vision. SKIN: Not dry. Intact. Turgor-normal. LYMPHATIC: No palpable lymph nodes/no lymphedema. MUSCULOSKELETAL: Normal joints with no swelling. Muscle tone is normal. LAB REVIEW: 12/30/22 05:09 12/30/22 05:09 12/30/22 05:09: Sodium 138.6, Potassium 2.80 L, Chloride 112.7 H, Carbon Dioxide 18.7 L, Anion Gap 10.00, BUN 23.4 H, Creatinine 1.04, Estimated GFR (MDRD) 69.00, BUN/Creatinine Ratio 22.50, Glucose 157.4 H D, Calcium 8.32 L, Total Bilirubin 0.31, AST 16.9 L, ALT 14.0, Alkaline Phosphatase 67.1, Total Protein 6.07 L, Albumin 3.03 L, Globulin 3.04, Albumin/Globulin Ratio 0.99 12/30/22 05:09: WBC 14.53 H, RBC 3.96 L, Hgb 11.0 L, Hct 33.3 L, MCV 84.1, MCH 27.8, MCHC 33.0, RDW Coeff of Maty 15.7 H, Plt Count 298, Immature Gran % (Auto) 0.8, Neut % (Auto) 90.1 H, Lymph % (Auto) 5.8 L, [place] % (Auto) 3.2, Eos % (Auto) 0.0, Baso % (Auto) 0.1, Neut # (Auto) 13.1 H, Lymph # (Auto) 0.9, [place] # (Auto) 0.5, Eos # (Auto) 0.0, Baso # (Auto) 0.0, Immature Gran # (Auto) 0.1 ASSESSMENT: Please see below. 1. Right lobar pneumonia. 2. Pulmonary nodule, sees Dr. Gavin. 3. Hypokalemia. PLAN: 1. Continue IV antibiotics. 2. Potassium [address] of chest w/wo. Plan and coordination of the patient's care discussed in the presence of Submarine Worker and nurse. CONDITION: Stable TIME SPENT: 35 MINUTES SCRIBED BY: LESLIE MCCARTY Bread Wrapping Machine Feeder scribed while in presence of service performed by Charu Sy APRN on 12/30/22 ([id number])
[2022-12-30] MEDS: ZESTRIL PO SCH ×2 (10:25→21:32)
[2022-12-30] MEDS: NORVASC PO SCH ×2 (10:25→21:31)
[2022-12-30] MEDS: ASPIRIN EC PO SCH (10:25)
[2022-12-30] MEDS: CRESTOR PO SCH (10:25)
[2022-12-30] MEDS: LIBRIUM PO SCH ×2 (10:25→21:32)
[2022-12-30] MEDS: K-DUR PO SCH ×4 (10:26→21:32)
[2022-12-30] MEDS: SYMBICORT 160-4.5 MCG INHALER IH SCH ×2 (10:26→21:30)
[2022-12-30] MEDS: DOXY-100 100 MG in SODIUM CHLORIDE 100ML 100 ML IV SCH ×2 (10:26→21:30)
--- NOTE | 2022-12-30 10:51 | CT ---
EXAM: CT CHEST WITHOUT/WITH CONTRAST HISTORY: Shortness of air and cough COMPARISON: CT chest from 02/23/2022 TECHNIQUE: Multi-slice pre and postcontrast transaxial helical images are acquired through the thora x with coronal and sagittal reconstructed images. All CT scans are performed using dose optimization techniques as appropriate to the performed exam and includes at least one of the following: Automat ed exposure control, adjustment of the mA and/or kV according to size, and the use of iterative recon struction technique. CONTRAST: 75 ml Omnipaque 350 IV FINDINGS: The aorta is atherosclerotic. The heart size is normal. No pericardial effusion. A mode rate hiatus hernia projects into the middle mediastinum. A small right pleural effusion and trace le ft pleural effusion layer dependently. A right hilar lymph node is enlarged to 1.1 cm in short axis. There is sub centimeter mediastinal lymph nodes. Calcified subcarinal lymph nodes are noted. The lungs are emphysematous. There is a new solid nodule in the right upper lobe measuring 1.8 x 1.4 cm on series seven image number 11. There is a stable solid nodule in the right upper lobe on image num song 11 measuring 0.9 cm. There is a tiny stable nodule in the right upper lobe measuring less than 0 .2 cm on image number 13. There are interstitial and alveolar infiltrates in the right upper lobe an d right lower lobe. There is a large persistent bulla at the right posterolateral lower lobe lung. There is minimal dependent atelectasis in the left lung. The solid organs are grossly normal in their visualized portions of the upper abdomen. The osseous structures are unchanged. No suspicious bone lesions or acute bone abnormalities. An ol d healed left rib fracture is noted. IMPRESSION: Pneumonia, right upper and lower lobe. New solid nodule in the right upper lobe measuring 1.8 x 1.4 cm. This could be infectious or inflamm atory. Malignancy cannot be excluded and a 3-month follow-up chest CT is recommended. Two additional stable solid nodules in the right upper lobe as above should be followed. Emphysema. Small right and trace left pleural effusions. Right hilar lymphadenopathy may be reactive and should be followed. Moderate hiatus hernia. . All CT scans are performed using dose optimization techniques as appropriate to the performed exam an d include at least one of the following: Automated exposure control, adjustment of the mA and/or kV according t o size, and the use of iterative reconstruction technique.
--- NOTE | 2022-12-30 12:41 | PN ---
DATE OF SERVICE: 12/28/22 - ADMIT NOTE SUBJECTIVE: 82-year-old white male came to the emergency room with cough and congestion, shortness of breath. According to him he had a fever of 104 at home with chills started 24 hours. The patient had a chest x-ray that showed pneumonia. PHYSICAL EXAMINATION: GENERAL: Examined the patient in the room. He was oriented to time, place and person. VITAL SIGNS: In the emergency room the patient's temperature was 104.3, pulse 108, respiratory rate 142/77, pulse ox 93% on room air on 2L. HEENT: Head normocephalic, atraumatic. Eyes: Extraocular muscles are intact. Pupils are equal, round and reactive to light and accommodation. Ears: No lesions. Nose appeared normal. Throat: No exudate or erythema. NECK: Supple. No JVD, no carotid bruit. No lymphadenopathy or thyromegaly. LUNGS: Decreased breath sounds. Clear to auscultation. Percussion note normal. Chest symmetrical. HEART: S1, S2, no S3. No murmurs. No cyanosis or clubbing. No ascites. Pulses: Dorsalis pedis and posterior tibial pulses +1 to +2 bilaterally. ABDOMEN: Soft. Nontender. Bowel sounds active. No CVA tenderness. No mass felt. EXTREMITIES: No edema. Full range of motion of all extremities, equal. NEUROLOGIC: No focal deficit. Cranial nerves II through XII are grossly intact. No headache. No double vision. SKIN: Not dry. Intact. Turgor - normal. LYMPHATIC: No palpable lymph nodes/no lymphedema. MUSCULOSKELETAL: Normal joints with no swelling. Muscle tone is normal. LABS: Showed leukocytosis. ABG showed respiratory failure. Creatinine and BUN are normal. The patient is influenza A negative, SARS negative. PLAN: The patient is to be hospitalized with IV antibiotics, steroids and nebs. CONDITION: Stable. TIME SPENT: More than 55 minutes. Plan and coordination of the patient's care discussed in the presence of nurse. ELLIE
--- NOTE | 2022-12-30 13:32 | RS.PTINEVL ---
Subjective - Patient information Date of Evaluation: 12/30/22 Date of Arrival on Unit: 12/28/22 Admitted From:: Home Diagnosis: pneumonia, difficulty walking Usual Living Arrangement: Alone Home Environment: House, Level/No stairs Medical History: Hypertension, COPD, Arthritis Medical History Comments:: AFIB, [place], kidney stone, COVID Medications: see chart Subjective Information/ Patient Comments:: pt states that he would like to try to get up and sit in the chair. He reports that the last time he was in the hospital he went home and had therapy with [facility] home care. - Level of function Prior to this admission, the patient could do the following:: Independent Selfcare, Independent ADL's, Independent Ambulation, Drive Current Level of Function: Partially Dependent Current Equipment Used at Home: oxygen @ 2l/m per n/c, nebulizer, b/p cuff, pulse ox, rwx Interventions - Objective Patient Orientation: Person, Place, Time, Situation Current Interventions: IV's, Oxygen, Telemetry Observation: increased thoracic kyphosis, forward head Range of Motion - ROM Right Upper Extremity AROM: WFL's Left Upper Extremity AROM: WFL's Right Lower Extremity AROM: WFL's Left Lower Extremity AROM: WFL's Muscle Strength - Muscle Strength Right Upper Extremity Strength: Mild Weakness (grossly 4-/5) Left Upper Extremity Strength: Mild Weakness (grossly 4-/5) Right Lower Extremity Strength: Mild Weakness (hip flex 4-/5, knee flex/ext 4/5, ankle DF/PF 4/5) Left Lower Extremity Strength: Mild Weakness (hip flex 4-/5, knee flex/ext 4/5, ankle DF/PF 4/5) Sensation - Sensation Right Upper Extremity Sensation: Intact/Normal Left Upper Extremity Sensation: Intact/Normal Right Lower Extremity Sensation: Intact/Normal Left Lower Extremity Sensation: Intact/Normal Palpation Palpation Findings: None/Normal Balance - Sitting Balance and Reactions Static Sitting Balance: Fair Dynamic Sitting Balance: Fair - Standing Balance and Reactions Static Standing Balance: Poor Dynamic Standing Balance: Poor Functional Mobility - Bed Mobility Rolling R/L: Supervision Supine to Sit: CGA - Transfers Sit to Stand: CGA - Safety Awareness Safety Awareness: Good DEO INDEX SCORE: n/a Ambulation - Ambulation Assistive Device Used: Rolling Walker Orthotic/Prosthetic Device: No Distance: 2-3 steps Assistance needed with Ambulation: CGA, Min Assist Gait Deviations: Shuffling gait, Forward posture, Short stride Ambulation Comments: pt is somewhat impulsive and requires cues for use of rwx. Factors Affecting Ambulation: Decreased Balance, Breathing/O2 Saturation, Weakness, Decreased Safety, Limited Endurance Treatment time - Time with patient Length of Evaluation: 19 Total treatment time: 26 Patient Education - Education Patient Education: Activity Modification, Education of Plan of Care Teaching Recipient: Patient Teaching Methods: Discussion Comments: discussion regarding POC Assessment - Assessment Problem List:: Decreased level of function, Requires training/education, Decreased safety/Risk of falls, Weakness Rehab Potential: Good Further Therapy Indicated?: Yes Candidate for Swing Bed for Therapy Services?: Would need to assess again prior to dc. Evaluation Complexity: HISTORY: Medium, EXAM OF BODY SYSTEMS: Medium, CLINICAL PRESENTATION: Medium, CLINICAL DECISION MAKING: Medium Patient's Goal(s): Get back home. Short Term Goals GOAL #1: pt demonstrate rolling and scooting in bed independently. Goal to be met by: 01/01/23 GOAL #2: Transfer sup to/from sit SBA Goal to be met by: 01/01/23 GOAL #3: Sit to/from stand SBA Goal to be met by: 01/01/23 GOAL #4: pt amb 50ft with rwx with CGA x 1 Goal to be met by: 01/01/23 GOAL #5: Improve BLE strength 4 +/5 Goal to be met by: 01/01/23 Research Leader Goals GOAL #1: pt transfer sup to/from sit to/from stand independently. Goal to be met by: 01/03/23 GOAL #2: pt amb functional distance with rwx no LOB Supervision Goal to be met by: 01/03/23 GOAL #3: Improve dyn stand balance fair Goal to be met by: 01/03/23 Plan Plan of Care: Therapeutic EX, Therapeutic Activity Other:: gait training Frequency of Treatment: 1-2 X day, as tolerated Duration of Treatment: 4 days Anticipated Discharge Destination: Home Treatment Diagnosis (ICD 10 Codes): impaired balance R 26.81. difficulty walking R 26.2. weakness M62.81 Has the Physician been added for Co-signature?: Yes
--- NOTE | 2022-12-30 13:55 | PN ---
DATE OF SERVICE: 12/29/22 SUBJECTIVE: 82-year-old white male hospitalized with acute renal failure. The patient's acute renal failure is from chronic lung disease and pneumonia. The patient's condition has deteriorated. This morning the patient's blood gases shows hypoxemia, has required Venti mask. The patient was in mild distress and was getting tired with his related distress. REVIEW OF SYSTEMS: CONSTITUTIONAL: No night sweats. No fatigue, malaise, lethargy. No fever or chills. HEENT: Eyes: No visual changes. No eye pain. No eye discharge. ENT: No runny nose. No epistaxis. No sinus pain. No sore throat. No odynophagia. No congestion. RESPIRATORY: No cough, no congestion. No hemoptysis. No shortness of breath. CARDIOVASCULAR: No angina symptoms. No CHF symptoms. No atypical chest pain for CAD. No palpitations. No PND. No orthopnea. GASTROINTESTINAL: No abdominal pain. No nausea or vomiting. No diarrhea or constipation. No hematemesis. No hematochezia. GENITOURINARY: No urgency. No frequency. No dysuria. No hematuria. No obstructive symptoms. No discharge. No pain. No significant abnormal bleeding. MUSCULOSKELETAL: No musculoskeletal pain; no joint swelling. NEUROLOGICAL: No headache. No neck pain. No syncope. No seizures. No dizziness. PSYCHIATRIC: Not anxious. No depression. No suicidal thoughts. No homicidal thoughts. SKIN: No rash. No lesions. No wounds. ENDOCRINE: No unexplained weight loss. No weight gain. HEMATOLOGIC/LYMPHATIC: No anemia. No purpura. No petechiae. No prolonged or excessive bleeding. No palpable lymph nodes. PHYSICAL EXAMINATION: VITAL SIGNS: Temperature 97.3, pulse 85, respiratory rate 18, blood pressure 130/84, pulse ox 95%. HEENT: Head normocephalic, atraumatic. Eyes: Extraocular muscles are intact. Pupils are equal, round and reactive to light and accommodation. Ears: No lesions. Nose appeared normal. Throat: No exudate or erythema. NECK: Supple. No JVD, no carotid bruit. No lymphadenopathy or thyromegaly. LUNGS: Decreased breath sounds, mild expiratory wheeze. Percussion note normal. Chest symmetrical. HEART: S1, S2, no S3. No murmurs. No cyanosis or clubbing. No ascites. Pulses: Dorsalis pedis and posterior tibial pulses +1 to +2 bilaterally. ABDOMEN: Soft. Nontender. Bowel sounds active. No CVA tenderness. No mass felt. EXTREMITIES: No pedal edema. Full range of motion of all extremities, equal. NEUROLOGIC: No focal deficit. Cranial nerves II through XII are grossly intact. No headache. No double vision. SKIN: Not dry. Intact. Turgor - normal. LYMPHATIC: No palpable lymph nodes/no lymphedema. MUSCULOSKELETAL: Normal joints with no swelling. Muscle tone is normal. ASSESSMENT: 1. Acute respiratory failure with pneumonia with chronic lung disease seems to have worsened. PLAN: 1. Be aggressive with nebs treatment. 2. Venti mask 50% with monitoring of oxygen saturation and arterial blood gases. 3. Solu-Cortef 125 q.8 and one dose now. 4. IV antibiotics. 5. He is DNR. Even this morning he said under no circumstances he wants any tube put in or respirator. TIME SPENT: More than 35 minutes. Plan and coordination of the patient's care discussed in the presence of nurse. ELLIE
[2022-12-31] MEDS: DUONEB NEB SCH ×4 (05:00→23:50)
[2022-12-31] MEDS: SOLU-CORTEF 100 MG IVP SCH ×3 (05:32→20:46)
[2022-12-31] MEDS: ERYTHROMYCIN EACHEYE SCH ×3 (05:33→20:50)
[2022-12-31] MEDS: ZOSYN 3.375 GM 3.375 GM in SODIUM CHLORIDE 100ML 100 ML IV SCH ×4 (05:33→23:48)
[2022-12-31] MEDS: PROTONIX PO SCH (05:33)
[2022-12-31 05:38] LABS: BASOPHILS % (AUTO) 0.1 % (0.0-3.0); HEMATOCRIT 32.7 % (42.0-52.0); HEMOGLOBIN 10.5 g/dl (14.0-18.0); IMMATURE GRANULOCYTE # (AUTO) 0.2 (0.0-1.0); IMMATURE GRANULOCYTE % (AUTO) 1.3 % (0.0-5.0); LYMPHOCYTES # (AUTO) 0.9 K/uL (0.60-3.4); LYMPHOCYTES % (AUTO) 6.5 (10.0-50.0); MEAN CORPUSCULAR HEMOGLOBIN 27.1 pg (27.0-31.0); MEAN CORPUSCULAR HGB CONC 32.1 (31.8-35.4); MEAN CORPUSCULAR VOLUME 84.3 fl (80.0-94.0); MONOCYTES # (AUTO) 0.7 K/uL (0.4-2.0); MONOCYTES % (AUTO) 4.8 (0-10); NEUTROPHILS # (AUTO) 11.9 K/ul (2.0-6.9); NEUTROPHILS % (AUTO) 87.3 % (42.2-75.2); PLATELET COUNT 333 10^3/uL (140-440); RED BLOOD COUNT 3.88 10^6/ul (4.70-6.10)
[2022-12-31 05:47] LABS: ALBUMIN 2.93 g/dL (3.5-5.0); ASPARTATE AMINO TRANSFERASE 34.3 U/L (17-59); BILIRUBIN,TOTAL 0.29 mg/dL (0.2-1.3); BLOOD UREA NITROGEN 29.5 mg/dL (9-20); CALCIUM 8.51 mg/dL (8.4-10.2); CARBON DIOXIDE 17.8 mmol/L (22-30.0); CHLORIDE 115.9 mmol/L (98-107); CREATININE 0.91 mg/dL (0.60-1.10); GLUCOSE 126.6 mg/dL (74-106); POTASSIUM 3.49 mmol/L (3.5-5.1); SODIUM 140.4 mmol/L (134.5-145); TOTAL PROTEIN 5.75 g/dL (6.3-8.2)
[2022-12-31] MEDS: PHENERGAN WITH CODEINE 6.25/10 MG/5 ML PO PRN ×3 (07:38→22:39)
[2022-12-31] MEDS: K-DUR PO SCH ×2 (09:25→17:31)
[2022-12-31] MEDS: CRESTOR PO SCH (09:25)
[2022-12-31] MEDS: NORVASC PO SCH ×2 (09:25→20:49)
[2022-12-31] MEDS: LIBRIUM PO SCH ×2 (09:25→20:49)
[2022-12-31] MEDS: ASPIRIN EC PO SCH (09:25)
[2022-12-31] MEDS: ZESTRIL PO SCH ×2 (09:26→20:48)
[2022-12-31] MEDS: DOXY-100 100 MG in SODIUM CHLORIDE 100ML 100 ML IV SCH ×2 (09:26→20:52)
[2022-12-31] MEDS: SYMBICORT 160-4.5 MCG INHALER IH SCH ×2 (09:27→20:49)
--- NOTE | 2022-12-31 11:15 | PCM.PROG ---
Attending Provider: ATTENDING PROVIDER: Dr. DARREN AZEVEDO MD This patient is seen with Charu Sy, Nurse Practitioner. DATE OF SERVICE: 12/31/22 SUBJECTIVE: This 82 year old /WHITE M was hospitalized 12/28/22. The patient is resting comfortably. CT yesterday showed right upper and lower lobe pneumonia. His potassium better today. He is now on 3L oxygen. He states he is feeling some better. REVIEW OF SYSTEMS: CONSTITUTIONAL: Weakness and fatigue. No night sweats. No malaise, lethargy. No fever or chills. HEENT: Eyes: No visual changes. No eye pain. No eye discharge. ENT: No runny nose. No epistaxis. No sinus pain. No odynophagia. No congestion. RESPIRATORY: No cough, no congestion. No hemoptysis. Shortness of breath. CARDIOVASCULAR: No angina symptoms. No CHF symptoms. No atypical chest pain for CAD. No palpitations. No orthopnea.. GASTROINTESTINAL: No abdominal pain. No nausea or vomiting. No diarrhea or constipation. No hematemesis. No hematochezia. GENITOURINARY: No urgency. No frequency. No dysuria. No hematuria. No obstructive symptoms. No discharge. No pain. No significant abnormal bleeding. MUSCULOSKELETAL: No musculoskeletal pain; no joint swelling. NEUROLOGICAL: Awake, alert, oriented to time, place and person. No headache. No neck pain. No syncope. No seizures. No dizziness. PSYCHIATRIC: Not anxious. No depression. No suicidal thoughts. No homicidal thoughts. SKIN: No rash. No lesions. No wounds. ENDOCRINE: No unexplained weight loss. No weight gain. HEMATOLOGIC/LYMPHATIC: No anemia. No purpura. No petechiae. No prolonged or excessive bleeding. No palpable lymph nodes. PHYSICAL EXAMINATION: GENERAL: The patient is awake, alert and oriented, lying/sitting in bed in no distress. VITAL SIGNS: Temperature 97.1 F, Pulse 87, Respiratory Rate 20, BP 107/60, Pulse Ox 94% HEENT: Head normocephalic, atraumatic. Eyes: Extraocular muscles are intact. Pupils are equal, round and reactive to light and accommodation. Ears: No lesions. Nose appeared normal. Throat: No exudate or erythema. NECK: Supple. No JVD, no carotid bruit. No lymphadenopathy or thyromegaly. LUNGS: Severely diminished breath sounds. Clear to auscultation. Percussion note normal. Chest symmetrical. HEART: S1, S2, no S3. No murmurs. No cyanosis or clubbing. No ascites. Pulses: Dorsalis pedis and posterior tibial pulses +1 to +2 both sides. ABDOMEN: Soft. Non-tender. Bowel sounds active. No CVA tenderness. No mass felt. EXTREMITIES: No edema. Full range of motion of all extremities, equal. NEUROLOGIC: No focal deficit. Cranial nerves II through XII are grossly intact. No headache. No double vision. SKIN: Not dry. Intact. Turgor-normal. LYMPHATIC: No palpable lymph nodes/no lymphedema. MUSCULOSKELETAL: Normal joints with no swelling. Muscle tone is normal. LAB REVIEW: 12/31/22 04:46 12/31/22 04:46 12/31/22 04:46: Sodium 140.4, Potassium 3.49 L, Chloride 115.9 H, Carbon Dioxide 17.8 L, Anion Gap 10.19, BUN 29.5 H, Creatinine 0.91, Estimated GFR (MDRD) 80.00, BUN/Creatinine Ratio 32.41, Glucose 126.6 H, Calcium 8.51, Total Bilirubin 0.29, AST 34.3, ALT 24.0, Alkaline Phosphatase 56.0, Total Protein 5.75 L, Albumin 2.93 L, Globulin 2.82, Albumin/Globulin Ratio 1.03 12/31/22 04:46: WBC 13.60 H, RBC 3.88 L, Hgb 10.5 L, Hct 32.7 L, MCV 84.3, MCH 27.1, MCHC 32.1, RDW Coeff of Maty 16.0 H, Plt Count 333, Immature Gran % (Auto) 1.3, Neut % (Auto) 87.3 H, Lymph % (Auto) 6.5 L, [place] % (Auto) 4.8, Eos % (Auto) 0.0, Baso % (Auto) 0.1, Neut # (Auto) 11.9 H, Lymph # (Auto) 0.9, [place] # (Auto) 0.7, Eos # (Auto) 0.0, Baso # (Auto) 0.0, Immature Gran # (Auto) 0.2 ASSESSMENT: Please see below. 1. Right extensive upper and lower pneumonia 2. Chronic respiratory failure 3. End-stage COPD 4. Hypokalemia 5. Generalized weakness PLAN: 1. Continue IV antibiotics 2. Decrease potassium to twice daily 3. Continue Doxycycline 4. Continue Azactam Plan and coordination of the patient's care discussed in the presence of Optical Effects Camera Operator and nurse. TIME SPENT: 35 minutes CONDITION: Stable SCRIBED BY: Pati MCARTHUR scribed while in presence of service performed by Charu Sy APRN on 12/31/22 ([id number])
--- NOTE | 2022-12-31 15:06 | HP ---
DATE OF SERVICE: 12/28/22 REASON FOR HOSPITALIZATION: Shortness of air, brought him to the emergency room and further workup revealed he has pneumonia. HISTORY OF PRESENT ILLNESS: 82-year-old white male hospitalized after being seen in the emergency room because of history of having dry cough with some dyspnea with rales and the patient was noted to have fever of 104. He has had all these symptoms 24 hours. The patient says he was doing fine until then but all of a sudden got sick. PAST MEDICAL/SURGICAL HISTORY: History of Covid positive April 29, 2022 History of bilateral pneumonia History of heavy smoking, quit 2021 History of pulmonary nodules, Dr. Eaton follows him. Coronary artery disease with stent History of pulmonary fibrosis Left sciatica with DJD spine Dyslipidemia Severe chronic lung disease with history of heavy smoking ASHD by CT scan Status post bilateral cataract extraction REVIEW OF SYSTEMS: CONSTITUTIONAL: Weakness and fatigue with chills and fever. No night sweats. No malaise, lethargy. No fever or chills. HEENT: Eyes: No visual changes. No eye pain. No eye discharge. ENT: No runny nose. No epistaxis. No sinus pain. No sore throat. No odynophagia. No ear pain. No congestion. RESPIRATORY: Shortness of breath. Cough with congestion with yellowish sputum production. No hemoptysis. CARDIOVASCULAR: No angina symptoms. No CHF symptoms. No atypical chest pain for CAD. No palpitations. No PND. No orthopnea. GASTROINTESTINAL: Poor appetite. No abdominal pain. No nausea or vomiting. No diarrhea or constipation. No hematemesis. No hematochezia. GENITOURINARY: No urgency. No frequency. No dysuria. No hematuria. No obstructive symptoms. No discharge. No pain. No significant abnormal bleeding. MUSCULOSKELETAL: Weakness, inability to walk. No joint swelling. No arthritis. NEUROLOGICAL: No headache. No neck pain. No syncope. No seizures. No dizziness. PSYCHIATRIC: Not anxious. No depression. No suicidal thoughts. No homicidal thoughts. SKIN: No rash. No lesions. No wounds. ENDOCRINE: No unexplained weight loss. No weight gain. HEMATOLOGIC/LYMPHATIC: No anemia. No purpura. No petechiae. No prolonged or excessive bleeding. No palpable lymph nodes. PERSONAL/FAMILY/SOCIAL HISTORY: The patient quit smoking in February of 2022. No alcohol abuse. He is . The patient is being taken care of by the daughter. He is DNR. MEDICATIONS: Pantoprazole Albuterol Lisinopril Xanax Amlodipine Albuterol Chlordiazepoxide Rosuvastatin Aspirin ALLERGIES: AQUASONIC ULTRASOUND GEL PHYSICAL EXAMINATION: GENERAL: The patient is oriented to time, place and person in mild distress. VITAL SIGNS: Temperature 104.3, pulse 110, respiratory rate 26, blood pressure 142/77, pulse ox 93% with 2L. HEENT: Head normocephalic, atraumatic. Eyes: Extraocular muscles are intact. Pupils are equal, round and reactive to light and accommodation. Ears: No lesions. Nose appeared normal. Throat: No exudate or erythema. NECK: Supple. No JVP, no carotid bruit. No ascites. No lymphadenopathy or thyromegaly. LUNGS: Decreased breath sounds bilaterally. Expiratory wheeze. Percussion note normal. Chest symmetrical. HEART: S1, S2, tachycardia, no S3. No murmur. No cyanosis or clubbing. No ascites. Pulses: Dorsalis pedis and posterior tibial pulses +2 bilaterally. ABDOMEN: Soft. Nontender. Bowel sounds active. No CVA tenderness. No mass felt. EXTREMITIES: No pedal edema. Full range of motion of all extremities, equal. 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 No focal deficit. Cranial nerves II through XII are grossly intact. No headache, no double vision or headache. SKIN: Not dry. Intact. Turgor - normal. LYMPHATIC: No palpable lymph nodes/no lymphedema. MUSCULOSKELETAL: Normal joints with no swelling. Muscle tone is normal. Arterial blood gases p02 57, pc02 33, pH 7.45 on 2L, FI02 of 28% that is 2L/NC with saturation 90%, creatinine 0.8, BUN 15, potassium 3.7, glucose 105. Chest x-ray pneumonia. EKG - sinus rhythm, P'pulmonale, no acute changes. ASSESSMENT: 1. Pneumonia 2. Severe chronic lung disease with history of smoking 3. History of recurrent pneumonia 4. Coronary artery disease with stent 5. Hypertension 6. Dyslipidemia 7. History of Covid April 2022 8. History of pulmonary nodules followed by Dr. Eaton 9. History of pulmonary fibrosis 10. Left sciatica 11. Dyslipidemia 12. Status post bilateral cataract extraction PLAN: 1. Give the patient Solu-Cortef 125 mg q.8. 2. Zosyn (Piperacillin and Tazobactam combination) 3. Doxycycline 100 q.12 4. Duonebs q.i.d. p.r.n. 5. Continue the rest of the home medications as before. 6. The patient is DNR. 7. The patient will be monitored with telemetry. 8. The patient will have arterial blood gases frequently with oximetry monitoring. TIME SPENT: More than 75 minutes/Level 5 MTDD
--- NOTE | 2022-12-31 15:12 | PN ---
DATE OF SERVICE: 12/30/22 SUBJECTIVE: The patient is seen and examined with the nurse practitioner. The patient's condition improved remarkably. He is breathing a lot better - quietly breathing without any distress. PHYSICAL EXAMINATION: HEENT: Head normocephalic, atraumatic. Eyes: Extraocular muscles are intact. Pupils are equal, round and reactive to light and accommodation. Ears: No lesions. Nose appeared normal. Throat: No exudate or erythema. NECK: Supple. No JVD, no carotid bruit. No lymphadenopathy or thyromegaly. LUNGS: Good air entry with mild expiratory wheeze. Percussion note normal. Chest symmetrical. HEART: S1, S2, no S3. No murmurs. No cyanosis or clubbing. No ascites. Pulses: Dorsalis pedis and posterior tibial pulses +1 to +2 bilaterally. ABDOMEN: Soft. Nontender. Bowel sounds active. No CVA tenderness. No mass felt. EXTREMITIES: No edema. Full range of motion of all extremities, equal. NEUROLOGIC: No focal deficit. Cranial nerves II through XII are grossly intact. No headache. No double vision. SKIN: Not dry. Intact. Turgor - normal. LYMPHATIC: No palpable lymph nodes/no lymphedema. MUSCULOSKELETAL: Normal joints with no swelling. Muscle tone is normal. PLAN: 1. The patient will be continued on antibiotics, steroids. TIME SPENT: More than 35 minutes. Plan and coordination of the patient's care discussed in the presence of nurse. ELLIE
[2023-01-01] MEDS: DUONEB NEB SCH ×4 (04:45→22:53)
[2023-01-01] MEDS: ZOSYN 3.375 GM 3.375 GM in SODIUM CHLORIDE 100ML 100 ML IV SCH ×3 (05:18→17:51)
[2023-01-01] MEDS: ERYTHROMYCIN EACHEYE SCH ×3 (05:19→20:09)
[2023-01-01 05:33] LABS: BASOPHILS % (AUTO) 0.2 % (0.0-3.0); HEMATOCRIT 34.5 % (42.0-52.0); HEMOGLOBIN 11.1 g/dl (14.0-18.0); IMMATURE GRANULOCYTE # (AUTO) 0.4 (0.0-1.0); IMMATURE GRANULOCYTE % (AUTO) 3.2 % (0.0-5.0); LYMPHOCYTES % (AUTO) 7.7 (10.0-50.0); MEAN CORPUSCULAR HEMOGLOBIN 27.4 pg (27.0-31.0); MEAN CORPUSCULAR HGB CONC 32.2 (31.8-35.4); MEAN CORPUSCULAR VOLUME 85.2 fl (80.0-94.0); MONOCYTES # (AUTO) 0.7 K/uL (0.4-2.0); MONOCYTES % (AUTO) 5.7 (0-10); NEUTROPHILS # (AUTO) 10.3 K/ul (2.0-6.9); NEUTROPHILS % (AUTO) 83.2 % (42.2-75.2); PLATELET COUNT 385 10^3/uL (140-440); RDW COEFFICIENT OF VARIATION 16.4 % (11.6-14.8); RED BLOOD COUNT 4.05 10^6/ul (4.70-6.10); WHITE BLOOD COUNT 12.37 K/ul (4.2-10.2)
[2023-01-01] MEDS: PROTONIX PO SCH (05:41)
[2023-01-01 05:51] LABS: ALANINE AMINOTRANSFERASE 41.6 U/L (0-50); ALBUMIN 3.06 g/dL (3.5-5.0); ALKALINE PHOSPHATASE 58.3 U/L (56-119); ASPARTATE AMINO TRANSFERASE 49.2 U/L (17-59); BILIRUBIN,TOTAL 0.26 mg/dL (0.2-1.3); BLOOD UREA NITROGEN 31.5 mg/dL (9-20); CALCIUM 8.78 mg/dL (8.4-10.2); CARBON DIOXIDE 18.5 mmol/L (22-30.0); CHLORIDE 117.8 mmol/L (98-107); CREATININE 1.02 mg/dL (0.60-1.10); POTASSIUM 3.9 mmol/L (3.5-5.1); SODIUM 143.3 mmol/L (134.5-145); TOTAL PROTEIN 6.05 g/dL (6.3-8.2)
[2023-01-01] MEDS ORDERED: PREDNISONE PO SCH (08:30)
[2023-01-01] MEDS: NORVASC PO SCH ×2 (08:52→20:10)
[2023-01-01] MEDS: CRESTOR PO SCH (08:52)
[2023-01-01] MEDS: ZESTRIL PO SCH ×2 (08:52→20:09)
[2023-01-01] MEDS: LIBRIUM PO SCH ×2 (08:52→20:09)
[2023-01-01] MEDS: ASPIRIN EC PO SCH (08:52)
[2023-01-01] MEDS: K-DUR PO SCH ×2 (08:52→16:39)
[2023-01-01] MEDS: PREDNISONE PO SCH ×2 (08:53→16:38)
[2023-01-01] MEDS: SYMBICORT 160-4.5 MCG INHALER IH SCH ×2 (08:53→20:08)
[2023-01-01] MEDS: DOXY-100 100 MG in SODIUM CHLORIDE 100ML 100 ML IV SCH ×2 (08:53→20:11)
[2023-01-01] MEDS: PHENERGAN WITH CODEINE 6.25/10 MG/5 ML PO PRN (14:54)
[2023-01-02] MEDS: ZOSYN 3.375 GM 3.375 GM in SODIUM CHLORIDE 100ML 100 ML IV SCH ×4 (00:11→18:06)
[2023-01-02] MEDS: DUONEB NEB SCH ×4 (04:30→23:04)
[2023-01-02 05:08] LABS: BASOPHILS % (AUTO) 0.2 % (0.0-3.0); HEMATOCRIT 32.9 % (42.0-52.0); HEMOGLOBIN 10.8 g/dl (14.0-18.0); IMMATURE GRANULOCYTE # (AUTO) 0.7 (0.0-1.0); IMMATURE GRANULOCYTE % (AUTO) 4.8 % (0.0-5.0); LYMPHOCYTES # (AUTO) 1.5 K/uL (0.60-3.4); LYMPHOCYTES % (AUTO) 10.7 (10.0-50.0); MEAN CORPUSCULAR HEMOGLOBIN 27.4 pg (27.0-31.0); MEAN CORPUSCULAR HGB CONC 32.8 (31.8-35.4); MEAN CORPUSCULAR VOLUME 83.5 fl (80.0-94.0); MONOCYTES # (AUTO) 1.1 K/uL (0.4-2.0); MONOCYTES % (AUTO) 7.7 (0-10); NEUTROPHILS # (AUTO) 10.8 K/ul (2.0-6.9); NEUTROPHILS % (AUTO) 76.6 % (42.2-75.2); PLATELET COUNT 381 10^3/uL (140-440); RDW COEFFICIENT OF VARIATION 16.2 % (11.6-14.8); RED BLOOD COUNT 3.94 10^6/ul (4.70-6.10)
[2023-01-02 05:21] LABS: ALANINE AMINOTRANSFERASE 48.6 U/L (0-50); ALKALINE PHOSPHATASE 58.3 U/L (56-119); ASPARTATE AMINO TRANSFERASE 43.1 U/L (17-59); BILIRUBIN,TOTAL 0.2 mg/dL (0.2-1.3); CALCIUM 8.45 mg/dL (8.4-10.2); CREATININE 0.8 mg/dL (0.60-1.10); GLUCOSE 101.8 mg/dL (74-106); POTASSIUM 3.89 mmol/L (3.5-5.1); SODIUM 142.2 mmol/L (134.5-145); TOTAL PROTEIN 5.65 g/dL (6.3-8.2)
[2023-01-02] MEDS: ERYTHROMYCIN EACHEYE SCH ×3 (05:45→21:19)
[2023-01-02] MEDS: PROTONIX PO SCH (05:46)
[2023-01-02] MEDS ORDERED: LASIX IVP ONE (08:51)
--- NOTE | 2023-01-02 10:04 | PCM.PROG ---
Attending Provider: ATTENDING PROVIDER: Dr. DARREN AZEVEDO MD This patient is seen with Charu Sy, Nurse Practitioner. DATE OF SERVICE: 01/02/23 SUBJECTIVE: This 82 year old /WHITE M was hospitalized 12/28/22. The patient has swelling on right arm. He has had consistent weight gain. Will do IV Lasix today. Encouraged to be up and about. Will discontinue blood pressure check to only once daily. REVIEW OF SYSTEMS: CONSTITUTIONAL: Weakness. No night sweats. No fatigue, malaise, lethargy. No fever or chills. HEENT: Eyes: No visual changes. No eye pain. No eye discharge. ENT: No runny nose. No epistaxis. No sinus pain. No odynophagia. No congestion. RESPIRATORY: Cough. No hemoptysis. Shortness of breath. CARDIOVASCULAR: No angina symptoms. No CHF symptoms. No atypical chest pain for CAD. No palpitations. No orthopnea.. GASTROINTESTINAL: No abdominal pain. No nausea or vomiting. No diarrhea or constipation. No hematemesis. No hematochezia. GENITOURINARY: No urgency. No frequency. No dysuria. No hematuria. No obstructive symptoms. No discharge. No pain. No significant abnormal bleeding. MUSCULOSKELETAL: No musculoskeletal pain; no joint swelling. NEUROLOGICAL: Awake, alert, oriented to time, place and person. No headache. No neck pain. No syncope. No seizures. No dizziness. PSYCHIATRIC: Not anxious. No depression. No suicidal thoughts. No homicidal thoughts. SKIN: No rash. No lesions. No wounds. ENDOCRINE: No unexplained weight loss. No weight gain. HEMATOLOGIC/LYMPHATIC: No anemia. No purpura. No petechiae. No prolonged or excessive bleeding. No palpable lymph nodes. PHYSICAL EXAMINATION: GENERAL: The patient is awake, alert and oriented, lying/sitting in bed in no distress. VITAL SIGNS: Temperature 96.9 F, Pulse 82, Respiratory Rate 28, BP 139/69, Pulse Ox 93% HEENT: Head normocephalic, atraumatic. Eyes: Extraocular muscles are intact. Pupils are equal, round and reactive to light and accommodation. Ears: No lesions. Nose appeared normal. Throat: No exudate or erythema. NECK: Supple. No JVD, no carotid bruit. No lymphadenopathy or thyromegaly. LUNGS: Diminished breath sounds. Rales on right upper lobe. Percussion note normal. Chest symmetrical. HEART: S1, S2, no S3. No murmurs. No cyanosis or clubbing. No ascites. Pulses: Dorsalis pedis and posterior tibial pulses +1 to +2 both sides. ABDOMEN: Soft. Non-tender. Bowel sounds active. No CVA tenderness. No mass felt. EXTREMITIES: Generalized edema to both arms right greater than left. Full range of motion of all extremities, equal. NEUROLOGIC: No focal deficit. Cranial nerves II through XII are grossly intact. No headache. No double vision. SKIN: Not dry. Intact. Turgor-normal. LYMPHATIC: No palpable lymph nodes/no lymphedema. MUSCULOSKELETAL: Normal joints with no swelling. Muscle tone is normal. LAB REVIEW: 01/02/23 04:50 01/02/23 04:50 01/02/23 04:50: Sodium 142.2, Potassium 3.89, Chloride 115.0 H, Carbon Dioxide 20.0 L, Anion Gap 11.09, BUN 24.0 H, Creatinine 0.80, Estimated GFR (MDRD) 93.00, BUN/Creatinine Ratio 30.00, Glucose 101.8, Calcium 8.45, Total Bilirubin 0.20, AST 43.1, ALT 48.6, Alkaline Phosphatase 58.3, Total Protein 5.65 L, Albumin 3.00 L, Globulin 2.65, Albumin/Globulin Ratio 1.13 01/02/23 04:50: WBC 14.10 H, RBC 3.94 L, Hgb 10.8 L, Hct 32.9 L, MCV 83.5, MCH 27.4, MCHC 32.8, RDW Coeff of Maty 16.2 H, Plt Count 381, Immature Gran % (Auto) 4.8, Neut % (Auto) 76.6 H, Lymph % (Auto) 10.7, [place] % (Auto) 7.7, Eos % (Auto) 0.0, Baso % (Auto) 0.2, Neut # (Auto) 10.8 H, Lymph # (Auto) 1.5, [place] # (Auto) 1.1, Eos # (Auto) 0.0, Baso # (Auto) 0.0, Immature Gran # (Auto) 0.7 ASSESSMENT: Please see below. 1. Right upper and lower pneumonia 2. End-stage COPD. 3. Chronic respiratory failure. 4. Hypertension. 5. Generalized weakness. 6. Fluid overload. PLAN: 1. Lasix 20 mg IV today 2. Reweigh patient. 3. The patient will benefit from Home Health for PT/OT. Plan and coordination of the patient's care discussed in the presence of Beater Room Helper and nurse. CONDITION: Stable TIME SPENT: 35 MINUTES SCRIBED BY: LESLIE MCCARTY Booster Station Operator scribed while in presence of service performed by Charu Sy APRN on 01/02/23 ([id number])
[2023-01-02] MEDS: ZESTRIL PO SCH ×2 (10:26→21:20)
[2023-01-02] MEDS: ASPIRIN EC PO SCH (10:27)
[2023-01-02] MEDS: K-DUR PO SCH ×2 (10:28→18:00)
[2023-01-02] MEDS: PREDNISONE PO SCH ×2 (10:28→17:59)
[2023-01-02] MEDS: NORVASC PO SCH ×2 (10:29→21:20)
[2023-01-02] MEDS: LIBRIUM PO SCH ×2 (10:29→21:20)
[2023-01-02] MEDS: CRESTOR PO SCH (10:30)
[2023-01-02] MEDS: DOXY-100 100 MG in SODIUM CHLORIDE 100ML 100 ML IV SCH ×2 (10:33→21:19)
[2023-01-02] MEDS: SYMBICORT 160-4.5 MCG INHALER IH SCH ×2 (10:34→21:19)
--- NOTE | 2023-01-02 14:18 | PN ---
DATE OF SERVICE: 12/31/22 SUBJECTIVE: The patient was seen and examined today with nurse practitioner. The patient's condition has improved, sitting up in the chair. He says he is hungry. He says he is breathing somewhat better. He is advised pulmonary rehab discussed in detail. TIME SPENT: More than 35 minutes. Plan and coordination of the patient's care discussed in the presence of nurse. ELILE
[2023-01-02] MEDS: PHENERGAN WITH CODEINE 6.25/10 MG/5 ML PO PRN (18:01)
[2023-01-03] MEDS: ZOSYN 3.375 GM 3.375 GM in SODIUM CHLORIDE 100ML 100 ML IV SCH ×3 (01:30→13:22)
[2023-01-03] MEDS: DUONEB NEB SCH ×3 (04:40→14:31)
[2023-01-03] MEDS: PROTONIX PO SCH (05:35)
[2023-01-03 06:10] LABS: HEMATOCRIT 36.2 % (42.0-52.0); HEMOGLOBIN 11.7 g/dl (14.0-18.0); MEAN CORPUSCULAR HGB CONC 32.3 (31.8-35.4); MEAN CORPUSCULAR VOLUME 83.4 fl (80.0-94.0); PLATELET COUNT 393 10^3/uL (140-440); RDW COEFFICIENT OF VARIATION 16.1 % (11.6-14.8); RED BLOOD COUNT 4.34 10^6/ul (4.70-6.10); WHITE BLOOD COUNT 16.32 K/ul (4.2-10.2)
[2023-01-03 06:21] LABS: ALANINE AMINOTRANSFERASE 47.9 U/L (0-50); ALBUMIN 3.26 g/dL (3.5-5.0); ALKALINE PHOSPHATASE 60.1 U/L (56-119); ASPARTATE AMINO TRANSFERASE 34.9 U/L (17-59); BILIRUBIN,TOTAL 0.44 mg/dL (0.2-1.3); BLOOD UREA NITROGEN 24.3 mg/dL (9-20); CALCIUM 8.58 mg/dL (8.4-10.2); CARBON DIOXIDE 25.4 mmol/L (22-30.0); CHLORIDE 108.3 mmol/L (98-107); CREATININE 0.93 mg/dL (0.60-1.10); GLUCOSE 110.7 mg/dL (74-106); POTASSIUM 4.02 mmol/L (3.5-5.1); SODIUM 138.1 mmol/L (134.5-145); TOTAL PROTEIN 6.28 g/dL (6.3-8.2)
[2023-01-03 06:28] LABS: ANISOCYTOSIS NOT PRESENT (NOT PRESENT)
--- NOTE | 2023-01-03 08:14 | ECHO2D ---
Date of Exam: 12/30/2022 Ordering Physician: DR. AZEVEDO Room #: [id number] Reason for Echo: HYPERTENSION, SHORTNESS OF BREATH, CORONARY ARTERY DISEASE WITH STENT, CHRONIC OBSTRUCTIVE PULMONARY DISEASE M-Mode Normal Adult Results LV Dimensions Normal Adult Results AoV Opening excursions >1.6 >1.6 LVEDD-base- 3.5-5.8 4.3 Ao root dimensions 2.0-3.7 3.0 LVESD-base- 3.1-4.6 L. Atrium dimensions 1.9-3.8 4.0 Post. Wall thickness 0.8-1.1 1.1 IV septum (thickness) 0.7-1.2 1.2 Post. Wall excursion 0.72-1.3 NORMAL Septal motion NORMAL Systolic motion R. Ventricular cavity 1.5-2.0 4.3 LVEF 60% 76% Paradoxical septal wall motion NORMAL 2-D : LEFT ATRIAL AND RIGHT VENTRICLE CAVITIES ENLARGED OTHERWISE NORMAL REPORT. 2-D M Mode Echocardiogram was performed using apical four chamber and left parasternal long and short axis views. Mitral, tricuspid and aortic valves appear to be normal. Contractility of the left ventricle seems to be normal, so is the cavity size. Left atrial cavity size is enlarged. Aortic root appears to be normal. There is no pericardial effusion. There is no thrombus noted in the left ventricle or left atrial cavity. M-MODE: MV: NORMAL AV: NORMAL TV: NORMAL PV: CHAMBER SIZE: ENLARGED LEFT ATRIAL AND RIGHT VENTRICLE CAVITIES WALL MOTION: NORMAL PERICARDIUM: NORMAL INTERPRETATION: 1. BORDERLINE LEFT VENTRICULAR HYPERTROPHY WITH ENLARGED LEFT ATRIAL CAVITY. 2. ENLARGED LEFT ATRIAL AND RIGHT VENTRICLE CAVITIES. 3. NORMAL LEFT VENTRICULAR CONTRACTILITY AND LEFT VENTRICLE SIZE. 4. UNCHANGED FROM 01/21/2022. MTDD
--- NOTE | 2023-01-03 09:01 | PN ---
DATE OF SERVICE: 01/01/2023 SUBJECTIVE: 82-year-old white male hospitalized with acute respiratory failure, bilateral pneumonia. The patient's condition has improved. He is feeling better, is talking. Seems to be more upbeat now. REVIEW OF SYSTEMS: CONSTITUTIONAL: No night sweats. No fatigue, malaise, lethargy. No fever or chills. HEENT: Eyes: No visual changes. No eye pain. No eye discharge. ENT: No runny nose. No epistaxis. No sinus pain. No sore throat. No odynophagia. No congestion. RESPIRATORY: No cough, no congestion. No hemoptysis. Shortness of breath on minimal exertion. CARDIOVASCULAR: No angina symptoms. No CHF symptoms. No atypical chest pain for CAD. No palpitations. No PND. No orthopnea. GASTROINTESTINAL: Appetite has improved. No abdominal pain. No nausea or vomiting. No diarrhea or constipation. No hematemesis. No hematochezia. GENITOURINARY: No urgency. No frequency. No dysuria. No hematuria. No obstructive symptoms. No discharge. No pain. No significant abnormal bleeding. MUSCULOSKELETAL: No musculoskeletal pain; no joint swelling. NEUROLOGICAL: No headache. No neck pain. No syncope. No seizures. No dizziness. PSYCHIATRIC: Not anxious. No depression. No suicidal thoughts. No homicidal thoughts. SKIN: No rash. No lesions. No wounds. ENDOCRINE: No unexplained weight loss. No weight gain. HEMATOLOGIC/LYMPHATIC: No anemia. No purpura. No petechiae. No prolonged or excessive bleeding. No palpable lymph nodes. PHYSICAL EXAMINATION: VITAL SIGNS: Temperature 97, pulse 90, respiratory rate 16, blood pressure 113/60, pulse ox 93%. HEENT: Head normocephalic, atraumatic. Eyes: Extraocular muscles are intact. Pupils are equal, round and reactive to light and accommodation. Ears: No lesions. Nose appeared normal. Throat: No exudate or erythema. NECK: Supple. No JVD, no carotid bruit. No lymphadenopathy or thyromegaly. LUNGS: Decreased breath sounds but clear to auscultation. Percussion note normal. Chest symmetrical. HEART: S1, S2, no S3. No murmurs. No cyanosis or clubbing. No ascites. Pulses: Dorsalis pedis and posterior tibial pulses +1 to +2 bilaterally. ABDOMEN: Soft. Nontender. Bowel sounds active. No CVA tenderness. No mass felt. EXTREMITIES: No edema. Full range of motion of all extremities, equal. NEUROLOGIC: No focal deficit. Cranial nerves II through XII are grossly intact. No headache. No double vision. SKIN: Not dry. Intact. Turgor - normal. LYMPHATIC: No palpable lymph nodes/no lymphedema. MUSCULOSKELETAL: Normal joints with no swelling. Muscle tone is normal. LABS: Hemoglobin 11.1, hematocrit 34, WBC 12,000, normal differential, creatinine 1, BUN 30, potassium 3.9. ASSESSMENT: 1. Pneumonia bilateral, seems to be resolving. 2. Respiratory failure under control. He is on home oxygen. His saturation drops with exertion. 3. Potassium better. PLAN: 1. Continue antibiotics, steroids. 2. Pulmonary rehab. Discussed with the patient that the patient's echo showed normal LV contractility, enlarged RV cavity, normal valves. No effusion. Normal LA size. 3. The patient is DNR. CONDITION: Stable, improving. TIME SPENT: More than 35 minutes. Plan and coordination of the patient's care discussed in the presence of nurseSultana ARGUETA
[2023-01-03 09:08] VITALS: BP 113/58; TEMP 96.3
[2023-01-03] MEDS ORDERED: MICRO-K CAP PO SCH (09:25)
[2023-01-03] MEDS ORDERED: LASIX TAB PO SCH (09:25)
[2023-01-03] MEDS: DOXY-100 100 MG in SODIUM CHLORIDE 100ML 100 ML IV SCH ×2 (09:48→13:13)
[2023-01-03] MEDS: SYMBICORT 160-4.5 MCG INHALER IH SCH (09:48)
[2023-01-03] MEDS: LIBRIUM PO SCH (09:55)
[2023-01-03] MEDS: CRESTOR PO SCH (09:56)
[2023-01-03] MEDS: ASPIRIN EC PO SCH (09:58)
[2023-01-03] MEDS: NORVASC PO SCH (09:58)
[2023-01-03] MEDS: ZESTRIL PO SCH (09:59)
[2023-01-03] MEDS: PREDNISONE PO SCH (10:00)
[2023-01-03] MEDS: K-DUR PO SCH (10:01)
[2023-01-03] MEDS ORDERED: OMNICEF PO ONE (13:00)
[2023-01-03] MEDS: PHENERGAN WITH CODEINE 6.25/10 MG/5 ML PO PRN (13:26)
--- NOTE | 2023-01-03 13:57 | PN ---
DATE OF SERVICE: 01/02/23 SUBJECTIVE: The patient was seen and examined with the nurse practitioner. The patient's condition is improving. He would benefit from swing bed for more antibiotics and PT/OT. TIME SPENT: More than 35 minutes. Plan and coordination of the patient's care discussed in the presence of nurse. ELLIE
--- NOTE | 2023-01-07 15:57 | DS ---
DATE OF SERVICE: 01/03/23 FINAL DIAGNOSIS: 1. Acute respiratory failure 2. Bilateral pneumonia 3. Chronic lung disease on home oxygen 4. Covid positive April 2022 5. Recurrent pneumonia 6. History of smoking, quit 2021 7. Pulmonary nodules followed by Dr. Eaton in [place] 8. Coronary artery disease with stents many years ago 9. History of pulmonary fibrosis 10. Left sciatica 11. History of dyslipidemia 12. ASHD by CT scan 13. Stented coronary arteries by CT scan 14. Bilateral cataract extraction DISCHARGE INSTRUCTIONS: Followup appointment in 5-7 days for follow up MEDICATIONS AT DISCHARGE: Lasix 20 mg PO daily K-tab 10 mEq PO daily Omnicef 300 PO twice a day for five days Pantoprazole 40 mg PO daily ProAir HFA Lisinopril 20 mg PO BID Xanax Amlodipine 5 mg PO BID Albuterol inhaler Librium 10 mg PO BID Rosuvastatin 40 mg PO daily Aspirin 81 mg Symbicort as before LABS: Hemoglobin 11.7, hematocrit 36, WBC 16,000, normal differential, creatinine 0.9, BUN 24, potassium 4. HOSPITAL COURSE: 82 year old white male hospitalized with acquired pneumonia with temp of 104. Patient was in acute respiratory failure. He was treated with IV steroids, antibiotics, Zosyn along with Doxycycline BID. Patient's condition improved to the point that he was able to walk on his own. His appetite improved and he started gaining weight. He was not at all in any distress. A couple of times during the hospital stay he had mild respiratory distress and seemed that Lasix helped him, so he was put on a daily dose of Lasix with potassium. Side effects of steroids were discussed including osteonecrosis. Patient is advised pulmonary rehab for which he declined. Condition at discharge: Stable. Code status: DNR TIME SPENT: 70 minutes MTDD
--- NOTE | 2023-01-07 15:59 | PN ---
12/28/22 Level 5 12/29/22-01/02/23 Intermediate 01/03/23 Discharge MTDD
--- NOTE | 2023-01-07 16:05 | PN ---
DATE OF SERVICE: 01/03/23 SUBJECTIVE: 82 year old white male hospitalized with acute respiratory failure with acquired pneumonia. The patient's pneumonia seems to be resolving. Patient has been afebrile for the past four days and status has improved. He is wheezing much less. REVIEW OF SYSTEMS: CONSTITUTIONAL: No night sweats. No fatigue, malaise, lethargy. No fever or chills. HEENT: Eyes: No visual changes. No eye pain. No eye discharge. ENT: No runny nose. No epistaxis. No sinus pain. No sore throat. No odynophagia. No congestion. RESPIRATORY: No cough, no congestion. No hemoptysis. No shortness of breath. CARDIOVASCULAR: No angina symptoms. No CHF symptoms. No atypical chest pain for CAD. No palpitations. No PND. No orthopnea. GASTROINTESTINAL: No abdominal pain. No nausea or vomiting. No diarrhea or constipation. No hematemesis. No hematochezia. GENITOURINARY: No urgency. No frequency. No dysuria. No hematuria. No obstructive symptoms. No discharge. No pain. No significant abnormal bleeding. MUSCULOSKELETAL: No musculoskeletal pain; no joint swelling. NEUROLOGICAL: No headache. No neck pain. No syncope. No seizures. No dizziness. PSYCHIATRIC: Not anxious. No depression. No suicidal thoughts. No homicidal thoughts. SKIN: No rash. No lesions. No wounds. ENDOCRINE: No unexplained weight loss. No weight gain. HEMATOLOGIC/LYMPHATIC: No anemia. No purpura. No petechiae. No prolonged or excessive bleeding. No palpable lymph nodes. PHYSICAL EXAMINATION: GENERAL: The patient is in no distress. VITAL SIGNS: Temperature 97.2, pulse 90, respiratory rate 20, pulse ox 96% with two liters. HEENT: Head normocephalic, atraumatic. Eyes: Extraocular muscles are intact. Pupils are equal, round and reactive to light and accommodation. Ears: No lesions. Nose appeared normal. Throat: No exudate or erythema. NECK: Supple. No JVD, no carotid bruit. No lymphadenopathy or thyromegaly. LUNGS: Decreased breath sounds with good air entry. Percussion note normal. Chest symmetrical. HEART: S1, S2, no S3. No murmurs. No cyanosis or clubbing. No ascites. Pulses: Dorsalis pedis and posterior tibial pulses +1 to +2 bilaterally. ABDOMEN: Soft. Nontender. Bowel sounds active. No CVA tenderness. No mass felt. EXTREMITIES: No edema. Full range of motion of all extremities, equal. NEUROLOGIC: No focal deficit. Cranial nerves II through XII are grossly intact. No headache. No double vision. SKIN: Not dry. Intact. Turgor - normal. LYMPHATIC: No palpable lymph nodes/no lymphedema. MUSCULOSKELETAL: Normal joints with no swelling. Muscle tone is normal. ASSESSMENT: Bilateral pneumonia seems to be resolving. PLAN: Discharge patient home on steroids, antibiotics, Lasix and potassium. He is going to be checking signs of fluid overload every day. Condition: Stable. TIME SPENT: More than 35 minutes. Plan and coordination of the patient's care discussed in the presence of nurse. ELLIE
== END 2023-01-03 16:00 | disposition home health service (06) | DRG 193 ==
LOC: ED 04:50 → MEDSURG A 07:34
PROVIDERS: ADMIT Internal Medicine; ATTEND Internal Medicine
DX: R91.1 Solitary pulmonary nodule; J84.10 Pulmonary fibrosis, unspecified; R53.1 Weakness; Z95.5 Presence of coronary angioplasty implant and graft; E87.6 Hypokalemia; J18.9 Pneumonia, unspecified organism; Z51.81 Encounter for therapeutic drug level monitoring; J96.20 Acute and chronic respiratory failure, unspecified whether with hypoxia or hypercapnia; Z20.822 Contact with and (suspected) exposure to COVID-19; I10 Essential (primary) hypertension; Z86.16 Personal history of COVID-19; Z87.891 Personal history of nicotine dependence; Z79.899 Other long term (current) drug therapy; I25.10 Atherosclerotic heart disease of native coronary artery without angina pectoris; J44.9 Chronic obstructive pulmonary disease, unspecified; R26.2 Difficulty in walking, not elsewhere classified; E78.5 Hyperlipidemia, unspecified; E87.70 Fluid overload, unspecified

== ENCOUNTER 2025-08-22 10:05 | Inpatient (IN) ==
[2025-08-22] MEDS: SOLU-MEDROL 40 MG IVP ONE (11:08)
[2025-08-22 11:14] LABS: IMMATURE GRANULOCYTE # (AUTO) 0.0 (0.0-1.0); IMMATURE GRANULOCYTE % (AUTO) 0.2 % (0.0-5.0); RDW COEFFICIENT OF VARIATION 14.5 % (11.6-14.8)
[2025-08-22] MEDS: DUONEB NEB ONE (11:22)
[2025-08-22 11:28] LABS: CREATININE 0.86 mg/dL (0.60-1.10)
--- NOTE | 2025-08-22 11:36 | DI ---
EXAM: CHEST, 2 VIEWS PA LAT HISTORY: Shortness of breath, cough COMPARISON: 06/19/2025 FINDINGS: Similar configuration of the cardiomediastinal silhouette and central pulmonary vessels. Stable emphysema and background fibrosis with probable right basilar bullous changes. No pneumothorax. No significant pleural effusion or segmental consolidation. Osseous structures appear unchanged. IMPRESSION: 1. Stable background emphysema and fibrosis with probable right basilar bullous changes. No new acute intrathoracic process.
[2025-08-22] MEDS: MILK OF MAGNESIA PO ONE (12:08)
--- NOTE | 2025-08-22 12:13 | ED.PDOC ---
General [facility] ED Provider: Dr. TRACY ZIMMERMAN MD Chief Complaint: Shortness of Air Stated Complaint: Patient is an 84-year-old male with history of COPD on 3 L home O2 at baseline presenting for acute dyspnea. States that over the last 2 days he has been having worsening shortness of breath but denies any chest pain or pleuritic pain. Also denies any fevers or chills or productive cough. He has not taken any home breathing treatments for this nor has he been on any recent steroid courses. He endorses some orthopnea associated with this. Time Seen by Provider: 08/22/25 10:42 Mode of Arrival: Walk-In Information Source: Patient Exam Limitations: No limitations Primary Care Provider: TYREE DARBY Nursing and Triage Documentation Reviewed and Agree: Yes Opioid Naive vs. Tolerant What is Opioid Naive?: *Opioid Naive implies the patient is not already taking opioids or not chronically receiving opioids on a daily basis. *PRN dosing is not "usually" associated with tolerance. *Patients are at higher risk of over-sedation and aspiration. What is Opioid Tolerant?: *Opioid Tolerance implies less than the expected response to an opioid. *Acquired tolerance is defined by the patient taking 60mg of oral morphine daily (or equianalgesic dose of another opioid) for 1 week or more. *Often associated with chronic pain. *May take more than usual dose to achieve desired pain control. Review of Systems Review Of Systems Constitutional: Reports No symptoms Respiratory: Reports Orthopnea, Shortness of Breath and Wheezing; Denies Cough Cardiac: Reports No symptoms GI: Reports No symptoms [facility] Medical History (Updated 08/22/25 @ 12:18 by TRACY ZIMMERMAN MD) Need for COVID-19 vaccine Z23 - Encounter for immunization (ICD-10) Skin tear of right upper arm without complication S41.111A - Laceration without foreign body of right upper arm, initial encounter (ICD-10) Hypotension I95.9 - Hypotension, unspecified (ICD-10) Sepsis A41.9 - Sepsis, unspecified organism (ICD-10) Encounter for Medicare annual wellness exam Z00.00 - Encounter for general adult medical examination without abnormal findings (ICD-10) Need for pneumococcal vaccination Z23 - Encounter for immunization (ICD-10) Family History Other Diabetes Stomach cancer Social History Smoking and tobacco status: Former smoker Tobacco: How many years used: 50 Passive smoking exposure: Yes Quit status: quit date established Alcohol intake: never Substance use type: does not use Special jason needs: No Agree to transfusion: Yes Adopted: No Caregiver/support person: No Foster care: No Household members: none Housing: house Marital status: D Lives independently: Yes Daycare: no daycare Number of children: 4 service: No FDC: No Current occupational status: retired History of recent travel: No Do you think of yourself as: straight/heterosexual Current gender identity: male Seatbelt use: always Drives intoxicated or rides with intoxicated escort car driver: No Water heater temperature set < 120 degrees: Yes Working smoke detector in home: Yes Fire extinguisher in home: Yes Carbon monoxide detector in home: Yes Physical Exam Physical Exam Appearance: Reports Cachectic Ill-appearing: Mild Pain Distress: None Eyes: Reports CHERIE, EOMI and Conjunctiva clear Neck: Supple Respiratory: Reports Airway patent, Breath sounds clear, Breath sounds equal, Wheezes (Diffuse expiratory wheezing) and Retractions (Suprasternal retractions present but resolved after albuterol treatment); Denies Breath sounds diminished, Crackles or Rhonchi Cardiovascular: Reports RRR, Pulses normal and Other (Negative for lower extremity edema) GI/: Reports Soft and Nontender Musculoskeletal: Reports Normal strength Skin: Reports Warm and Dry Interpretation EKG Interpretation EKG Interpretation By: ED Physician Time of EKG #1: 11:05 Rate: Normal Rhythm: Sinus Ectopy: None [place]: [place] ST Segment: Normal Interpretation: Normal sinus rhythm without findings of ACS Radiology Interpretation Radiology Interpretation By: ED Physician Radiology Results: Negative Exam Interpreted: CXR Xray Comments: Signs of chronic scarring but no acute process such as consolidation Physician Progress Note Physician Progress Note: Patient is an 84-year-old male with a history of COPD on 3 L home oxygen that is presenting to the Emergency Department for evaluation of acute dyspnea. History and physical given his story wheezing and increased work of breathing is more suggestive of a COPD exacerbation which we will treat with DuoNeb breathing treatments x 3 and Solu-Medrol 40 mg IV. Patient does have a history of pneumonia however we will screen for this using chest plain film imaging. Also ACS is on the differential given his age and risk factors with his associated dyspnea. New onset heart failure was also considered although very low clinical likelihood is as he has no signs of fluid overload on exam but he is reporting orthopneic symptoms. Chest pain film imaging not reveal any findings of pneumonia or pneumothorax per my interpretation. Above detailed ECG was unremarkable for any signs of ACS. Troponin was also within normal limits and given the duration of his symptoms repeat is not acute at this time. Therefore not concern for ACS. BNP was also within normal limits which effectively rules out new onset heart failure. Screening labs only showed a very mild hypokalemia of 3.4, however, I refrain from oral potassium at this time as he is experiencing acid reflux symptoms that we are treating with Maalox.No leukocytosis. Patient has baseline anemia present. After receiving his breathing treatments, the patient reported continued subjective dyspnea and no improvement. He continued to have very mild increased work of breathing and was slightly tachypneic at around 26. Therefore felt that an observation admission for further breathing treatments was indicated. Patient was amenable to this plan. After conversation with the patient at bedside regarding CODE STATUS, he stated that he would prefer no CPR to be performed but would like intubation if necessary. Course Course 08/22/25 11:05 08/22/25 11:05 Orders, Labs, Meds: Lab Review 08/22/25 11:05 WBC 8.67 RBC 4.61 L Hgb 12.5 L Hct 40.2 L MCV 87.2 MCH 27.1 MCHC 31.1 L RDW Coeff of Maty 14.5 Plt Count 310 Immature Gran % (Auto) 0.2 Neut % (Auto) 73.7 Lymph % (Auto) 15.1 [place] % (Auto) 7.3 Eos % (Auto) 3.1 Baso % (Auto) 0.6 Neut # (Auto) 6.4 Lymph # (Auto) 1.3 [place] # (Auto) 0.6 Eos # (Auto) 0.3 Baso # (Auto) 0.1 Immature Gran # (Auto) 0.0 Sodium 138.4 Potassium 3.46 L Chloride 103.3 Carbon Dioxide 32.5 H Anion Gap 6.06 BUN 18.3 Creatinine 0.86 Estimated GFR (MDRD) 85.00 BUN/Creatinine Ratio 21.27 Glucose 86.1 Calcium 8.19 L Magnesium 2.01 Total Bilirubin 0.29 AST 22.2 ALT 14.3 Alkaline Phosphatase 68.9 Troponin I < 0.012 NT-Pro-B Natriuret Pep 146 Total Protein 6.00 L Albumin 3.37 L Globulin 2.63 Albumin/Globulin Ratio 1.28 Orders Category Date Time Status EKG-(ED & IP/OBS ONLY) Stat CARDIO 08/22/25 10:49 Completed CBC W/ AUTO DIFF Stat LAB 08/22/25 11:05 Completed CMP [COMPREHENSIVE METABOLIC PANEL] Stat LAB 08/22/25 11:05 Completed MAGNESIUM Stat LAB 08/22/25 11:05 Completed NT-PROBNP(ED) Stat LAB 08/22/25 11:05 Completed TROPONIN I Stat LAB 08/22/25 11:05 Completed Ipratropium/Albuterol Neb [Duoneb] Meds 08/22/25 10:49 Discontinued 3 ml NEB ONCE ONE Methylprednisolone Sod Succ/Pf [Solu-Medrol 40 mg] Meds 08/22/25 10:52 Discontinued 40 mg IVP ONCE ONE CHEST, 2 VIEWS PA & LAT Stat RADS 08/22/25 10:49 Completed Medications Discontinued Medications Generic Name Dose Route Start Last Admin Trade Name Freq PRN Reason Stop Dose Admin Albuterol/Ipratropium 3 ml 08/22/25 10:49 08/22/25 11:22 Ipratropium/Albuterol Vial.Neb NEB 08/22/25 10:50 3 ml ONCE ONE Administration Methylprednisolone Sodium Succinate 40 mg 08/22/25 10:52 08/22/25 11:08 Methylprednisolone Sod Succ/Pf 40 Mg/Ml Vial IVP 08/22/25 10:53 40 mg ONCE ONE Administration Vital Signs: Temp Pulse Resp BP Pulse Ox 08/22/25 10:18 98.3 F 90 22 H 160/79 H 93 L Discharge Plan Discharge Patient Disposition: PLACED OBSERVATION Discharge Problem: COPD (chronic obstructive pulmonary disease) Qualifiers: COPD type: unspecified COPD Qualified Code(s): J44.9 - Chronic obstructive pulmonary disease, unspecified Did you review [place] HYDRATE THICKENER OPERATOR for ALL controlled substances?: Not Applicable ED Provider: TRACY ZIMMERMAN Condition: Stable
[2025-08-22 12:47] LABS: SARS COV-2 RNA RAPID NAAT NEGATIVE (NEGATIVE)
--- NOTE | 2025-08-22 12:53 | PCM ---
Date of Service Date Seen by Provider: 08/22/25 Time Seen by Provider: 13:00 Admit Day/Time Admission Date: 08/22/25 Admission Time: 12:08 Reason for Admission Chief Complaint: COPD EXACERBATION Hospital Provider Hospital Provider: AILYN HERRMANN PA-C, [facility] [place] Primary Care Physician Primary Care Physician: TYREE DARBY History of Present Illness History of Present Illness: Patient is an 84 year old male from home who presents for worsening sob and cough for the past week. He wears 3L at baseline. He's been trying his nebulizer without relief. Lives with his granddaughter. Denies chest pain, n/v/d. In ER was noted to be wheezy and low 90s, given 3 nebs and steroids. Patient's wheezing improved but he was noted to still be dyspneic and tachypneic. Admitted to [facility] for acute COPD exacerbation. Patient states he's overall feeling better but not at his baseline. Case Discussed With Case Discussed With: Patient's case was discussed with the ER Physicians, Dr. Ann. [facility] Medical History Need for COVID-19 vaccine Z23 - Encounter for immunization (ICD-10) Skin tear of right upper arm without complication S41.111A - Laceration without foreign body of right upper arm, initial encounter (ICD-10) Hypotension I95.9 - Hypotension, unspecified (ICD-10) Sepsis A41.9 - Sepsis, unspecified organism (ICD-10) Encounter for Medicare annual wellness exam Z00.00 - Encounter for general adult medical examination without abnormal findings (ICD-10) Need for pneumococcal vaccination Z23 - Encounter for immunization (ICD-10) Family History Other Diabetes Stomach cancer Social History Smoking and tobacco status: Former smoker Tobacco: How many years used: 50 Passive smoking exposure: Yes Quit status: quit date established Alcohol intake: never Substance use type: does not use Special jason needs: No Agree to transfusion: Yes Adopted: No Caregiver/support person: No Foster care: No Household members: none Housing: house Marital status: D Lives independently: Yes Daycare: no daycare Number of children: 4 service: No senior living: No Current occupational status: retired History of recent travel: No Do you think of yourself as: straight/heterosexual Current gender identity: male Seatbelt use: always Drives intoxicated or rides with intoxicated van driver: No Water heater temperature set < 120 degrees: Yes Working smoke detector in home: Yes Fire extinguisher in home: Yes Carbon monoxide detector in home: Yes Allergies Allergies Allergy/AdvReac Type Severity Reaction Status Date / Time diltiazem (From [facility]) AdvReac Unknown Unknown Verified 08/22/25 12:13 Aquasonic 100 gel Allergy Intermediate Hives Uncoded 08/22/25 12:13 (ultrasound gel) Current Medications Home Medications Acetaminophen (Acetaminophen 325 Mg Tablet) 650 mg PO Q4H PRN PRN Reason: Mild Pain Albuterol/Ipratropium (Ipratropium/Albuterol Vial.Neb) 3 ml NEB RTQ4H PRN PRN Reason: Wheezing Benzonatate (Benzonatate 100 Mg Capsule) 100 mg PO TID PRN PRN Reason: Cough Doxycycline Hyclate (Doxycycline Hyclate 100 Mg Capsule) 100 mg PO Q12HR SHANICE Stop: 08/27/25 09:01 Guaifenesin/Dextromethorphan (Guaifenesin/Dextromethorphan 200/20 Mg/10 Ml Cup) 5 ml PO Q4H PRN PRN Reason: Cough CEFTRIAXONE/D5W 1 GM PREMIX (Rocephin 1 Gm/50 Ml D5w) 1 gm in 50 mls @ 100 mls/hr IV DAILY SHANICE Stop: 08/25/25 13:49 Methylprednisolone Sodium Succinate (Methylprednisolone Sod Succ/Pf 40 Mg/Ml Vial) 40 mg IVP Q8HR SHANICE Ondansetron HCl (Ondansetron Hcl/Pf 4 Mg/2 Ml Sdv) 4 mg IVP Q6H PRN PRN Reason: Nausea / Vomiting ipratropium 0.5 mg-albuterol 3 mg (2.5 mg base)/3 mL nebulization soln 3 ml NEB RTQ4H PRN shortness of breath or wheezing #90 mL 04/26/25 [Rx Confirmed 08/22/25] budesonide-formoterol HFA 160 mcg-4.5 mcg/actuation aerosol inhaler (Symbicort) 2 puff inhalation 2XD #10.2 ea 05/30/25 [Rx Confirmed 08/22/25] furosemide 20 mg tablet 20 mg PO DAILY #30 tabs 05/31/25 [Rx Confirmed 08/22/25] famotidine 20 mg tablet 20 mg PO BIDAC2 #60 tabs 06/07/25 [Rx Confirmed 08/22/25] Held on 08/22/25. Instructions: patient thinks he isn't taking this one lisinopril 20 mg tablet 20 mg PO BID #60 tabs 06/07/25 [Rx Confirmed 08/22/25] pantoprazole 40 mg tablet,delayed release 40 mg PO BID #180 tabs 06/07/25 [Rx Confirmed 08/22/25] chlordiazepoxide HCl 10 mg capsule 10 mg PO BID #60 caps 07/12/25 [Rx Confirmed 08/22/25] primidone 50 mg tablet 100 mg (2 x 50 mg) PO QHS #60 tabs 07/12/25 [Rx Confirmed 08/22/25] prednisone 5 mg tablet 5 mg PO QDAY #30 tabs 08/02/25 [Rx Confirmed 08/22/25] roflumilast 500 mcg tablet (Daliresp) 500 mcg PO QDAY 08/02/25 [History Confirmed 08/22/25] Held on 08/22/25. Instructions: patient thinks he finished these albuterol sulfate 2.5 mg/3 mL (0.083 %) solution for nebulization 2.5 mg (3 mL) inhalation Q4-6H PRN for wheezing #150 vials 08/22/25 [Rx Confirmed 08/22/25] albuterol sulfate 90 mcg/actuation aerosol inhaler 2 puff inhalation Q4H PRN for wheezing #6.7 grams 08/22/25 [Rx Confirmed 08/22/25] alprazolam 0.25 mg tablet 0.25 mg PO BID PRN anxiety #60 tabs 08/22/25 [Rx] aspirin 325 mg capsule 325 mg PO DAILY 08/22/25 [History Confirmed 08/22/25] Opioid Naive vs. Tolerant Does Patient Take Opioids?: No Is Patient Opioid Naive?: Yes What is Opioid Naive?: *Opioid Naive implies the patient is not already taking opioids or not chronically receiving opioids on a daily basis. *PRN dosing is not "usually" associated with tolerance. *Patients are at higher risk of over-sedation and aspiration. Is Patient Opioid Tolerant?: No What is Opioid Tolerant?: *Opioid Tolerance implies less than the expected response to an opioid. *Acquired tolerance is defined by the patient taking 60mg of oral morphine daily (or equianalgesic dose of another opioid) for 1 week or more. *Often associated with chronic pain. *May take more than usual dose to achieve desired pain control. Review of Systems Constitutional: Reports Fatigue, Weakness and Loss of appetite; Denies Fever Head: Reports Normocephalic and Atraumatic Cardiovascular: Denies Chest pain, Edema or Syncope Respiratory: Reports Cough, Shortness of air and Wheeze Gastrointestinal: Denies Nausea, Vomiting, Diarrhea, Heartburn, Abdominal pain or Melena Genitourinary: Denies Dysuria or Hematuria Neurological: Denies Headache, Dizziness or Syncope Physical examination Most Recent Vital Signs: Most Recent Vital Signs Temperature 98.3 F 08/22/25 10:18 Temperature Source Infrared 08/22/25 10:18 Pulse Rate 63 08/22/25 12:25 Respiratory Rate 18 08/22/25 12:25 Blood Pressure 164/68 H 08/22/25 12:25 O2 Sat by Pulse Oximetry 98 08/22/25 12:25 Oxygen Flow Rate 3 08/22/25 12:25 Height 5 ft 7 in 08/22/25 10:18 Weight 49 kg 08/22/25 10:18 Telemetry Heart Rate 77 08/02/25 09:19 Telemetry SPO2 100 08/02/25 09:19 Appearance: Positive No Apparent Distress, Alert and Oriented x3 and Thin Skin: Positive [place], Warm and Good Turgor HEENT: Positive Normocephalic and Atraumatic Neck: Positive Supple and Midline Trachea Chest/Lungs: Positive Symmetrical With Equal Breath Sounds (diminished dafne), Wheezes and Other (+mild conversational dyspnea ) Heart: Positive RRR GI/: Positive Soft, Nontender, Bowel Sounds Normal and No Distention Extremities: Negative Edema Neurological: Positive Cranial Nerves Intact, Alert, Oriented and Other (+generalized weakness and deconditioning ) Psychiatric: Positive Oriented x4, Appropriate Mood and Appropriate Affect Labs This Visit Labs This Visit: Labs This Visit 08/22/25 08/22/25 11:05 12:24 WBC 8.67 RBC 4.61 L Hgb 12.5 L Hct 40.2 L MCV 87.2 MCH 27.1 MCHC 31.1 L RDW Coeff of Maty 14.5 Plt Count 310 Immature Gran % (Auto) 0.2 Neut % (Auto) 73.7 Lymph % (Auto) 15.1 [place] % (Auto) 7.3 Eos % (Auto) 3.1 Baso % (Auto) 0.6 Neut # (Auto) 6.4 Lymph # (Auto) 1.3 [place] # (Auto) 0.6 Eos # (Auto) 0.3 Baso # (Auto) 0.1 Immature Gran # (Auto) 0.0 Sodium 138.4 Potassium 3.46 L Chloride 103.3 Carbon Dioxide 32.5 H Anion Gap 6.06 BUN 18.3 Creatinine 0.86 Estimated GFR (MDRD) 85.00 BUN/Creatinine Ratio 21.27 Glucose 86.1 Calcium 8.19 L Magnesium 2.01 Total Bilirubin 0.29 AST 22.2 ALT 14.3 Alkaline Phosphatase 68.9 Troponin I < 0.012 NT-Pro-B Natriuret Pep 146 Total Protein 6.00 L Albumin 3.37 L Globulin 2.63 Albumin/Globulin Ratio 1.28 SARS CoV-2 RNA Rapid FRANK Negative Imaging Imaging: EXAM: CHEST, 2 VIEWS PA LAT HISTORY: Shortness of breath, cough COMPARISON: 06/19/2025 FINDINGS: Similar configuration of the cardiomediastinal silhouette and central pulmonary vessels. Stable emphysema and background fibrosis with probable right basilar bullous changes. No pneumothorax. No significant pleural effusion or segmental consolidation. Osseous structures appear unchanged. IMPRESSION: 1. Stable background emphysema and fibrosis with probable right basilar bullous changes. No new acute intrathoracic process. Review Statement Review Statement: I have independently reviewed and interpreted the labs/EKGs/imaging that were ordered by the ER provider. I have reviewed all outside records that are available currently in our EMR including imaging/notes/labs from previous visits. Plan Plan: 1. Acute COPD exacerbation - duonebs/abx/steroids, continue home inhalers, has nebulizer at home 2. Hypertension - Cont home meds 3. GERD - Cont home meds 4. Tremors - Cont home meds DVT Prophylaxis: Lovenox Time Spent: Greater than 80 minutes spent with patient, 50% of the time spent with this patient was devoted to counseling and coordination of care. [facility] minutes spent discussing advance care planning. Patient wishes to be DNR. Admit to: Obs Discussed Plan of Care with Dr. Neymar Branch.
[2025-08-22 13:21] VITALS: BMI 17.2
[2025-08-22] MEDS ORDERED: TESSALON PERLES PO PRN (13:41)
[2025-08-22] MEDS ORDERED: ROBITUSSIN DM SYRUP PO PRN (13:41)
[2025-08-22] MEDS ORDERED: TYLENOL PO PRN (13:41)
[2025-08-22] MEDS ORDERED: ZOFRAN SDV IVP PRN (13:41)
[2025-08-22] MEDS: ROCEPHIN 1 GM/50 ML D5W 1 GM/50 ML BAG IV SCH (14:56)
[2025-08-22] MEDS: DUONEB NEB PRN (18:00)
[2025-08-22] MEDS: ZESTRIL PO SCH (20:20)
[2025-08-22] MEDS: DOXYCYCLINE PO SCH (20:20)
[2025-08-22] MEDS: MYSOLINE PO SCH (20:20)
[2025-08-22] MEDS: XANAX PO PRN (20:20)
[2025-08-22] MEDS: SYMBICORT 160-4.5 MCG INHALER IH SCH (20:20)
[2025-08-22] MEDS: LIBRIUM PO SCH (20:20)
[2025-08-22] MEDS: SOLU-MEDROL 40 MG IVP SCH (20:53)
[2025-08-22] MEDS: PEPCID PO SCH (21:17)
[2025-08-22] MEDS: TUMS CHEWABLE PO PRN (21:17)
[2025-08-23 05:30] LABS: IMMATURE GRANULOCYTE # (AUTO) 0.0 (0.0-1.0); IMMATURE GRANULOCYTE % (AUTO) 0.4 % (0.0-5.0); RDW COEFFICIENT OF VARIATION 14.6 % (11.6-14.8)
[2025-08-23 05:45] LABS: CREATININE 0.69 mg/dL (0.60-1.10)
[2025-08-23] MEDS: PROTONIX PO SCH (05:57)
[2025-08-23] MEDS: LASIX TAB PO SCH (05:57)
[2025-08-23] MEDS: ASPIRIN CHEWABLE PO SCH (07:50)
[2025-08-23] MEDS: DALIRESP PO SCH (08:32)
[2025-08-23] MEDS: LOVENOX SUBCUT SCH (08:33)
--- NOTE | 2025-08-23 09:26 | PCM.PROG ---
Date/Time Seen Date Seen by Provider: 08/23/25 Time Seen by Provider: 08:30 Provider [facility] Chief Complaint Chief Complaint: COPD EXACERBATION Subjective Subjective: Patient states his breathing is feeling better but he's still having exertional dyspnea worse than his baseline. Required multiple neb treatments since admission. Daughter at bedside. Objective Appearance: Positive No Apparent Distress, Alert and Oriented x3 and Thin Chest/Lungs: Positive Symmetrical With Equal Breath Sounds and Other (+diminished air movement dafne, nonlabored breathing, speaks full sentences ); Negative Wheezes Heart: Positive RRR GI/: Positive Soft, Nontender, Bowel Sounds Normal and No Distention Neurological: Positive Cranial Nerves Intact, Alert, Oriented and Other (+generalized weakness, deconditioned ) Vital Signs Vital Signs: Vital Signs: Last 24 Hours 08/22/25 10:18 08/22/25 12:25 08/22/25 12:56 Temperature 98.3 F 97.2 F L Temperature Source Infrared Temporal Artery Scan Pulse Rate 90 63 73 Respiratory Rate 22 H 18 22 H Blood Pressure 160/79 H 164/68 H Blood Pressure Mean Blood Pressure Left Arm 151/75 Blood Pressure Location Blood Pressure Position Supine O2 Sat by Pulse Oximetry 93 L 98 93 L Oxygen Delivery Method Nasal Cannula Oxygen Flow Rate 3 3 Height 5 ft 7 in 5 ft 7 in Weight 49 kg 49.7 kg Telemetry Type Telemetry Monitoring Telemetry Heart Rate Telemetry SPO2 EKG NH Interval EKG QRS Interval Telemetry Strip Reading 08/22/25 12:56 08/22/25 13:00 08/22/25 13:06 Temperature Temperature Source Pulse Rate Respiratory Rate 18 Blood Pressure Blood Pressure Mean Blood Pressure Left Arm Blood Pressure Location Blood Pressure Position O2 Sat by Pulse Oximetry Oxygen Delivery Method Nasal Cannula Nasal Cannula Oxygen Flow Rate 2 Height Weight Telemetry Type Remote Telemetry Telemetry Monitoring Started Telemetry Heart Rate 67 Telemetry SPO2 EKG NH Interval 0.16 EKG QRS Interval 0.08 Telemetry Strip Reading SR 08/22/25 14:00 08/22/25 14:00 08/22/25 14:26 Temperature 97.3 F L Temperature Source Temporal Artery Scan Pulse Rate 73 Respiratory Rate 18 Blood Pressure 151/75 H Blood Pressure Mean 100 Blood Pressure Left Arm Blood Pressure Location Right Arm Blood Pressure Position Supine O2 Sat by Pulse Oximetry 93 L Oxygen Delivery Method Nasal Cannula Nasal Cannula Nasal Cannula Oxygen Flow Rate 3 2 Height Weight Telemetry Type Telemetry Monitoring Telemetry Heart Rate Telemetry SPO2 EKG NH Interval EKG QRS Interval Telemetry Strip Reading 08/22/25 15:00 08/22/25 16:00 08/22/25 16:51 Temperature Temperature Source Pulse Rate Respiratory Rate Blood Pressure Blood Pressure Mean Blood Pressure Left Arm Blood Pressure Location Blood Pressure Position O2 Sat by Pulse Oximetry Oxygen Delivery Method Nasal Cannula Nasal Cannula Nasal Cannula Oxygen Flow Rate Height Weight Telemetry Type Telemetry Monitoring Telemetry Heart Rate Telemetry SPO2 EKG NH Interval EKG QRS Interval Telemetry Strip Reading 08/22/25 17:51 08/22/25 17:51 08/22/25 19:00 Temperature 97.2 F L Temperature Source Temporal Artery Scan Pulse Rate 75 Respiratory Rate 18 Blood Pressure 145/72 H Blood Pressure Mean 96 Blood Pressure Left Arm Blood Pressure Location Left Arm Blood Pressure Position Supine O2 Sat by Pulse Oximetry 93 L Oxygen Delivery Method Nasal Cannula Nasal Cannula Nasal Cannula Oxygen Flow Rate 3 Height Weight Telemetry Type Telemetry Monitoring Telemetry Heart Rate Telemetry SPO2 EKG NH Interval EKG QRS Interval Telemetry Strip Reading 08/22/25 19:00 08/22/25 19:05 08/22/25 20:00 Temperature Temperature Source Pulse Rate Respiratory Rate 20 Blood Pressure Blood Pressure Mean Blood Pressure Left Arm Blood Pressure Location Blood Pressure Position O2 Sat by Pulse Oximetry Oxygen Delivery Method Nasal Cannula Nasal Cannula Oxygen Flow Rate 2 2 Height Weight Telemetry Type Remote Telemetry Telemetry Monitoring Continues Telemetry Heart Rate 81 Telemetry SPO2 96 EKG NH Interval 0.18 EKG QRS Interval 0.07 Telemetry Strip Reading SR 08/22/25 20:00 08/22/25 21:00 08/22/25 21:34 Temperature 97.6 F Temperature Source Temporal Artery Scan Pulse Rate 60 Respiratory Rate 18 Blood Pressure 127/66 Blood Pressure Mean 86 Blood Pressure Left Arm Blood Pressure Location Left Arm Blood Pressure Position Supine O2 Sat by Pulse Oximetry 96 Oxygen Delivery Method Nasal Cannula Nasal Cannula Nasal Cannula Oxygen Flow Rate 2 Height Weight Telemetry Type Telemetry Monitoring Telemetry Heart Rate Telemetry SPO2 EKG NH Interval EKG QRS Interval Telemetry Strip Reading 08/22/25 22:00 08/22/25 23:00 08/23/25 00:00 Temperature Temperature Source Pulse Rate Respiratory Rate Blood Pressure Blood Pressure Mean Blood Pressure Left Arm Blood Pressure Location Blood Pressure Position O2 Sat by Pulse Oximetry Oxygen Delivery Method Nasal Cannula Nasal Cannula Nasal Cannula Oxygen Flow Rate Height Weight Telemetry Type Telemetry Monitoring Telemetry Heart Rate Telemetry SPO2 EKG NH Interval EKG QRS Interval Telemetry Strip Reading 08/23/25 01:00 08/23/25 01:00 08/23/25 02:00 Temperature Temperature Source Pulse Rate Respiratory Rate Blood Pressure Blood Pressure Mean Blood Pressure Left Arm Blood Pressure Location Blood Pressure Position O2 Sat by Pulse Oximetry Oxygen Delivery Method Nasal Cannula Nasal Cannula Oxygen Flow Rate Height Weight Telemetry Type Remote Telemetry Telemetry Monitoring Continues Telemetry Heart Rate 58 L Telemetry SPO2 95 EKG NH Interval 0.19 EKG QRS Interval 0.06 Telemetry Strip Reading SB 08/23/25 02:00 08/23/25 03:00 08/23/25 03:50 Temperature 96.6 F L Temperature Source Temporal Artery Scan Pulse Rate 58 L Respiratory Rate 18 Blood Pressure 137/73 Blood Pressure Mean 94 Blood Pressure Left Arm Blood Pressure Location Left Arm Blood Pressure Position Supine O2 Sat by Pulse Oximetry 96 Oxygen Delivery Method Nasal Cannula Nasal Cannula Nasal Cannula Oxygen Flow Rate 2 Height Weight Telemetry Type Telemetry Monitoring Telemetry Heart Rate Telemetry SPO2 EKG NH Interval EKG QRS Interval Telemetry Strip Reading 08/23/25 05:00 08/23/25 05:15 08/23/25 05:41 Temperature 97.6 F Temperature Source Temporal Artery Scan Pulse Rate 77 Respiratory Rate 18 Blood Pressure 140/66 Blood Pressure Mean 90 Blood Pressure Left Arm Blood Pressure Location Left Arm Blood Pressure Position Supine O2 Sat by Pulse Oximetry 96 Oxygen Delivery Method Nasal Cannula Nasal Cannula Nasal Cannula Oxygen Flow Rate 2 2 Height Weight Telemetry Type Telemetry Monitoring Telemetry Heart Rate Telemetry SPO2 EKG NH Interval EKG QRS Interval Telemetry Strip Reading 08/23/25 06:00 08/23/25 07:00 08/23/25 07:00 Temperature Temperature Source Pulse Rate Respiratory Rate Blood Pressure Blood Pressure Mean Blood Pressure Left Arm Blood Pressure Location Blood Pressure Position O2 Sat by Pulse Oximetry Oxygen Delivery Method Nasal Cannula Nasal Cannula Oxygen Flow Rate Height Weight Telemetry Type Remote Telemetry Telemetry Monitoring Continues Telemetry Heart Rate 71 Telemetry SPO2 EKG NH Interval 0.15 EKG QRS Interval 0.06 Telemetry Strip Reading SR 08/23/25 07:16 08/23/25 08:00 08/23/25 09:00 Temperature Temperature Source Pulse Rate Respiratory Rate Blood Pressure Blood Pressure Mean Blood Pressure Left Arm Blood Pressure Location Blood Pressure Position O2 Sat by Pulse Oximetry Oxygen Delivery Method Nasal Cannula Nasal Cannula Nasal Cannula Oxygen Flow Rate 2 Height Weight Telemetry Type Telemetry Monitoring Telemetry Heart Rate Telemetry SPO2 EKG NH Interval EKG QRS Interval Telemetry Strip Reading 08/23/25 09:07 Temperature Temperature Source Pulse Rate Respiratory Rate Blood Pressure Blood Pressure Mean Blood Pressure Left Arm Blood Pressure Location Blood Pressure Position O2 Sat by Pulse Oximetry Oxygen Delivery Method Nasal Cannula Oxygen Flow Rate Height Weight Telemetry Type Telemetry Monitoring Telemetry Heart Rate Telemetry SPO2 EKG NH Interval EKG QRS Interval Telemetry Strip Reading Lab Results Lab Results: Lab Results: Last 24 Hours 08/23/25 08/22/25 08/22/25 05:15 12:24 11:05 WBC 9.42 8.67 RBC 4.27 L 4.61 L Hgb 11.6 L 12.5 L Hct 36.6 L 40.2 L MCV 85.7 87.2 MCH 27.2 27.1 MCHC 31.7 L 31.1 L RDW Coeff of Maty 14.6 14.5 Plt Count 278 310 Immature Gran % (Auto) 0.4 0.2 Neut % (Auto) 84.9 H 73.7 Lymph % (Auto) 11.9 15.1 [place] % (Auto) 2.7 7.3 Eos % (Auto) 0.0 3.1 Baso % (Auto) 0.1 0.6 Neut # (Auto) 8.0 H 6.4 Lymph # (Auto) 1.1 1.3 Scott # (Auto) 0.3 L 0.6 Eos # (Auto) 0.0 0.3 Baso # (Auto) 0.0 0.1 Immature Gran # (Auto) 0.0 0.0 Sodium 134.0 L 138.4 Potassium 3.78 3.46 L Chloride 105.8 103.3 Carbon Dioxide 26.0 32.5 H Anion Gap 5.98 6.06 BUN 20.8 H 18.3 Creatinine 0.69 0.86 Estimated GFR (MDRD) 110.00 85.00 BUN/Creatinine Ratio 30.14 21.27 Glucose 129.3 H 86.1 Calcium 8.25 L 8.19 L Magnesium 2.01 Total Bilirubin 0.28 0.29 AST 20.1 22.2 ALT 12.9 14.3 Alkaline Phosphatase 63.9 68.9 Troponin I < 0.012 NT-Pro-B Natriuret Pep 146 Total Protein 5.62 L 6.00 L Albumin 3.16 L 3.37 L Globulin 2.46 2.63 Albumin/Globulin Ratio 1.28 1.28 SARS CoV-2 RNA Rapid FRANK Negative Additional Comments Additional Comments: I have independently reviewed and interpreted the labs/EKGs/imaging ordered during this hospital stay. I have reviewed outside records that are available in our EMR that pertain to medical stay including imaging/notes/labs from previous visits. Active Medications Active Medications: Medications Generic Name Dose Route Start Last Admin Trade Name Freq PRN Reason Stop Dose Admin Acetaminophen 650 mg 08/22/25 13:41 Acetaminophen 325 Mg Tablet PO Q4H PRN Mild Pain Albuterol/Ipratropium 3 ml 08/22/25 13:47 08/23/25 06:17 Ipratropium/Albuterol Vial.Neb NEB 3 ml RTQ4H PRN Administration Wheezing Alprazolam 0.25 mg 08/22/25 15:17 08/22/25 20:20 Alprazolam 0.25 Mg Tablet PO 0.25 mg BID PRN Administration Anxiety Aspirin 81 mg 08/23/25 07:30 08/23/25 07:50 Aspirin 81 Mg Tab.Chew PO 81 mg DAILYWM2 SHANICE Administration Benzonatate 100 mg 08/22/25 13:41 Benzonatate 100 Mg Capsule PO TID PRN Cough Budesonide/Formoterol Fumarate 2 puff 08/22/25 21:00 08/23/25 08:34 Budesonide/Formoterol Fumarate 160/4.5 Mcg Inhaler IH 2 puff 2XD SHANICE Administration Calcium Carbonate/Glycine 500 mg 08/22/25 20:48 08/22/25 21:17 Calcium Carbonate 500 Mg Tab.Chew PO 500 mg Q6H PRN Administration Heartburn Chlordiazepoxide HCl 10 mg 08/22/25 21:00 08/23/25 08:32 Chlordiazepoxide Hcl 10 Mg Capsule PO 10 mg BID SHANICE Administration Doxycycline Hyclate 100 mg 08/22/25 21:00 08/23/25 08:31 Doxycycline Hyclate 100 Mg Capsule PO 08/27/25 09:01 100 mg Q12HR SHANICE Administration Enoxaparin Sodium 40 mg 08/23/25 09:00 08/23/25 08:33 Enoxaparin Sodium 40 Mg/0.4 Ml Syr SUBCUT 40 mg DAILY SHANICE Administration Famotidine 20 mg 08/22/25 20:50 08/23/25 05:57 Famotidine 20 Mg Tablet PO 20 mg BIDAC2 SHANICE Administration Furosemide 20 mg 08/23/25 06:00 08/23/25 05:57 Furosemide 20 Mg Tablet PO 20 mg QDAC2 SHANICE Administration Guaifenesin/Dextromethorphan 5 ml 08/22/25 13:41 Guaifenesin/Dextromethorphan 200/20 Mg/10 Ml Cup PO Q4H PRN Cough CEFTRIAXONE/D5W 1 GM PREMIX 1 gm in 50 mls @ 100 mls/hr 08/22/25 13:50 08/23/25 08:33 Rocephin 1 Gm/50 Ml D5w IV 08/25/25 13:49 100 mls/hr DAILY SHANICE Administration Lisinopril 20 mg 08/22/25 21:00 08/23/25 08:32 Lisinopril 10 Mg Tablet PO 20 mg BID SHANICE Administration Methylprednisolone Sodium Succinate 40 mg 08/22/25 21:00 08/23/25 05:13 Methylprednisolone Sod Succ/Pf 40 Mg/Ml Vial IVP 40 mg Q8HR SHANICE Administration Ondansetron HCl 4 mg 08/22/25 13:41 Ondansetron Hcl/Pf 4 Mg/2 Ml Sdv IVP Q6H PRN Nausea / Vomiting Pantoprazole Sodium 40 mg 08/23/25 06:00 08/23/25 05:57 Pantoprazole Sodium 40 Mg Tablet.Dr PO 40 mg QDAC2 SHANICE Administration Primidone 100 mg 08/22/25 21:00 08/22/25 20:20 Primidone 50 Mg Tablet PO 100 mg BEDTIME SHANICE Administration Roflumilast 500 mcg 08/23/25 09:00 08/23/25 08:32 Roflumilast 500 Mcg Tablet PO 500 mcg DAILY SHANICE Administration Sodium Chloride 1 syr 08/22/25 21:00 08/23/25 05:12 0.9% Sodium Chloride 10 Ml Disp.Syrin IVF 1 syr Q8HR SHANICE Administration Plan Plan: 1. Acute COPD exacerbation - duonebs/abx/steroids, continue home inhalers, has nebulizer at home 2. Hypertension - Cont home meds 3. GERD - Cont home meds 4. Tremors - Cont home meds DVT Prophylaxis: Lovenox Dispo: Make inpatient today, patient is not at his baseline, high risk of readmission Review Statement Review Statement: I have personally discussed and reviewed the patient's visit/currently labs/imaging/decision making with Dr. Branch, my supervising attending. Greater that 50 minutes spent with patient, 50% of the time spent with this patient was devoted to counseling and coordination of care.
[2025-08-24 05:12] VITALS: BP 144/78; RESP 20; TEMP 97.1
[2025-08-24 05:18] LABS: IMMATURE GRANULOCYTE # (AUTO) 0.1 (0.0-1.0); IMMATURE GRANULOCYTE % (AUTO) 0.6 % (0.0-5.0); RDW COEFFICIENT OF VARIATION 14.5 % (11.6-14.8)
[2025-08-24 05:32] LABS: CREATININE 0.76 mg/dL (0.60-1.10)
[2025-08-24 07:30] VITALS: PULSE 68
[2025-08-24] MEDS: K-DUR PO ONE (08:57)
--- NOTE | 2025-08-24 09:09 | DCSUM ---
Admission Date Admission Date: 08/22/25 Discharge Date Discharge Date: 08/24/25 Admission Diagnosis Admission Diagnosis: 1. Acute COPD exacerbation Discharge Diagnosis Discharge Diagnosis: 1. Acute COPD exacerbation, improved 2. Hypertension 3. GERD 4. [facility] Provider Hospital Provider: AILY[facility]ERRMANN [facility]-C, [facility] Primary Care Physician Primary Care Physician: TYREE DARBY Summary of History and Physical Summary of History and Physical: Patient is an 84 year old male from home who presents for worsening sob and cough for the past week. He wears 3L at baseline. He's been trying his nebulizer without relief. Lives with his granddaughter. Denies chest pain, n/v/d. In ER was noted to be wheezy and low 90s, given 3 nebs and steroids. Patient's wheezing improved but he was noted to still be dyspneic and tachypneic. Admitted to [facility] for acute COPD exacerbation. Patient states he's overall feeling better but not at his baseline. Hospital Course Subjective: Patient treated with duonebs/steroids/antibiotics. He has remained on his baseline O2. He has been ambulatory to the bathroom. He states he usually just walks between the main living area in his home to his bedroom and back. He wants to work on increasing his walking distance, we discussed adding a little at a time. He lives with granddaughter. He declines home health at this time. He is felt to be at his baseline and will discharge home in stable condition on remainder of cefpodoxime, doxy, prednisone. Patient states he has plenty of duonebs at home. Follow up with pcp. Appearance: Pleasant, No Apparent Distress and Alert HEENT: MMM CVS: Other (RRR) Abdomen: Soft, Non-Tender and No Distention Respiratory: Other (+very diminished, speaks full sentences, airway intact, no drooling, nonlabored breathing ) Extremities: No Edema Vital Signs: Most Recent Vital Signs Temperature 97.1 F L 08/24/25 05:11 Temperature Source Temporal Artery Scan 08/24/25 05:11 Temperature Source Infrared 08/22/25 10:18 Pulse Rate 68 08/24/25 07:19 Respiratory Rate 20 08/24/25 07:19 Blood Pressure 144/78 H 08/24/25 05:11 Blood Pressure Mean 100 08/24/25 05:11 Blood Pressure Left Arm 151/75 08/22/25 12:56 Blood Pressure Location Left Arm 08/24/25 05:11 Blood Pressure Position Supine 08/24/25 05:11 O2 Sat by Pulse Oximetry 100 08/24/25 05:50 Oxygen Delivery Method Nasal Cannula 08/24/25 07:19 Oxygen Flow Rate 2 08/24/25 07:19 Height 5 ft 7 in 08/23/25 11:19 Weight 49.7 kg 08/23/25 11:19 Telemetry Type Remote Telemetry 08/24/25 07:00 Telemetry Monitoring Continues 08/24/25 07:00 Telemetry Heart Rate 85 08/24/25 07:00 Telemetry SPO2 95 08/24/25 01:00 EKG WA Interval 0.18 08/24/25 07:00 EKG QRS Interval 0.08 08/24/25 07:00 Telemetry Strip Reading NSR 08/24/25 07:00 Imaging: EXAM: CHEST, 2 VIEWS PA LAT HISTORY: Shortness of breath, cough COMPARISON: 06/19/2025 FINDINGS: Similar configuration of the cardiomediastinal silhouette and central pulmonary vessels. Stable emphysema and background fibrosis with probable right basilar bullous changes. No pneumothorax. No significant pleural effusion or segmental consolidation. Osseous structures appear unchanged. IMPRESSION: 1. Stable background emphysema and fibrosis with probable right basilar bullous changes. No new acute intrathoracic process. Lab Results Last 24 Hours: 08/24/25 05:09 WBC 12.51 H RBC 4.30 L Hgb 11.7 L Hct 36.4 L MCV 84.7 MCH 27.2 MCHC 32.1 RDW Coeff of Maty 14.5 Plt Count 316 Immature Gran % (Auto) 0.6 Neut % (Auto) 86.7 H Lymph % (Auto) 8.4 L [place] % (Auto) 4.2 Eos % (Auto) 0.0 Baso % (Auto) 0.1 Neut # (Auto) 10.8 H Lymph # (Auto) 1.1 [place] # (Auto) 0.5 Eos # (Auto) 0.0 Baso # (Auto) 0.0 Immature Gran # (Auto) 0.1 Sodium 134.2 L Potassium 3.27 L Chloride 105.0 Carbon Dioxide 26.3 Anion Gap 6.17 BUN 22.7 H Creatinine 0.76 Estimated GFR (MDRD) 98.00 BUN/Creatinine Ratio 29.86 Glucose 169.5 H Calcium 8.64 Total Bilirubin 0.17 L AST 20.5 ALT 15.4 Alkaline Phosphatase 61.0 Total Protein 5.71 L Albumin 3.20 L Globulin 2.51 Albumin/Globulin Ratio 1.27 Discharge Instructions Discharge Planning: Discharge Planning > [address] Neymar Branch. Discharge Medications: Medications at Discharge (Home Meds & RX) ipratropium 0.5 mg-albuterol 3 mg (2.5 mg base)/3 mL nebulization soln 3 ml NEB RTQ4H PRN shortness of breath or wheezing #90 mL 04/26/25 budesonide-formoterol HFA 160 mcg-4.5 mcg/actuation aerosol inhaler (Symbicort) 2 puff inhalation 2XD #10.2 ea 05/30/25 furosemide 20 mg tablet 20 mg PO DAILY #30 tabs 05/31/25 lisinopril 20 mg tablet 20 mg PO BID #60 tabs 06/07/25 chlordiazepoxide HCl 10 mg capsule 10 mg PO BID #60 caps 07/12/25 primidone 50 mg tablet 100 mg (2 x 50 mg) PO QHS #60 tabs 07/12/25 prednisone 5 mg tablet 5 mg PO QDAY #30 tabs 08/02/25 roflumilast 500 mcg tablet (Daliresp) 500 mcg PO QDAY 08/02/25 albuterol sulfate 2.5 mg/3 mL (0.083 %) solution for nebulization 2.5 mg (3 mL) inhalation Q4-6H PRN for wheezing #150 vials 08/22/25 albuterol sulfate 90 mcg/actuation aerosol inhaler 2 puff inhalation Q4H PRN for wheezing #6.7 grams 08/22/25 alprazolam 0.25 mg tablet 0.25 mg PO BID PRN anxiety #60 tabs 08/22/25 pantoprazole 40 mg tablet,delayed release 40 mg PO QAM 08/22/25 aspirin 81 mg chewable tablet 81 mg PO DAILYWM2 #1 tab 08/24/25 cefpodoxime 200 mg tablet 200 mg PO BID 3 days #6 tabs 08/24/25 doxycycline hyclate 100 mg capsule 100 mg PO Q12HR 3 days #6 caps 10/15/25 prednisone 20 mg tablet 20 mg PO BID 3 days #6 tabs 08/24/25 Discharge Plan Discharge Discharge Orders: Discharge Patient (ONCE); Ordered 08/24/25 Ordered By: AILYN HERRMANN Activity Restrictions/Additional Instructions: DISCHARGE TO HOME DX: ACUTE COPD EXACERBATION PHARMACY: [facility] FOLLOW UP WITH PCP SCHEDULED RETURN WITH WORSENING SYMPTOMS ANTIBIOTICS AND STEROIDS SENT TO YOUR PHARMACY MAY TRY FLONASE (NASAL SPRAY) OR CLARITIN/ZYRTEC FOR DRAINAGE. Instructions: COPD (Chronic Obstructive Pulmonary Disease) (GEN) Care Plan Goals: Problem: Impaired Respiratory Status Goal: Exhibit optimal respiratory function Instructions: Activities as tolerated Apply oxygen as ordered Elevate head of bed Notify MD of increased congestion Problem: Activity Intolerance Goal: Demonstrate increased activity intolerance Instructions: Determine cause of activity intolerance Change positions slowly Gradually increase activity Report intolerances to provider Patient Disposition: HOME WITH FAMILY CARE Prescriptions: New aspirin 81 mg Tablet,Chewable 81 mg PO DAILYWM2 Qty: 1 0RF doxycycline hyclate 100 mg Capsule 100 mg PO Q12HR 3 Days Qty: 6 0RF cefpodoxime 200 mg tablet 200 mg PO BID 3 Days Qty: 6 0RF Rx Instructions: must administer with a meal/food prednisone 20 mg tablet 20 mg PO BID 3 Days Qty: 6 0RF Rx Instructions: start 08/25 Continued budesonide-formoterol [Symbicort] 160-4.5 mcg/actuation HFA aerosol inhaler 2 puff inhalation 2XD Qty: 10.2 3RF furosemide 20 mg tablet 20 mg PO DAILY Qty: 30 2RF primidone 50 mg tablet 100 mg PO QHS Qty: 60 1RF chlordiazepoxide HCl 10 mg capsule 10 mg PO BID Qty: 60 2RF albuterol sulfate 90 mcg/actuation HFA aerosol inhaler 2 puff inhalation Q4H PRN (Reason: for wheezing) Qty: 6.7 3RF albuterol sulfate 2.5 mg /3 mL (0.083 %) solution for nebulization 2.5 mg inhalation Q4-6H PRN (Reason: for wheezing) Qty: 150 3RF alprazolam 0.25 mg tablet 0.25 mg PO BID PRN (Reason: anxiety) Qty: 60 2RF ipratropium-albuterol 0.5 mg-3 mg(2.5 mg base)/3 mL Solution For Nebulization 3 ml NEB RTQ4H PRN (Reason: shortness of breath or wheezing) Qty: 90 0RF pantoprazole 40 mg tablet,delayed release (DR/EC) 40 mg PO QAM lisinopril 20 mg tablet 20 mg PO BID Qty: 60 2RF roflumilast [Daliresp] 500 mcg tablet 500 mcg PO QDAY prednisone 5 mg tablet 5 mg PO QDAY Qty: 30 1RF Discontinued aspirin 325 mg capsule 325 mg PO DAILY famotidine 20 mg tablet 20 mg PO BIDAC2 Qty: 60 2RF Did you review [place] [employer] REPRESENT[employer]IVE for ALL controlled substances?: Not Applicable Discussed opioids are addictive and Narcan is available by prescription or from pharmacy.: No Condition: Stable Referrals: JESSIE GREWAL APRN [NURSE PRACTITIONER, INTERNAL MEDICINE] - 08/30/25 11:20 am
== END 2025-08-24 09:48 | disposition home or self-care (01) | DRG 192 ==
LOC: ED 10:05 → MEDSURG B 10:05
PROVIDERS: ADMIT Hospitalist; ATTEND Physician Assistant
DX: D64.9 Anemia, unspecified; Z51.81 Encounter for therapeutic drug level monitoring; I10 Essential (primary) hypertension; M62.81 Muscle weakness (generalized); Z79.899 Other long term (current) drug therapy; E87.6 Hypokalemia; Z99.81 Dependence on supplemental oxygen; J44.1 Chronic obstructive pulmonary disease with (acute) exacerbation; R25.1 Tremor, unspecified; Z20.822 Contact with and (suspected) exposure to COVID-19; K21.9 Gastro-esophageal reflux disease without esophagitis